=== PATIENT | female | born 1950 | race Caucasian/White ===

== ENCOUNTER 2019-11-14 15:13 | Emergency (ER) | payer BC, SELFPAY ==
[2019-11-14 15:28] VITALS: BP 132/80; PULSE 83; RESP 20; TEMP 36.9; O2SAT 98; BMI 33.2
--- NOTE | 2019-11-14 15:36 | HMH.EDUTC ---
[facility] [place] Impression: Cellulitis of left hand Insect bite Qualifiers: Encounter type: initial encounter Site of insect bite: hand Laterality: left Qualified Code(s): S60.562A - Insect bite (nonvenomous) of left hand, initial encounter Disposition: Home, Self-Care Condition on Discharge: Good Instructions: Cellulitis, Insect Bites and Stings, DI for Insect Bites and Stings Additional Instructions: Apply warm wet compresses to the affected sites three or four times per day for 15 minutes as tolerated. Take the antibiotics as directed and apply the topical medication as directed. Follow up with your regular doctor. GO TO THE ER FOR ANY WORSENING SYMPTOMS OR CONCERNS Prescriptions: Mupirocin [Bactroban 2% Ointment 22gm tube] 1 applicatio TP TID 7 Days #1 tube Transmission Status: Received by [id number] cephALEXin [Keflex 500mg Cap] 500 mg PO Q6H 10 Days #40 cap Transmission Status: Received by [id number] methylPREDNISolone [Medrol] 4 mg PO DIRECTED 6 Days #21 tab.ds.pk Transmission Status: Received by [facility] Referrals: Provider,Referral, [Primary Care Provider] - Time of Disposition: 15:49 Medical Decision Making - Medical Records Medical records reviewed: No: I reviewed the patient's medical records. - Hemal Inquiry Pt receiving controlled substance: No Vital Signs: 11/14/19 15:28 11/14/19 15:54 Temperature 98.5 F 98.5 F Temperature Source Oral Pulse Rate 83 Pulse Rate [Right Brachial] 83 Respiratory Rate 20 20 Blood Pressure 132/80 Blood Pressure [Right Arm] 132/80 Blood Pressure Mean [Right Arm] 97 Blood Pressure Source [Right Arm] Automatic Cuff Blood Pressure Position [Right Arm] Sitting 02 Sat by Pulse Oximetry 98 Oxygen Delivery Method Room Air [facility] [place] - General Stated complaint: Insect bite on L Hand Time Seen by Provider: 11/14/19 15:36 Mode of Arrival: Ambulatory Source of Information: Patient Limitations: No Limitations Description of Symptoms (Recalled from Triage Doc. by RN): PATIENT C/O UNKNOWN INSECT BITE TO LEFT HAND THAT IS SWELLING AND ITCHING HEENT Symptoms (Recalled from RN notes): No Resp Symptoms (Recalled from RN notes): No Skin Symptoms (Recalled from RN notes): Yes MS Symptoms (Recalled from RN notes): No Functional Status (Recalled from RN notes): WNL - History of Present Illness Provider Complaint: She states that she was working outside this morning in some weeds, when she felt the top of her left hand start to hurt and feel like something stung her or bit her. She states that since then she has had redness and swelling of the back of her hand. It is also painful to move her fingers or wrist. She denies any fever or chills or other complaints. - Related Data Home Medications Medication Instructions Recorded Confirmed anastrozole 1 mg tablet 1 mg PO DAILY 05/16/18 07/04/18 calcium carbonate 600 mg calcium 600 mg PO DAILY tab 05/16/18 07/04/18 (1,500 mg) tablet citalopram 10 mg tablet 20 mg PO DAILY tab 05/16/18 07/04/18 levothyroxine 25 mcg capsule 25 mcg PO DAILY 05/16/18 07/04/18 ranitidine HCl 150 mg capsule 150 mg PO DAILY 05/16/18 07/04/18 Previous Rx's Medication Instructions Recorded Mupirocin [Bactroban 2% Ointment 1 applicatio TP TID 7 Days #1 tube 11/14/19 22gm tube] cephALEXin [Keflex 500mg Cap] 500 mg PO Q6H 10 Days #40 cap 11/14/19 methylPREDNISolone [Medrol] 4 mg PO DIRECTED 6 Days #21 11/14/19 tab.ds.pk Allergies Allergy/AdvReac Type Severity Reaction Status Date / Time Sulfa (Sulfonamide Allergy Intermediate I-ITCHING Verified 07/04/18 13:58 Antibiotics) [SULFA (SULFONAMIDE ANTIBIOTICS)] - Worker's Comp Is this a Worker's Comp case?: No [facility] History - Hepatitis A Screen Drug use history?: No High risk sexual behaviors?: No History of sexually transmitted infection?: No Currently employed?: No [employer]
[2019-11-14 15:54] VITALS: BP 132/80; PULSE 83; RESP 20; TEMP 36.9; O2SAT 98
== END 2019-11-14 15:55 | disposition home or self-care (01) ==
PROVIDERS: Emergency Provider Nurse Practitioner Family
DX: L03.114 Cellulitis of left upper limb (principal); S60.562A Insect bite (nonvenomous) of left hand, initial encounter; W57.XXXA Bitten or stung by nonvenomous insect and other nonvenomous arthropods, initial encounter; K21.9 Gastro-esophageal reflux disease without esophagitis; E03.9 Hypothyroidism, unspecified; Z88.2 Allergy status to sulfonamides
CPT/HCPCS: 99201

== ENCOUNTER → 2020-01-19 10:13 | Outpatient (CLI) | payer BC, SELFPAY ==
[2020-01-19 10:34] LABS: Basophils # 0.1 K/mm3 (0-0.2); Eosinophils # 0.2 K/mm3 (0.0-0.4); Eosinophils % 3.7 % (0.1-12.0); Hematocrit 37.1 % (37.0-47.0); Lymphocytes % 35.3 % (10-50); Mean Corpuscular HGB Conc 32.2 g/dL (31.8-35.4); Mean Corpuscular Hemoglobin 31.3 pg (27.0-31.2); Mean Platelet Volume 8.5 fl (7.4-10.4); Monocytes # 0.3 K/mm3 (0.1-1.0); Monocytes % 5.4 % (1.7-9.3); Neutrophils # 3.1 K/mm3 (1.8-7.8); Neutrophils % 54.7 % (37.0-80.0); Platelet Count 234 K/mm3 (142-424); Red Blood Count 3.82 M/mm3 (4.20-5.40); Red Cell Distribution Width 14.2 % (11.5-17.5); White Blood Count 5.7 K/mm3 (4.8-10.8)
[2020-01-19 10:42] LABS: Occult Blood,Stool Negative (Negative)
[2020-01-19 11:27] LABS: Iron 78 ug/dL (37-170)
[2020-01-19 12:02] LABS: Ferritin 8.68 ng/ml (11.1-264)
[2020-01-20 10:17] LABS: Lithium (Eskalith(R)) <0.1 mmol/L (0.6-1.2)
[2020-01-21 15:10] LABS: Vitamin B12 522 pg/mL (232-1245)
== END ==
PROVIDERS: Visit Provider Surgery
DX: D64.9 Anemia, unspecified (principal)
CPT/HCPCS: 36415; 80178; 82272; 82607; 82728; 83540; 85025; G0328

== ENCOUNTER → 2020-02-12 15:58 | Outpatient (CLI) | payer BC, SELFPAY ==
[2020-02-12 18:39] LABS: Iron 46 ug/dL (37-170)
[2020-02-12 18:48] LABS: Total Iron Binding Capacity 407 ug/dL (265-497)
[2020-02-12 20:58] LABS: Coronavirus 19 IgG Antibody Negative (Negative); Coronavirus 19 IgM Antibody Negative (Negative)
== END ==
PROVIDERS: Visit Provider Surgery
DX: D64.9 Anemia, unspecified (principal); Z20.828 Contact with and (suspected) exposure to other viral communicable diseases
CPT/HCPCS: 36415; 83540; 83550; 86328

== ENCOUNTER 2020-02-13 09:53 | Day surgery (SDC) | payer BC, SELFPAY ==
[2020-02-08 14:56] VITALS: BMI 34.3
[2020-02-13 10:14] VITALS: BP 161/84; PULSE 72; RESP 18; TEMP 36.2; O2SAT 99
--- NOTE | 2020-02-13 11:01 | HMH.ANESCL ---
[facility] Anesthesia Checklist - Patient Identification Patient Identification: Arm Band, Verbal (Name & ) - Structural Data Admitted From: Home Planned Operative Procedure/s: egd Consent for Planned Operative Procedure(s) Verified: Yes Verified Documents: History and Physical - NPO Status Verified Time NPO: 00:00 - Additional verifications Patient : No Anesthesia Reactions: No Hx Blood Transfusions: No Blood Transfusion Reaction: No Cephalosporin Allergy: No Previous Colonoscopy: Yes - Cardiovascular Assessment Heart Sounds: S1 & S2 Pulse Strength: Baseline Pulse Rhythm: Regular Peripheral Edema: No - Airway Assessment C-Spine Mobility Assessed: Yes TMJ Mobility Assessed: Yes Dentition: Good Dentition - Neurological Assessment Level of Consciousness: Awake, Alert, Appropriate Hx Seizures: No Numbness or tingling in extremities: No - Anesthesia Plan Anesthesia Risk discussed: Yes ASA Class: II Anesthesia Type: MAC [facility] History I have reviewed the patient's past medical history: Yes Medical History: Reports:: Gastroesophageal Reflux Disease(GERD) Denies:: Cancer, Diabetes Mellitus Type 1, Diabetes Mellitus Type 2, Internal Pacemaker, Lung Disease, MRSA, Seizures *Have you ever received a pneumonia vaccine?: Yes *Have you received a flu vaccine this season?: Yes Other Medical History: Reports: Hypothyroidism, Other Anesthesia experience/problems:: none Other Surgeries: Yes: Colonoscopy, Other. No: Pacemaker Amputation: No Fractures: Yes (WRIST) - *Social History Last grade of school completed: Advanced degree Smoking Status: Never smoker Alcohol Intake: never Substance Use Type: denies use *Occupational Status:: employed *Travel in the last 8 weeks: None Family Hx:: Non-contributory
[2020-02-13 11:58] VITALS: O2SAT 99
--- NOTE | 2020-02-13 12:21 | P.PCN_ITS ---
- Procedure: Date: 02/13/20 Patient Date of :: 1950 Procedure Performed:: Esophagogastroduodenoscopy with biopsies Indications:: Patient presents for upper endoscopy. She is a 69-year-old female who is relatively well known to me. It was recommended she see me for evaluation for anemia. I had seen her in 2009 at which time she underwent upper endoscopy which revealed ulcer. This ultimately had healed. She also had colonoscopy in 2009. Repeat colonoscopy was done in 2019, 06/14/2018 which revealed diverticulosis, internal hemorrhoids, and a couple of tubular adenomas. It was recommended she undergo follow-up colonoscopy in 5 years. Recently patient was seen by a physician in [place] and routine blood work reportedly revealed anemia. Patient denies any symptomatology. She did bring in a stool sample for me to look at as she stated it may be dark. Denies any obvious symptoms consistent with melena or hematochezia. I had her undergo CBC which revealed a hemoglobin of 12. Iron level was unremarkable. Stool for Hemoccult was negativ e. Plan was made to proceed with upper endoscopy. Performing Provider:: Keven Marie MD Referring Provider:: Teja Sedation:: MAC sedation Procedure:: Patient was taken to endoscopy procedure room. She was positioned in a lateral cubitus position. Adequate intravenous sedation was achieved with anesthesia titration of propofol. Olympus endoscope was inserted via the oropharynx advanced to the esophagus which appeared relatively unremarkable. Gastroesophageal junction was encountered at approximately 40 cm from the incisors. Stomach was cannulated and insufflated. Retroflexion revealed a moderate sliding hiatal hernia. She also had a gastric diverticulum near the cardia. In the antrum there is evidence of some erosive gastritis. Gastric antral mucosal biopsies obtained for CLOtest for H. pylori. Biopsies were obtained of the gastric mucosa to assess the erosive gastritis. Pylorus was traversed. There was possibly some minor duodenitis, nonerosive. At this time the patient did have some diminishing saturations. Endoscope was withdrawn. She was given supplemental oxygen via bag valve mask which resulted in improvement of her oxygen saturations. Endoscope was then reinserted to inspect the biopsy sites. There appeared to be good hemostasis. Stomach was d esufflated and the endoscope was withdrawn. Findings:: Moderate sliding hiatal hernia Gastric diverticulum Erosive gastritis Recommendations:: I will follow-up on histopathology and H. pylori status. May require proton pump inhibitors and H. pylori therapy if necessary. Complications:: None immediately apparent Estimated blood obtained (mL): 3
[2020-02-13 12:24] VITALS: BP 141/81; PULSE 85; RESP 18; TEMP 36.4; O2SAT 93
[2020-02-13 12:34] VITALS: BP 129/85; PULSE 63; RESP 18; TEMP 36.4; O2SAT 92
[2020-02-13 12:44] VITALS: BP 131/88; PULSE 64; RESP 18; TEMP 36.4; O2SAT 93
[2020-02-13 12:55] VITALS: BP 131/88; PULSE 64; RESP 18; TEMP 36.4; O2SAT 93
== END 2020-02-13 12:55 | disposition home or self-care (01) ==
PROVIDERS: Visit Provider Surgery
PROC: 0DJ08ZZ Inspection of Upper Intestinal Tract, Via Natural or Artificial Opening Endoscopic (ICD-10-PCS; CPT 43235; principal; 2020-02-13 11:00)
DX: K31.4 Gastric diverticulum (principal); K29.60 Other gastritis without bleeding; K44.9 Diaphragmatic hernia without obstruction or gangrene; D64.9 Anemia, unspecified; Z87.19 Personal history of other diseases of the digestive system; Z86.010 Personal history of colon polyps; E03.9 Hypothyroidism, unspecified; Z88.2 Allergy status to sulfonamides; Z79.899 Other long term (current) drug therapy
CPT/HCPCS: 43239; 87339

== ENCOUNTER 2020-12-07 16:00 | Emergency (ER) | payer BC, SELFPAY ==
[2020-12-07 16:00] VITALS: BP 169/91; PULSE 78; RESP 18; TEMP 36.9; O2SAT 98; BMI 34.6
--- NOTE | 2020-12-07 16:16 | HMH.EDUTC ---
[facility] Disposition Clinical Impression: Cat bite of hand Qualifiers: Encounter type: initial encounter Laterality: left Qualified Code(s): S61.452A - Open bite of left hand, initial encounter; W55.01XA - Bitten by cat, initial encounter Disposition: Home, Self-Care Condition on Discharge: Good Instructions: DI for Cat Bite Additional Instructions: keep wound clean and dry watch for s/s of infection follow up with pcp this week return or be seen in ed if worsen or no improvement Prescriptions: Amoxicillin/Potassium Clav [Augmentin 875-125 Tablet] 1 tab PO Q12H 7 Days #14 tab Transmission Status: Pending to [id number] Referrals: Adrienne Medina MD [Primary Care Provider] - Time of Disposition: 16:27 Medical Decision Making - Hemal Inquiry Pt receiving controlled substance: No Vital Signs: 12/07/20 16:00 Temperature 98.5 F Temperature Source Oral Pulse Rate [Left Brachial] 78 Respiratory Rate 18 Blood Pressure [Left Arm] 169/91 H Blood Pressure Mean [Left Arm] 117 Blood Pressure Source [Left Arm] Automatic Cuff Blood Pressure Position [Left Arm] Sitting 02 Sat by Pulse Oximetry 98 Oxygen Delivery Method Room Air [facility] HPI - General Chief complaint: Urgent Treatment Center Stated complaint: Cat bite left thumb Time Seen by Provider: 12/07/20 16:17 Mode of Arrival: Ambulatory Source of Information: Patient Limitations: No Limitations Description of Symptoms (Recalled from Triage Doc. by RN): PATIENT C/O CAT BITE TO LEFT THUMB TODAY. PATIENT IS UP TO DATE ON TDAP, CAT IS UP TO DATE ON IMMUNIZATIONS HEENT Symptoms (Recalled from RN notes): No Resp Symptoms (Recalled from RN notes): No Skin Symptoms (Recalled from RN notes): Yes MS Symptoms (Recalled from RN notes): No Functional Status (Recalled from RN notes): WNL - History of Present Illness Provider Complaint: 70 yr old female present for cat bite to left thumb. cat vaccines utd and her tetnus up to date - Related Data Home Medications Medication Instructions Recorded Confirmed anastrozole 1 mg tablet 1 mg PO DAILY 05/16/18 03/01/20 calcium carbonate 600 mg calcium 600 mg PO DAILY tab 05/16/18 03/01/20 (1,500 mg) tablet citalopram 10 mg tablet 20 mg PO DAILY tab 05/16/18 03/01/20 levothyroxine 25 mcg capsule 25 mcg PO DAILY 05/16/18 03/01/20 calcium polycarbophil 625 mg tablet 1,250 mg PO DAILY 01/19/20 03/01/20 cholecalciferol (vitamin D3) 10 10 mcg PO DAILY 01/19/20 03/01/20 mcg (400 unit) capsule dicyclomine 10 mg capsule 10 mg PO BID 01/19/20 03/01/20 famotidine 20 mg tablet 20 mg PO DAILY 01/19/20 03/01/20 Ferrous Sulfate [Ferrous Sulfate 325 mg PO DAILY 02/08/20 03/01/20 325mg Tab] Potassium 99 mg PO DAILY 02/08/20 03/01/20 Diclofenac Potassium [Diclofenac 50 mg PO BID 02/13/20 03/01/20 50mg Tab] Diclofenac Sodium [Voltaren 100gm 100 gm TP DAILY 02/13/20 03/01/20 Topical Gel] hydroxyzine HCl 25 mg tablet 25 mg PO tab 03/01/20 03/01/20 pramipexole 0.25 mg tablet 0.5 mg PO DAILY tab 03/01/20 03/01/20 trazodone 50 mg tablet 50 mg PO tab 03/01/20 03/01/20 Previous Rx's Medication Instructions Recorded Amoxicillin/Potassium Clav 1 tab PO Q12H 7 Days #14 tab 12/07/20 [Augmentin 875-125 Tablet] Allergies Allergy/AdvReac Type Severity Reaction Status Date / Time Sulfa (Sulfonamide Allergy Intermediate I-ITCHING Verified 03/01/20 09:26 Antibiotics) [SULFA (SULFONAMIDE ANTIBIOTICS)] - Worker's Comp Is this a Worker's Comp case?: No [facility] History - Hepatitis A Screen Drug use history?: No High risk sexual behaviors?: No History of sexually transmitted infection?: No Currently employed?: No Childcare worker?: No Do you have indoor plumbing?: Yes Do you have electricity?: Yes Attestation statement:: This patient has been screened for Hepatitis A risk factors. I have reviewed the patient's past medical history: Yes Medical History: Reports:: Gastroesophageal Re
[2020-12-07 16:27] VITALS: BP 169/91; PULSE 78; RESP 18; TEMP 36.9; O2SAT 98
== END 2020-12-07 16:30 | disposition home or self-care (01) ==
PROVIDERS: Emergency Provider Nurse Practitioner Family; PCP Family Medicine
DX: S61.452A Open bite of left hand, initial encounter (principal); W55.01XA Bitten by cat, initial encounter; Z88.2 Allergy status to sulfonamides; K21.9 Gastro-esophageal reflux disease without esophagitis

== ENCOUNTER 2021-03-09 16:00 | Emergency (ER) | payer BC, SELFPAY ==
[2021-03-09 16:15] VITALS: BP 147/75; PULSE 88; RESP 19; TEMP 36.8; O2SAT 96; BMI 33.3
--- NOTE | 2021-03-09 16:52 | HMH.EDUTC ---
[facility] [place] Clinical Impression: Laceration of right index finger Qualifiers: Encounter type: initial encounter Damage to nail status: without damage Foreign body presence: without foreign body Qualified Code(s): S61.210A - Laceration without foreign body of right index finger without damage to nail, initial encounter Disposition: Home, Self-Care Condition on Discharge: Good Instructions: DI for Laceration Repair-Skin Glue Additional Instructions: Keep the wound clean and dry. Don't peel the dermabond glue off. Just let it peel off on its own. Watch the site for any signs of infection, such as redness, swelling, drainage, etc. Follow up with your primary care doctor. GO TO THE ER FOR ANY WORSENING SYMPTOMS OR CONCERNS Referrals: Adrienne Medina MD [Primary Care Provider] - Medical Decision Making - Medical Records Medical records reviewed: No: I reviewed the patient's medical records. - Hemal Inquiry Pt receiving controlled substance: No Vital Signs: 03/09/21 16:15 03/09/21 17:17 Temperature 98.3 F 98.3 F Temperature Source Oral Pulse Rate 88 Pulse Rate [Left] 88 Respiratory Rate 19 19 Blood Pressure 147/75 H Blood Pressure [Right Arm] 147/75 H Blood Pressure Mean [Right Arm] 99 02 Sat by Pulse Oximetry 96 Orders (Tests/Meds): ED MEDICATIONS Discontinued Medications Generic Name Dose Route Start Last Admin Trade Name Freq PRN Reason Stop Dose Admin Lidocaine HCl 5 ml 03/09/21 16:25 Lidocaine 1% 5ml Pf Vial IJ 03/09/21 16:26 ONCE ONE [facility] [place] HPI - General Stated complaint: AO cut finger on mandolin slicer Time Seen by Provider: 03/09/21 16:52 Mode of Arrival: Ambulatory Source of Information: Patient Limitations: No Limitations Description of Symptoms (Recalled from Triage Doc. by RN): pt has a lac to the pad of her R index finger from a mandolin slicer HEENT Symptoms (Recalled from RN notes): No Resp Symptoms (Recalled from RN notes): No Skin Symptoms (Recalled from RN notes): Yes (lac to R index finger) MS Symptoms (Recalled from RN notes): No Functional Status (Recalled from RN notes): na - History of Present Illness Provider Complaint: She was slicing potatoes on a mandolin slicer when she slipped and cut the tip of her right index finger. She has a flap type laceration on her finger. Her tetanus immunization is up to date. - Related Data Home Medications Medication Instructions Recorded Confirmed anastrozole 1 mg tablet 1 mg PO DAILY 05/16/18 03/01/20 calcium carbonate 600 mg calcium 600 mg PO DAILY tab 05/16/18 03/01/20 (1,500 mg) tablet citalopram 10 mg tablet 20 mg PO DAILY tab 05/16/18 03/01/20 levothyroxine 25 mcg capsule 25 mcg PO DAILY 05/16/18 03/01/20 calcium polycarbophil 625 mg tablet 1,250 mg PO DAILY 01/19/20 03/01/20 cholecalciferol (vitamin D3) 10 10 mcg PO DAILY 01/19/20 03/01/20 mcg (400 unit) capsule dicyclomine 10 mg capsule 10 mg PO BID 01/19/20 03/01/20 famotidine 20 mg tablet 20 mg PO DAILY 01/19/20 03/01/20 Ferrous Sulfate [Ferrous Sulfate 325 mg PO DAILY 02/08/20 03/01/20 325mg Tab] Potassium 99 mg PO DAILY 02/08/20 03/01/20 Diclofenac Potassium [Diclofenac 50 mg PO BID 02/13/20 03/01/20 50mg Tab] Diclofenac Sodium [Voltaren 100gm 100 gm TP DAILY 02/13/20 03/01/20 Topical Gel] hydroxyzine HCl 25 mg tablet 25 mg PO tab 03/01/20 03/01/20 pramipexole 0.25 mg tablet 0.5 mg PO DAILY tab 03/01/20 03/01/20 trazodone 50 mg tablet 50 mg PO tab 03/01/20 03/01/20 Previous Rx's Medication Instructions Recorded Amoxicillin/Potassium Clav 1 tab PO Q12H 7 Days #14 tab 12/07/20 [Augmentin 875-125 Tablet] Allergies Allergy/AdvReac Type Severity Reaction Status Date / Time Sulfa (Sulfonamide Allergy Intermediate I-ITCHING Verified 03/01/20 09:26 Antibiotics) [SULFA (SULFONAMIDE ANTIBIOTICS)] - Worker's Comp Is this a Worker's Comp case?: No H History -
[2021-03-09 17:17] VITALS: BP 147/75; PULSE 88; RESP 19; TEMP 36.8
== END 2021-03-09 17:18 | disposition home or self-care (01) ==
PROVIDERS: Emergency Provider Nurse Practitioner Family; PCP Family Medicine
DX: S61.210A Laceration without foreign body of right index finger without damage to nail, initial encounter (principal); Z79.899 Other long term (current) drug therapy
CPT/HCPCS: 12001; 99202; G0463

== ENCOUNTER 2021-03-15 10:20 | Emergency (ER) | payer BC, SELFPAY ==
[2021-03-15 10:20] VITALS: BP 183/85; PULSE 62; RESP 20; TEMP 36.4; O2SAT 95; BMI 32.3
--- NOTE | 2021-03-15 10:27 | XR_ITS ---
PROCEDURE INFORMATION: Exam: XR Left Knee Exam date and time: 03/15/2021 10:27 AM Age: 70 years old Clinical indication: Injury or trauma; Fall; Blunt trauma; Knee; Left; Injury date: 3 weeks ago; Additional info: Pain from a fall TECHNIQUE: Imaging protocol: XR Left knee. Views: 3 views. COMPARISON: No relevant prior studies available. FINDINGS: Bones/joints: No acute fracture or dislocation. No significant joint effusion. Soft tissues: Suprapatellar soft tissue swelling, hematoma suspected. IMPRESSION: 1. No acute fracture or dislocation. 2. Suprapatellar soft tissue swelling, hematoma suspected.
--- NOTE | 2021-03-15 10:52 | HMH.EDUTC ---
[facility] [place]: Knee effusion, left Disposition: Home, Self-Care Condition on Discharge: Good Instructions: DI for Knee Effusion Additional Instructions: Weight bearing as tolerated rest Ice with cold pack for 20 minutes remove may repeat for comfort every hour Adrian wrap for support and swelling no less in the shower. Be sure not too tight but not to lose either Elevate with ankle above your heart as much as possible to help reduce swelling and therefore pain Ibuprofen every 6 hours as needed for pain or inflammation. If needs something more you can take Tylenol every 4 hours as needed as long as her primary care has told he was okayed for you to take both. If improving any do not need to follow-up you can bring begin exercising 2-3 weeks after injury. Follow-up immediately if new or worsening symptoms or no noticeable improvement over the next 3-5 days. call ortho Referrals: Adrienne Medina MD [Primary Care Provider] - Yared Caruso MD [Staff Physician] - Time of Disposition: 11:12 Medical Decision Making - Hemal Inquiry Pt receiving controlled substance: No Vital Signs: 03/15/21 10:20 Temperature 97.6 F Temperature Source Oral Pulse Rate [Right Brachial] 62 Respiratory Rate 20 Blood Pressure [Right Arm] 183/85 H Blood Pressure Mean [Right Arm] 117 Blood Pressure Source [Right Arm] Automatic Cuff Blood Pressure Position [Right Arm] Sitting 02 Sat by Pulse Oximetry 95 Oxygen Delivery Method Room Air Orders (Tests/Meds): ORDERS Category Date Time Status XR knee LT 3V Stat Exams 03/15/21 10:27 Taken [facility] [place] - General Chief complaint: Urgent Treatment Center Stated complaint: AO 0925, left knee pain Time Seen by Provider: 03/15/21 10:52 Mode of Arrival: Ambulatory Source of Information: Patient Limitations: No Limitations Description of Symptoms (Recalled from Triage Doc. by RN): PATIENT C/O SWELLING TO LEFT KNEE. REPORTS FALLING AND LANDING ON THAT KNEE APPROX 3 WEEKS AGO HEENT Symptoms (Recalled from RN notes): No Resp Symptoms (Recalled from RN notes): No Skin Symptoms (Recalled from RN notes): No MS Symptoms (Recalled from RN notes): Yes Functional Status (Recalled from RN notes): WNL - Related Data Home Medications Medication Instructions Recorded Confirmed anastrozole 1 mg tablet 1 mg PO DAILY 05/16/18 03/01/20 calcium carbonate 600 mg calcium 600 mg PO DAILY tab 05/16/18 03/01/20 (1,500 mg) tablet citalopram 10 mg tablet 20 mg PO DAILY tab 05/16/18 03/01/20 levothyroxine 25 mcg capsule 25 mcg PO DAILY 05/16/18 03/01/20 calcium polycarbophil 625 mg tablet 1,250 mg PO DAILY 01/19/20 03/01/20 cholecalciferol (vitamin D3) 10 10 mcg PO DAILY 01/19/20 03/01/20 mcg (400 unit) capsule dicyclomine 10 mg capsule 10 mg PO BID 01/19/20 03/01/20 famotidine 20 mg tablet 20 mg PO DAILY 01/19/20 03/01/20 Ferrous Sulfate [Ferrous Sulfate 325 mg PO DAILY 02/08/20 03/01/20 325mg Tab] Potassium 99 mg PO DAILY 02/08/20 03/01/20 Diclofenac Potassium [Diclofenac 50 mg PO BID 02/13/20 03/01/20 50mg Tab] Diclofenac Sodium [Voltaren 100gm 100 gm TP DAILY 02/13/20 03/01/20 Topical Gel] hydroxyzine HCl 25 mg tablet 25 mg PO tab 03/01/20 03/01/20 pramipexole 0.25 mg tablet 0.5 mg PO DAILY tab 03/01/20 03/01/20 trazodone 50 mg tablet 50 mg PO tab 03/01/20 03/01/20 Previous Rx's Medication Instructions Recorded Amoxicillin/Potassium Clav 1 tab PO Q12H 7 Days #14 tab 12/07/20 [Augmentin 875-125 Tablet] Allergies Allergy/AdvReac Type Severity Reaction Status Date / Time Sulfa (Sulfonamide Allergy Intermediate I-ITCHING Verified 03/01/20 09:26 Antibiotics) [SULFA (SULFONAMIDE ANTIBIOTICS)] - Worker's Comp Is this a Worker's Comp case?: No H History - Hepatitis A Screen Drug use history?: No High risk sexual behaviors?: No History of sexually transmitted infection?: No Currently employed?: No Childcare 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
[2021-03-15 11:14] VITALS: BP 183/85; PULSE 62; RESP 20; TEMP 36.4; O2SAT 95
== END 2021-03-15 11:19 | disposition home or self-care (01) ==
PROVIDERS: Emergency Provider Nurse Practitioner Family; PCP Family Medicine
DX: M25.462 Effusion, left knee (principal); W01.0XXA Fall on same level from slipping, tripping and stumbling without subsequent striking against object, initial encounter; K21.9 Gastro-esophageal reflux disease without esophagitis; Z88.2 Allergy status to sulfonamides
CPT/HCPCS: 73562; 99202; G0463

== ENCOUNTER 2022-01-13 08:24 | Emergency (ER) | payer MEDICARE, SELFPAY ==
[2022-01-13 08:30] VITALS: BP 148/76; PULSE 77; RESP 18; TEMP 36.8; O2SAT 98; BMI 31.1
--- NOTE | 2022-01-13 08:45 | HMH.EDUTC ---
[facility] [place] Disposition Clinical Impression: Bee sting reaction Qualifiers: Encounter type: initial encounter Injury intent: undetermined intent Qualified Code(s): T63.444A - Toxic effect of venom of bees, undetermined, initial encounter Disposition: Home, Self-Care Condition on Discharge: Good Instructions: Insect Bites and Stings, DI for Insect Bites and Stings, DI for General Allergic Reactions Additional Instructions: Care for a bite or sting wound: Elevate (raise) the area above the level of your heart, if possible. Prop the area on pillows to keep it raised comfortably. Elevate the area for 10 to 20 minutes each hour or as directed by your healthcare provider. Use cool compresses. Soak a clean washcloth in cold water, wring it out, and put it on the bite or sting. Use the compress for 10 to 20 minutes each hour or as directed by your healthcare provider. After 24 to 48 hours, change to warm compresses Over the counter Benadryl and Claritian may help with itching and reactions Start oral steriods tomorrow Return if needed Straight to ER if you start having any shortness of breath or swelling in your throat. Prescriptions: methylPREDNISolone [Medrol 4mg tab] 4 mg PO DIRECTED #21 tab Transmission Status: Received by [id number] Referrals: Adrienne Medina MD [Primary Care Provider] - As needed Time of Disposition: 09:14 Medical Decision Making - Hemal Inquiry Pt receiving controlled substance: No Hemal was queried for this patient: No Vital Signs: 01/13/22 08:30 01/13/22 08:54 Temperature 98.3 F 98.3 F Temperature Source Oral Pulse Rate 77 Pulse Rate [Right Brachial] 77 Respiratory Rate 18 18 Blood Pressure 148/76 H Blood Pressure [Right Arm] 148/76 H Blood Pressure Mean [Right Arm] 100 Blood Pressure Source [Right Arm] Automatic Cuff Blood Pressure Position [Right Arm] Sitting 02 Sat by Pulse Oximetry 98 Oxygen Delivery Method Room Air Orders (Tests/Meds): ED MEDICATIONS Discontinued Medications Generic Name Dose Route Start Last Admin Trade Name Freq PRN Reason Stop Dose Admin Famotidine 20 mg 01/13/22 08:46 01/13/22 08:51 Famotidine 20mg Tablet PO 01/13/22 08:47 20 mg ONCE ONE Administration Loratadine 10 mg 01/13/22 08:47 01/13/22 08:50 Loratadine 10mg Tablet PO 01/13/22 08:48 10 mg ONCE ONE Administration Methylprednisolone Sodium Succinate 125 mg 01/13/22 08:46 01/13/22 08:51 Methylprednisolone Sod Succ 125mg Vial IM 01/13/22 08:47 125 mg ONCE ONE Administration [facility] [place] HPI - General Stated complaint: Reaction to bee sting Time Seen by Provider: 01/13/22 08:45 Mode of Arrival: Ambulatory Source of Information: Patient Limitations: No Limitations Description of Symptoms (Recalled from Triage Doc. by RN): PATIENT STATES SHE WAS MOVING A BOX ON THE PORCH AND DID NOT KNOW THERE WERE BEES IN IT, C/O SEVERAL BEE STINGS HEENT Symptoms (Recalled from RN notes): No Resp Symptoms (Recalled from RN notes): No Skin Symptoms (Recalled from RN notes): Yes MS Symptoms (Recalled from RN notes): No Functional Status (Recalled from RN notes): WNL - History of Present Illness Provider Complaint: Patient states that she was moving a box on her front porch and there was a hive of bees in there States that she was stung multiple times on her neck, right arm, side and back States that she immediately took some benadryl but she was turning red and starting to swell some so she came in to get checked - Related Data Home Medications Medication Instructions Recorded Confirmed anastrozole 1 mg tablet 1 mg PO DAILY 05/16/18 03/25/21 calcium carbonate 600 mg calcium 600 mg PO DAILY tab 05/16/18 03/25/21 (1,500 mg) tablet citalopram 10 mg tablet 20 mg PO DAILY tab 05/16/18 03/25/21 levothyroxine 25 mcg capsule 25 mcg PO DAILY 05/16/18 03/25/21 calcium polycarbophil 625 mg tablet 1,250 mg PO DAILY 01/19/20 03/25/21 cholecalciferol (vitamin D3) 10 10 m
[2022-01-13 08:54] VITALS: BP 148/76; PULSE 77; RESP 18; TEMP 36.8; O2SAT 98
== END 2022-01-13 09:20 | disposition home or self-care (01) ==
PROVIDERS: Emergency Provider Nurse Practitioner; PCP Family Medicine
DX: T63.444A Toxic effect of venom of bees, undetermined, initial encounter (principal); K21.9 Gastro-esophageal reflux disease without esophagitis; E03.9 Hypothyroidism, unspecified; Z79.52 Long term (current) use of systemic steroids; Z88.2 Allergy status to sulfonamides
CPT/HCPCS: 96372; 99213; G0463

== ENCOUNTER 2022-04-24 08:01 | Emergency (ER) | payer MEDICARE, SELFPAY ==
[2022-04-24 08:10] VITALS: BP 135/89; PULSE 96; RESP 20; TEMP 37.2; O2SAT 97; BMI 33.4
--- NOTE | 2022-04-24 08:35 | EXP.UTC ---
Discharge Plan Disposition Patient Disposition: Home, Self-Care Condition: Good Prescriptions Prescriptions: New benzonatate [benzonatate] 100 mg capsule 100 mg PO TIDP PRN (Reason: Cough) Qty: 30 0RF oseltamivir [Tamiflu] 75 mg capsule 75 mg PO BID Qty: 10 0RF No Action anastrozole 1 mg tablet 1 mg PO DAILY levothyroxine 25 mcg capsule 25 mcg PO DAILY citalopram 10 mg tablet 20 mg PO DAILY calcium carbonate 600 mg calcium (1,500 mg) tablet 600 mg PO DAILY cholecalciferol (vitamin D3) [Vitamin D3] 10 mcg (400 unit) capsule 10 mcg PO DAILY calcium polycarbophil [FiberCon] 625 mg tablet 1,250 mg PO DAILY famotidine 20 mg tablet 20 mg PO DAILY pramipexole 0.25 mg tablet 0.5 mg PO DAILY hydroxyzine HCl 25 mg tablet 25 mg PO Label Comments: TAKE 1 TABLET BY MOUTH AT BEDTIME NEEDED trazodone 50 mg tablet 50 mg PO potassium 99 MG tablet 99 mg PO DAILY ferrous sulfate 325 MG tablet 325 mg PO DAILY diclofenac potassium 50 MG tablet 50 mg PO BID diclofenac sodium 100 GM gel 100 gm TP DAILY methylprednisolone 4 MG tablet 4 mg PO DIRECTED Qty: 21 0RF Rx Instructions: Take as directed on package instructions Referrals Follow up/Referrals: Provider,Referral, MD [Primary Care Provider] - See instructions Activity Restrictions/Add. Instructions Additional Instructions/Restrictions: Drink plenty of fluids. Take tylenol or ibuprofen for pain or fever. Take the medications as directed. Follow up with your regular doctor. GO TO THE ER FOR ANY WORSENING SYMPTOMS Clinical Impressions Clinical Impression: Influenza A Instructions Patient Instructions: DI for Influenza -- Adult, Oseltamivir Discharge ED Provider: Osmar Lopez [facility] General Stated complaint: cough, weakness, runny nose Mode of Arrival: Ambulatory Source of Information: Patient Limitations: No Limitations Time Seen by Provider: 04/24/22 08:35 Description of Symptoms (Recalled from Triage Doc. by RN): PATIENT C/O DRY COUGH, SORE THROAT, AND HEADACHE THAT STARTED WEDNESDAY AFTERNOON HEENT Symptoms (Recalled from RN notes): Yes Resp Symptoms (Recalled from RN notes): Yes Skin Symptoms (Recalled from RN notes): No MS Symptoms (Recalled from RN notes): No Functional Status (Recalled from RN notes): WNL History of Present Illness Provider Complaint: She states that for the past 2 days she has had cough, chest congestion, sinus congestion, and body aches. Related Data Home Medications Medication Instructions Recorded Confirmed anastrozole 1 mg tablet 1 mg PO DAILY decrease estrogen 05/16/18 03/25/21 calcium carbonate 600 mg calcium 600 mg PO DAILY Supplement 05/16/18 03/25/21 (1,500 mg) tablet citalopram 10 mg tablet 20 mg PO DAILY Anxiety 05/16/18 03/25/21 levothyroxine 25 mcg capsule 25 mcg PO DAILY thyroid 05/16/18 03/25/21 calcium polycarbophil 625 mg 1,250 mg PO DAILY Supplement 01/19/20 03/25/21 tablet (FiberCon) cholecalciferol (vitamin D3) 10 10 mcg PO DAILY Supplement 01/19/20 03/25/21 mcg (400 unit) capsule (Vitamin D3) famotidine 20 mg tablet 20 mg PO DAILY Reflux/Acid reflux 01/19/20 03/25/21 ferrous sulfate 325 mg (65 mg 325 mg PO DAILY Supplement 02/08/20 03/25/21 iron) tablet potassium 99 mg tablet 99 mg PO DAILY Supplement 02/08/20 03/25/21 diclofenac potassium 50 mg tablet 50 mg PO BID Pain 02/13/20 03/25/21 diclofenac sodium 1 % topical gel 100 gm TP DAILY Pain 02/13/20 03/25/21 hydroxyzine HCl 25 mg tablet 25 mg PO 03/01/20 03/25/21 pramipexole 0.25 mg tablet 0.5 mg PO DAILY * 03/01/20 03/25/21 trazodone 50 mg tablet 50 mg PO 03/01/20 03/25/21 Previous Rx's Medication Instructions Recorded methylprednisolone 4 mg tablet 4 mg PO DIRECTED #21 tabs 01/13/22 benzonatate 100 mg capsule 100 mg PO TIDP PRN Cough #30 caps 04/24/22 oseltamivir 75 mg capsule (Tamiflu) 75 mg PO
[2022-04-24 08:39] LABS: UTC Influenza A Antigen Positive (Negative); UTC Influenza B Antigen Negative (Negative)
[2022-04-24 08:50] VITALS: BP 135/89; PULSE 96; RESP 20; TEMP 37.2; O2SAT 97
== END 2022-04-24 08:52 | disposition home or self-care (01) ==
PROVIDERS: Emergency Provider Nurse Practitioner Family
DX: J10.1 Influenza due to other identified influenza virus with other respiratory manifestations (principal)
CPT/HCPCS: 87804; 99212; G0463

== ENCOUNTER 2022-06-12 06:30 | Day surgery (SDC) | payer MEDICARE, SELFPAY ==
[2022-06-10 10:03] VITALS: BMI 32.5
[2022-06-12] VITALS (8 sets, daily range): BP systolic 90–166; BP diastolic 60–93; PULSE 64–80; RESP 15–19; TEMP 36.1–36.3; O2SAT 94–98
--- NOTE | 2022-06-12 07:08 | P.PN_ITS ---
[facility] Disclaimer: The information contained in this section may have been updated after the patient was seen, as this information can be updated by other users. Medical History Hyperthyroidism Surgical History History of carpal tunnel release History of surgery on right wrist History of tonsillectomy Family History Other No significant family history Social History Smoking Status: Never smoker alcohol intake: never substance use type: denies use current occupational status: other Travel in the last 8 weeks: None caffeine: Yes [facility] Anesthesia Checklist Patient Identification Patient Identification: Arm Band and Verbal (Name & ) Structural Data Admitted From: Home Planned Operative Procedure/s: Colonoscopy Consent for Planned Operative Procedure(s) Verified: Yes NPO Status Verified Time NPO: 00:00 Additional verifications Anesthesia Reactions: No Hx Blood Transfusions: No Blood Transfusion Reaction: No Airway Assessment C-Spine Mobility Assessed: Yes TMJ Mobility Assessed: Yes Dentition: Good Dentition Neurological Assessment Level of Consciousness: Awake Hx Seizures: No Numbness or tingling in extremities: No Anesthesia Plan Anesthesia Risk discussed: Yes Anesthesia Plan: Verified ASA Class: II Anesthesia Type: MAC
--- NOTE | 2022-06-12 08:08 | P.PCN_ITS ---
Procedure: Date: 06/12/22 Patient Date of :: 1950 Procedure Performed:: Colonoscopy with polypectomy Indications:: Patient is a 72-year-old female who I have seen in the past for ulcer and performed upper endoscopy. I had previously performed colonoscopy in 2009 and she had another colonoscopy performed May 2018 at which time she had some adenomatous polyps. Follow-up colonoscopy was recommended for 3 years. Performing Provider:: Keven Marie MD Referring Provider:: Adrienne Medina Sedation:: MAC sedation Procedure:: Patient history was obtained and appropriate physical examination was performed. Patient's medications and allergies were reviewed. Informed consent was obtained after explaining the benefits, alternatives, and risks of the procedure including, but not limited to, bleeding, perforation, missed lesions, and adverse reaction to anesthesia medications. Patient was transported to endoscopy procedure room. Patient was connected to monitoring devices. Throughout the procedure the patient's blood pressure, pulse, and oxygen saturations were monitored continuously. Patient identification and planned procedure were verified by the staff. Patient was positioned in lateral decubitus position. Digital anorectal exam was performed. Variable stiffness Olympus colonoscope was inserted and advanced under direct visualization to the cecum. Adequacy of the colonic prepa ration was noted. The colonoscope was advanced a short distance into the terminal ileum. The colonoscope was then slowly withdrawn while carefully examining the color, texture, anatomy, and integrity of the mucosoa circumferentially. Within the rectum retroflexion was performed. Colonoscope was then withdrawn. Findings:: Colonoscope was advanced. Patient had a rather fair to poor preparation with large amount of very dark black particulate liquid stool throughout the colon. Large-volume irrigation and suctioning was performed and there was fair preparation. Ileocecal valve and appendiceal orifice were identified. There was noted to be a small polyp in the descending colon at approximately 70 cm from the anus and this was removed with cold snare. There was a rectosigmoid polyp removed with biopsy forceps. She had some distal sigmoid diverticuli. Retroflexion revealed some minimal prolapsing nonbleeding internal hemorrhoids. Impression: Fair to poor preparation as noted above Small descending polyp removed with snare Rectosigmoid hyperplastic appearing polyp removed with biopsy forceps Distal sigmoid diverticuli Recommendations:: Given suboptimal preparation with limited visualization and prior history of adenomatous polyps recommend repeat colonoscopy in 1 to 2 years with multi day prep. Complications:: None immediately apparent Estimated blood obtained (mL): 1
--- NOTE | 2022-06-12 09:31 | SUR.PHASEII ---
Verbal order per MD Mannran to continue all current medications for pt's discharge today
== END 2022-06-12 09:45 | disposition home or self-care (01) ==
PROVIDERS: Visit Provider Surgery
PROC: 0DJD8ZZ Inspection of Lower Intestinal Tract, Via Natural or Artificial Opening Endoscopic (ICD-10-PCS; principal; 2022-06-12 07:30)
DX: Z12.11 Encounter for screening for malignant neoplasm of colon (principal); D12.4 Benign neoplasm of descending colon; Z86.010 Personal history of colon polyps; Z79.899 Other long term (current) drug therapy
CPT/HCPCS: 45380; 45385

== ENCOUNTER 2022-08-05 10:07 | Emergency (ER) | payer MEDICARE, SELFPAY ==
[2022-08-05 10:15] VITALS: BP 183/90; PULSE 68; RESP 20; TEMP 36.7; O2SAT 97; BMI 34.9
--- NOTE | 2022-08-05 10:21 | EXP.UTC ---
Discharge Plan Disposition Patient Disposition: Home, Self-Care Condition: Good Prescriptions Prescriptions: New azithromycin [Zithromax] 250 mg tablet 250 mg PO UD DOSE PK Qty: 6 0RF Rx Instructions: Take two (2) tablets today, then one (1) tablet days #2 thru #5 methylprednisolone 4 mg Tablets,Dose Pack 4 mg PO DIRECTED Qty: 21 0RF meclizine [Antivert] 25 mg tablet,chewable 25 mg PO Q6HP PRN (Reason: dizziness or vertigo) Qty: 30 1RF No Action levothyroxine 25 mcg capsule 25 mcg PO DAILY citalopram 10 mg tablet 20 mg PO DAILY calcium carbonate 600 mg calcium (1,500 mg) tablet 600 mg PO DAILY cholecalciferol (vitamin D3) [Vitamin D3] 10 mcg (400 unit) capsule 10 mcg PO DAILY calcium polycarbophil [FiberCon] 625 mg tablet 1,250 mg PO DAILY famotidine 20 mg tablet 20 mg PO DAILY pramipexole 0.25 mg tablet 0.5 mg PO DAILY ferrous sulfate 325 MG tablet 325 mg PO DAILY Referrals Follow up/Referrals: Adrienne Medina MD [Primary Care Provider] - See instructions Activity Restrictions/Add. Instructions Additional Instructions/Restrictions: Drink plenty of fluids. Take tylenol or ibuprofen for pain or fever. Take the medications as directed. Follow up with your regular doctor. GO TO THE ER FOR ANY WORSENING SYMPTOMS The Antivert (meclizine) medication will make you drowsy, so don't drive or operate heavy machinery after taking it. Clinical Impressions Clinical Impression: Benign paroxysmal positional vertigo, Serous otitis media Instructions Patient Instructions: Benign Paroxysmal Positional Vertigo, Meclizine Discharge ED Provider: Osmar Lopez [facility] General Stated complaint: Possible Vertigo Time Seen by Provider: 08/05/22 10:21 History of Present Illness Provider Complaint: She states that since yesterday she has had intermittent dizziness. It is triggered by turning her head certain ways. She has had BPPV in the past and she states that this feel exactly the same. She states that she has had sinus pressure and bilateral ear ear pressure and popping. Related Data Home Medications Medication Instructions Recorded Confirmed calcium carbonate 600 mg calcium 600 mg PO DAILY Supplement 05/16/18 06/10/22 (1,500 mg) tablet citalopram 10 mg tablet 20 mg PO DAILY Anxiety 05/16/18 06/10/22 levothyroxine 25 mcg capsule 25 mcg PO DAILY thyroid 05/16/18 06/10/22 calcium polycarbophil 625 mg 1,250 mg PO DAILY Supplement 01/19/20 06/10/22 tablet (FiberCon) cholecalciferol (vitamin D3) 10 10 mcg PO DAILY Supplement 01/19/20 06/10/22 mcg (400 unit) capsule (Vitamin D3) famotidine 20 mg tablet 20 mg PO DAILY Reflux/Acid reflux 01/19/20 06/10/22 ferrous sulfate 325 mg (65 mg 325 mg PO DAILY Supplement 02/08/20 06/10/22 iron) tablet pramipexole 0.25 mg tablet 0.5 mg PO DAILY * 03/01/20 06/10/22 Previous Rx's Medication Instructions Recorded azithromycin 250 mg tablet 250 mg PO UD DOSE PK #6 tabs 08/05/22 (Zithromax) meclizine 25 mg chewable tablet 25 mg PO Q6HP PRN dizziness or 08/05/22 (Antivert) vertigo #30 tabs methylprednisolone 4 mg tablets in 4 mg PO DIRECTED #21 tabs 08/05/22 a dose pack Allergies Allergy/AdvReac Type Severity Reaction Status Date / Time Sulfa (Sulfonamide Allergy Intermediate I-ITCHING Verified 06/10/22 10:02 Antibiotics) [SULFA (SULFONAMIDE ANTIBIOTICS)] [facility] Disclaimer: The information contained in this section may have been updated after the patient was seen, as this information can be updated by other users. Medical History Hyperthyroidism Surgical History History of carpal tunnel release History of surgery on right wrist History of tonsillectomy Family History Other No signif
[2022-08-05 10:33] VITALS: BP 183/90; PULSE 68; RESP 20; TEMP 36.7; O2SAT 97
== END 2022-08-05 11:19 | disposition home or self-care (01) ==
PROVIDERS: Emergency Provider Nurse Practitioner Family; PCP Family Medicine
DX: H81.13 Benign paroxysmal vertigo, bilateral (principal); H65.93 Unspecified nonsuppurative otitis media, bilateral
CPT/HCPCS: 99212; 99214; G0463

== ENCOUNTER 2022-08-11 09:58 | Emergency (ER) | payer MEDICARE, SELFPAY ==
[2022-08-11] VITALS (7 sets, daily range): BP systolic 141–177; BP diastolic 76–95; PULSE 63–74; RESP 15–21; TEMP 36.4–36.6; O2SAT 96–99; BMI 34.9
--- NOTE | 2022-08-11 10:11 | EXP.UTC ---
Discharge Plan Disposition Patient Disposition: Still a Patient Prescriptions Prescriptions: No Action levothyroxine 25 mcg capsule 25 mcg PO DAILY citalopram 10 mg tablet 20 mg PO DAILY calcium carbonate 600 mg calcium (1,500 mg) tablet 600 mg PO DAILY cholecalciferol (vitamin D3) [Vitamin D3] 10 mcg (400 unit) capsule 10 mcg PO DAILY calcium polycarbophil [FiberCon] 625 mg tablet 1,250 mg PO DAILY famotidine 20 mg tablet 20 mg PO DAILY pramipexole 0.25 mg tablet 0.5 mg PO DAILY ferrous sulfate 325 MG tablet 325 mg PO DAILY azithromycin [Zithromax] 250 mg tablet 250 mg PO UD DOSE PK Qty: 6 0RF Rx Instructions: Take two (2) tablets today, then one (1) tablet days #2 thru #5 methylprednisolone 4 mg Tablets,Dose Pack 4 mg PO DIRECTED Qty: 21 0RF meclizine [Antivert] 25 mg tablet,chewable 25 mg PO Q6HP PRN (Reason: dizziness or vertigo) Qty: 30 1RF Referrals Follow up/Referrals: Adrienne Medina MD [Primary Care Provider] - See instructions Discharge ED Provider[place] [facility] [place] General Stated complaint: Vertigo last week, no improvement Time Seen by Provider: 08/11/22 10:11 History of Present Illness Provider Complaint: Patient states that she was seen and treated on the for Vertigo States that she started with a nagging headache across her forehead and then the dizziness started States that she has had vertigo before but this one is a little different she never had a headache with it and Meclizine helped before States that the naggy headache has continued and she is still having some vertigo and feeling like she is staggering when she walks so today when she was still having sympotms she came back in to get rechecked Related Data Home Medications Medication Instructions Recorded Confirmed calcium carbonate 600 mg calcium 600 mg PO DAILY Supplement 05/16/18 06/10/22 (1,500 mg) tablet citalopram 10 mg tablet 20 mg PO DAILY Anxiety 05/16/18 06/10/22 levothyroxine 25 mcg capsule 25 mcg PO DAILY thyroid 05/16/18 06/10/22 calcium polycarbophil 625 mg 1,250 mg PO DAILY Supplement 01/19/20 06/10/22 tablet (FiberCon) cholecalciferol (vitamin D3) 10 10 mcg PO DAILY Supplement 01/19/20 06/10/22 mcg (400 unit) capsule (Vitamin D3) famotidine 20 mg tablet 20 mg PO DAILY Reflux/Acid reflux 01/19/20 06/10/22 ferrous sulfate 325 mg (65 mg 325 mg PO DAILY Supplement 02/08/20 06/10/22 iron) tablet pramipexole 0.25 mg tablet 0.5 mg PO DAILY * 03/01/20 06/10/22 Previous Rx's Medication Instructions Recorded azithromycin 250 mg tablet 250 mg PO UD DOSE PK #6 tabs 08/05/22 (Zithromax) meclizine 25 mg chewable tablet 25 mg PO Q6HP PRN dizziness or 08/05/22 (Antivert) vertigo #30 tabs methylprednisolone 4 mg tablets in 4 mg PO DIRECTED #21 tabs 08/05/22 a dose pack Allergies Allergy/AdvReac Type Severity Reaction Status Date / Time Sulfa (Sulfonamide Allergy Intermediate I-ITCHING Verified 06/10/22 10:02 Antibiotics) [SULFA (SULFONAMIDE ANTIBIOTICS)] [facility] Disclaimer: The information contained in this section may have been updated after the patient was seen, as this information can be updated by other users. Medical History Hyperthyroidism Surgical History History of carpal tunnel release History of surgery on right wrist History of tonsillectomy Family History Other No significant family history Social History Smoking Status: Never smoker alcohol intake: never substance use type: denies use current occupational status: other Travel in the last 8 weeks: None caffeine: Yes ROS Obtained: Yes All systems reviewed & no additional complaints except as documented and Ye
--- NOTE | 2022-08-11 10:27 | HMH.EDGENADL ---
Discharge Plan Disposition Patient Disposition: Home, Self-Care Condition: Good Prescriptions Prescriptions: No Action levothyroxine 25 mcg capsule 25 mcg PO DAILY citalopram 10 mg tablet 20 mg PO DAILY calcium carbonate 600 mg calcium (1,500 mg) tablet 600 mg PO DAILY cholecalciferol (vitamin D3) [Vitamin D3] 10 mcg (400 unit) capsule 10 mcg PO DAILY calcium polycarbophil [FiberCon] 625 mg tablet 1,250 mg PO DAILY famotidine 20 mg tablet 20 mg PO DAILY pramipexole 0.25 mg tablet 0.5 mg PO DAILY ferrous sulfate 325 MG tablet 325 mg PO DAILY azithromycin [Zithromax] 250 mg tablet 250 mg PO UD DOSE PK Qty: 6 0RF Rx Instructions: Take two (2) tablets today, then one (1) tablet days #2 thru #5 methylprednisolone 4 mg Tablets,Dose Pack 4 mg PO DIRECTED Qty: 21 0RF meclizine [Antivert] 25 mg tablet,chewable 25 mg PO Q6HP PRN (Reason: dizziness or vertigo) Qty: 30 1RF Referrals Follow up/Referrals: Adrienne Medina MD [Primary Care Provider] - See instructions Activity Restrictions/Add. Instructions Additional Instructions/Restrictions: Follow-up with your primary care provider as discussed for this visit to the emergency department and possibly scheduling MRI of your head if symptoms do not resolve. BPPV can be treated with maneuvers such as Lisa maneuver, you will be able to find symptomatic treatment online. If you have any other concerning signs or symptoms, return promptly to the ER for further evaluation. Clinical Impressions Clinical Impression: Episodic peripheral vertigo, Benign paroxysmal positional vertigo Discharge ED Provider: Jackie Rosas Adult HPI General Chief complaint: Dizziness Stated complaint: Vertigo last week, no improvement Time Seen by Provider: 08/11/22 10:11 Mode of Arrival: Ambulatory Source of Information: Patient Limitations: No Limitations Description of Symptoms (Recalled from ER Triage Doc. by RN): PATIENT C/O DIZZINESS. SHE WAS SEEN IN [facility] LAST WEEK AND GIVEN MECLIZINE FOR THE DIZZINESS. SHE RETURNED TODAY BECAUSE SHE STATES THE DIZZINESS IS NOT BETTER. SHE REPORTS EXPERIENCING A HEADACHE FOLLOWED BY THE DIZZINESS. SHE STATES THE HEADACHE IS DULL AND PRETTY CONSISTANT. THE DIZZINESS IS SOMETIMES ACCOMPANIED WITH NAUSEA AND HOT FLASHES History of Present Illness HPI narrative: This is a 72-year-old female with history of Graves' disease on medication controller, BPPV presenting with headache and dizziness. Headache and dizziness started on 08/05. She was evaluated at urgent care and diagnosed with probable vestibular neuritis, based on my interpretation, and was sent home with antibiotics and steroids. Since that time, symptoms have continued to persist, but not worsened or improved. She states that symptoms are worse when she turns her head left or right, changes position from lying to sitting, or sitting to standing. Difficult to tell if she feels off balance, or if the room is spinning, but when she remains still, symptoms subside. She states that she had a history of this in the past remotely, symptoms improved spontaneously at that time and she did not worry about them at all. She states that these current symptoms are similar to her previous episode of vertigo when she was younger, although the persistence of symptoms is what worries her the most. Associated frontal headache that is mild in intensity and does not radiate. Denies vision changes, unilateral deficits, neck pain, back pain, bowel or bladder dysfunction, confusion, vomiting, falls, head trauma, history of blood clots/stroke, tinnitus, hyperlipidemia, diabetes, any other systemic conditions. Has never been told she had a history of hypertension Related Data Home Medications Medication Instructions Recorded Confirmed calcium carbonate 600 mg calcium 600 mg PO DAILY Supplement 05/16/18 06/10/22 (1,500 mg) tablet citalopram 10 mg tablet
--- NOTE | 2022-08-11 10:28 | XR_ITS ---
FINAL REPORT CLINICAL HISTORY: near syncope FINDINGS: The heart size is normal. The mediastinum is within normal limits. There is no acute cardiopulmonary process. There is no pleural effusion. There is no pneumothorax. The bony thorax is intact. IMPRESSION: No acute cardiopulmonary process. Reviewed, Interpreted and Dictated by Keven Nava III, MD Transcribed by Peter Monroe Authenticated and [facility]
--- NOTE | 2022-08-11 10:28 | CT_ITS ---
FINAL REPORT TECHNIQUE: Thin section axial CT with IV contrast supplemented with multiplanar reconstruction under CT angiogram protocol. 3-D reconstructions were performed. This study was performed with techniques to keep radiation doses as low as reasonably achievable (ALARA). Individualized dose reduction techniques using automated exposure control or adjustment of mA and/or kV according to the patient''s size were employed. CLINICAL HISTORY: dizziness, new. GIL FINDINGS: The distal vertebral, basilar and distal internal carotid arteries have an unremarkable appearance. No aneurysm is seen. Major intracranial vessels are patent without significant stenosis. IMPRESSION: No significant stenosis or occlusion. Reviewed, Interpreted and Dictated by Keven Nava III, MD Transcribed by Peter Monroe Authenticated and [facility]
--- NOTE | 2022-08-11 10:28 | CT_ITS ---
FINAL REPORT TECHNIQUE: Thin section axial CT with IV contrast supplemented with multiplanar reconstruction under CT angiogram protocol. This study was performed with techniques to keep radiation doses as low as reasonably achievable (ALARA). Individualized dose reduction techniques using automated exposure control or adjustment of mA and/or kV according to the patient''s size were employed. NASCET criteria was utilized during interpretation. CLINICAL HISTORY: new dizziness, GIL FINDINGS: Aortic arch: Arch shows no significant narrowing. Great vessel origins are widely patent. Right carotid: No significant stenosis is seen of the cervical common or internal carotid artery. Left carotid: No significant stenosis is seen of the cervical common or internal carotid artery. Vertebral: Left vertebral artery is dominant. No significant stenosis is present. Mild scarring is noted in the upper lobes. IMPRESSION: No significant stenosis or occlusion. Reviewed, Interpreted and Dictated by Keven Nava III, MD Transcribed by Peter Monroe Authenticated and [facility]
--- NOTE | 2022-08-11 10:28 | CT_ITS ---
FINAL REPORT CLINICAL HISTORY: dizziness, new GIL FINDINGS: Axial images of the head were obtained without contrast. Coronal reformatted images were also obtained.This study was performed with techniques to keep radiation doses as low as reasonably achievable (ALARA). Individualized dose reduction techniques using automated exposure control or adjustment of mA and/or kV according to the patient''s size were employed. There is no evidence of intracranial hemorrhage or mass. The ventricular size is within normal limits. There is no evidence of shift of the midline structures. No abnormal extra axial fluid collection is identified. No skull abnormality is seen on the bone window images. IMPRESSION: No acute intracranial abnormality. Reviewed, Interpreted and Dictated by Keven Nava III, MD Transcribed by Peter Monroe Authenticated and [facility]
--- NOTE | 2022-08-11 10:40 | PC.NURSE ---
DAMARIS ARBOLEDA at
--- NOTE | 2022-08-11 10:58 | ECG_ITS ---
APPROVED REPORT Exam: Resting ECG HR:64 bpm ECG Measurements Heart Rate 64 AXES SC 161 P 31 QRSd 113 QRS -36 QT 414 T 41 QTc 424 Conclusion SINUS RHYTHM WITH OCCASIONAL SUPRAVENTRICULAR PREMATURE COMPLEXES LEFT AXIS DEVIATION [QRS AXIS < -30] INCOMPLETE RIGHT BUNDLE BRANCH BLOCK [90+ ms QRS DURATION, TERMINAL R IN V1/V2, 40+ ms S IN I/aVL/V4/V5/V6] VOLTAGE CRITERIA FOR LVH [MEETS CRITERIA IN ONE OF: R(aVL), S(V1), R(V5), R(V5/V6)+S(V1)] POSSIBLE ANTEROSEPTAL MYOCARDIAL INFARCTION , PROBABLY OLD [30 ms Q WAVE IN V1-V4] ABNORMAL ECG UNCONFIRMED REPORT Electronically signed by : José Mie MD 08/11/2022 20:28:56
[2022-08-11 10:59] LABS: Chloride 100 mmol/L (98-107); Potassium 3.9 mmoL/L (3.5-5.1); Sodium 136 mmol/L (136-145)
[2022-08-11 11:00] LABS: Basophils # 0.1 K/mm3 (0-0.2); Eosinophils # 0.2 K/mm3 (0.0-0.4); Eosinophils % 1.3 % (0.1-12.0); Hematocrit 47.9 % (37.0-47.0); Hemoglobin 15.2 g/dL (12.2-16.2); Lymphocytes % 35.4 % (10-50); Mean Corpuscular HGB Conc 31.6 g/dL (31.8-35.4); Mean Corpuscular Hemoglobin 31.9 pg (27.0-31.2); Mean Corpuscular Volume 100.9 fl (81-99); Mean Platelet Volume 8.5 fl (7.4-10.4); Monocytes # 0.8 K/mm3 (0.1-1.0); Monocytes % 7.1 % (1.7-9.3); Neutrophils # 6.2 K/mm3 (1.8-7.8); Neutrophils % 55.2 % (37.0-80.0); Platelet Count 321 K/mm3 (142-424); Red Blood Count 4.75 M/mm3 (4.20-5.40); Red Cell Distribution Width 12.5 % (11.5-17.5); White Blood Count 11.3 K/mm3 (4.8-10.8)
[2022-08-11 11:01] LABS: Blood Urea Nitrogen 20 mg/dl (7-17); Creatinine Clearance Estimated 70 mL/min (50-200); Estimated Glomerular Filt Rate 49 ml/min (>60); GFR (African American) 59 ML/MIN (>60)
[2022-08-11 11:02] LABS: Alanine Aminotransferase 27 U/L (12-78); Albumin Level 4.3 g/dl (3.5-5.0); Albumin/Globulin Ratio 1.3 (1.1-1.8); Alkaline Phosphatase 89 U/L (38-126); Anion Gap 8.9 mEq/L (5-15); Aspartate Amino Transferase 33 U/L (14-36); Bilirubin,Total 0.6 mg/dl (0.2-1.3); Calcium 9.2 mg/dl (8.4-10.2); Carbon Dioxide 31 mmol/L (22.0-30.0); Globulin 3.2 g/dL (1.3-3.2); Glucose 83 mg/dl (74-100); Total Protein,Serum 7.5 g/dl (6.3-8.2)
--- NOTE | 2022-08-11 11:06 | PC.NURSE ---
checked on pt at this time, pt states no needs, call light within reach
[2022-08-11 11:11] LABS: C-Reactive Protein 1.4 mg/L (0-4)
[2022-08-11 11:14] LABS: NT Pro Brain Natriuretic Pep. 148 pg/mL (0-125)
[2022-08-11 11:22] LABS: T4 (Thyroxine) 7.8 ug/dl (5.53-11.0)
[2022-08-11 11:23] LABS: Troponin I < 0.01 ng/ml (0.00-0.034)
--- NOTE | 2022-08-11 11:32 | INFXCTL.NOTE ---
patient back from radiology assisted to the bathroom. IV hooked back up
--- NOTE | 2022-08-11 11:36 | PC.NURSE ---
urine collected and sent to lab
[2022-08-11 12:09] LABS: Microscopic, Urine URINE MICROSCOPIC (MICROSCOPIC)
[2022-08-11 12:20] LABS: Coronavirus 19, PCR Not Detected (NotDetected); Influenza A, PCR Not Detected (NotDetected); Influenza B, PCR Not Detected (NotDetected)
[2022-08-11 12:24] LABS: Appearance,Urine CLEAR (Clear); Bilirubin,Urine Negative (Negative); Blood, Urine Negative (Negative); Color,Urine YELLOW (Yellow); Glucose,Urine (UA) Negative (Negative); Ketones,Urine Negative (Negative); Leukocyte Esterase,Urine Negative (Negative); Nitrate,Urine Negative (Negative); Protein,Urine Negative (Negative); Urobilinogen,Urine 0.2 EU/dl (0.2)
[2022-08-11 12:48] LABS: Bacteria,Urine Trace /lpf
[2022-08-11 13:01] LABS: Erythrocyte Sedimentation Rate 12 mm/hr (0-30)
[2022-08-11 13:45] LABS: Troponin I < 0.01 ng/ml (0.00-0.034)
== END 2022-08-11 13:41 | disposition home or self-care (01) ==
LOC: UTC 10:02 → ER 10:16
PROVIDERS: Emergency Provider Emergency Medicine; PCP Family Medicine
DX: H81.399 Other peripheral vertigo, unspecified ear (principal); H81.10 Benign paroxysmal vertigo, unspecified ear; E05.90 Thyrotoxicosis, unspecified without thyrotoxic crisis or storm; Z90.49 Acquired absence of other specified parts of digestive tract; Z20.822 Contact with and (suspected) exposure to COVID-19
CPT/HCPCS: 36415; 70450; 70496; 70498; 71045; 80053; 81001; 83880; 84436; 84443; 84484; 85025; 85651; 86140; 93005; 96360; 99284; 99285; C9803; Q9967; U0003; U0005

== ENCOUNTER 2022-09-11 09:53 | Emergency (ER) | payer MEDICARE, SELFPAY ==
[2022-09-11 10:05] VITALS: BP 141/88; PULSE 81; RESP 18; TEMP 37.1; O2SAT 98; BMI 36.1
--- NOTE | 2022-09-11 10:20 | EXP.UTC ---
Discharge Plan Disposition Patient Disposition: Home, Self-Care Condition: Good Prescriptions Prescriptions: New benzonatate 100 mg capsule 100 mg PO TID PRN (Reason: cough) Qty: 30 0RF amoxicillin-pot clavulanate 875-125 mg Tablet 1 tab PO Q12H 14 Days Qty: 20 0RF methylprednisolone [Medrol (Drew)] 4 mg tablets,dose pack See Rx Instructions .Route .COMPLEX 6 Days Qty: 21 0RF Rx Instructions: taper pack; No Action levothyroxine 25 mcg capsule 25 mcg PO DAILY citalopram 10 mg tablet 20 mg PO DAILY calcium carbonate 600 mg calcium (1,500 mg) tablet 600 mg PO DAILY cholecalciferol (vitamin D3) [Vitamin D3] 10 mcg (400 unit) capsule 10 mcg PO DAILY calcium polycarbophil [FiberCon] 625 mg tablet 1,250 mg PO DAILY famotidine 20 mg tablet 20 mg PO DAILY pramipexole 0.25 mg tablet 0.5 mg PO DAILY ferrous sulfate 325 MG tablet 325 mg PO DAILY azithromycin [Zithromax] 250 mg tablet 250 mg PO UD DOSE PK Qty: 6 0RF Rx Instructions: Take two (2) tablets today, then one (1) tablet days #2 thru #5 methylprednisolone 4 mg Tablets,Dose Pack 4 mg PO DIRECTED Qty: 21 0RF meclizine [Antivert] 25 mg tablet,chewable 25 mg PO Q6HP PRN (Reason: dizziness or vertigo) Qty: 30 1RF Referrals Follow up/Referrals: Adrienne Medina MD [Primary Care Provider] - See instructions Activity Restrictions/Add. Instructions Additional Instructions/Restrictions: *Monitor Temp, Over the counter Motrin or Tylenol as directed/as needed Tylenol every 4 hours and Motrin every 6 hours (as long as your family doctor has told you that you can take it) for fever or pain. and straight to ER if unable to lower temp less than 101.0 after medication given *Warm salt water gargles may help to soothe the throat *Throat Lozenges? *Warm fluids like tea with honey may help to soothe the throat? *Sleep elevated *Humidifier/Vaporizer Take medication as prescribed Follow up IMMEDIATELY for new or worsening symptoms or no Noticeable improvement over the next 48-72 hours. 911 for difficulty breathing or swallowing Clinical Impressions Clinical Impression: Sinusitis, Bronchitis Instructions Patient Instructions: DI for Sinusitis, Sinusitis, Acute Bronchitis Discharge ED Provider: Jackie Rosas [facility] [place] HPI General Stated complaint: Deep cough Mode of Arrival: Ambulatory Source of Information: Patient Limitations: No Limitations Time Seen by Provider: 09/11/22 10:20 Description of Symptoms (Recalled from Triage Doc. by RN): PATIENT C/O DEEP, DRY COUGH AND CONGESTION X 1 WEEK HEENT Symptoms (Recalled from RN notes): No Resp Symptoms (Recalled from RN notes): Yes Skin Symptoms (Recalled from RN notes): No MS Symptoms (Recalled from RN notes): No Functional Status (Recalled from RN notes): WNL History of Present Illness Provider Complaint: Patient states that she has been having sinus congestion and pressure deep dry cough and scratchy throat for about a week States that she isnt coughing anything up but the cough has not improved and still having sinus pressure so she came in Related Data Home Medications Medication Instructions Recorded Confirmed calcium carbonate 600 mg calcium 600 mg PO DAILY Supplement 05/16/18 06/10/22 (1,500 mg) tablet citalopram 10 mg tablet 20 mg PO DAILY Anxiety 05/16/18 06/10/22 levothyroxine 25 mcg capsule 25 mcg PO DAILY thyroid 05/16/18 06/10/22 calcium polycarbophil 625 mg 1,250 mg PO DAILY Supplement 01/19/20 06/10/22 tablet (FiberCon) cholecalciferol (vitamin D3) 10 10 mcg PO DAILY Supplement 01/19/20 06/10/22 mcg (400 unit) capsule (Vitamin D3) famotidine 20 mg tablet 20 mg PO DAILY Reflux/Acid reflux 01/19/20 06/10/22 ferrous sulfate 325 mg (65 mg 325 mg PO DAILY Supplement 02/08/20 06/10/22 iron) tablet pramipexole 0.25 mg tablet 0.5 mg PO DAILY * 03/01/20 06/10/22 Previous Rx's Medi
[2022-09-11 10:31] VITALS: BP 141/88; PULSE 81; RESP 18; TEMP 37.1; O2SAT 98
== END 2022-09-11 10:33 | disposition home or self-care (01) ==
PROVIDERS: Emergency Provider Nurse Practitioner; PCP Family Medicine
DX: J20.9 Acute bronchitis, unspecified (principal); J01.90 Acute sinusitis, unspecified
CPT/HCPCS: 99212; 99214; G0463

== ENCOUNTER → 2023-03-04 15:40 | Outpatient (CLI) | payer MEDICARE, SELFPAY ==
[2023-03-04 17:41] LABS: Iron 77 ug/dL (37-170)
[2023-03-04 17:51] LABS: Total Iron Binding Capacity 286 ug/dL (265-497)
[2023-03-04 18:19] LABS: Ferritin 67.3 ng/ml (11.1-264)
== END ==
PROVIDERS: Visit Provider Nurse Practitioner Family
DX: E83.10 Disorder of iron metabolism, unspecified (principal)
CPT/HCPCS: 36415; 82728; 83540; 83550

== ENCOUNTER 2023-08-06 11:15 | Outpatient (CLI) | payer MEDICARE, SELFPAY ==
--- NOTE | 2023-08-06 11:22 | XR_ITS ---
FINAL REPORT CLINICAL HISTORY: Left foot pain FINDINGS: LEFT FOOT 3 views of the left foot were obtained. There is no acute fracture or dislocation. Calcaneal spurs are noted. There are mild degenerative changes of the first metatarsophalangeal joint. Soft tissues are unremarkable. IMPRESSION: No acute bony abnormality. Reviewed, Interpreted and Dictated by Keven Nava III, MD Transcribed by Sariah Tang Authenticated and [facility]
--- NOTE | 2023-08-06 11:22 | XR_ITS ---
FINAL REPORT CLINICAL HISTORY: Right foot pain FINDINGS: RIGHT FOOT 3 views of the right foot were obtained. There is no acute fracture or dislocation. Calcaneal spurs are noted. There are mild degenerative changes of the first metatarsophalangeal joint. Soft tissues are unremarkable. IMPRESSION: No acute bony abnormality. Reviewed, Interpreted and Dictated by Keven Nava III, MD Transcribed by Sariah Tang Authenticated and [facility]
== END 2023-08-06 23:59 ==
LOC: RAD 11:16
PROVIDERS: PCP Family Medicine; Visit Provider Nurse Practitioner
DX: M79.671 Pain in right foot (principal); M79.672 Pain in left foot
CPT/HCPCS: 73630

== ENCOUNTER 2023-08-27 16:05 | Observation (INO) | payer MEDICARE, SELFPAY ==
[2023-08-24 15:38] VITALS: BMI 32.4
[2023-08-27] VITALS (14 sets, daily range): BP systolic 140–158; BP diastolic 72–85; PULSE 75–103; RESP 16–18; TEMP 36.1–36.9; O2SAT 92–100; BMI 32.0
[2023-08-27] MEDS: LACTATED RINGERS 1000ML 1,000 ML 25 ML IV (10:46)
--- NOTE | 2023-08-27 12:52 | EXP.ANES.CKL ---
[facility] Disclaimer: The information contained in this section may have been updated after the patient was seen, as this information can be updated by other users. Medical History Major depressive disorder Hyperthyroidism Surgical History History of surgery on right wrist History of carpal tunnel release History of tonsillectomy Family History Grandfather FHx: mental illness completed suicide -maternal grandfather -mom was about 10 years old -it was a Wednesday morning; and the kids were home public school teacher -shot himself in the head Mother Alcoholism -she was in [place] -in [place] -and got on beer -she had cirrhosis of the liver Other No significant family history Social History Smoking Status: Former smoker tobacco type: cigarettes smoking status stop date: 2012 second hand exposure: No alcohol intake: never counseling given: No substance use type: denies use counseling given: No current occupational status: retired and other Travel in the last 8 weeks: None adopted: No caregiver/support person: No foster care: No household members: none and other housing: house lives independently: Yes marital status: number of children: 1 number of grandchildren: 0 education level: high school 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; 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 pets and animals: Yes pets and animals: cat(s) and dog(s) caffeine: Yes physical activity: none anupam/methodist: Orthodox special anupam needs: No working smoke detector in home: Yes fire extinguisher in home: Yes carbon monox detector in home: No firearms in home: Yes firearms unloaded and locked: Yes do you feel safe at home: Yes [facility] Anesthesia Checklist Patient Identification Patient Identification: Arm Band Structural Data Admitted From: Home Planned Operative Procedure/s: Colonoscopy Consent for Planned Operative Procedure(s) Verified: Yes Verified Documents: Surgical Consent and History and Physical NPO Status Verified Time NPO: 00:00 Additional verifications Anesthesia Reactions: No Hx Blood Transfusions: No Blood Transfusion Reaction: No Airway Assessment Mallampati Score:: Class II C-Spine Mobility Assessed: Yes TMJ Mobility Assessed: Yes Dentition: Good Dentition Neurological Assessment Level of Consciousness: Awake and Alert Anesthesia Plan Anesthesia Risk discussed: Yes Anesthesia Plan: Verified ASA Class: II Anesthesia Type: MAC
--- NOTE | 2023-08-27 14:17 | HMH.SCOPE ---
Procedure: Date: 08/27/23 Patient Date of :: 1950 Procedure Performed:: Limited colonoscopy Indications:: Patient is a 73-year-old female. She previously has a history of ulcer disease and I had performed upper endoscopy on her. I have performed colonoscopy on her in 2009 and in 2018 at which time she had an adenomatous polyp. Follow-up colonoscopy was performed on 06/12/2022 and she was found to have a tubular adenoma but she had a very poor preparation. Plan was made for follow-up 1 year colonoscopy. She underwent MiraLAX and magnesium citrate prep which he seemed to tolerate well and it seemed to be better for her functionally as a bowel prep. Performing Provider:: Keven Marie MD Referring Provider:: . Sedation:: MAC sedation Procedure:: Patient history was obtained and appropriate physical examination was performed. Patient's medications and allergies were reviewed. Informed consent was obtained after explaining the benefits, alternatives, and risks of the procedure including, but not limited to, bleeding, perforation, missed lesions, and adverse reaction to anesthesia medications. Patient was transported to endoscopy procedure room. Patient was connected to monitoring devices. Throughout the procedure the patient's blood pressure, pulse, and oxygen saturations were monitored continuously. Patient identification and planned procedure were verified by the staff. Patient was positioned in lateral decubitus position. Digital anorectal exam was performed. Variable stiffness Olympus colonoscope was inserted and advanced under direct visualization to the cecum. Adequacy of the colonic preparation was noted. Upon reaching the right colon it was noted that the colonic preparation was poor. There was pasty stool coating the velasquez. This was unable to be completely cleared. At this time the patient began having some retching with possible associated laryngospasm. Additional surveillance and investigation with the colonoscope was ceased at this time as anesthesia attended to the patient's aerodigestive tract. Her saturations had improved however she had some tachycardia potentially consistent with atrial fibrillation and anesthesia personnel recommended discontinuation of procedure. Therefore the colonoscope was withdrawn. . Findings:: Poor colonic preparation with stool coating the velasquez of the right colon Rare pandiverticulosis Recommendations:: Patient may require repeat colonoscopy within a year with multi day bowel preparation and preceding bowel regimen. Complications:: None immediately apparent Estimated blood obtained (mL): 0 Colonoscopy Component Colonoscopy Component Was a colonoscopy performed during today's procedure?: Yes Recommended follow up colonoscopy of at least 10 years?: No If no, follow up colonoscopy recommended in ___ years?: See above Reason for not recommending >/= 10 yr follow-up interval?: See above
--- NOTE | 2023-08-27 14:19 | ECG_ITS ---
APPROVED REPORT Exam: Resting ECG HR:120 bpm ECG Measurements Heart Rate 120 AXES QRSd 116 QRS -58 QT 315 T 111 QTc 387 Conclusion ATRIAL FIBRILLATION WITH RAPID VENTRICULAR RESPONSE LEFT AXIS DEVIATION [QRS AXIS < -30] LOW QRS VOLTAGE IN PRECORDIAL LEADS [QRS DEFLECTION < 1.0 mV IN CHEST LEADS] MODERATE VOLTAGE CRITERIA FOR LVH, CONSIDER NORMAL VARIANT [MEETS CRITERIA IN ONE OF: R(aVL), S(V1), R(V5), R(V5/V6)+S(V1)] Old anterior changes ABNORMAL ECG UNCONFIRMED REPORT Electronically signed by : José Mei MD 08/28/2023 16:39:10
--- NOTE | 2023-08-27 14:38 | SUR.OPER ---
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 1429 HOUSE NOTIFIED OF POTENTIAL ADMIT. WAITING REAL ESTATE OPERATIONS MANAGER BACK FROM DR KOCH.
--- NOTE | 2023-08-27 15:03 | CA_ITS ---
APPROVED REPORT EXAM: Comprehensive 2D, Doppler, and color-flow Echocardiogram Durability Technician: eBth Torres CRT Ht: 5 ft 5 in Wt: 195lbs BSA: 1.96 BP: 142/84 mmHg Indications: New Afib during colonoscopy,HTN 2D Dimensions LA Volume 27.50 mL LA Volume Index 13.80 mL/m2 (M/F) 16-34 M-Mode Dimensions RVDd 2.66 cm (0.9-2.6) LA Diam 3.38 cm (1.9-4.0) LVDd 2.91 cm (3.5-5.7) LVDs 2.00 cm (3.5-5.7) IVSd 2.63 cm (0.6-1.1) PWd 0.66 cm (0.6-1.1) EF (Teich) 60.90% FS 31.30% EDV (Teich) 32.50 mL TAPSE 1.70 (<1.7) ESV (Teich) 12.70 mL LV Diastology E Decel Time 150 (160-240 msec) E/A Ratio 2.29 MED A' 4.10 cm/s LAT A' 7.80 cm/s Aortic Valve AO Peak GR. 8.20 mmHg Mitral Valve MV A Velocity 57.0 (40-130 cm/s) E/A Ratio 2.29 Pulmonary Valve PV Peak Velocity 190.0 (50-150 cm/s) Tricuspid Valve TR P. Velocity 224.00 cm/s RAP Estimate 10.00 mmHg RVSP 30.10 mmHg Left Ventricle The left ventricle is normal size. The left ventricular systolic function is normal. The left ventricular ejection fraction is within the normal range. Proximal septal thickening is noted. Diastolic function is indeterminate. There is normal LV segmental wall motion. LVEF is 60%. Right Ventricle The right ventricle is normal size. The right ventricular systolic function is normal. Atria The left atrium size is normal. The right atrium size is normal. There is no Doppler evidence of interatrial shunt. Aortic Valve The aortic valve is mildly thickened. There is no aortic valvular stenosis. Trace aortic regurgitation. Mitral Valve The mitral valve leaflets are mildly thickened. No evidence of mitral valve stenosis. Mild mitral regurgitation. Tricuspid Valve The tricuspid valve leaflets are thin and pliable. Moderate tricuspid regurgitation. RVSP is 20-25 mmHg. Pulmonic Valve The pulmonary valve is normal in structure. Mild pulmonic regurgitation. Great Vessels The aortic root is normal in size. The ascending aorta is normal in size. IVC is normal in size and collapses >50% with inspiration. Pericardium There is no pericardial effusion. An epicardial fat pad is noted. Other Information Study Quality: Fair Conclusion Normal biventricular systolic function. Mild MR, mild PI. Moderate TR. Electronically signed by : Renetta Bang MD 08/30/2023 01:00:33
--- NOTE | 2023-08-27 16:13 | HMH.PHAINT1 ---
Pharmacy Intervention Comments: MEDICATION RECONCILIATION COMPLETED ON PATIENT USING EXTERNAL FILL HISTORY FROM PHARMACY. -THUY BEAVERS, DOVD
--- NOTE | 2023-08-27 16:54 | P.HP_ITS ---
History of Present Illness *Admission Date: 08/27/23 *Reason for visit:: New onset A-fib *History of present illness: Ms. Hou is a 73-year-old female with history of depression, obesity, GERD, hypothyroid who presented for an elective outpatient colonoscopy today. Reports she had a colonoscopy performed a year ago but unfortunately had inadequate prep so she is back for repeat scope today. During her procedure she developed A-fib with RVR. Cardiology and medicine were contacted. Patient received single dose of 5 mg IV metoprolol. Was recommended she be observed overnight on telemetry for consideration of oral rate controlling meds and potential for anticoagulation. Patient tolerated the procedure well. Has a sore throat and is hungry/nauseous because she has not eaten. Otherwise has no complaints of shortness of breath, chest pain, confusion, focal weakness. Is compliant with her medications but missed them this morning due to her procedure. On evaluation, in no acute distress. Family at bedside. Alert and oriented x 4. [facility] Disclaimer: The information contained in this section may have been updated after the patient was seen, as this information can be updated by other users. Medical History Major depressive disorder Hyperthyroidism Surgical History History of surgery on right wrist History of carpal tunnel release History of tonsillectomy Family History No significant family history Alcoholism Mother FHx: mental illness Grandfather Social History Smoking Status: Former smoker tobacco type: cigarettes smoking status stop date: 2012 second hand exposure: No alcohol intake: never counseling given: No substance use type: denies use counseling given: No current occupational status: retired and other Travel in the last 8 weeks: None adopted: No caregiver/support person: No foster care: No household members: none and other housing: house lives independently: Yes marital status: number of children: 1 number of grandchildren: 0 education level: high school 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; 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 pets and animals: Yes pets and animals: cat(s) and dog(s) caffeine: Yes physical activity: none anupam/anabaptism: Sikhism special anupam needs: No working smoke detector in home: Yes fire extinguisher in home: Yes carbon monox detector in home: No firearms in home: Yes firearms unloaded and locked: Yes do you feel safe at home: Yes Review of Systems Review of Systems Review of systems (narrative): 14 point review of systems performed, pertinent positives and negatives as per HPI Meds Home Medications and Allergies Home Medications Medication Instructions Recorded Confirmed Type cholecalciferol (vitamin D3) 10 10 mcg PO DAILY Supplement 01/19/20 08/26/23 History mcg (400 unit) capsule (Vitamin D3) famotidine 20 mg tablet 20 mg PO DAILY Acid Reflux 01/19/20 08/26/23 History vitamin B complex 1 cap PO DAILY 03/03/23 08/26/23 History pramipexole 0.5 mg tablet 0.5 mg PO HS Restless Leg(S) 03/31/23 08/26/23 History ferrous sulfate 325 mg (65 mg 325 mg PO BID Supplement 06/30/23 08/26/23 History iron) tablet multivitamin 1 tab PO DAILY Supplement 06/30/23 08/26/23 History escitalopram oxalate 5 mg tablet 5 mg PO DAILY #90 tabs 08/12/23 08/24/23 Rx (Lexapro) aspirin 81 mg tablet,delayed 81 mg PO DAILY 30 days #30 tabs 08/27/23 Rx release levothyroxine 25 mcg tablet 25 mcg PO DAILY Thyroid 08/27/23 08/27/23 History meloxicam 7.5 mg tablet 7.5 mg PO DAILY Pain 08/27/23 08/27/23 History metoprolol succinate 25 mg 12.5 mg (1/2 x 25 mg) PO BID 30 08/27/23 Rx tablet,extended release 24 hr days #30 tabs New Prescriptions to Start Prescriptions: Osmar Giraldo metoprolol succinate Osmar Diaz Allergies Allergy/AdvReac Type Severity Reaction Status Date / Time Sulfa (Sulfonamide Allergy Intermediate I-ITCHING Verified 08/27/23 10:47 Antibiotics) [SULFA (SULFONAMIDE ANTIBIOTICS)] Exam Data for Last 24 hours Vital signs and Labs for Last 24 Hours: Temp Pulse Resp BP Pulse Ox O2 Del Method O2 Flow Rate 98.4 F 80 16 147/77 H 96 Room Air 5 08/27/23 16:12 08/27/23 16:19 08/27/23 16:12 08/27/23 16:12 08/27/23 16:12 08/27/23 16:12 08/27/23 13:47 I & O for Last 24 hours: Intake & Output 08/24/23 08/25/23 08/26/23 08/27/23 23:59 23:59 23:59 23:59 Weight 88.451 kg 87.231 kg Constitutional Constitutional: no acute distress, obese and cooperative *Routine HEENT Exam Head: Present normocephalic Eye: Present EOMI and PERRL ENT: Present mucous membranes moist *Routine Neck Exam Neck: Present supple; Absent lymphadenopathy *Routine Respiratory Exam Respiratory: Present CTA bilaterally; Absent rhonchi, wheezes or crackles *Routine Cardiovascular Exam Cardiovascular: Present RRR *Routine Abdominal Exam Abdominal: Present soft and normoactive bowel sounds; Absent tenderness *Routine Rectal Exam Rectal:: deferred *Routine Genitalia Exam Genitalia:: deferred *Routine Extremities Exam Extremities: Absent cyanosis, clubbing or edema *Routine Skin Exam Skin: Present intact and warm; Absent rash *Routine Neurological Exam Neurological: Present alert, oriented X3 and moving all extremities; Absent altered mental status Assessment and Plan *Assessment and plan (1) Paroxysmal A-fib: Status: Acute Category: Medical Code(s): I48.0 - Paroxysmal atrial fibrillation (2) Obesity: Status: Chronic Category: Medical Code(s): E66.9 - Obesity, unspecified (3) Restless leg syndrome: Problem Comment: Symptomatic improvement with oral appliance, 2 tablets ferrous sulfate daily Status: Chronic Category: Medical Code(s): G25.81 - Restless legs syndrome (4) Mood disorder: Problem Comment: Symptomatic improvement with Lexapro prescribed by [facility] health Xochilt GARZA Status: Chronic Category: Medical Code(s): F39 - Unspecified mood [affective] disorder Plan 73-year-old female who presented for elective outpatient colonoscopy. Developed A-fib with RVR. Discussed case with surgeon and manager golf. They request monitoring overnight and rate controlling medications. Medicine agreed to admit for further management. Patient initiated on metoprolol. Getting repeat EKG as heart rate appears to be controlled at this time. Will monitor on telemetry overnight and initiate therapy for anticipated discharge tomorrow. Problems addressed as follows: Paroxysmal A-fib -Initial EKG personally reviewed with concern for A-fib with RVR. Received 5 mg IV metoprolol tartrate in the PACU. -Heart rate has shown improvement. Appears to be in sinus rhythm on telemetry. Repeat EKG pending. -Will continue metoprolol 12.5 mg twice daily to maintain sinus rhythm/heart rate control below 90. - [id number] of 2 for age and female sex. After shared decision-making with patient, conversion to sinus rhythm, no history of heart failure, will proceed with daily aspirin and hold oral anticoagulation at this time. -Aspirin 81 mg daily -A1c and TSH pending Hypothyroid: Continue levothyroxine 25 mcg daily. Adjustments pending TSH Class I obesity complicates all aspects of her care. Mood disorder: Continue home escitalopram 5mg daily Continue home pramipexole 0.5 mg nightly for restless leg Chloraseptic spray for sore throat post procedure Full code Ambulatory, holding anticoagulation. Tish score of 2 Regular diet
[2023-08-27 17:11] LABS: Basophils # 0.1 K/mm3 (0-0.2); Basophils % 0.8 % (0.1-2.0); Eosinophils % 0.4 % (0.1-12.0); Hematocrit 46.9 % (37.0-47.0); Hemoglobin 14.9 g/dL (12.2-16.2); Lymphocytes # 1.3 K/mm3 (0.7-4.5); Lymphocytes % 13.7 % (10-50); Mean Corpuscular HGB Conc 31.8 g/dL (31.8-35.4); Mean Corpuscular Hemoglobin 32.7 pg (27.0-31.2); Mean Platelet Volume 8.6 fl (7.4-10.4); Monocytes # 0.4 K/mm3 (0.1-1.0); Monocytes % 3.7 % (1.7-9.3); Neutrophils # 7.6 K/mm3 (1.8-7.8); Neutrophils % 81.4 % (37.0-80.0); Platelet Count 223 K/mm3 (142-424); Red Blood Count 4.56 M/mm3 (4.20-5.40); Red Cell Distribution Width 12.8 % (11.5-17.5); White Blood Count 9.3 K/mm3 (4.8-10.8)
[2023-08-27] MEDS: PHENOL THROAT SPRAY 177 ML BOTTLE MM (17:26)
[2023-08-27 17:34] LABS: Hemoglobin A1C 5.7 % (4.0-6.0)
--- NOTE | 2023-08-27 17:36 | ECG_ITS ---
APPROVED REPORT Exam: Resting ECG HR:80 bpm ECG Measurements Heart Rate 80 AXES AZ 176 P 32 QRSd 115 QRS -56 QT 389 T 32 QTc 425 Conclusion SINUS RHYTHM LEFT ANTERIOR FASCICULAR BLOCK [QRS AXIS <= -45, QR IN I, RS IN II] VOLTAGE CRITERIA FOR LVH [MEETS CRITERIA IN ONE OF: R(aVL), S(V1), R(V5), R(V5/V6)+S(V1)] Late R wave progression ABNORMAL ECG UNCONFIRMED REPORT Electronically signed by : José Mei MD 08/28/2023 16:37:59
[2023-08-27 17:37] LABS: Chloride 106 mmol/L (98-107); Potassium 3.9 mmoL/L (3.5-5.1); Sodium 138 mmol/L (136-145)
[2023-08-27 17:39] LABS: Blood Urea Nitrogen 14 mg/dl (7-17); Creatinine Clearance Estimated 57 mL/min (50-200); Estimated Glomerular Filt Rate 44 ml/min (>60); GFR (African American) 53 ML/MIN (>60)
[2023-08-27 17:40] LABS: Alanine Aminotransferase 20 U/L (12-78); Albumin Level 3.8 g/dl (3.5-5.0); Albumin/Globulin Ratio 1.3 (1.1-1.8); Alkaline Phosphatase 96 U/L (38-126); Anion Gap 4.9 mEq/L (5-15); Aspartate Amino Transferase 39 U/L (14-36); Bilirubin,Total 0.4 mg/dl (0.2-1.3); Calcium 9.2 mg/dl (8.4-10.2); Carbon Dioxide 31 mmol/L (22.0-30.0); Chol/HDL Ratio 4.8 (1-3.5); Cholesterol 226 mg/dl (140-200); Globulin 2.9 g/dL (1.3-3.2); Glucose 134 mg/dl (74-100); HDL Cholesterol 47 mg/dl (40-60); Magnesium 2.2 mg/dl (1.6-2.3); Total Protein,Serum 6.7 g/dl (6.3-8.2); Triglycerides 125 mg/dl (30-150); VLDL Cholesterol 25 mg/dL (0-40)
[2023-08-27 17:51] LABS: Direct LDL Cholesterol 115.47 mg/dL (100-129)
[2023-08-27 18:12] LABS: Thyroid Stimulating Hormone 2.24 uIU/mL (0.465-4.68)
[2023-08-27] MEDS: ACETAMINOPHEN 325MG TAB 650 MG PO (18:17)
[2023-08-27] MEDS: METOPROLOL SUCCINATE XL 25MG TABLET 12.5 MG PO (20:27)
[2023-08-28] VITALS: BP 139/81; PULSE 63; PULSE 67; RESP 16; TEMP 36.8; O2SAT 94
[2023-08-28 04:00] VITALS: BP 136/77; PULSE 67; PULSE 68; RESP 16; TEMP 36.7; O2SAT 100; BMI 33.0
--- NOTE | 2023-08-28 06:56 | INFXCTL.NOTE ---
VITAL SIGNS STABLE. AFEBRILE. NO COMPLAINTS OF CHEST PAIN OR SOA. NSR ON TLEMETRY. HAS HAD AN UNEVENTFUL NIGHT.
[2023-08-28] MEDS: LEVOTHYROXINE 25MCG (0.025MG) TAB 25 MCG PO (07:35)
[2023-08-28 07:42] LABS: Alanine Aminotransferase 21 U/L (12-78); Albumin Level 4.1 g/dl (3.5-5.0); Albumin/Globulin Ratio 1.3 (1.1-1.8); Alkaline Phosphatase 97 U/L (38-126); Aspartate Amino Transferase 42 U/L (14-36); Bilirubin,Total 0.6 mg/dl (0.2-1.3); Blood Urea Nitrogen 16 mg/dl (7-17); Calcium 9.3 mg/dl (8.4-10.2); Carbon Dioxide 29 mmol/L (22.0-30.0); Chloride 105 mmol/L (98-107); Creatinine Clearance Estimated 59 mL/min (50-200); Estimated Glomerular Filt Rate 44 ml/min (>60); GFR (African American) 53 ML/MIN (>60); Globulin 3.1 g/dL (1.3-3.2); Glucose 111 mg/dl (74-100); Magnesium 2.2 mg/dl (1.6-2.3); Sodium 138 mmol/L (136-145); Total Protein,Serum 7.2 g/dl (6.3-8.2)
[2023-08-28 07:49] LABS: Basophils # 0.1 K/mm3 (0-0.2); Eosinophils # 0.1 K/mm3 (0.0-0.4); Eosinophils % 0.6 % (0.1-12.0); Hematocrit 45.7 % (37.0-47.0); Hemoglobin 14.7 g/dL (12.2-16.2); Lymphocytes # 2.2 K/mm3 (0.7-4.5); Lymphocytes % 21.2 % (10-50); Mean Corpuscular HGB Conc 32.1 g/dL (31.8-35.4); Mean Corpuscular Hemoglobin 32.5 pg (27.0-31.2); Mean Corpuscular Volume 101.1 fl (81-99); Mean Platelet Volume 8.8 fl (7.4-10.4); Monocytes # 0.6 K/mm3 (0.1-1.0); Monocytes % 6.1 % (1.7-9.3); Neutrophils # 7.3 K/mm3 (1.8-7.8); Neutrophils % 71.1 % (37.0-80.0); Platelet Count 246 K/mm3 (142-424); Red Blood Count 4.52 M/mm3 (4.20-5.40); Red Cell Distribution Width 12.9 % (11.5-17.5); White Blood Count 10.2 K/mm3 (4.8-10.8)
[2023-08-28 07:57] VITALS: BP 153/70; PULSE 74; RESP 16; TEMP 36.9; O2SAT 97
[2023-08-28 08:00] VITALS: PULSE 77
[2023-08-28] MEDS: ASPIRIN EC 81MG TABLET 81 MG PO (08:15)
[2023-08-28] MEDS: METOPROLOL SUCCINATE XL 25MG TABLET 12.5 MG PO (08:15)
--- NOTE | 2023-08-28 09:23 | EXP.DC.SUM ---
General Admission date:: 08/27/23 Discharge date: 08/28/23 HPI HPI HPI: Ms. Hou is a 73-year-old female with history of depression, obesity, GERD, hypothyroid who presented for an elective outpatient colonoscopy today. Reports she had a colonoscopy performed a year ago but unfortunately had inadequate prep so she is back for repeat scope today. During her procedure she developed A-fib with RVR. Cardiology and medicine were contacted. Patient received single dose of 5 mg IV metoprolol. Was recommended she be observed overnight on telemetry for consideration of oral rate controlling meds and potential for anticoagulation. Patient tolerated the procedure well. Has a sore throat and is hungry/nauseous because she has not eaten. Otherwise has no complaints of shortness of breath, chest pain, confusion, focal weakness. Is compliant with her medications but missed them this morning due to her procedure. On evaluation, in no acute distress. Family at bedside. Alert and oriented x 4. Hospital Course Hospital Course Hospital Course: Patient was seen and evaluated at the bedside on the day of discharge. Patient wishes to be discharged. All patient questions were answered and patient was given time to ask questions. Patient was discharged in stable condition. Patient understands that she can return to ER in case of any sudden changes in health. Total time spent on DC - 38 mins 73-year-old female who presented for elective outpatient colonoscopy. Developed A-fib with RVR. Discussed case with surgeon and secret service agent. They request monitoring overnight and rate controlling medications. Medicine agreed to admit for further management. Patient initiated on metoprolol. Getting repeat EKG as heart rate appears to be controlled at this time. Will monitor on telemetry overnight and initiate therapy for anticipated discharge tomorrow. Problems addressed as follows: Paroxysmal A-fib - stable -Initial EKG personally reviewed with concern for A-fib with RVR. Received 5 mg IV metoprolol tartrate in the PACU. -Heart rate has shown improvement. Appears to be in sinus rhythm on telemetry. Repeat EKG pending. -Will continue metoprolol 12.5 mg twice daily to maintain sinus rhythm/heart rate control below 90. - [id number] of 2 for age and female sex. After shared decision-making with patient, conversion to sinus rhythm, no history of heart failure, will proceed with daily aspirin and hold oral anticoagulation at this time. -Aspirin 81 mg daily Hypothyroid: Continue levothyroxine 25 mcg daily. Class I obesity complicates all aspects of her care. Mood disorder: Continue home escitalopram 5mg daily Continue home pramipexole 0.5 mg nightly for restless leg Chloraseptic spray for sore throat post procedure Full code Ambulatory, holding anticoagulation. Tish score of 2 Regular diet Exam Data for Last 24 hours Vital signs and Labs for Last 24 Hours: Temp Pulse Resp BP Pulse Ox O2 Del Method O2 Flow Rate 98.5 F 77 16 153/70 H 97 Room Air 3 08/28/23 07:57 08/28/23 08:00 08/28/23 07:57 08/28/23 07:57 08/28/23 07:57 08/28/23 08:17 08/28/23 00:00 Laboratory Results - last 24 hr 08/27/23 16:51: WBC 9.3, RBC 4.56, Hgb 14.9, Hct 46.9, MCV 103.0 H, MCH 32.7 H, MCHC 31.8, RDW 12.8, Plt Count 223, MPV 8.6, Neut % (Auto) 81.4 H, Lymph % (Auto) 13.7, Mcpherson % (Auto) 3.7, Eos % (Auto) 0.4, Baso % (Auto) 0.8, Neut # (Auto) 7.6, Lymph # (Auto) 1.3, Mcpherson # (Auto) 0.4, Eos # (Auto) 0.0, Baso # (Auto) 0.1, Sodium 138, Potassium 3.9, Chloride 106, Carbon Dioxide 31 H, Anion Gap 4.9 L, BUN 14, Creatinine 1.20 H, Estimated Creat Clear 57, Estimated GFR 44 L, Est GFR ( Amer) 53 L, Glucose 134 H, Hemoglobin A1c 5.7, Calcium 9.2, Magnesium 2.2, Total Bilirubin 0.4, AST 39 H, ALT 20, Alkaline Phosphatase 96, Total Protein 6.7, Albumin 3.8, Globulin 2.9, Albumin/Globulin Ratio 1.3, Triglycerides 125, Cholesterol 226 H, LDL Cholesterol Direct 115.47, VLDL Cholesterol 25, HDL Cholesterol 47, Cholesterol/HDL Ratio 4.8 H, TSH 2.24 08/28/23 06:52: WBC 10.2, RBC 4.52, Hgb 14.7, Hct 45.7, MCV 101.1 H, MCH 32.5 H, MCHC 32.1, RDW 12.9, Plt Count 246, MPV 8.8, Neut % (Auto) 71.1, Lymph % (Auto) 21.2, Mcpherson % (Auto) 6.1, Eos % (Auto) 0.6, Baso % (Auto) 1.0, Neut # (Auto) 7.3, Lymph # (Auto) 2.2, Mcpherson # (Auto) 0.6, Eos # (Auto) 0.1, Baso # (Auto) 0.1, Sodium 138, Potassium 4.0, Chloride 105, Carbon Dioxide 29, Anion Gap 8.0, BUN 16, Creatinine 1.20 H, Estimated Creat Clear 59, Estimated GFR 44 L, Est GFR ( Amer) 53 L, Glucose 111 H, Calcium 9.3, Magnesium 2.2, Total Bilirubin 0.6, AST 42 H, ALT 21, Alkaline Phosphatase 97, Total Protein 7.2, Albumin 4.1, Globulin 3.1, Albumin/Globulin Ratio 1.3 I & O for Last 24 hours: Intake & Output 08/25/23 08/26/23 08/27/23 08/28/23 23:59 23:59 23:59 23:59 Intake Total 240 / 240 540 / 540 Output Total 0 / 0 0 / 0 Balance 240 / 240 540 / 540 Weight 87.231 kg 90.129 kg Constitutional Constitutional: no acute distress *Routine HEENT Exam Head: Present normocephalic Eye: Present EOMI and PERRL ENT: Present mucous membranes moist *Routine Neck Exam Neck: Present supple; Absent lymphadenopathy *Routine Respiratory Exam Respiratory: Present CTA bilaterally *Routine Cardiovascular Exam Cardiovascular: Present RRR *Routine Abdominal Exam Abdominal: Present soft and normoactive bowel sounds; Absent tenderness *Routine Extremities Exam Extremities: Absent cyanosis, clubbing or edema *Routine Skin Exam Skin: Present warm; Absent rash *Routine Neurological Exam Neurological: Present alert and oriented X3 Results Data Completed and Pending Labs on day of discharge: Labs from last 24 hours 08/28/23 08/27/23 06:52 16:51 WBC 10.2 9.3 RBC 4.52 4.56 Hgb 14.7 14.9 Hct 45.7 46.9 MCV 101.1 H 103.0 H MCH 32.5 H 32.7 H MCHC 32.1 31.8 RDW 12.9 12.8 Plt Count 246 223 MPV 8.8 8.6 Neut % (Auto) 71.1 81.4 H Lymph % (Auto) 21.2 13.7 Mcpherson % (Auto) 6.1 3.7 Eos % (Auto) 0.6 0.4 Baso % (Auto) 1.0 0.8 Neut # (Auto) 7.3 7.6 Lymph # (Auto) 2.2 1.3 Mcpherson # (Auto) 0.6 0.4 Eos # (Auto) 0.1 0.0 Baso # (Auto) 0.1 0.1 Sodium 138 138 Potassium 4.0 3.9 Chloride 105 106 Carbon Dioxide 29 31 H Anion Gap 8.0 4.9 L BUN 16 14 Creatinine 1.20 H 1.20 H Estimated Creat Clear 59 57 Estimated GFR 44 L 44 L Est GFR ( Amer) 53 L 53 L Glucose 111 H 134 H Hemoglobin A1c 5.7 Calcium 9.3 9.2 Magnesium 2.2 2.2 Total Bilirubin 0.6 0.4 AST 42 H 39 H ALT 21 20 Alkaline Phosphatase 97 96 Total Protein 7.2 6.7 Albumin 4.1 3.8 Globulin 3.1 2.9 Albumin/Globulin Ratio 1.3 1.3 Triglycerides 125 Cholesterol 226 H LDL Cholesterol Direct 115.47 VLDL Cholesterol 25 HDL Cholesterol 47 Cholesterol/HDL Ratio 4.8 H TSH 2.24 DS: Diagnosis Discharge Diagnosis (1) Paroxysmal A-fib: Status: Acute Code(s): I48.0 - Paroxysmal atrial fibrillation (2) Obesity: Status: Chronic Code(s): E66.9 - Obesity, unspecified (3) Restless leg syndrome: Status: Chronic Code(s): G25.81 - Restless legs syndrome Problem details: Symptomatic improvement with oral appliance, 2 tablets ferrous sulfate daily (4) Mood disorder: Status: Chronic Code(s): F39 - Unspecified mood [affective] disorder Problem details: Symptomatic improvement with Lexapro prescribed by [facility] behavioral health Xochilt GARZA Home Medications and Allergies Home Medications Medication Instructions Recorded Confirmed Type cholecalciferol (vitamin D3) 10 10 mcg PO DAILY Supplement 01/19/20 08/26/23 History mcg (400 unit) capsule (Vitamin D3) famotidine 20 mg tablet 20 mg PO DAILY Acid Reflux 01/19/20 08/26/23 History vitamin B complex 1 cap PO DAILY 03/03/23 08/26/23 History pramipexole 0.5 mg tablet 0.5 mg PO HS Restless Leg(S) 03/31/23 08/26/23 History ferrous sulfate 325 mg (65 mg 325 mg PO BID Supplement 06/30/23 08/26/23 History iron) tablet multivitamin 1 tab PO DAILY Supplement 06/30/23 08/26/23 History escitalopram oxalate 5 mg tablet 5 mg PO DAILY #90 tabs 08/12/23 08/24/23 Rx (Lexapro) aspirin 81 mg tablet,delayed 81 mg PO DAILY 30 days #30 tabs 08/27/23 Rx release levothyroxine 25 mcg tablet 25 mcg PO DAILY Thyroid 08/27/23 08/27/23 History meloxicam 7.5 mg tablet 7.5 mg PO DAILY Pain 08/27/23 08/27/23 History metoprolol succinate 25 mg 12.5 mg (1/2 x 25 mg) PO BID 30 08/27/23 Rx tablet,extended release 24 hr days #30 tabs New Prescriptions to Start Prescriptions: Osmar Giraldo metoprolol succinate Osmar Diaz Allergies Allergy/AdvReac Type Severity Reaction Status Date / Time Sulfa (Sulfonamide Allergy Intermediate I-ITCHING Verified 08/27/23 10:47 Antibiotics) [SULFA (SULFONAMIDE ANTIBIOTICS)] Discharge Plan Disposition Patient Disposition: Home, Self-Care Condition: Good Follow up Plan Follow up with: Keven Marie MD [Staff Physician] - 09/16/23 9:45 am Marcin Bang MD [Staff Physician] - 2 weeks Prescriptions/Medication Reconciliation: New aspirin 81 mg Tablet,Delayed Release (Dr/Ec) 81 mg PO DAILY 30 Days Qty: 30 0RF metoprolol succinate 25 mg Tablet Extended Release 24 Hr 12.5 mg PO BID 30 Days Qty: 30 0RF Continued pramipexole 0.5 mg tablet 0.5 mg PO HS multivitamin Tablet 1 tab PO DAILY escitalopram oxalate [Lexapro] 5 mg tablet 5 mg PO DAILY Qty: 90 1RF cholecalciferol (vitamin D3) [Vitamin D3] 10 mcg (400 unit) capsule 10 mcg PO DAILY famotidine 20 mg tablet 20 mg PO DAILY vitamin B complex Capsule 1 cap PO DAILY ferrous sulfate 325 mg (65 mg iron) tablet 325 mg PO BID levothyroxine 25 mcg tablet 25 mcg PO DAILY meloxicam 7.5 mg tablet 7.5 mg PO DAILY Patient Comments: TAKE 1 TABLET BY MOUTH ONCE DAILY FOR PAIN Problem Reconciliation Problems Reviewed?: Yes Patient Discharge Instructions ACTIVITY: Continue current activity DIET: continue same diet Patient Instructions: Atrial Fibrillation, DI for Colonoscopy Providers Primary Care Provider: Provider,Referral Admit Provider: Osmar Diaz Attending Provider: Osmar Diaz
--- NOTE | 2023-08-30 14:57 | CARE MANAGER ---
Called and spoke with patient regarding recent discharge. She states she is doing ok, but was in ER this morning. She apparently fell and broke her wrist. She had no concerns r/t discharge.
== END 2023-08-28 10:08 | disposition home or self-care (01) ==
LOC: 2ND 16:07
PROVIDERS: Surgery; Admitting Provider Internal Medicine Adolescent Medicine; Visit Provider Internal Medicine Adolescent Medicine
PROC: 0DJD8ZZ Inspection of Lower Intestinal Tract, Via Natural or Artificial Opening Endoscopic (ICD-10-PCS; CPT 45378; principal; 2023-08-27 11:30)
DX: I48.0 Paroxysmal atrial fibrillation (principal); Z86.010 Personal history of colon polyps; E66.9 Obesity, unspecified; G25.81 Restless legs syndrome; F39 Unspecified mood [affective] disorder; E03.9 Hypothyroidism, unspecified; Z87.891 Personal history of nicotine dependence; Z79.899 Other long term (current) drug therapy; Z68.33 Body mass index [BMI] 33.0-33.9, adult
CPT/HCPCS: 45378; 36415; 80053; 80061; 83036; 83735; 84443; 85025; 93005; 93306; G0378

== ENCOUNTER 2023-08-30 07:48 | Emergency (ER) | payer MEDICARE, SELFPAY ==
[2023-08-30 07:50] VITALS: BP 120/77; PULSE 62; RESP 16; TEMP 36.7; O2SAT 98; BMI 32.4
--- NOTE | 2023-08-30 07:53 | PC.NURSE ---
Dr. Renee at [facility] for pt eval
--- NOTE | 2023-08-30 07:57 | XR_ITS ---
FINAL REPORT CLINICAL HISTORY: fall, sweling pain prox tib fib laterally COMPARISON: None FINDINGS: 3 views of the left tibia/fibula were obtained. There is no acute fracture or dislocation. There is mild degenerative change. There is no soft tissue abnormality. IMPRESSION: No acute bony abnormality. Reviewed, Interpreted and Dictated by Keven Nava III, MD Transcribed by Kirsten Talavera Authenticated and [facility]
--- NOTE | 2023-08-30 07:57 | XR_ITS ---
FINAL REPORT CLINICAL HISTORY: fall, L wrist deformity COMPARISON: None FINDINGS: LEFT WRIST Three views demonstrate a comminuted, impacted fracture of the distal radius with dorsal angulation of the distal fragments. There is a fracture of the base of the ulnar styloid process. There is moderate degenerative change. The soft tissues are unremarkable. IMPRESSION: Fractures of the distal radius and ulnar styloid process as above. Reviewed, Interpreted and Dictated by Keven Nava III, MD Transcribed by Kirsten Talavera Authenticated and [facility]
--- NOTE | 2023-08-30 07:57 | XR_ITS ---
FINAL REPORT CLINICAL HISTORY: fall, L wrist deformity COMPARISON: None FINDINGS: 2 views of the left forearm were obtained. There is a comminuted, impacted fracture of the distal radius with dorsal angulation of the distal fragments. The joints are intact. There are no soft tissue abnormalities. IMPRESSION: Comminuted impacted fracture distal radius. Reviewed, Interpreted and Dictated by Keven Nava III, MD Transcribed by Kirsten Talavera Authenticated and [facility]
--- NOTE | 2023-08-30 07:57 | XR_ITS ---
FINAL REPORT CLINICAL HISTORY: fall, atruck elbow. L wrist deformity COMPARISON: None FINDINGS: 3 views of the elbow were obtained. The lateral view is rotated. There is no acute fracture or dislocation. The joint spaces are intact. The soft tissues are unremarkable. IMPRESSION: No acute bony abnormality. Reviewed, Interpreted and Dictated by Keven Nava III, MD Transcribed by Kirsten Talavera Authenticated and [facility]
--- NOTE | 2023-08-30 07:57 | CT_ITS ---
FINAL REPORT CLINICAL HISTORY: fall, struck head COMPARISON: 08/11/2022 FINDINGS: Axial images of the head were obtained without contrast. Coronal and sagittal reformatted images were also obtained.This study was performed with techniques to keep radiation doses as low as reasonably achievable (ALARA). Individualized dose reduction techniques using automated exposure control or adjustment of mA and/or kV according to the patient's size were employed. There is no evidence of intracranial hemorrhage or mass. The ventricular size is within normal limits. There is no evidence of shift of the midline structures. No abnormal extra axial fluid collection is identified. No skull abnormality is seen on the bone window images. IMPRESSION: No acute intracranial abnormality. Reviewed, Interpreted and Dictated by Keven Nava III, MD Transcribed by Denisse Pacheco Authenticated and [facility]
--- NOTE | 2023-08-30 07:57 | XR_ITS ---
FINAL REPORT CLINICAL HISTORY: fall, L lateral knee and prox fib pain/swellin COMPARISON: None FINDINGS: Three views of the left knee reveal no evidence of fracture or dislocation. The bony alignment is normal. There is mild degenerative change. There is no evidence of joint effusion. No localized soft tissue abnormality is seen. IMPRESSION: No acute abnormality identified. Reviewed, Interpreted and Dictated by Keven Nava III, MD Transcribed by Kirsten Talavera Authenticated and [facility]
[2023-08-30] MEDS: ACETAMINOPHEN 1,000MG/100ML VIAL 1000 MG IV (08:10)
[2023-08-30] MEDS: KETOROLAC 30MG/ML VIAL 15 MG IV (08:10)
--- NOTE | 2023-08-30 08:12 | HMH.EDGENADL ---
Discharge Plan Disposition Patient Disposition: Home, Self-Care Chief Complaint: Fall Prescriptions Prescriptions: No Action pramipexole 0.5 mg tablet 0.5 mg PO HS multivitamin Tablet 1 tab PO DAILY escitalopram oxalate [Lexapro] 5 mg tablet 5 mg PO DAILY Qty: 90 1RF cholecalciferol (vitamin D3) [Vitamin D3] 10 mcg (400 unit) capsule 10 mcg PO DAILY famotidine 20 mg tablet 20 mg PO DAILY vitamin B complex Capsule 1 cap PO DAILY ferrous sulfate 325 mg (65 mg iron) tablet 325 mg PO BID levothyroxine 25 mcg tablet 25 mcg PO DAILY meloxicam 7.5 mg tablet 7.5 mg PO DAILY Patient Comments: TAKE 1 TABLET BY MOUTH ONCE DAILY FOR PAIN aspirin 81 mg Tablet,Delayed Release (Dr/Ec) 81 mg PO DAILY 30 Days Qty: 30 0RF metoprolol succinate 25 mg Tablet Extended Release 24 Hr 12.5 mg PO BID 30 Days Qty: 30 0RF Referrals Follow up/Referrals: Adrienne Medina MD [Primary Care Provider] - See instructions Activity Restrictions/Add. Instructions Additional Instructions/Restrictions: Call your family doctor to establish care for this visit to the emergency department and schedule follow-up within 48 hours to ensure improvement. If you have any worsening of your condition or any other concerning signs or symptoms, return to the emergency department or your primary care doctor for further evaluation. Dr. Stinson's information listed here, call the office to schedule an appointment sometime this week or next for follow-up. Clinical Impressions Clinical Impression: Distal radius fracture, left, Fracture, ulna Discharge ED Provider: Parth Renee General Adult HPI General Chief complaint: Fall Stated complaint: AO 08/30/23 @ 07:00, fell injured left wrist Time Seen by Provider: 08/30/23 07:51 Mode of Arrival: Ambulatory Source of Information: Patient Limitations: No Limitations Description of Symptoms (Recalled from ER Triage Doc. by RN): Patient reports tripping this morning and landing on her left wrist. Also complains of left knee and right elbow pain. Denies LOC. History of Present Illness HPI narrative: 73-year-old female history of hypertension, arrhythmia rule out, hypothyroidism presenting with fall. Patient states that she was walking down a ramp this morning when she tripped onto her left side. Fell onto her left knee, caught herself with her left outstretched hand, hit her head, but did not lose consciousness. She is complaining of left wrist pain is moderate in intensity does not radiate, left knee pain, and right elbow pain. Has not taken anything for the pain. Got dressed and came immediately to the emergency department. Please note that above description of symptoms, in this electronic medical record under categorization of recalled from ER triage doctor by RN are reflective of an initial nursing assessment, however, is not reflective of my full history and physical exam that was personally taken and clarified. Consequentially, this preceding description of symptoms, which may include the patient's categorized chief complaint in the EMR, do not reflect my personal clinical impression, and the ultimate description of history of present illness and patient stated complaints should be deferred to this section of the note. Unless stated otherwise or congruent with this section of the note, additional signs, symptoms, or incongruence should be interpreted as inaccurate with my clinical impression. Related Data Home Medications Medication Instructions Recorded Confirmed cholecalciferol (vitamin D3) 10 10 mcg PO DAILY Supplement 01/19/20 08/26/23 mcg (400 unit) capsule (Vitamin D3) famotidine 20 mg tablet 20 mg PO DAILY Acid Reflux 01/19/20 08/26/23 vitamin B complex 1 cap PO DAILY 03/03/23 08/26/23 pramipexole 0.5 mg tablet 0.5 mg PO HS Restless Leg(S) 03/31/23 08/26/23 ferrous sulfate 325 mg (65 mg 325 mg PO BID Supplement 06/30/23 08/26/23 iron) tablet multivitamin 1 tab PO DAILY Supplement 06/30/23 08/26/23 levothyroxine 25 mcg tablet 25 mcg PO DAILY Thyroid 08/27/23 08/27/23 meloxicam 7.5 mg tablet 7.5 mg PO DAILY Pain 08/27/23 08/27/23 Previous Rx's Medication Instructions Recorded escitalopram oxalate 5 mg tablet 5 mg PO DAILY #90 tabs 08/12/23 (Lexapro) aspirin 81 mg tablet,delayed 81 mg PO DAILY 30 days #30 tabs 08/27/23 release metoprolol succinate 25 mg 12.5 mg (1/2 x 25 mg) PO BID 30 08/27/23 tablet,extended release 24 hr days #30 tabs Allergies Allergy/AdvReac Type Severity Reaction Status Date / Time Sulfa (Sulfonamide Allergy Intermediate I-ITCHING Verified 08/27/23 10:47 Antibiotics) [SULFA (SULFONAMIDE ANTIBIOTICS)] [facility] Disclaimer: The information contained in this section may have been updated after the patient was seen, as this information can be updated by other users. Medical History Major depressive disorder Hyperthyroidism Surgical History History of surgery on right wrist History of carpal tunnel release History of tonsillectomy Family History No significant family history Alcoholism Mother FHx: mental illness Grandfather Social History Smoking Status: Never smoker smoking status stop date: 2012 second hand exposure: No alcohol intake: never counseling given: No substance use type: denies use counseling given: No current occupational status: retired and other Travel in the last 8 weeks: None adopted: No caregiver/support person: No foster care: No household members: none and other housing: house lives independently: Yes marital status: number of children: 1 number of grandchildren: 0 education level: high school 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; 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 pets and animals: Yes pets and animals: cat(s) and dog(s) caffeine: Yes physical activity: none anupam/sikh: Anabaptism special anupam needs: No working smoke detector in home: Yes fire extinguisher in home: Yes carbon monox detector in home: No firearms in home: Yes firearms unloaded and locked: Yes do you feel safe at home: Yes ROS Obtained: Yes All systems reviewed & no additional complaints except as documented Physical Exam General General appearance: alert and in no apparent distress Head Head exam: atraumatic and normocephalic Eye Eye exam: Present normal appearance, PERRL and EOMI ENT ENT exam: Present mucous membranes moist Neck Neck exam: Present normal inspection, full ROM and trachea midline; Absent tenderness Respiratory Respiratory exam: Absent respiratory distress, wheezes, stridor, accessory muscle use or prolonged expiratory phase Cardiovascular Cardiovascular exam: Present normal rhythm Abdominal Exam Abdominal exam: Present soft; Absent distention, tenderness, guarding, rebound or rigidity Extremities Exam Extremities exam: Present other (Tenderness and obvious deformity left wrist. Neurovascular intact and range of motion intact of digits distally. Limited range of motion of wrist secondary to deformity. tenderness and swelling proximal tibia left lower extremity, range of motion intact and tenderness without obvious injury) Neurological Exam Neurological exam: Present alert, oriented X3, CN II-XII intact and normal gait; Absent motor sensory deficit Skin Skin exam: Present warm and dry; Absent diaphoresis or erythema Medical Decision Making Medical Records Medical records reviewed: Yes I reviewed the patient's medical records. Hemal Inquiry Pt receiving controlled substance: No Hemal was queried for this patient: No Vital Signs: 08/30/23 07:50 08/30/23 08:31 Temperature 98.0 F Temperature Source Oral Pulse Rate 55 L Pulse Rate [Radial] 62 Respiratory Rate 16 Blood Pressure 136/83 Blood Pressure [Right Arm] 120/77 Blood Pressure Mean [Right Arm] 91 Blood Pressure Source [Right Arm] Automatic Cuff Blood Pressure Position [Right Arm] Sitting 02 Sat by Pulse Oximetry 98 96 Oxygen Delivery Method Room Air Room Air Orders (Tests/Meds): ED MEDICATIONS Discontinued Medications Generic Name Dose Route Start Last Admin Trade Name Freq PRN Reason Stop Dose Admin Acetaminophen 1,000 mg 08/30/23 08:00 08/30/23 08:10 Acetaminophen 1,000mg/100ml Vial IV 08/30/23 08:01 1,000 mg ONCE ONE Administration Ketorolac Tromethamine 15 mg 08/30/23 08:00 08/30/23 08:10 Ketorolac 30mg/Ml Vial IV 08/30/23 08:01 15 mg ONCE ONE Administration Lidocaine/Epinephrine 20 ml 08/30/23 08:00 08/30/23 09:01 Lidocaine 1% W/Epi 1:100,000 20ml Vial SQ 08/30/23 08:01 1 ml ONCE ONE Administration ORDERS Category Date Time Status CT head/brain wo con Stat Cat Scan 08/30/23 07:57 Completed Fibula/tibia XR left 2 views [XR tibia fibula LT 2V] Exams 08/30/23 07:57 Taken Stat Forearm XR left 2 views [XR forearm LT 2V] Stat Exams 08/30/23 07:57 Taken Knee XR left 3 views [XR knee LT 3V] Stat Exams 08/30/23 07:57 Taken Wrist XR left minimum 3 views [XR wrist LT min 3V] Stat Exams 08/30/23 07:57 Taken XR elbow RT min 3V Stat Exams 08/30/23 07:57 Taken Medical Decision Narrative: 73-year-old female history of hypertension, arrhythmia rule out, hypothyroidism presenting with fall. Patient states that she was walking down a ramp this morning when she tripped onto her left side. Fell onto her left knee, caught herself with her left outstretched hand, hit her head, but did not lose consciousness. She is complaining of left wrist pain is moderate in intensity does not radiate, left knee pain, and right elbow pain. Has not taken anything for the pain. Got dressed and came immediately to the emergency department. History was obtained via conversation with patient. On arrival, patient hemodynamically stable, alert, oriented x4, appropriate, GCS 15, moving all extremities spontaneously, pupils equal and reactive to light. Full physical exam performed and significant for obvious deformity left wrist with no open injury. Neurovascularly intact, but range of motion at wrist limited secondary to swelling and pain. Tenderness and swelling lateral aspect of left lower extremity at/around fibular head. Range of motion intact, knee is structurally intact and neurovascular intact distally. Tenderness about right elbow without outward signs of injury. Head and neck are atraumatic, grossly neurologically intact. Differential includes fracture, dislocation, sprain, strain, neurovascular injury, intracranial bleed, among others. Patient was given Toradol, acetaminophen, lidocaine block with epinephrine for symptomatic management and correction of underlying abnormalities. Workup independently interpreted and significant for angulated, mildly displaced both bone fracture left upper extremity. No evidence of fracture or bony abnormality of the elbow or knee. CT head without acute intracranial hemorrhage. See radiology read for full review of final results. Patient Nexus C-spine negative. On reevaluation, patient splinted, feeling much better. Orthopedics was consulted and case was discussed at length, patient to follow-up, referral was placed. Given patient presentation, workup, history, this most likely represents both bone left forearm fracture after fall from standing. Because patient at baseline without signs or symptoms of clinical decompensation, deemed appropriate for discharge. Results were relayed to patient who voiced understanding and were agreeable to outpatient management and follow up. I discussed my clinical impression with patient and answered all questions. At this time, the evidence for any other entities in the differential is insufficient to warrant any further testing or ED observation. This was explained as well. Advisory was given that persistent or worsening symptoms require further evaluation. I confirmed the understanding of this discussion. Procedures Orthopedic Fracture Reduction Fracture #1: Time Out Performed: No Side: left Fracture Reduction Location: radius and ulna Analgesia: hematoma block Technique: direct manipulation Post-reduction neuro exam: intact and no change Post-reduction vascular exam: intact and no change Splint Applied: Yes Patient Tolerated Procedure: well Critical Care Critical Care Time Critical Care Time: No
--- NOTE | 2023-08-30 08:12 | PC.NURSE ---
pt to rad at this time via wheelchair
--- NOTE | 2023-08-30 08:30 | PC.NURSE ---
pt returned from rad
[2023-08-30 08:31] VITALS: BP 136/83; PULSE 55; O2SAT 96
[2023-08-30] MEDS: LIDOCAINE 1% W/EPI 1:100,000 20ML VIAL 20 ML SQ (09:01)
[2023-08-30 10:00] VITALS: BP 129/87; PULSE 61; RESP 20; TEMP 36.7; O2SAT 97
== END 2023-08-30 10:02 | disposition home or self-care (01) ==
PROVIDERS: Emergency Provider Emergency Medicine; PCP Family Medicine
DX: S52.352A Displaced comminuted fracture of shaft of radius, left arm, initial encounter for closed fracture (principal); S52.612A Displaced fracture of left ulna styloid process, initial encounter for closed fracture; I10 Essential (primary) hypertension; E03.9 Hypothyroidism, unspecified; W10.2XXA Fall (on)(from) incline, initial encounter
CPT/HCPCS: 70450; 73080; 73090; 73110; 73562; 73590; 96374; 96375; 99284; J0131

== ENCOUNTER 2023-08-31 13:29 | Outpatient (CLI) | payer MEDICARE, SELFPAY | END 2023-08-31 23:59 | LOC: RT 13:30 | PROVIDERS: PCP Family Medicine; Visit Provider Internal Medicine | DX: I48.0 Paroxysmal atrial fibrillation (principal); R94.31 Abnormal electrocardiogram [ECG] [EKG]; G47.33 Obstructive sleep apnea (adult) (pediatric) | CPT/HCPCS: 93270 ==

== ENCOUNTER 2023-09-03 17:23 | Emergency (ER) | payer MEDICARE, SELFPAY ==
[2023-09-03 17:24] VITALS: BP 156/91; PULSE 69; RESP 15; TEMP 36.8; O2SAT 96; BMI 33.3
[2023-09-03 18:00] VITALS: BP 124/84; PULSE 73; O2SAT 95
--- NOTE | 2023-09-03 18:25 | ED_ITS ---
Discharge Plan Disposition Patient Disposition: Home, Self-Care Chief Complaint: PAIN Prescriptions Prescriptions: No Action pramipexole 0.5 mg tablet 0.5 mg PO HS multivitamin Tablet 1 tab PO DAILY escitalopram oxalate [Lexapro] 5 mg tablet 5 mg PO DAILY Qty: 90 1RF cholecalciferol (vitamin D3) [Vitamin D3] 10 mcg (400 unit) capsule 10 mcg PO DAILY famotidine 20 mg tablet 20 mg PO DAILY vitamin B complex Capsule 1 cap PO DAILY ferrous sulfate 325 mg (65 mg iron) tablet 325 mg PO BID levothyroxine 25 mcg tablet 25 mcg PO DAILY meloxicam 7.5 mg tablet 7.5 mg PO DAILY Patient Comments: TAKE 1 TABLET BY MOUTH ONCE DAILY FOR PAIN aspirin 81 mg Tablet,Delayed Release (Dr/Ec) 81 mg PO DAILY 30 Days Qty: 30 0RF metoprolol succinate 25 mg Tablet Extended Release 24 Hr 12.5 mg PO BID 30 Days Qty: 30 0RF Referrals Follow up/Referrals: Adrienne Medina MD [Primary Care Provider] - See instructions Clinical Impressions Clinical Impression: Elbow pain Qualifiers: Laterality: left Qualified Code(s): M25.522 - Pain in left elbow Discharge ED Provider: Parth Renee General Adult HPI General Chief complaint: PAIN Stated complaint: Lefts elbow sore and fingers swelling Time Seen by Provider: 09/03/23 17:28 Mode of Arrival: Ambulatory Source of Information: Patient Limitations: No Limitations Description of Symptoms (Recalled from ER Triage Doc. by RN): pt presents to ED with c/o left elbow irritation. pt does have a plaster cast due to a broken left wrist. pt does have a follow up on wednesday with the orthopedist, but pt reports irritation has become worse over the past couple of days History of Present Illness HPI narrative: 73-year-old female presenting with elbow pain. I saw patient a few days prior to this visit for distal radius fracture after fall. Splinted her left upper extremity. Patient states after splinting, started having pain on the lateral aspect of the elbow. Has not noticed anything that makes it better. Feels it is a pressure point. Please note that above description of symptoms, in this electronic medical record under categorization of recalled from ER triage doctor by RN are reflective of an initial nursing assessment, however, is not reflective of my full history and physical exam that was personally taken and clarified. Consequentially, this preceding description of symptoms, which may include the patient's categorized chief complaint in the EMR, do not reflect my personal clinical impression, and the ultimate description of history of present illness and patient stated complaints should be deferred to this section of the note. Unless stated otherwise or congruent with this section of the note, additional signs, symptoms, or incongruence should be interpreted as inaccurate with my clinical impression. Related Data Home Medications Medication Instructions Recorded Confirmed cholecalciferol (vitamin D3) 10 10 mcg PO DAILY Supplement 01/19/20 08/31/23 mcg (400 unit) capsule (Vitamin D3) famotidine 20 mg tablet 20 mg PO DAILY Acid Reflux 01/19/20 08/31/23 vitamin B complex 1 cap PO DAILY 03/03/23 08/31/23 pramipexole 0.5 mg tablet 0.5 mg PO HS Restless Leg(S) 03/31/23 08/31/23 ferrous sulfate 325 mg (65 mg 325 mg PO BID Supplement 06/30/23 08/31/23 iron) tablet multivitamin 1 tab PO DAILY Supplement 06/30/23 08/31/23 levothyroxine 25 mcg tablet 25 mcg PO DAILY Thyroid 08/27/23 08/31/23 meloxicam 7.5 mg tablet 7.5 mg PO DAILY Pain 08/27/23 08/31/23 Previous Rx's Medication Instructions Recorded escitalopram oxalate 5 mg tablet 5 mg PO DAILY #90 tabs 08/12/23 (Lexapro) aspirin 81 mg tablet,delayed 81 mg PO DAILY 30 days #30 tabs 08/27/23 release metoprolol succinate 25 mg 12.5 mg (1/2 x 25 mg) PO BID 30 08/27/23 tablet,extended release 24 hr days #30 tabs Allergies Allergy/AdvReac Type Severity Reaction Status Date / Time Sulfa (Sulfonamide Allergy Intermediate I-ITCHING Verified 08/31/23 12:54 Antibiotics) [SULFA (SULFONAMIDE ANTIBIOTICS)] [facility] Disclaimer: The information contained in this section may have been updated after the patient was seen, as this information can be updated by other users. Medical History (Updated 09/03/23 @ 18:28 by Parth Renee MD) Benign paroxysmal positional vertigo Episodic peripheral vertigo Encounter for pre-operative cardiovascular clearance Abnormal electrocardiogram [ECG] [EKG] Major depressive disorder Hyperthyroidism Surgical History History of surgery on right wrist History of carpal tunnel release History of tonsillectomy Family History Grandfather FHx: mental illness completed suicide -maternal grandfather -mom was about 10 years old -it was a Wednesday morning; and the kids were home school bus operator -shot himself in the head Mother Alcoholism -she was in [employer] -in [place] -and got on beer -she had cirrhosis of the liver Other No significant family history Social History Smoking Status: Former smoker tobacco type: cigarettes smoking status stop date: 2012 second hand exposure: No alcohol intake: never counseling given: No substance use type: denies use counseling given: No current occupational status: retired and other Travel in the last 8 weeks: None adopted: No caregiver/support person: No foster care: No household members: none and other housing: house lives independently: Yes marital status: number of children: 1 number of grandchildren: 0 education level: high school 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; 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 pets and animals: Yes pets and animals: cat(s) and dog(s) caffeine: Yes physical activity: none anupam/nondenominational: Mandaen special anupam needs: No working smoke detector in home: Yes fire extinguisher in home: Yes carbon monox detector in home: No firearms in home: Yes firearms unloaded and locked: Yes do you feel safe at home: Yes ROS Obtained: Yes All systems reviewed & no additional complaints except as documented Physical Exam General General appearance: alert and in no apparent distress Head Head exam: atraumatic and normocephalic Eye Eye exam: Present normal appearance, PERRL and EOMI ENT ENT exam: Present mucous membranes moist Neck Neck exam: Present normal inspection, full ROM and trachea midline Respiratory Respiratory exam: Absent respiratory distress, wheezes, stridor, accessory muscle use or prolonged expiratory phase Cardiovascular Cardiovascular exam: Present normal rhythm Abdominal Exam Abdominal exam: Present soft; Absent distention, tenderness, guarding, rebound or rigidity Extremities Exam Extremities exam: Present other (Left upper extremity splinted. Tenderness over the lateral epicondyle.); Absent edema Neurological Exam Neurological exam: Present alert, oriented X3, CN II-XII intact and normal gait; Absent motor sensory deficit Skin Skin exam: Present warm and dry; Absent diaphoresis or erythema Medical Decision Making Medical Records Medical records reviewed: Yes I reviewed the patient's medical records. Hemal Inquiry Pt receiving controlled substance: No Hemal was queried for this patient: No Vital Signs: 09/03/23 17:24 09/03/23 18:00 Temperature 98.2 F Temperature Source Oral Pulse Rate 73 Pulse Rate [Left Radial] 69 Respiratory Rate 15 Blood Pressure 124/84 Blood Pressure [Right Arm] 156/91 H Blood Pressure Mean [Right Arm] 112 02 Sat by Pulse Oximetry 96 95 Oxygen Delivery Method Room Air Medical Decision Narrative: 73-year-old female presenting with elbow pain. I saw patient a few days prior to this visit for distal radius fracture after fall. Splinted her left upper extremity. Patient states after splinting, started having pain on the lateral aspect of the elbow. Has not noticed anything that makes it better. Feels it is a pressure point. History obtained with patient. On physical exam, tenderness over lateral epicondyle after splint was undressed. Cotton was remov ed. Cast saw was used to remove portion of splint overlying lateral epicondyle and patient had immediate and significant relief. Because patient at baseline without signs or symptoms of clinical decompensation, deemed appropriate for discharge. Results were relayed to patient who voiced understanding and were agreeable to outpatient management and follow up. I discussed my clinical impression with patient and answered all questions. At this time, the evidence for any other entities in the differential is insufficient to warrant any further testing or ED observation. This was explained as well. Advisory was given that persistent or worsening symptoms require further evaluation. I confirmed the understanding of this discussion. Critical Care Critical Care Time Critical Care Time: No
[2023-09-03 18:30] VITALS: BP 132/86; PULSE 72; RESP 20; O2SAT 95
[2023-09-03 18:48] VITALS: BP 132/86; PULSE 71; RESP 16; TEMP 36.7
== END 2023-09-03 18:50 | disposition home or self-care (01) ==
PROVIDERS: Emergency Provider Emergency Medicine; PCP Family Medicine
DX: M25.522 Pain in left elbow (principal)
CPT/HCPCS: 99283

== ENCOUNTER 2023-09-06 07:26 | Outpatient (CLI) | payer MEDICARE, SELFPAY ==
--- NOTE | 2023-09-06 07:27 | NM_ITS ---
APPROVED REPORT Exam: Nuclear Stress Test Indication: Abnormal EKG Patient Location: Outpatient Stress Tech: Moriah Feng [place] Tech:Ada Reyes, DARRYLT, RT (R)(N) Ht: 5 ft 5 in Wt: 200 lbs Bra Size: C HR: 58 bpm BP: 120/82 mmHg BSA: 1.98 m2 TID: 1.31 BMI: 33.2 History: Abnormal EKG Procedure: Patient received 0.4 mg of intravenous Lexiscan, resting heart rate 58 bpm, resting blood pressure 120/82 mmHg, with Lexiscan maximum heart rate achieved was 87 bpm which is % of the maximum predicted heart rate and blood pressure was 139/70 mmHg. With Lexiscan, patient denied any complaint of chest pain. Cardiac Stress and Resting SPECT Images: Cardiac Stress and Resting SPECT images were obtained using technetium 99m Myoview 31.3 mCi stress and 10.63 mCi at rest. Technically difficult study in the setting of significant soft tissue overlap with the cardiac borders. This may affect the diagnostic interpretation of the study findings. Resting and stress imaging in supine positions demonstrate a large sized, mild, fixed perfusion defect in the anterior and inferior LV velasquez. This is no longer visualized with prone stress imaging. Findings may be suggestive of soft tissue and diaphragmatic attenuation. There is also increased transient ischemic dilatation ratio (TID 1.31), suggestive of possible multivessel disease or balanced ischemia. Gated imaging demonstrates normal global and regional LV systolic function. LVEF is calculated at 60%. Conclusion: Large sized, mild, fixed perfusion defect in the anterior and inferior LV velasquez. This is no longer visualized with prone stress imaging. Findings may be suggestive of soft tissue and diaphragmatic attenuation. There is also increased transient ischemic dilatation ratio (TID 1.31), suggestive of possible multivessel disease or balanced ischemia. Gated imaging demonstrates normal global and regional LV systolic function. LVEF is calculated at 60%. Electronically signed by : Renetta Bang MD 09/08/2023 23:15:03
[2023-09-06] MEDS: REGADENOSON 0.4MG/5ML SYRINGE 0.400000000000000022 MG IV (09:05)
[2023-09-06] MEDS: SODIUM CHLORIDE 0.9% 10ML SYR (RAD ONLY) 10 ML IV ×2 (09:05)
[2023-09-06] MEDS: ISOTOPE MYOVIEW (PER STUDY) 1 DOSE IV (09:05)
--- NOTE | 2023-09-06 09:13 | CA_ITS ---
APPROVED REPORT Exam: Pharmacologic Technologist: Moriah Casper, Ht: 5 ft 5 in Wt: 199 lbs BSA: 1.97 m2 HR: 63 bpm BP: 120/82 mmHg Rhythm: NSR Medical History Medications: Levothyroxine,,,,, Aspirin,,,,, Ferrous sulfate,,,,, Lexapro,,,,, Vitamin D3,,,,, Pramipexole,,,,, MeLOXICAM,,,,, Famotidine,,,,, Vitamin B Complex,,,,, Multivitamin,,,,, Metoprolol Succinate ER,,,,, Stress Test Details Test: LEXISCAN Reason for pharmacologic stress test: physical limitation. HR Resting HR: 58 bpm Max Heart Rate (APMHR): 147 bpm Max HR Achieved: 87 bpm Target HR (85% APMHR): 125 bpm % of APMHR: 59 Recovery HR: 72 bpm BP Resting BP: 120.0/82.0 mmHg Max BP: 139.0/70.0 mmHg Recovery BP: 123.0/65.0 mmHg ECG Resting ECG: Normal sinus rhythm, T wave changes in inferior and lateral leads Stress ECG: No ST changes Arrhythmia: None Clinical Exercise duration: 04:00 min Highest Stage Achieved: Stress ECG Conclusion Symptoms: Pt felt numbness with Lexiscan. ST changes: None Arrhythmias/Ectopy: none Conclusion: Unremarkable Lexiscan stress test. Myoview images are reported separately. Test Summary REST . . . . . . . Resting REST 07:56 . . 58 . 120/ 82 . . Stage 1 01:00 . . 87 . . . . Stage 2 01:00 . . 80 . . . . Stage 3 01:00 . . 74 . 127/ 68 . . Stage 4 01:00 . . 73 . 139/ 70 . Stop exercise at 04:00 RECOVERY 01:00 . . 80 . . . . RECOVERY 02:00 . . 72 . 131/ 70 . . RECOVERY 02:40 . . 73 . 123/ 65 . . Electronically signed by : Renetta Bang MD 09/08/2023 23:12:25
== END 2023-09-06 23:59 ==
LOC: RAD 07:27
PROVIDERS: PCP Family Medicine; Visit Provider Internal Medicine
DX: R94.31 Abnormal electrocardiogram [ECG] [EKG] (principal); I48.0 Paroxysmal atrial fibrillation; G47.33 Obstructive sleep apnea (adult) (pediatric)
CPT/HCPCS: 78452; 93017; 93018; A9502; J2785

== ENCOUNTER 2023-09-19 15:37 | Emergency (ER) | payer MEDICARE, SELFPAY ==
[2023-09-19] VITALS (7 sets, daily range): BP systolic 156–179; BP diastolic 74–101; PULSE 67–79; RESP 16–18; TEMP 36.7; O2SAT 96–100; BMI 31.9
--- NOTE | 2023-09-19 15:50 | ED_ITS ---
<Statement entered by Nj Estevez MD - 09/19/23 18:52> At this time it was felt you are safe to be discharged home. If new or worsening symptoms please do not hesitate to return the emergency department. If symptoms persist please follow-up with your family doctor as you are able. Discharge Plan Disposition Patient Disposition: Home, Self-Care Condition: Good Prescriptions Prescriptions: New methocarbamol 750 mg tablet 750 mg PO QID PRN (Reason: muscle spasm) Qty: 10 0RF No Action pramipexole 0.5 mg tablet 0.5 mg PO HS multivitamin Tablet 1 tab PO DAILY escitalopram oxalate [Lexapro] 5 mg tablet 5 mg PO DAILY Qty: 90 1RF cholecalciferol (vitamin D3) [Vitamin D3] 10 mcg (400 unit) capsule 10 mcg PO DAILY famotidine 20 mg tablet 20 mg PO DAILY vitamin B complex Capsule 1 cap PO DAILY ferrous sulfate 325 mg (65 mg iron) tablet 325 mg PO BID levothyroxine 25 mcg tablet 25 mcg PO DAILY aspirin 81 mg Tablet,Delayed Release (Dr/Ec) 81 mg PO DAILY 30 Days Qty: 30 0RF metoprolol succinate 25 mg Tablet Extended Release 24 Hr 12.5 mg PO BID 30 Days Qty: 30 0RF Referrals Follow up/Referrals: Adrienne Medina MD [Primary Care Provider] - See instructions Activity Restrictions/Add. Instructions Additional Instructions/Restrictions: Alternate Tylenol with Motrin every 4 hours as needed for muscle spasm symptoms. I called in a prescription for Robaxin to your pharmacy. Return to ER for any worsening signs and symptoms as needed. Clinical Impressions Clinical Impression: Cervicalgia Instructions Patient Instructions: DI for Neck Pain Discharge ED Provider: Nj Estevez General Adult HPI <CLAYTON Garibay - Last Filed: 09/19/23 18:47> General Chief complaint: Neck Pain/Injury Stated complaint: stiff neck, painful to swallow Time Seen by Provider: 09/19/23 16:15 History of Present Illness HPI narrative: Patient presents for acute onset of right-sided posterior neck pain. Patient reports that she woke up with the pain this morning and has progressively gotten to the point where she has pain with any slight movement of her neck. Patient states it hurts so bad that it is painful to open her mouth and to swallow. She denies chest pain fever chills hemoptysis hematochezia melena nausea vomiting diarrhea. Related Data Home Medications Medication Instructions Recorded Confirmed cholecalciferol (vitamin D3) 10 10 mcg PO DAILY Supplement 01/19/20 09/16/23 mcg (400 unit) capsule (Vitamin D3) famotidine 20 mg tablet 20 mg PO DAILY Acid Reflux 01/19/20 09/16/23 vitamin B complex 1 cap PO DAILY 03/03/23 09/16/23 pramipexole 0.5 mg tablet 0.5 mg PO HS Restless Leg(S) 03/31/23 09/16/23 ferrous sulfate 325 mg (65 mg 325 mg PO BID Supplement 06/30/23 09/16/23 iron) tablet multivitamin 1 tab PO DAILY Supplement 06/30/23 09/16/23 levothyroxine 25 mcg tablet 25 mcg PO DAILY Thyroid 08/27/23 09/16/23 Previous Rx's Medication Instructions Recorded escitalopram oxalate 5 mg tablet 5 mg PO DAILY #90 tabs 08/12/23 (Lexapro) aspirin 81 mg tablet,delayed 81 mg PO DAILY 30 days #30 tabs 08/27/23 release metoprolol succinate 25 mg 12.5 mg (1/2 x 25 mg) PO BID 30 08/27/23 tablet,extended release 24 hr days #30 tabs methocarbamol 750 mg tablet 750 mg PO QID PRN muscle spasm #10 09/19/23 tabs Allergies Allergy/AdvReac Type Severity Reaction Status Date / Time Sulfa (Sulfonamide Allergy Intermediate I-ITCHING Verified 09/16/23 09:54 Antibiotics) [SULFA (SULFONAMIDE ANTIBIOTICS)] [facility] <CLAYTON Garibay - Last Filed: 09/19/23 18:47> [facility] Disclaimer: The information contained in this section may have been updated after the patient was seen, as this information can be updated by other users. Medical History (Updated 09/19/23 @ 18:47 by CLAYTON Garibay) Benign paroxysmal positional vertigo Episodic peripheral vertigo Encounter for pre-operative cardiovascular clearance Abnormal electrocardiogram [ECG] [EKG] Major depressive disorder Hyperthyroidism Surgical History (Updated 09/16/23 @ 09:54 by FERNY Kenny) History of colonoscopy History of surgery on right wrist History of carpal tunnel release History of tonsillectomy Family History Grandfather FHx: mental illness completed suicide -maternal grandfather -mom was about 10 years old -it was a Wednesday morning; and the kids were home business school dean -shot himself in the head Mother Alcoholism -she was in 2 -in [place] -and got on beer -she had cirrhosis of the liver Other No significant family history Social History Smoking Status: Never smoker smoking status stop date: 2012 second hand exposure: No alcohol intake: never counseling given: No substance use type: denies use counseling given: No current occupational status: retired and other Travel in the last 8 weeks: None adopted: No caregiver/support person: No foster care: No household members: none and other housing: house lives independently: Yes marital status: number of children: 1 number of grandchildren: 0 education level: high school 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; 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 pets and animals: Yes pets and animals: cat(s) and dog(s) caffeine: Yes physical activity: none anupam/worship: Islam special anupam needs: No working smoke detector in home: Yes fire extinguisher in home: Yes carbon monox detector in home: No firearms in home: Yes firearms unloaded and locked: Yes do you feel safe at home: Yes <CLAYTON Garibay - Last Filed: 09/19/23 18:47> ROS Obtained: Yes Systems reviewed as appropriate & no additional complaints except as documented Physical Exam <CLAYTON Garibay - Last Filed: 09/19/23 18:47> General General appearance: alert and in no apparent distress Head Head exam: atraumatic and normal inspection Eye Eye exam: Present normal appearance, PERRL and EOMI ENT ENT exam: Present normal exam, normal oropharynx, mucous membranes moist and other (Patient reports pain in the right sided posterior cervical musculature and attempting to open her mouth. Voice is normal) Neck Neck exam: Present normal inspection, trachea midline and tenderness (Tender to palpation primarily in the right-sided musculature of the cervical spine. No deformities noted no bony fractures noted. No nuchal rigidity no meningeal signs); Absent full ROM (Exquisitely painful range of motion but has full range of motion is not able to be tested) or lymphadenopathy Chest Chest inspection: Present normal inspection and symmetric chest wall rise Respiratory Respiratory exam: Present normal lung sounds bilaterally; Absent accessory muscle use Cardiovascular Cardiovascular exam: Present regular rate, normal rhythm, normal heart sounds, +S1 and +S2 Abdominal Exam Abdominal exam: Present soft and normal bowel sounds; Absent tenderness, guarding or rebound Extremities Exam Extremities exam: Present normal inspection and full ROM Back Exam Back exam: Present normal inspection and full ROM; Absent tenderness Neurological Exam Neurological exam: Present alert, oriented X3 and CN II-XII intact Psychiatric Psychiatric exam: Present normal affect and normal mood Skin Skin exam: Present warm, dry and normal color Lymphatic Lymphatic Findings: no adenopathy Medical Decision Making <CLAYTON Garibay - Last Filed: 09/19/23 18:47> Medical Records Medical records reviewed: Yes I reviewed the patient's medical records. Hemal Inquiry Pt receiving controlled substance: No Vital Signs: 09/19/23 15:39 09/19/23 16:30 09/19/23 17:00 Temperature 98.0 F Temperature Source Oral Pulse Rate 71 67 Pulse Rate [Radial] 79 Respiratory Rate 18 16 Blood Pressure 159/96 H 164/94 H Blood Pressure [Right Arm] 168/101 H Blood Pressure Mean 117 Blood Pressure Mean [Right Arm] 123 Blood Pressure Source [Right Arm] Automatic Cuff Blood Pressure Position [Right Arm] Sitting 02 Sat by Pulse Oximetry 96 100 100 Oxygen Delivery Method Room Air Room Air 09/19/23 17:30 09/19/23 17:38 09/19/23 18:00 Temperature Temperature Source Pulse Rate 76 75 74 Pulse Rate [Radial] Respiratory Rate 16 16 16 Blood Pressure 166/91 H 179/88 H 156/74 H Blood Pressure [Right Arm] Blood Pressure Mean 116 118 130 Blood Pressure Mean [Right Arm] Blood Pressure Source [Right Arm] Blood Pressure Position [Right Arm] 02 Sat by Pulse Oximetry 96 96 98 Oxygen Delivery Method Lab Data Lab results reviewed: Yes I reviewed the patient's lab results. Lab Results 09/19/23 16:20: WBC 13.1 H, RBC 4.30, Hgb 14.4, Hct 43.9, MCV 102.0 H, MCH 33.5 H, MCHC 32.8, RDW 12.8, Plt Count 305, MPV 8.6, Neut % (Auto) 80.0, Lymph % (Auto) 14.5, Dixon % (Auto) 4.4, Eos % (Auto) 0.7, Baso % (Auto) 0.4, Neut # (Auto) 10.5 H, Lymph # (Auto) 1.9, Dixon # (Auto) 0.6, Eos # (Auto) 0.1, Baso # (Auto) 0.1, Sodium 138, Potassium 3.8, Chloride 105, Carbon Dioxide 25, Anion Gap 11.8, BUN 20 H, Creatinine 1.20 H, Estimated Creat Clear 57, Estimated GFR 44 L, Est GFR ( Amer) 53 L, Glucose 133 H, Calcium 9.9, Total Bilirubin 0.5, AST 31, ALT 20, Alkaline Phosphatase 108, Troponin I < 0.01, Total Protein 7.3, Albumin 4.1, Globulin 3.2, Albumin/Globulin Ratio 1.3 09/19/23 16:20 09/19/23 16:20 Orders (Tests/Meds): ED MEDICATIONS Generic Name Dose Route Start Last Admin Trade Name Freq PRN Reason Stop Dose Admin Methocarbamol 500 mg 09/19/23 21:00 Methocarbamol 500mg Tablet PO 10/19/23 20:59 BID GUI Discontinued Medications Generic Name Dose Route Start Last Admin Trade Name Freq PRN Reason Stop Dose Admin Acetaminophen 1,000 mg 09/19/23 16:09 09/19/23 16:19 Acetaminophen 500mg Tab PO 09/19/23 16:10 Not Given ONCE ONE Acetaminophen 1,000 mg 09/19/23 16:19 09/19/23 16:24 Acetaminophen 1,000mg/100ml Vial IV 09/19/23 16:20 1,000 mg ONCE ONE Administration Diphenhydramine HCl 50 mg 09/19/23 16:30 09/19/23 16:40 Diphenhydramine 50mg/Ml Vial IV 09/19/23 16:31 50 mg ONCE ONE Administration Lactated Ringer's 500 mls @ 999 mls/hr 09/19/23 16:48 09/19/23 16:54 Lactated Ringer's 500ml IV 09/19/23 17:18 999 mls/hr .Q31M ONE Administration Iopamidol 100 ml 09/19/23 17:16 09/19/23 17:19 Iopamidol-370 (76%);100ml Bottle IV 09/19/23 17:17 100 ml ONCE ONE Administration Iopamidol 75 ml 09/19/23 17:17 09/19/23 17:19 Iopamidol-370 (76%);100ml Bottle IV 09/19/23 17:18 75 ml ONCE ONE Administration Ketorolac Tromethamine 30 mg 09/19/23 16:09 09/19/23 16:20 Ketorolac 30mg/Ml Vial IM 09/19/23 16:10 Not Given ONCE ONE Ketorolac Tromethamine 15 mg 09/19/23 16:18 09/19/23 16:24 Ketorolac 30mg/Ml Vial IV 09/19/23 16:19 15 mg ONCE ONE Administration Sodium Chloride 40 ml 09/19/23 17:16 09/19/23 17:18 0.9 % Sodium Chloride 50 Ml Vial IV 09/19/23 17:17 40 ml ONCE ONE Administration Sodium Chloride 10 ml 09/19/23 17:16 09/19/23 17:19 Sodium Chloride 0.9% 10ml Syr (Rad Only) IV 09/19/23 17:17 10 ml ONCE ONE Administration ORDERS Category Date Time Status CT angio head Stat Cat Scan 09/19/23 16:[address] angio neck Stat Cat Scan 09/19/23 16:[address] chest w con Stat Cat Scan 09/19/23 16:[address] head/brain wo con Stat Cat Scan 09/19/23 16:22 Completed CBC w/Auto Diff [Complete Blood Count Auto Diff] Stat Lab 09/19/23 16:20 Completed CMP [Comprehensive Metabolic Panel] Stat Lab 09/19/23 16:20 Completed Trop I [Troponin I] Stat Lab 09/19/23 16:20 Completed Troponin I Q3H Lab 09/19/23 19:30 Ordered Troponin I Q3H Lab 09/19/23 22:30 Ordered Medical Decision Narrative: In summary patient is a 73-year-old female who presents to the emergency department for evaluation of neck pain. Patient is hemodynamically stable upon arrival, afebrile. Physical exam is remarkable for tenderness to palpation of the right posterior cervical musculature without any evidence of infection erythema edema deformity fluctuance. Coma score is 15 and she is neurovascularly intact with no focal neurologic findings elsewhere. Differential diagnosis includes muscle spasm versus degenerative disc versus vascular dissection etc. Initial workup will be conducted with CTA of the head and neck, CT of the head without, EKG, hematologic labs. Initial interventions include Toradol Tylenol and muscle relaxer. Initial workup reviewed by me shows that her hematologic labs are nonactionable and my informal interpretation of her imaging shows no acute processes that could explain her symptoms. Upon repeat evaluation patient has had acceptable resolution of her pain and for her to tolerate oral intake.. Given this appropriate for discharge with prescription for lidocaine patches and Robaxin. <Nj Estevez MD - Last Filed: 09/19/23 16:27> Vital Signs: 09/19/23 15:39 09/19/23 16:30 09/19/23 17:00 Temperature 98.0 F Temperature Source Oral Pulse Rate 71 67 Pulse Rate [Radial] 79 Respiratory Rate 18 16 Blood Pressure 159/96 H 164/94 H Blood Pressure [Right Arm] 168/101 H Blood Pressure Mean 117 Blood Pressure Mean [Right Arm] 123 Blood Pressure Source [Right Arm] Automatic Cuff Blood Pressure Position [Right Arm] Sitting 02 Sat by Pulse Oximetry 96 100 100 Oxygen Delivery Method Room Air Room Air 09/19/23 17:30 09/19/23 17:38 09/19/23 18:00 Temperature Temperature Source Pulse Rate 76 75 74 Pulse Rate [Radial] Respiratory Rate 16 16 16 Blood Pressure 166/91 H 179/88 H 156/74 H Blood Pressure [Right Arm] Blood Pressure Mean 116 118 130 Blood Pressure Mean [Right Arm] Blood Pressure Source [Right Arm] Blood Pressure Position [Right Arm] 02 Sat by Pulse Oximetry 96 96 98 Oxygen Delivery Method Lab Data Lab Results 09/19/23 16:20: WBC 13.1 H, RBC 4.30, Hgb 14.4, Hct 43.9, MCV 102.0 H, MCH 33.5 H, MCHC 32.8, RDW 12.8, Plt Count 305, MPV 8.6, Neut % (Auto) 80.0, Lymph % (Auto) 14.5, Dixon % (Auto) 4.4, Eos % (Auto) 0.7, Baso % (Auto) 0.4, Neut # (Auto) 10.5 H, Lymph # (Auto) 1.9, Dixon # (Auto) 0.6, Eos # (Auto) 0.1, Baso # (Auto) 0.1, Sodium 138, Potassium 3.8, Chloride 105, Carbon Dioxide 25, Anion Gap 11.8, BUN 20 H, Creatinine 1.20 H, Estimated Creat Clear 57, Estimated GFR 44 L, Est GFR ( Amer) 53 L, Glucose 133 H, Calcium 9.9, Total Bilirubin 0.5, AST 31, ALT 20, Alkaline Phosphatase 108, Troponin I < 0.01, Total Protein 7.3, Albumin 4.1, Globulin 3.2, Albumin/Globulin Ratio 1.3 Orders (Tests/Meds): ED MEDICATIONS Generic Name Dose Route Start Last Admin Trade Name Freq PRN Reason Stop Dose Admin Methocarbamol 500 mg 09/19/23 21:00 Methocarbamol 500mg Tablet PO 10/19/23 20:59 BID GUI Discontinued Medications Generic Name Dose Route Start Last Admin Trade Name Freq PRN Reason Stop Dose Admin Acetaminophen 1,000 mg 09/19/23 16:09 09/19/23 16:19 Acetaminophen 500mg Tab PO 09/19/23 16:10 Not Given ONCE ONE Acetaminophen 1,000 mg 09/19/23 16:19 09/19/23 16:24 Acetaminophen 1,000mg/100ml Vial IV 09/19/23 16:20 1,000 mg ONCE ONE Administration Diphenhydramine HCl 50 mg 09/19/23 16:30 09/19/23 16:40 Diphenhydramine 50mg/Ml Vial IV 09/19/23 16:31 50 mg ONCE ONE Administration Lactated Ringer's 500 mls @ 999 mls/hr 09/19/23 16:48 09/19/23 16:54 Lactated Ringer's 500ml IV 09/19/23 17:18 999 mls/hr .Q31M ONE Administration Iopamidol 100 ml 09/19/23 17:16 09/19/23 17:19 Iopamidol-370 (76%);100ml Bottle IV 09/19/23 17:17 100 ml ONCE ONE Administration Iopamidol 75 ml 09/19/23 17:17 09/19/23 17:19 Iopamidol-370 (76%);100ml Bottle IV 09/19/23 17:18 75 ml ONCE ONE Administration Ketorolac Tromethamine 30 mg 09/19/23 16:09 09/19/23 16:20 Ketorolac 30mg/Ml Vial IM 09/19/23 16:10 Not Given ONCE ONE Ketorolac Tromethamine 15 mg 09/19/23 16:18 09/19/23 16:24 Ketorolac 30mg/Ml Vial IV 09/19/23 16:19 15 mg ONCE ONE Administration Sodium Chloride 40 ml 09/19/23 17:16 09/19/23 17:18 0.9 % Sodium Chloride 50 Ml Vial IV 09/19/23 17:17 40 ml ONCE ONE Administration Sodium Chloride 10 ml 09/19/23 17:16 09/19/23 17:19 Sodium Chloride 0.9% 10ml Syr (Rad Only) IV 09/19/23 17:17 10 ml ONCE ONE Administration ORDERS Category Date Time Status CT angio head Stat Cat Scan 09/19/23 16:[address] angio neck Stat Cat Scan 09/19/23 16:[address] chest w con Stat Cat Scan 09/19/23 16:[address] head/brain wo con Stat Cat Scan 09/19/23 16:22 Completed CBC w/Auto Diff [Complete Blood Count Auto Diff] Stat Lab 09/19/23 16:20 Completed CMP [Comprehensive Metabolic Panel] Stat Lab 09/19/23 16:20 Completed Trop I [Troponin I] Stat Lab 09/19/23 16:20 Completed Troponin I Q3H Lab 09/19/23 19:30 Ordered Troponin I Q3H Lab 09/19/23 22:30 Ordered ECG Data Tracing #1: Independently interpreted by me, rate is 75, rhythm is regular, axis is normal, no ST elevation in anatomical contiguous leads, nonspecific changes in the anterior leads, QTc 414 Critical Care <CLAYTON Garibay - Last Filed: 09/19/23 18:47> Critical Care Time Critical Care Time: No
--- NOTE | 2023-09-19 16:02 | PC.NURSE ---
[facility] BLANK AT BEDSIDE
--- NOTE | 2023-09-19 16:12 | PC.NURSE ---
DR HERNANDEZ AT BEDSIDE
--- NOTE | 2023-09-19 16:13 | ECG_ITS ---
APPROVED REPORT Exam: Resting ECG HR:75 bpm ECG Measurements Heart Rate 75 AXES OR 162 P 48 QRSd 114 QRS -57 QT 385 T 58 QTc 414 Conclusion SINUS RHYTHM LEFT ANTERIOR FASCICULAR BLOCK [QRS AXIS <= -45, QR IN I, RS IN II] VOLTAGE CRITERIA FOR LVH [MEETS CRITERIA IN ONE OF: R(aVL), S(V1), R(V5), R(V5/V6)+S(V1)] POSSIBLE ANTERIOR MYOCARDIAL INFARCTION , OF INDETERMINATE AGE [30 ms Q WAVE IN V3/V4, OR R < 0.2 mV IN V4] ABNORMAL ECG UNCONFIRMED REPORT Electronically signed by : CASSANDRA DUBON, 09/26/2023 01:14:01
--- NOTE | 2023-09-19 16:15 | CT_ITS ---
PROCEDURE INFORMATION: Exam: CTA Head With Contrast, Arteriography Exam date and time: 09/19/2023 5:16 PM Age: 73 years old Clinical indication: Other: Neck pain; Additional info: Neck pain dysphagia TECHNIQUE: Imaging protocol: Computed tomographic angiography of the head with contrast. Exam focused on the arteries. 3D rendering (Not supervised by radiologist): MIP and/or 3D reconstructed images were created by the technologist. Radiation optimization: All CT scans at this facility use at least one of these dose optimization techniques: automated exposure control; mA and/or kV adjustment per patient size (includes targeted exams where dose is matched to clinical indication); or iterative reconstruction. Contrast material: ISOVUE 370; Contrast volume: 100 ml; Contrast route: INTRAVENOUS (IV); COMPARISON: CT ANGIO HEAD 08/11/2022 10:22 AM FINDINGS: ANTERIOR CIRCULATION: Right internal carotid artery: Intracranial segment is patent with no significant stenosis. No aneurysm. Right middle cerebral artery: No occlusion or significant stenosis. No aneurysm. Right anterior cerebral artery: No occlusion or significant stenosis. No aneurysm. Left internal carotid artery: Mixed atherosclerotic plaque within the proximal left ICA, causing approximately 20% luminal narrowing. Left middle cerebral artery: No occlusion or significant stenosis. No aneurysm. Left anterior cerebral artery: No occlusion or significant stenosis. No aneurysm. POSTERIOR CIRCULATION: Right vertebral artery: No occlusion or significant stenosis. No aneurysm. Left vertebral artery: No occlusion or significant stenosis. No aneurysm. Basilar artery: No occlusion or significant stenosis. No aneurysm. Right posterior cerebral artery: No occlusion or significant stenosis. No aneurysm. Left posterior cerebral artery: No occlusion or significant stenosis. No aneurysm. Aorta: Minimal atherosclerotic disease of the visualized thoracic aortic arch, without aneurysm or dissection. Conventional thoracic aortic arch branch anatomy. Brain: No definite mass, mass effect, or midline shift. Cerebral ventricles: No ventriculomegaly. Bones/joints: Multilevel cervical spine degenerative disc disease, worst at the C5-C6 and C6-C7 levels, where there is moderate disc space narrowing, endplate sclerosis, and osteophyte formation. Grade 1 degenerative anterolisthesis of C4 on C5. Mild multilevel bilateral facet and uncovertebral arthropathy. Soft tissues: Unremarkable. IMPRESSION: No extracranial arterial significant stenosis or occlusion.
--- NOTE | 2023-09-19 16:22 | CT_ITS ---
PROCEDURE INFORMATION: Exam: CT Chest With Contrast; Diagnostic Exam date and time: 09/19/2023 5:20 PM Age: 73 years old Clinical indication: Other: Odynophagia TECHNIQUE: Imaging protocol: Diagnostic computed tomography of the chest with contrast. Radiation optimization: All CT scans at this facility use at least one of these dose optimization techniques: automated exposure control; mA and/or kV adjustment per patient size (includes targeted exams where dose is matched to clinical indication); or iterative reconstruction. Contrast material: ISOVUE; Contrast volume: 75 ml; Contrast route: IV; COMPARISON: CR XR CHEST PORTABLE 08/11/2022 11:39 AM FINDINGS: Thyroid: The visualized thyroid gland is unremarkable. Lungs: No acute tracheobronchial abnormalities. No gross pulmonary infiltrates or edema pattern. Mild bilateral peripheral juxtapleural reticular fibrosis with upper and lower lung field involvement. No pulmonary mass lesions are identified. Pleural spaces: No pleural effusions. No pneumothorax. Heart: Heart size normal. No coronary artery calcification. Esophagus: The esophagus is largely contracted without gross abnormality. Lymph nodes: No supraclavicular or axillary adenopathy. Enlarged pretracheal retrocaval node. Mildly enlarged right hilar node. These are nonspecific. Vasculature: Mild aortic ectasia/tortuosity. No dissection. No mediastinal hematoma. Question mild dilatation of the central pulmonary arteries suspicious for pulmonary arterial hypertension. Pancreas: Mild pancreatic atrophy without acute abnormality. No pancreatic ductal dilatation. Kidneys and ureters: Partially visualized hyperdensity in the upper pole left renal collecting system probably relate to mixed phase contrast excretion. No hydronephrosis. Stomach and bowel: 17 mm gastric diverticulum arising from the posterior fundus incidentally noted. Bones/joints: No acute osseous abnormalities are identified. Chronic appearing sternal fracture. Mild thoracic spondylosis. Soft tissues: Soft tissues of the thoracic wall demonstrate no acute abnormality. IMPRESSION: 1. No acute process is evident. 2. Mild peripheral interstitial fibrosis. 3. Question mild changes of pulmonary arterial hypertension. 4. Mildly enlarged mediastinal and right hilar nodes, nonspecific. 5. Additional nonemergent findings detailed above. COMMENTS: Consistent with the [employer]'s Incidental Findings Committee white paper (J Am Radha Radiol 2018): Any incidental renal lesion less than 1 cm or classified as too small to characterize, or any incidental cystic renal lesion characterized as simple-appearing, is likely benign. No follow-up imaging is recommended for these lesions per consensus recommendations based on imaging criteria.
--- NOTE | 2023-09-19 16:22 | CT_ITS ---
PROCEDURE INFORMATION: Exam: CT Head Without Contrast Exam date and time: 09/19/2023 5:14 PM Age: 73 years old Clinical indication: Other: Neck pain TECHNIQUE: Imaging protocol: Computed tomography of the head without contrast. Radiation optimization: All CT scans at this facility use at least one of these dose optimization techniques: automated exposure control; mA and/or kV adjustment per patient size (includes targeted exams where dose is matched to clinical indication); or iterative reconstruction. COMPARISON: CT HEAD/BRAIN WO CON 08/30/2023 8:15 AM FINDINGS: Brain: Periventricular and subcortical white matter areas of hypoattenuation, likely chronic small vessel ischemic change, demyelination, or gliosis. No intracranial mass, acute hemorrhage, or acute infarction. Cerebral ventricles: No ventriculomegaly. Paranasal sinuses: Visualized sinuses are unremarkable. No fluid levels. Mastoid air cells: Normal as visualized. Nasal cavity: Leftward deviation of the bony nasal septum. Bones/joints: Congenital incomplete fusion of the posterior arch of C1. Soft tissues: Unremarkable. Vasculature: Atherosclerotic vascular disease. IMPRESSION: No acute intracranial abnormality.
[2023-09-19] MEDS: ACETAMINOPHEN 1,000MG/100ML VIAL 1000 MG IV (16:24)
[2023-09-19] MEDS: KETOROLAC 30MG/ML VIAL 15 MG IV (16:24)
[2023-09-19 16:40] LABS: Basophils # 0.1 K/mm3 (0-0.2); Basophils % 0.4 % (0.1-2.0); Eosinophils # 0.1 K/mm3 (0.0-0.4); Eosinophils % 0.7 % (0.1-12.0); Hematocrit 43.9 % (37.0-47.0); Hemoglobin 14.4 g/dL (12.2-16.2); Lymphocytes # 1.9 K/mm3 (0.7-4.5); Lymphocytes % 14.5 % (10-50); Mean Corpuscular HGB Conc 32.8 g/dL (31.8-35.4); Mean Corpuscular Hemoglobin 33.5 pg (27.0-31.2); Mean Platelet Volume 8.6 fl (7.4-10.4); Monocytes # 0.6 K/mm3 (0.1-1.0); Monocytes % 4.4 % (1.7-9.3); Neutrophils # 10.5 K/mm3 (1.8-7.8); Platelet Count 305 K/mm3 (142-424); Red Cell Distribution Width 12.8 % (11.5-17.5); White Blood Count 13.1 K/mm3 (4.8-10.8)
[2023-09-19] MEDS: diphenhydrAMINE 50MG/ML VIAL 50 MG IV (16:40)
[2023-09-19 16:41] LABS: Chloride 105 mmol/L (98-107); Potassium 3.8 mmoL/L (3.5-5.1); Sodium 138 mmol/L (136-145)
[2023-09-19 16:44] LABS: Alanine Aminotransferase 20 U/L (12-78); Albumin Level 4.1 g/dl (3.5-5.0); Albumin/Globulin Ratio 1.3 (1.1-1.8); Alkaline Phosphatase 108 U/L (38-126); Anion Gap 11.8 mEq/L (5-15); Aspartate Amino Transferase 31 U/L (14-36); Bilirubin,Total 0.5 mg/dl (0.2-1.3); Blood Urea Nitrogen 20 mg/dl (7-17); Carbon Dioxide 25 mmol/L (22.0-30.0); Creatinine Clearance Estimated 57 mL/min (50-200); Estimated Glomerular Filt Rate 44 ml/min (>60); GFR (African American) 53 ML/MIN (>60); Globulin 3.2 g/dL (1.3-3.2); Total Protein,Serum 7.3 g/dl (6.3-8.2)
[2023-09-19 16:45] LABS: Calcium 9.9 mg/dl (8.4-10.2); Glucose 133 mg/dl (74-100)
[2023-09-19] MEDS: RINGERS SOLUTION,LACTATED 500 ML 999 ML IV (16:54)
[2023-09-19 16:59] LABS: Troponin I < 0.01 ng/ml (0.00-0.034)
--- NOTE | 2023-09-19 17:08 | PC.NURSE ---
PT GOING TO RADIOLOGY
[2023-09-19] MEDS: 0.9 % SODIUM CHLORIDE 50 ML VIAL 40 ML IV (17:18)
[2023-09-19] MEDS: IOPAMIDOL-370 (76%);100ML BOTTLE 75 ML IV (17:19)
[2023-09-19] MEDS: SODIUM CHLORIDE 0.9% 10ML SYR (RAD ONLY) 10 ML IV (17:19)
[2023-09-19] MEDS: IOPAMIDOL-370 (76%);100ML BOTTLE 100 ML IV (17:19)
--- NOTE | 2023-09-19 17:25 | PC.NURSE ---
PT RETURNED FROM CT
== END 2023-09-19 18:55 | disposition home or self-care (01) ==
PROVIDERS: Physician Assistant; Emergency Provider Emergency Medicine; PCP Family Medicine
DX: M54.2 Cervicalgia (principal); I44.4 Left anterior fascicular block
CPT/HCPCS: 70450; 70496; 70498; 71260; 80053; 84484; 85025; 93005; 96372; 96374; 96375; 99285; J0131; Q9967

== ENCOUNTER 2023-09-20 10:11 | Day surgery (SDC) | payer MEDICARE, SELFPAY ==
[2023-09-20] VITALS (12 sets, daily range): BP systolic 126–154; BP diastolic 50–112; PULSE 56–71; RESP 16–18; TEMP 36.6; O2SAT 94–100; BMI 32.3
--- NOTE | 2023-09-20 07:07 | IR_ITS ---
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 COMPLICATIONS NONE Estimated Blood Loss: LESS THAN 10 ML TECHNIQUE One percent lidocaine used to anesthetize the right anterior aspect of the wrist. The right radial artery was accessed via the Seldinger technique. A 6 B[place]an sheath was placed in the right radial artery. 2.5 mg of Verapamil, 800 mcg of nitroglycerin, 1mg Lidocaine and 5000 U Heparin were given through the arterial sheath. The papa catheter was also used to perform left heart catheterization, left ventriculogram and selective coronary angiogram. At the end of the procedure the sheath was removed good hemostasis was achieved using Traclet band, patient was transferred to the postop holding area in stable condition. ANGIOGRAPHIC RESULTS The left main artery Normal The left anterior descending artery Normal The circumflex artery Normal The right coronary artery Dominant normal The JAMESON ventriculogram reveals Normal 65% The left ventricular end-diastolic pressure 10 mmHg IMPRESSION Normal coronary arteries Normal ejection fraction Normal left ventricular end-diastolic pressure PLAN 1. Evaluation of noncardiac symptoms Electronically signed by : Kali Torres MD 09/20/2023 11:08:17
[2023-09-20] MEDS: diphenhydrAMINE 50MG/ML VIAL 50 MG IV (10:50)
[2023-09-20] MEDS: VERAPAMIL 2.5MG/ML 2ML VIAL 2.5 MG IV (10:50)
[2023-09-20] MEDS: HEPARIN 1,000 UNITS/500ML NS (CATH LAB) 3000 UNIT IV (10:50)
[2023-09-20] MEDS: 0.9 % SODIUM CHLORIDE 500 ML 25 ML IV (10:50)
[2023-09-20] MEDS: MIDAZOLAM HCL 1MG/1ML 5ML VIAL 1 MG IV (10:50)
[2023-09-20] MEDS: HEPARIN 1,000 UNITS/ML 10ML VIAL (CATH LAB) 10000 UNIT IV (10:50)
[2023-09-20] MEDS: LIDOCAINE 1% 10ML MDV 20 ML IJ (10:50)
[2023-09-20] MEDS: NITROGLYCERIN 800MCG/8ML SYR (CATH LAB) 800 MCG IA (10:50)
[2023-09-20] MEDS: FENTANYL 100MCG/2ML VIAL 50 MCG IV (10:51)
[2023-09-20 10:59] LABS: Basophils # 0.1 K/mm3 (0-0.2); Basophils % 0.6 % (0.1-2.0); Eosinophils # 0.1 K/mm3 (0.0-0.4); Eosinophils % 1.3 % (0.1-12.0); Hematocrit 42.1 % (37.0-47.0); Hemoglobin 13.7 g/dL (12.2-16.2); Lymphocytes # 1.5 K/mm3 (0.7-4.5); Lymphocytes % 16.7 % (10-50); Mean Corpuscular HGB Conc 32.5 g/dL (31.8-35.4); Mean Corpuscular Volume 101.8 fl (81-99); Mean Platelet Volume 8.9 fl (7.4-10.4); Monocytes # 0.5 K/mm3 (0.1-1.0); Monocytes % 5.7 % (1.7-9.3); Neutrophils # 6.7 K/mm3 (1.8-7.8); Neutrophils % 75.8 % (37.0-80.0); Platelet Count 271 K/mm3 (142-424); Red Blood Count 4.13 M/mm3 (4.20-5.40); Red Cell Distribution Width 13.3 % (11.5-17.5); White Blood Count 8.8 K/mm3 (4.8-10.8)
[2023-09-20 11:02] LABS: Chloride 108 mmol/L (98-107); Potassium 4.1 mmoL/L (3.5-5.1); Sodium 138 mmol/L (136-145)
[2023-09-20 11:05] LABS: Anion Gap 9.1 mEq/L (5-15); Blood Urea Nitrogen 20 mg/dl (7-17); Carbon Dioxide 25 mmol/L (22.0-30.0); Creatinine Clearance Estimated 50 mL/min (50-200); Estimated Glomerular Filt Rate 37 ml/min (>60); GFR (African American) 45 ML/MIN (>60)
[2023-09-20 11:06] LABS: Calcium 9.3 mg/dl (8.4-10.2); Glucose 105 mg/dl (74-100)
[2023-09-20] MEDS: IOPAMIDOL-370 (76%);100ML BOTTLE 50 ML IV (11:53)
== END 2023-09-20 15:09 | disposition home or self-care (01) ==
PROVIDERS: PCP Family Medicine; Visit Provider Internal Medicine
DX: R93.1 Abnormal findings on diagnostic imaging of heart and coronary circulation (principal); R94.31 Abnormal electrocardiogram [ECG] [EKG]; I48.0 Paroxysmal atrial fibrillation; G47.33 Obstructive sleep apnea (adult) (pediatric); I20.89 Other forms of angina pectoris; Z79.899 Other long term (current) drug therapy; Z87.891 Personal history of nicotine dependence; R03.0 Elevated blood-pressure reading, without diagnosis of hypertension
CPT/HCPCS: 80048; 85025; 93458; 99152; C1725; C1769; J1644; Q9967

== ENCOUNTER 2023-09-23 08:07 | Outpatient (CLI) | payer MEDICARE, SELFPAY ==
--- NOTE | 2023-09-23 08:10 | XR_ITS ---
FINAL REPORT CLINICAL HISTORY: f/u left wrist fx 05/31/23 COMPARISON: 08/30/2023 FINDINGS: LEFT WRIST Three views were obtained. Overlying cast is present. There is a mildly impacted transverse fracture of the distal radial metaphysis. There is no intra-articular extension. There is a probable tiny fracture of the ulnar styloid process which is obscured by overlying cast. The visualized joint spaces are normally aligned. The soft tissues are unremarkable. IMPRESSION: Healing mildly impacted fracture of the distal radial metaphysis. Reviewed, Interpreted and Dictated by Alex Mckeon MD Transcribed by Kirsten Talavera Authenticated and [facility]
== END 2023-09-23 23:59 | disposition home or self-care (01) ==
LOC: RAD 08:08
PROVIDERS: PCP Family Medicine; Visit Provider Orthopaedic Surgery
DX: M25.532 Pain in left wrist; S52.502A Unspecified fracture of the lower end of left radius, initial encounter for closed fracture
CPT/HCPCS: 73110

== ENCOUNTER 2023-09-28 06:01 | Day surgery (SDC) | payer MEDICARE, SELFPAY ==
[2023-09-13 14:13] VITALS: BMI 32.4
[2023-09-28] VITALS (11 sets, daily range): BP systolic 133–175; BP diastolic 69–99; PULSE 63–93; RESP 14–19; TEMP 35.7–36.5; O2SAT 93–99; BMI 33.3
[2023-09-28] MEDS: LACTATED RINGERS 1000ML 1,000 ML 25 ML IV (06:43)
--- NOTE | 2023-09-28 07:28 | EXP.ANES.CKL ---
[facility] Disclaimer: The information contained in this section may have been updated after the patient was seen, as this information can be updated by other users. Medical History Benign paroxysmal positional vertigo Episodic peripheral vertigo Encounter for pre-operative cardiovascular clearance Abnormal electrocardiogram [ECG] [EKG] Major depressive disorder Hyperthyroidism Surgical History History of colonoscopy History of surgery on right wrist History of carpal tunnel release History of tonsillectomy Family History Grandfather FHx: mental illness completed suicide -maternal grandfather -mom was about 10 years old -it was a Wednesday morning; and the kids were home chief school finance officer -shot himself in the head Mother Alcoholism -she was in 2 -in [place] -and got on beer -she had cirrhosis of the liver Other No significant family history Social History Smoking Status: Never smoker smoking status stop date: 2012 second hand exposure: No alcohol intake: never counseling given: No substance use type: denies use counseling given: No current occupational status: retired and other Travel in the last 8 weeks: None adopted: No caregiver/support person: No foster care: No household members: none and other housing: house lives independently: Yes marital status: number of children: 1 number of grandchildren: 0 education level: high school 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; 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 pets and animals: Yes pets and animals: cat(s) and dog(s) caffeine: Yes physical activity: none anupam/amish: Restorationist special anupam needs: No working smoke detector in home: Yes fire extinguisher in home: Yes carbon monox detector in home: No firearms in home: Yes firearms unloaded and locked: Yes do you feel safe at home: Yes [facility] Anesthesia Checklist Patient Identification Patient Identification: Arm Band, Family and Verbal (Name & ) Structural Data Admitted From: Home Planned Operative Procedure/s: ORIF Left Wrist Consent for Planned Operative Procedure(s) Verified: Yes Verified Documents: Surgical Consent and History and Physical NPO Status Verified Time NPO: 22:00 Chart Verification Results Verified: CBC, BMP, ECG and Chest Xray Additional verifications Patient : No Anesthesia Reactions: No Hx Blood Transfusions: No Blood Transfusion Reaction: No Cardiovascular Assessment Heart Sounds: S1 & S2 Pulse Rhythm: Irregular Airway Assessment Mallampati Score:: Class II C-Spine Mobility Assessed: Yes (FROM) TMJ Mobility Assessed: Yes Dentition: Poor Dentition (Nothing loose per pt.) Neurological Assessment Level of Consciousness: Awake, Alert, Appropriate and Follows Commands Hx Seizures: No Numbness or tingling in extremities: No Anesthesia Plan Anesthesia Risk discussed: Yes Anesthesia Plan: Verified ASA Class: III Anesthesia Type: General w/block
[2023-09-28] MEDS: CEFAZOLIN SODIUM 1 GM in 0.9 % SODIUM CHLORIDE 50 ML IV (08:00)
--- NOTE | 2023-09-28 09:16 | XR_ITS ---
FINAL REPORT CLINICAL HISTORY: ORIF FINDINGS: FLUOROSCOPY LESS THAN 1 HOUR HISTORY: Fluoroscopy guidance. Fluoroscopic guidance was provided for ORIF left wrist. 3 spot films were obtained. A total of 0:42 minutes of fluoroscopy time were used. Total DAP: 1.07 mGy IMPRESSION: As above. Reviewed, Interpreted and Dictated by Kathia Rodriguez MD Transcribed by Kirsten Talavera Authenticated and [facility][1]
--- NOTE | 2023-09-28 09:25 | EXP.OP.NOTE ---
Date of procedure: 09/28/23 Pre-op Diagnosis:: Left distal radius fracture with malunion Post-op Diagnosis:: Same Procedure performed:: Open reduction internal fixation left distal radius fracture intra-articular 3 part with repair of malunion Surgeon:: Terrence Stinson DO [employer] HR DEVELOPER:: Yamini Nugent Anesthesia: GETA and regional Estimated blood loss (mL): 0 Clinical Note:: Is a 73-year-old female who suffered a distal radius fracture. During previous procedure she had abnormal EKG she required cardiac workup this cardiac workup plan was for heart catheterization. Unfortunately there were some delays with the insurance company for authorization which delayed the cath and subsequently the cardiac cardiac clearance was delayed. This delayed situation created a malunion situation on the distal radius as the bone and been partially healing secondary to the fracture which occurred early in the month. Patient presented today for repair of malunion and distal radius plating Operative findings:: Partially healed fracture distal radius with shortening and apex volar dorsal angulation Operative note:: Patient was identified preoperatively. Left wrist marked with yes my initials. Underwent a regional block with anesthesia. Taken to the operating room. Placed upon operating bed. General anesthesia administered airway secured. Marking pen was used to salina plan incision over the volar aspect of the wrist and the FCR tendon. Esmarch was used to exsanguinate the extremity and pneumatic tourniquet was inflated to 250 mmHg. Skin knife was used to incise through skin careful dissection was taken down to open the FCR tendon sheath this was retracted radially throughout the procedure to protect the radial artery. The floor of the FCR was then opened. Self-retaining retractor was placed. Dissection was taken down the pronator quadratus was split in L-type fashion off the distal radius. There was not a large fracture hematoma given the amount of time from since fracture. The fracture line was evident and was partially united in a malunion position with the distal radius shortened and apex volar dorsal angulation. The fracture line however was evident and the osteotome was placed in the fracture line to rebreak the volar cortex x-ray was brought in to carefully show complete release of the distal fragment. Once the distal fragment was released I was able to mobilize it and get length on the radius as well as neutral tilt of the distal radius. This malunion was corrected with the osteotomes. At that time the standard left-sided distal radius plate from the [employer] volar plate set was selected. It was placed initially on the shaft and also held with a K wire reduction of the distal radius was performed under direct visualization. The distal screws were then placed in the plate using the x-ray to show proper reduction and alignment with restoring the radial height and neutral angulation. Appropriate length screws were then placed in the distal radius and 2 additional locking screws were placed in the shaft x-rays were taken the AP and lateral views that show sikhism of the radial height and neutral angulation the wrist was then taken through range of motion I was able to gain full range of motion with flexion and extension without any movement of the fracture fragments. Irrigation of wound performed deep layers closed with Vicryl stitch subcutaneous Vicryl and then 3-0 nylon stitch in the skin sterile dressing placed with a well-padded volar splint patient waken anesthesia taken recovery stable condition. Condition: stable Disposition: PACU Complications:: None apparent
--- NOTE | 2023-09-28 09:44 | EXP.ANES.I ---
[facility] Anesthesia Record Part I Anesthesia Record I Intake, IV Amount: 600 Hydration: Adequate Estimated blood loss (mL): 5 Urine output (mL): 0 Blood Products used (#): none Blood Pressure: 152/73 SaO2: 94 Pulse Rate: 92 Airway Patency: Patent Respiratory Rate: 16 Temperature: 96.3 F Patient is:: Awake (Talking) and Stable Stable to PACU at:: 09:35
--- NOTE | 2023-09-28 10:20 | EXP.ANES.II ---
[facility] Anesthesia Record Part II Anesthesia Record Part II Discharge Time: 10:00 Destination: Surgical Day Care (OP Surgery) PACU nurse assessment reviewed?: Yes Patient Condition:: Good Anesthesia Complications:: None Swallowing reflex intact?: Yes Airway Patency: Patent Cyanosis?: No Blood Pressure: 170/74 SaO2: 96 Respiratory Rate: 19 Pulse Rate: 84 Temperature: 97.7 F Mental Status: Alert & Oriented Pain level:: 2 Nausea and/or vomitting:: None Intake, IV Amount: 600 Hydration: Adequate
[2023-09-28] MEDS: ONDANSETRON 4MG/2ML VIAL 4 MG IV (10:30)
== END 2023-09-28 11:10 | disposition home or self-care (01) ==
PROVIDERS: PCP Family Medicine; Visit Provider Orthopaedic Surgery
PROC: (CPT 25609; principal; 2023-09-28 07:30)
DX: S52.572A Other intraarticular fracture of lower end of left radius, initial encounter for closed fracture (principal); W01.0XXA Fall on same level from slipping, tripping and stumbling without subsequent striking against object, initial encounter; R94.31 Abnormal electrocardiogram [ECG] [EKG]; I48.0 Paroxysmal atrial fibrillation; G47.33 Obstructive sleep apnea (adult) (pediatric); E03.9 Hypothyroidism, unspecified; I10 Essential (primary) hypertension; Z79.899 Other long term (current) drug therapy
CPT/HCPCS: 25609; 73100; 76000; 96374; C1713; C1776; J2405

== ENCOUNTER → 2023-09-29 09:09 | Outpatient (CLI) | payer MEDICARE, SELFPAY | LOC: SL 09-30 09:10 | PROVIDERS: PCP Family Medicine | DX: G47.33 Obstructive sleep apnea (adult) (pediatric) (principal); G47.37 Central sleep apnea in conditions classified elsewhere | CPT/HCPCS: G0399 ==

== ENCOUNTER → 2023-09-30 09:05 | Outpatient (CLI) | payer MEDICARE, SELFPAY | LOC: SL 09:09 | PROVIDERS: PCP Family Medicine | DX: G47.33 Obstructive sleep apnea (adult) (pediatric) (principal); G47.36 Sleep related hypoventilation in conditions classified elsewhere ==

== ENCOUNTER 2023-10-14 08:16 | Outpatient (CLI) | payer MEDICARE, SELFPAY ==
--- NOTE | 2023-10-14 08:21 | XR_ITS ---
FINAL REPORT CLINICAL HISTORY: Left wrist ORIF f/u COMPARISON: 09/23/2023 FINDINGS: LEFT WRIST Three views demonstrate interval postoperative changes from ORIF of the distal radius with screw plate and multiple screws. There is also a fracture of the ulnar styloid process. Degenerative changes are present. There has been presumed resection of the trapezium. IMPRESSION: Interval postoperative changes. Reviewed, Interpreted and Dictated by Keven Nava III, MD Transcribed by Sariah Tang Authenticated and [facility]
== END 2023-10-14 23:59 | disposition home or self-care (01) ==
PROVIDERS: PCP Family Medicine; Visit Provider Orthopaedic Surgery
DX: M25.532 Pain in left wrist (principal); S52.502A Unspecified fracture of the lower end of left radius, initial encounter for closed fracture
CPT/HCPCS: 73110

== ENCOUNTER 2023-11-04 09:37 | Outpatient (CLI) | payer MEDICARE, SELFPAY ==
--- NOTE | 2023-11-04 09:42 | XR_ITS ---
FINAL REPORT CLINICAL HISTORY: Left Wrist ORIF COMPARISON: 10/14/2023 FINDINGS: LEFT WRIST Three views demonstrate no acute fracture or dislocation. There are postoperative changes of ORIF with screw plate and screws in place. There is a chronic fracture of the ulnar styloid process. Mild and moderate degenerative changes are seen. The visualized joint spaces are normally aligned. The soft tissues are unremarkable. IMPRESSION: Postoperative changes without acute bony abnormality. Reviewed, Interpreted and Dictated by Keven Nava III, MD Transcribed by Shanae Goodson Authenticated and . [facility]
== END 2023-11-04 23:59 | disposition home or self-care (01) ==
LOC: RAD 09:38
PROVIDERS: PCP Family Medicine; Visit Provider Orthopaedic Surgery
DX: M25.532 Pain in left wrist; S52.502A Unspecified fracture of the lower end of left radius, initial encounter for closed fracture
CPT/HCPCS: 73110

== ENCOUNTER 2023-11-30 09:06 | Outpatient (CLI) | payer MEDICARE, SELFPAY ==
--- NOTE | 2023-11-30 09:11 | XR_ITS ---
FINAL REPORT CLINICAL HISTORY: Lt Wrist Pain f/u surgery COMPARISON: 11/04/2023 FINDINGS: Left wrist Three views were obtained. There are chronic fractures of the distal radius and ulnar styloid process. Postoperative changes are seen in the distal radius with screw plate and multiple screws. There are moderate degenerative changes at the radial aspect of the wrist. IMPRESSION: Stable wrist. Reviewed, Interpreted and Dictated by Keven Nava III, MD Transcribed by Radha Lawrence Authenticated and [facility]
== END 2023-11-30 23:59 | disposition home or self-care (01) ==
LOC: RAD 09:07
PROVIDERS: PCP Family Medicine; Visit Provider Orthopaedic Surgery
DX: S52.502A Unspecified fracture of the lower end of left radius, initial encounter for closed fracture (principal)
CPT/HCPCS: 73110

== ENCOUNTER 2023-11-30 10:03 | Emergency (ER) | payer MEDICARE, SELFPAY ==
[2023-11-30 10:10] VITALS: BP 209/97; PULSE 80; RESP 20; TEMP 37.1; O2SAT 98; BMI 33.7
[2023-11-30 10:23] LABS: UTC Strep Screen (Rapid) Negative (Negative)
--- NOTE | 2023-11-30 10:25 | ED_ITS ---
Discharge Plan Disposition Patient Disposition: Home, Self-Care Condition: Good Prescriptions Prescriptions: New losartan 25 mg tablet 25 mg PO DAILY Qty: 30 0RF levocetirizine 5 mg tablet 5 mg PO DAILY Qty: 30 1RF benzonatate 100 mg capsule 100 mg PO TID PRN (Reason: cough) Qty: 30 0RF No Action pramipexole 0.5 mg tablet 0.5 mg PO HS multivitamin Tablet 1 tab PO DAILY escitalopram oxalate [Lexapro] 5 mg tablet 5 mg PO DAILY Qty: 90 1RF ferrous sulfate 324 mg (65 mg iron) tablet,delayed release (DR/EC) 324 mg PO DAILY Patient Comments: TAKE 1 TABLET BY MOUTH TWICE DAILY cholecalciferol (vitamin D3) [Vitamin D3] 10 mcg (400 unit) capsule 10 mcg PO DAILY famotidine 20 mg tablet 20 mg PO DAILY vitamin B complex Capsule 1 cap PO DAILY ferrous sulfate 325 mg (65 mg iron) tablet 325 mg PO BID levothyroxine 25 mcg tablet 25 mcg PO DAILY aspirin 81 mg Tablet,Delayed Release (Dr/Ec) 81 mg PO DAILY 30 Days Qty: 30 0RF metoprolol succinate 25 mg Tablet Extended Release 24 Hr 12.5 mg PO BID 30 Days Qty: 30 0RF hydrocodone-acetaminophen 5-325 mg tablet 1 tab PO Q4H PRN (Reason: post op pain) Qty: 42 0RF methocarbamol 750 mg tablet 750 mg PO QID PRN (Reason: muscle spasm) Qty: 10 0RF Referrals Follow up/Referrals: Adrienne Medina MD [Primary Care Provider] - See instructions Activity Restrictions/Add. Instructions Additional Instructions/Restrictions: Take medication as prescribed. Increase fluids and rest. Keep appointment with PCP and bring BP readings from home with you. Check BP at least 3 times a week. Write down the time taken and the pulse rate at that time as well. IF symptoms persist or worsen, return to clinic or go to PCP. Call for results of testing in a couple of hours. Clinical Impressions Clinical Impression: Elevated blood pressure reading Upper respiratory tract infection Qualifiers: URI type: unspecified viral URI Qualified Code(s): J06.9 - Acute upper respiratory infection, unspecified Instructions Patient Instructions: DI for High Blood Pressure, DI for Viral Upper Respiratory Infection -- Adult Discharge ED Provider: Deepali Batista [facility] HPI General Stated complaint: sore throat, headache, fatigue, cough Mode of Arrival: Ambulatory Source of Information: Patient Limitations: No Limitations Time Seen by Provider: 11/30/23 10:25 Description of Symptoms (Recalled from Triage Doc. by RN): PATIENT C/O RUNNY NOSE, COUGH AND SORE THROAT SINCE YESTERDAY HEENT Symptoms (Recalled from RN notes): Yes Resp Symptoms (Recalled from RN notes): Yes Skin Symptoms (Recalled from RN notes): No MS Symptoms (Recalled from RN notes): No Functional Status (Recalled from RN notes): WNL History of Present Illness Provider Complaint: Pt reports that she was in [place] over the weekend and came home and started feeling poorly with a clear runny nose, cough, and sore throat. She states that she has taken Benadryl for her symptoms and this did help some. Of note her BP was elevated on arrival. Pt states that she checks at home and it will 140/90 at the highest. She states that she will have an elevated BP with illness. She reports having a recent EKG and cardiac cath after breaking wrist. Cardiac cath was clear clear. She states that she has an appointment scheduled with PCP at the end of the month. Related Data Home Medications Medication Instructions Recorded Confirmed cholecalciferol (vitamin D3) 10 10 mcg PO DAILY Supplement 01/19/20 11/30/23 mcg (400 unit) capsule (Vitamin D3) famotidine 20 mg tablet 20 mg PO DAILY Acid Reflux 01/19/20 11/30/23 vitamin B complex 1 cap PO DAILY 03/03/23 11/30/23 pramipexole 0.5 mg tablet 0.5 mg PO HS Restless Leg(S) 03/31/23 11/30/23 ferrous sulfate 325 mg (65 mg 325 mg PO BID Supplement 06/30/23 11/30/23 iron) tablet multivitamin 1 tab PO DAILY Supplement 06/30/23 11/30/23 levothyroxine 25 mcg tablet 25 mcg PO DAILY Thyroid 08/27/23 11/30/23 ferrous sulfate 324 mg (65 mg 324 mg PO DAILY 09/23/23 11/30/23 iron) tablet,delayed release Previous Rx's Medication Instructions Recorded escitalopram oxalate 5 mg tablet 5 mg PO DAILY #90 tabs 08/12/23 (Lexapro) aspirin 81 mg tablet,delayed 81 mg PO DAILY 30 days #30 tabs 08/27/23 release metoprolol succinate 25 mg 12.5 mg (1/2 x 25 mg) PO BID 30 08/27/23 tablet,extended release 24 hr days #30 tabs methocarbamol 750 mg tablet 750 mg PO QID PRN muscle spasm #10 09/19/23 tabs hydrocodone 5 mg-acetaminophen 325 1 tab PO Q4H PRN post op pain #42 09/28/23 mg tablet tabs benzonatate 100 mg capsule 100 mg PO TID PRN cough #30 caps 11/30/23 levocetirizine 5 mg tablet 5 mg PO DAILY #30 tabs 11/30/23 losartan 25 mg tablet 25 mg PO DAILY #30 tabs 11/30/23 Allergies Allergy/AdvReac Type Severity Reaction Status Date / Time Sulfa (Sulfonamide Allergy Intermediate I-ITCHING Verified 11/30/23 09:51 Antibiotics) [SULFA (SULFONAMIDE ANTIBIOTICS)] Worker's Comp Is this a Worker's Comp case?: No [facility] Disclaimer: The information contained in this section may have been updated after the patient was seen, as this information can be updated by other users. Medical History (Updated 11/30/23 @ 10:56 by Deepali Batista APRN) Depression Encounter for pre-operative cardiovascular clearance Abnormal electrocardiogram [ECG] [EKG] Major depressive disorder Benign paroxysmal positional vertigo Episodic peripheral vertigo Hyperthyroidism Surgical History History of colonoscopy History of surgery on right wrist History of carpal tunnel release History of tonsillectomy Family History Grandfather FHx: mental illness completed suicide -maternal grandfather -mom was about 10 years old -it was a Wednesday morning; and the kids were home middle school pe teacher -shot himself in the head Mother Alcoholism -she was in [place] -in [place] -and got on beer -she had cirrhosis of the liver Other No significant family history Social History Smoking Status: Never smoker smoking status stop date: 2012 second hand exposure: No alcohol intake: never counseling given: No substance use type: denies use counseling given: No current occupational status: retired and other Travel in the last 8 weeks: None adopted: No caregiver/support person: No foster care: No household members: none and other housing: house lives independently: Yes marital status: number of children: 1 number of grandchildren: 0 education level: high school 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; 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 pets and animals: Yes pets and animals: cat(s) and dog(s) caffeine: Yes physical activity: none anupam/spiritism: Religious special anupam needs: No working smoke detector in home: Yes fire extinguisher in home: Yes carbon monox detector in home: No firearms in home: Yes firearms unloaded and locked: Yes do you feel safe at home: Yes ROS Obtained: Yes All systems reviewed & no additional complaints except as documented Constitutional Constitutional: Reports system reviewed and no additional complaints, except as documented and Reports malaise Eyes Eyes: Reports system reviewed and no additional complaints, except as documented ENT Ears, Nose, Mouth, and Throat: Reports system reviewed and no additional complaints, except as documented, Reports nasal congestion, Reports nasal discharge, Reports odynophagia, Reports post nasal drip and Reports sore throat Cardiovascular Cardiovascular: Reports system reviewed and no additional complaints, except as documented Respiratory Respiratory: Reports system reviewed and no additional complaints, except as documented and Reports cough Gastrointestinal Gastrointestingal: Reports system reviewed and no additional complaints, except as documented and odynophagia Genitourinary Female Genitourinary: Reports system reviewed and no additional complaints, except as documented Musculoskeletal Musculoskeletal: Reports system reviewed and no additional complaints, except as documented Integumentary/Breasts Skin/Breast: Reports system reviewed and no additional complaints, except as documented Neurologic Neurologic: Reports system reviewed and no additional complaints, except as documented Endocrine Endocrine: Reports system reviewed and no additional complaints, except as documented Hematologic/Lymphatic Henatologic/Lymphatic: Reports system reviewed and no additional complaints, except as documented Allergic/Immunologic Allergic/Immunologic: Reports system reviewed and no additional complaints, except as documented Physical Exam General General appearance: alert Comment: ill appearing Head Head exam: atraumatic and normocephalic Eye Eye exam: Present normal appearance ENT ENT exam: Present mucous membranes moist Expanded ENT Exam External ear exam: Present normal external inspection Nasal speculum exam: Bilateral: other (clear drainage; edematous mucosa) Mouth exam: Present normal external inspection Teeth exam: Present normal inspection Throat exam: Present tonsillar erythema Comment: post nasal drainage noted Neck Neck exam: Present normal inspection; Absent lymphadenopathy Chest Chest inspection: Present normal inspection and symmetric chest wall rise Respiratory Respiratory exam: Present normal lung sounds bilaterally Cardiovascular Cardiovascular exam: Present regular rate, normal rhythm and normal heart sounds Abdominal Exam Abdominal exam: Present soft and normal bowel sounds Extremities Exam Extremities exam: Present normal inspection Back Exam Back exam: Present normal inspection Neurological Exam Neurological exam: Present alert and oriented X3 Psychiatric Psychiatric exam: Present normal affect and normal mood Skin Skin exam: Present warm, dry and intact Lymphatic Lymphatic Findings: no adenopathy Medical Decision Making Hemal Inquiry Pt receiving controlled substance: No Hemal was queried for this patient: No Vital Signs: 11/30/23 10:10 Temperature 98.8 F Temperature Source Oral Pulse Rate [Left Brachial] 80 Respiratory Rate 20 Blood Pressure [Left Arm] 209/97 H Blood Pressure Mean [Left Arm] 134 Blood Pressure Source [Left Arm] Automatic Cuff Blood Pressure Position [Left Arm] Sitting 02 Sat by Pulse Oximetry 98 Oxygen Delivery Method Room Air Lab Data Lab results reviewed: Yes I reviewed the patient's lab results. Lab Results 11/30/23 10:14: Strep Scn Rapid Clinic Negative Orders (Tests/Meds): ORDERS Category Date Time Status Strep Screen Confirmation Stat Micro 11/30/23 10:14 Received
[2023-11-30 10:39] VITALS: BP 196/98
[2023-11-30 10:56] VITALS: BP 196/98; PULSE 80; RESP 20; TEMP 37.1; O2SAT 98
[2023-11-30 11:07] LABS: Influenza A, PCR Not Detected (NotDetected); Influenza B, PCR Not Detected (NotDetected)
[2023-11-30 11:54] LABS: Coronavirus 19, PCR Detected (NotDetected)
--- NOTE | 2023-11-30 13:45 | PC.NURSE ---
PATIENT NOTIFIED OF POSITIVE COVID TEST AT THIS TIME
--- NOTE | 2023-12-02 12:40 | PC.NURSE ---
Reviewed strep confirmation results which are negative. No further action is required.
== END 2023-11-30 10:59 | disposition home or self-care (01) ==
PROVIDERS: Emergency Provider Nurse Practitioner Family; PCP Family Medicine
DX: U07.1 COVID-19 (principal); I10 Essential (primary) hypertension; R07.0 Pain in throat; R05.9 Cough, unspecified
CPT/HCPCS: 73110; 87636; 87880; 99212; 99214; G0463

== ENCOUNTER 2023-12-17 12:02 | Emergency (ER) | payer MEDICARE, SELFPAY ==
[2023-12-17 12:15] VITALS: BP 163/92; PULSE 62; RESP 16; TEMP 36.7; O2SAT 100; BMI 31.9
--- NOTE | 2023-12-17 12:24 | ED_ITS ---
Discharge Plan Disposition Patient Disposition: Home, Self-Care Condition: Good Prescriptions Prescriptions: No Action pramipexole 0.5 mg tablet 0.5 mg PO HS multivitamin Tablet 1 tab PO DAILY escitalopram oxalate [Lexapro] 5 mg tablet 5 mg PO DAILY Qty: 90 1RF ferrous sulfate 324 mg (65 mg iron) tablet,delayed release (DR/EC) 324 mg PO DAILY Patient Comments: TAKE 1 TABLET BY MOUTH TWICE DAILY cholecalciferol (vitamin D3) [Vitamin D3] 10 mcg (400 unit) capsule 10 mcg PO DAILY famotidine 20 mg tablet 20 mg PO DAILY vitamin B complex Capsule 1 cap PO DAILY ferrous sulfate 325 mg (65 mg iron) tablet 325 mg PO BID levothyroxine 25 mcg tablet 25 mcg PO DAILY aspirin 81 mg Tablet,Delayed Release (Dr/Ec) 81 mg PO DAILY 30 Days Qty: 30 0RF metoprolol succinate 25 mg Tablet Extended Release 24 Hr 12.5 mg PO BID 30 Days Qty: 30 0RF hydrocodone-acetaminophen 5-325 mg tablet 1 tab PO Q4H PRN (Reason: post op pain) Qty: 42 0RF methocarbamol 750 mg tablet 750 mg PO QID PRN (Reason: muscle spasm) Qty: 10 0RF losartan 25 mg tablet 25 mg PO DAILY Qty: 30 0RF levocetirizine 5 mg tablet 5 mg PO DAILY Qty: 30 1RF benzonatate 100 mg capsule 100 mg PO TID PRN (Reason: cough) Qty: 30 0RF Referrals Follow up/Referrals: Adrienne Medina MD [Primary Care Provider] - See instructions Activity Restrictions/Add. Instructions Additional Instructions/Restrictions: Suture instructions: ?You have required stitches today. Please read the following instructions so you know how to care for them: ?1. Keep wound area dry for the first 24 hours. 2?? May clean gently with mild soap and water, after 48 hours to prevent crusting over suture knots. 3. You may shower if your provider gives permission but do not take a bath until the skin is healed.. 4. Never leave a wet dressing or Band-Aid on your stitches as this allows bacteria to reach the area and may cause infection. Band-aids can cause the wound to sweat and not recommended to wear for long periods of time Watch for signs of infection: ? Increasing redness, tenderness or warmth around the suture site ? Unusual swelling around the site ? Appearance of pus around each suture or any red streaks ? Fever If you develop any of the above signs or symptoms of infection, Follow up with Family Physician immediately 5. Suture removal in _7-10___days 6. Return to [facility] or follow up with family doctor for removal. This can be done by any medical provider dur?ing regular hours on Wednesday through Wednesday, by appointment. Clinical Impressions Clinical Impression: Laceration Instructions Patient Instructions: DI for Laceration Repair, DI for Laceration Repair -- Simple Discharge ED Provider: Jackie Rosas [facility] HPI General Stated complaint: lac 12/16 right hand Mode of Arrival: Ambulatory Source of Information: Patient Limitations: No Limitations Time Seen by Provider: 12/17/23 12:24 Description of Symptoms (Recalled from Triage Doc. by RN): Reports cutting the top of her right hand. HEENT Symptoms (Recalled from RN notes): No Resp Symptoms (Recalled from RN notes): No Skin Symptoms (Recalled from RN notes): Yes MS Symptoms (Recalled from RN notes): No Functional Status (Recalled from RN notes): wnl History of Present Illness Provider Complaint: Patient states that she was pulling tabs out of picture frames when he hand slipped and caused laceration to top of her right hand States that she knew it probably needed stitches so she came in to get it checked Related Data Home Medications Medication Instructions Recorded Confirmed cholecalciferol (vitamin D3) 10 10 mcg PO DAILY Supplement 01/19/20 11/30/23 mcg (400 unit) capsule (Vitamin D3) famotidine 20 mg tablet 20 mg PO DAILY Acid Reflux 01/19/20 11/30/23 vitamin B complex 1 cap PO DAILY 03/03/23 11/30/23 pramipexole 0.5 mg tablet 0.5 mg PO HS Restless Leg(S) 03/31/23 11/30/23 ferrous sulfate 325 mg (65 mg 325 mg PO BID Supplement 06/30/23 11/30/23 iron) tablet multivitamin 1 tab PO DAILY Supplement 06/30/23 11/30/23 levothyroxine 25 mcg tablet 25 mcg PO DAILY Thyroid 08/27/23 11/30/23 ferrous sulfate 324 mg (65 mg 324 mg PO DAILY 09/23/23 11/30/23 iron) tablet,delayed release Previous Rx's Medication Instructions Recorded escitalopram oxalate 5 mg tablet 5 mg PO DAILY #90 tabs 08/12/23 (Lexapro) aspirin 81 mg tablet,delayed 81 mg PO DAILY 30 days #30 tabs 08/27/23 release metoprolol succinate 25 mg 12.5 mg (1/2 x 25 mg) PO BID 30 08/27/23 tablet,extended release 24 hr days #30 tabs methocarbamol 750 mg tablet 750 mg PO QID PRN muscle spasm #10 09/19/23 tabs hydrocodone 5 mg-acetaminophen 325 1 tab PO Q4H PRN post op pain #42 09/28/23 mg tablet tabs benzonatate 100 mg capsule 100 mg PO TID PRN cough #30 caps 11/30/23 levocetirizine 5 mg tablet 5 mg PO DAILY #30 tabs 11/30/23 losartan 25 mg tablet 25 mg PO DAILY #30 tabs 11/30/23 Allergies Allergy/AdvReac Type Severity Reaction Status Date / Time Sulfa (Sulfonamide Allergy Intermediate I-ITCHING Verified 11/30/23 09:51 Antibiotics) [SULFA (SULFONAMIDE ANTIBIOTICS)] Worker's Comp Is this a Worker's Comp case?: No [facility] Disclaimer: The information contained in this section may have been updated after the patient was seen, as this information can be updated by other users. Medical History (Updated 12/17/23 @ 12:56 by Jackie Rosas APRN) Depression Encounter for pre-operative cardiovascular clearance Abnormal electrocardiogram [ECG] [EKG] Major depressive disorder Benign paroxysmal positional vertigo Episodic peripheral vertigo Hyperthyroidism Surgical History History of colonoscopy History of surgery on right wrist History of carpal tunnel release History of tonsillectomy Family History Grandfather FHx: mental illness completed suicide -maternal grandfather -mom was about 10 years old -it was a Wednesday morning; and the kids were home school psychologist assistant -shot himself in the head Mother Alcoholism -she was in [employer] -in [place] -and got on beer -she had cirrhosis of the liver Other No significant family history Social History (Reviewed 11/04/23 @ 10:00 by FIDELIA Cao Smoking Status: Never smoker smoking status stop date: 2012 second hand exposure: No alcohol intake: never counseling given: No substance use type: denies use counseling given: No current occupational status: retired and other Travel in the last 8 weeks: None adopted: No caregiver/support person: No foster care: No household members: none and other housing: house lives independently: Yes marital status: number of children: 1 number of grandchildren: 0 education level: high school 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; 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 pets and animals: Yes pets and animals: cat(s) and dog(s) caffeine: Yes physical activity: none anupam/islam: Pentecostal special anupam needs: No working smoke detector in home: Yes fire extinguisher in home: Yes carbon monox detector in home: No firearms in home: Yes firearms unloaded and locked: Yes do you feel safe at home: Yes ROS Obtained: Yes All systems reviewed & no additional complaints except as documented and Yes Systems reviewed as appropriate & no additional complaints except as documented Constitutional Constitutional: Reports system reviewed and no additional complaints, except as documented and Reports as per HPI Cardiovascular Cardiovascular: Reports system reviewed and no additional complaints, except as documented and Reports as per HPI Respiratory Respiratory: Reports system reviewed and no additional complaints, except as documented and Reports as per HPI Gastrointestinal Gastrointestingal: Reports system reviewed and no additional complaints, except as documented and as per HPI Integumentary/Breasts Skin/Breast: Reports system reviewed and no additional complaints, except as documented, Reports as per HPI and Reports other (lac to top of right hand) Physical Exam General General appearance: alert and in no apparent distress Chest Chest inspection: Present normal inspection and symmetric chest wall rise Respiratory Respiratory exam: Present normal lung sounds bilaterally; Absent respiratory distress or wheezes Cardiovascular Cardiovascular exam: Present regular rate, normal rhythm and normal heart sounds Expanded Upper Extremity Exam Right: Hand L/R back image: 2 1. laceration noted no active bleeding Neurological Exam Neurological exam: Present alert, oriented X3 and normal gait Medical Decision Making Hemal Inquiry Pt receiving controlled substance: No Hemal was queried for this patient: No Vital Signs: 12/17/23 12:15 Temperature 98.0 F Temperature Source Oral Pulse Rate [Radial] 62 Respiratory Rate 16 Blood Pressure [Left Arm] 163/92 H Blood Pressure Mean [Left Arm] 115 Blood Pressure Source [Left Arm] Automatic Cuff Blood Pressure Position [Left Arm] Sitting 02 Sat by Pulse Oximetry 100 Oxygen Delivery Method Room Air Procedures Laceration Laceration 1: Site: hand Side (If applicable): right Size (cm): 2 Description: flap Depth: simple, single layer Local Anesthetic: lidocaine 1% Amount of anesthesia used (mL): 1 Pre-repair: wound explored and irrigated extensively Skin layer closed with: nylon Size (cm): 5-0 Number of sutures: 8 Technique: simple, interrupted (wound edges approximated well)
[2023-12-17] MEDS: TET/DIPHTH/PERT-ADULT 0.5ML SYRINGE 0.5 ML IM (12:35)
[2023-12-17 13:03] VITALS: BP 163/92; PULSE 62; RESP 16; TEMP 36.7; O2SAT 100
== END 2023-12-17 13:04 | disposition home or self-care (01) ==
PROVIDERS: Emergency Provider Nurse Practitioner; PCP Family Medicine
DX: S61.411A Laceration without foreign body of right hand, initial encounter (principal); Z23 Encounter for immunization; W26.8XXA Contact with other sharp object(s), not elsewhere classified, initial encounter
CPT/HCPCS: 12002; 90471; 90715; 99213; 99214; G0463

== ENCOUNTER 2024-01-27 10:14 | Outpatient (CLI) | payer MEDICARE, SELFPAY ==
[2024-01-27 10:51] LABS: Basophils % 0.9 % (0.1-2.0); Eosinophils # 0.1 K/mm3 (0.0-0.4); Eosinophils % 1.9 % (0.1-12.0); Hematocrit 42.7 % (37.0-47.0); Hemoglobin 13.3 g/dL (12.2-16.2); Lymphocytes # 1.6 K/mm3 (0.7-4.5); Mean Corpuscular HGB Conc 31.2 g/dL (31.8-35.4); Mean Corpuscular Hemoglobin 32.6 pg (27.0-31.2); Mean Corpuscular Volume 104.4 fl (81-99); Mean Platelet Volume 8.8 fl (7.4-10.4); Monocytes # 0.4 K/mm3 (0.1-1.0); Monocytes % 6.8 % (1.7-9.3); Neutrophils # 3.1 K/mm3 (1.8-7.8); Neutrophils % 59.4 % (37.0-80.0); Platelet Count 216 K/mm3 (142-424); Red Blood Count 4.09 M/mm3 (4.20-5.40); White Blood Count 5.2 K/mm3 (4.8-10.8)
[2024-01-27 11:09] LABS: Chloride 108 mmol/L (98-107)
[2024-01-27 11:10] LABS: Albumin Level 3.9 g/dl (3.5-5.0); Potassium 4.4 mmoL/L (3.5-5.1); Sodium 138 mmol/L (136-145)
[2024-01-27 11:13] LABS: Alanine Aminotransferase 13 U/L (12-78); Alkaline Phosphatase 85 U/L (38-126); Anion Gap 5.4 mEq/L (5-15); Aspartate Amino Transferase 30 U/L (14-36); Bilirubin,Direct 0.3 mg/dl (0.0-0.4); Bilirubin,Indirect 0.3 mg/dL (0.0-0.9); Bilirubin,Total 0.6 mg/dl (0.2-1.3); Bilirubin,Unconjugated 0.3 mg/dL (0.0-1.1); Blood Urea Nitrogen 22 mg/dl (7-17); Calcium 9.2 mg/dl (8.4-10.2); Carbon Dioxide 29 mmol/L (22.0-30.0); Cholesterol 224 mg/dl (140-200); Estimated Glomerular Filt Rate 49 ml/min (>60); GFR (African American) 59 ML/MIN (>60); Glucose 87 mg/dl (74-100); Total Protein,Serum 6.7 g/dl (6.3-8.2); Triglycerides 128 mg/dl (30-150); VLDL Cholesterol 26 mg/dL (0-40)
[2024-01-27 11:14] LABS: HDL Cholesterol 56 mg/dl (40-60); Magnesium 2.1 mg/dl (1.6-2.3)
[2024-01-27 11:25] LABS: Direct LDL Cholesterol 121.69 mg/dL (100-129)
[2024-01-27 11:44] LABS: Thyroid Stimulating Hormone 2.92 uIU/mL (0.465-4.68)
== END 2024-01-27 23:59 | disposition home or self-care (01) ==
LOC: LAB 10:15
PROVIDERS: PCP Family Medicine; Visit Provider Nurse Practitioner Family
DX: Z79.01 Long term (current) use of anticoagulants (principal); I10 Essential (primary) hypertension; R42 Dizziness and giddiness; I47.10 Supraventricular tachycardia, unspecified; I48.0 Paroxysmal atrial fibrillation; R94.31 Abnormal electrocardiogram [ECG] [EKG]
CPT/HCPCS: 36415; 80048; 80061; 80076; 83735; 84439; 84443; 85025

== ENCOUNTER 2024-04-07 06:27 | Day surgery (SDC) | payer MEDICARE, SELFPAY ==
[2024-04-04 13:31] VITALS: BMI 31.9
[2024-04-07] MEDS: 0.9 % SODIUM CHLORIDE 1000ML 1,000 ML 100 ML IV (06:45)
[2024-04-07 06:54] VITALS: BP 132/79; PULSE 73; RESP 18; TEMP 36.5; O2SAT 96
--- NOTE | 2024-04-07 06:57 | P.PCN_ITS ---
Procedure: Date: 04/07/24 Patient Date of :: 1950 Procedure Performed:: Total colonoscopy to terminal ileum with polypectomy using biopsy forceps Indications:: Patient is a 73-year-old female who presents for follow-up colonoscopy. I had previously seen her and performed EGD in the past for ulcer disease. He had colonoscopy in 2009 and in 2018 at which time she had a polyp removed. Follow- up colonoscopy on 06/12/2022 revealed tubular adenoma and she had a poor prep. Due to the suboptimal preparation follow-up colonoscopy was recommended for 1 year and she underwent attempted colonoscopy on 08/27/2023. Once again she had a poor prep. There was stool coating the velasquez and this could not be cleared. Patient did develop tachycardia consistent with atrial fibrillation during the procedure and her procedure was discontinued. It was recommended she undergo follow-up colonoscopy with multi day bowel preparation and bowel regimen. Prior to this procedure she did MiraLAX and magnesium citrate. . Performing Provider:: Keven Marie MD Referring Provider:: Adrienne Medina Sedation:: MAC sedation Procedure:: Patient history was obtained and appropriate physical examination was performed. Patient's medications and allergies were reviewed. Informed consent was obtained after explaining the benefits, alternatives, and risks of the procedure including, but not limited to, bleeding, perforation, missed lesions, and adverse reaction to anesthesia medications. Patient was transported to endoscopy procedure room. Patient was connected to monitoring devices. Throughout the procedure the patient's blood pressure, pulse, and oxygen saturations were monitored continuously. Patient identification and planned procedure were verified by the staff. Patient was positioned in lateral decubitus position. Digital anorectal exam was performed. Variable stiffness Olympus colonoscope was inserted and advanced under direct visualization to the cecum. Adequacy of the colonic preparation was noted. The colonoscope was advanced a short distance into the terminal ileum. The colonoscope was then slowly withdrawn while carefully examining the color, texture, anatomy, and integrity of the mucosoa circumferentially. Within the rectum retroflexion was performed. Colonoscope was then withdrawn. Impression: Colonoscope was advanced to the cecum. However there was a relatively large leigh unt of particulate opaque thick stool mostly in the right colon but scattered regionally throughout. Very high volume trans colonoscopic irrigation and suctioning allowed for decent visualization. In the transverse colon there was a diminutive polyp removed with cold biopsy forceps. She had sigmoid diverticulosis. . Findings:: Fair preparation Diminutive transverse colon polyp Sigmoid diverticulosis Recommendations:: Repeat colonoscopy likely within 2 years with actual alternate prep Complications:: None immediately apparent Estimated blood obtained (mL): 1 Colonoscopy Component Colonoscopy Component Was a colonoscopy performed during today's procedure?: Yes Recommended follow up colonoscopy of at least 10 years?: Yes If no, follow up colonoscopy recommended in ___ years?: 2 Reason for not recommending >/= 10 yr follow-up interval?: See above
--- NOTE | 2024-04-07 07:08 | EXP.ANES.CKL ---
[facility] Disclaimer: The information contained in this section may have been updated after the patient was seen, as this information can be updated by other users. 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 Paroxysmal A-fib SVT (supraventricular tachycardia) Depression Encounter for pre-operative cardiovascular clearance Abnormal electrocardiogram [ECG] [EKG] Major depressive disorder Benign paroxysmal positional vertigo Episodic peripheral vertigo Hyperthyroidism Surgical History History of colonoscopy History of surgery on right wrist History of carpal tunnel release History of tonsillectomy Family History Grandfather FHx: mental illness completed suicide -maternal grandfather -mom was about 10 years old -it was a Wednesday morning; and the kids were home school speech therapist -shot himself in the head Mother Alcoholism -she was in [facility] -in [place] -and got on beer -she had cirrhosis of the liver Other No significant family history Social History (Updated 04/04/24 @ 13:30 by Seema Resendiz RN) Smoking Status: Never smoker smoking status stop date: 2012 second hand exposure: No alcohol intake: never counseling given: No substance use type: denies use counseling given: No current occupational status: retired and other Travel in the last 8 weeks: None adopted: No caregiver/support person: No foster care: No household members: none and other housing: house lives independently: Yes marital status: number of children: 1 number of grandchildren: 0 education level: high school 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; 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 pets and animals: Yes pets and animals: cat(s) and dog(s) caffeine: Yes physical activity: none anupam/moravian: Oriental orthodox special anupam needs: No working smoke detector in home: Yes fire extinguisher in home: Yes carbon monox detector in home: No firearms in home: Yes firearms unloaded and locked: Yes do you feel safe at home: Yes [facility] Anesthesia Checklist Patient Identification Patient Identification: Arm Band and Verbal (Name & ) Structural Data Admitted From: Home Planned Operative Procedure/s: Colonoscopy Consent for Planned Operative Procedure(s) Verified: Yes Verified Documents: Surgical Consent and History and Physical NPO Status Verified Time NPO: 00:00 Chart Verification Results Verified: CBC, BMP, ECG and Chest Xray Additional verifications Patient : No Anesthesia Reactions: No Hx Blood Transfusions: No Blood Transfusion Reaction: No Cardiovascular Assessment Heart Sounds: S1 & S2 Pulse Rhythm: Irregular Peripheral Edema: No Airway Assessment Mallampati Score:: Class II C-Spine Mobility Assessed: Yes (FROM) TMJ Mobility Assessed: Yes Dentition: Good Dentition Neurological Assessment Level of Consciousness: Awake, Alert, Appropriate and Follows Commands Hx Seizures: No Numbness or tingling in extremities: No Anesthesia Plan Anesthesia Risk discussed: Yes Anesthesia Plan: Verified ASA Class: III Anesthesia Type: MAC
[2024-04-07 07:13] VITALS: O2SAT 99
[2024-04-07 07:46] VITALS: BP 100/57; PULSE 82; RESP 16; TEMP 36.4; O2SAT 94
[2024-04-07 07:56] VITALS: BP 97/66; PULSE 73; RESP 16; O2SAT 95
[2024-04-07 08:06] VITALS: BP 109/67; PULSE 66; RESP 16; O2SAT 97
--- NOTE | 2024-04-07 10:06 | SUR.PHASEII ---
Called office to make f/u appointment 04/20/24 at 9:45am. Spoke with patient and verbalized understanding.
== END 2024-04-07 08:20 | disposition home or self-care (01) ==
PROVIDERS: PCP Family Medicine; Visit Provider Surgery
PROC: 0DJD8ZZ Inspection of Lower Intestinal Tract, Via Natural or Artificial Opening Endoscopic (ICD-10-PCS; CPT 45380; principal; 2024-04-07 07:30)
DX: K63.5 Polyp of colon (principal); K57.30 Diverticulosis of large intestine without perforation or abscess without bleeding; Z09 Encounter for follow-up examination after completed treatment for conditions other than malignant neoplasm; Z86.0100 Personal history of colon polyps, unspecified
CPT/HCPCS: 45380; J2704; J7030

== ENCOUNTER 2024-11-02 10:39 | Outpatient (CLI) | payer MEDICARE, SELFPAY ==
[2024-11-02 10:57] LABS: Basophils # 0.1 K/mm3 (0-0.2); Basophils % 0.6 % (0.1-2.0); Eosinophils # 0.1 Kmm3 (0.0-0.4); Eosinophils % 0.8 % (0.1-12.0); Hematocrit 39.4 % (37.0-47.0); Hemoglobin 13.1 g/dL (12.2-16.2); Immature Granulocytes # 0.02 10^3uL; Immature Granulocytes % 0.2 %; Lymphocytes # 1.7 K/mm3 (0.7-4.5); Lymphocytes % 19.3 % (10-50); Mean Corpuscular HGB Conc 33.2 g/dL (31.8-35.4); Mean Corpuscular Hemoglobin 33.5 pg (27.0-31.2); Mean Corpuscular Volume 100.8 fl (81-99); Mean Platelet Volume 10.9 fl (7.4-10.4); Monocytes # 0.8 K/mm3 (0.1-1.0); Monocytes % 9.4 % (1.7-9.3); Neutrophils # 6.1 K/mm3 (1.8-7.8); Neutrophils % 69.7 % (37.0-80.0); Nucleated Red Blood Cells # 0 10^3/uL; Nucleated Red Blood Cells % 0 %; Platelet Count 215 K/mm3 (142-424); Red Blood Count 3.91 M/mm3 (4.20-5.40); Red Cell Distribution Width 12.1 % (11.5-17.5); Red Cell Distribution Width-SD 45.1 fL; White Blood Count 8.7 K/mm3 (4.8-10.8)
[2024-11-02 11:19] LABS: Albumin Level 3.8 g/dl (3.5-5.0); Chloride 107 mmol/L (98-107); Sodium 138 mmol/L (136-145)
[2024-11-02 11:20] LABS: Potassium 4.1 mmoL/L (3.5-5.1)
[2024-11-02 11:22] LABS: Alanine Aminotransferase 24 U/L (12-78); Alkaline Phosphatase 88 U/L (38-126); Anion Gap 7.1 mEq/L (5-15); Aspartate Amino Transferase 30 U/L (14-36); Bilirubin,Direct 0.2 mg/dl (0.0-0.4); Bilirubin,Indirect 0.6 mg/dL (0.0-0.9); Bilirubin,Total 0.8 mg/dl (0.2-1.3); Bilirubin,Unconjugated 0.6 mg/dL (0.0-1.1); Blood Urea Nitrogen 21 mg/dl (7-17); Calcium 9.1 mg/dl (8.4-10.2); Carbon Dioxide 28 mmol/L (22.0-30.0); Cholesterol 120 mg/dl (140-200); Estimated Glomerular Filt Rate 37 ml/min (>60); GFR (African American) 44 ML/MIN (>60); Glucose 98 mg/dl (74-100); Total Protein,Serum 6.4 g/dl (6.3-8.2); Triglycerides 61 mg/dl (30-150); VLDL Cholesterol 12 mg/dL (0-40)
[2024-11-02 11:23] LABS: Chol/HDL Ratio 2.2 (1-3.5); HDL Cholesterol 54 mg/dl (40-60); Magnesium 2.1 mg/dl (1.6-2.3)
[2024-11-02 11:34] LABS: Direct LDL Cholesterol 41.25 mg/dL (100-129)
[2024-11-02 11:39] LABS: Free T4 (Free Thyroxine) 0.91 ng/dl (0.78-2.19)
[2024-11-02 11:53] LABS: Thyroid Stimulating Hormone 2.41 uIU/mL (0.465-4.68)
== END 2024-11-02 23:59 | disposition home or self-care (01) ==
LOC: LAB 10:40 → RT 13:04
PROVIDERS: Nurse Practitioner Family; PCP Family Medicine; Visit Provider Specialist
DX: I48.0 Paroxysmal atrial fibrillation (principal); G47.33 Obstructive sleep apnea (adult) (pediatric); I10 Essential (primary) hypertension; E78.2 Mixed hyperlipidemia; R94.2 Abnormal results of pulmonary function studies; Z79.01 Long term (current) use of anticoagulants
CPT/HCPCS: 36415; 80048; 80061; 80076; 83735; 84439; 84443; 85025; 94762

== ENCOUNTER 2025-01-08 14:40 | Outpatient (CLI) | payer MEDICARE, SELFPAY ==
--- OUTSIDE RECORDS SUMMARY | 2025-01-08 14:43 | XMS_ITS | Encounter Summary ---
Author Organization [facility] Address [address] [place] [address] Care Team Providers Care Railroad Car Loader Name Role Phone Adrienne Medina MD Primary Care Provider + [phone] Stanley Mullins MD Unavailable [phone] Encounter Details Date Type Department Care Team (Latest Contact Info) Description 01/05/2025 Travel Social History Tobacco Use Types Packs/Day Years Used Date Smoking Tobacco: Former Cigarettes 1 8 0 05/31/1971 - 05/31/1979 Smokeless Tobacco: Never Alcohol Use Standard Drinks/Week Comments Never 0 (1 standard drink = 0.6 oz pur e alcohol) Humiliation, Afraid, Rape, and Kick questionnair e Answer Date Recorded Within the last year, have y ou been afraid of your partner or ex-partner? No 10/03/2024 Within the last year, have y ou been humiliated or emotionally abused in other ways by your partner or ex-partner? No Within the last year, have y ou been kicked, hit, slapped, or otherwise physically hurt by your partner or ex-partner? No 10/03/2024 Within the last year, have y ou been raped or forced to have any kind of sexual activity by your partner or ex-partner? No 10/03/2024 AUDIT-C Answer Date Recorded Q1: How often do you have a drink containing alc ohol? Never 12/24/2020 Average Number of Drinks Not on file 021 Q3: How often do you have si x or more drinks on one occasion? Never 12/24/2020 PHQ-2 Answer Date Recorded Patient Health Questionnaire-2 Score 0 10/10/2024 Hunger Vital Sign Answer Date Recorded Within the past 12 months, y ou worried that your food would run out before you got the money to buy more. Never true 10/04/19 25 Within the past 12 months, t he food you bought just didn't last and you didn't have money to get more. Never true 10/03/2024 PRAPARE - Transportation Answer Date Re corded In the past 12 months, has l ack of transportation kept you from medical appointments or from getting medications? No 10/2024 In the past 12 months, has l ack of transportation kept you from meetings, work, or from getting things needed for daily living? No 10/03/2024 Housing Stability Vital Sign Answer Tarun e Recorded In the last 12 months, was t here a time when you were not able to pay the mortgage or rent on time? No 03/29/2024 In the last 12 months, how many places have you lived? 1 03/29/2024 In the last 12 months, was t here a time when you did not have a steady place to sleep or slept in a penitentiary (including now)? No 03/29/2024 PHQ-9 Answer Date Recorded Patient Health Questionnaire-9 Score 3 10/10/2024 Housing Stability Vital Sign Answer Tarun e Recorded In the last 12 months, was t here a time when you were not able to pay the mortgage or rent on time? No 10/03/2024 In the past 12 months, how m any times have you moved where you were living? 0 10/03/2024 At any time in the past 12 m [facility], were you homeless or living in a penitentiary (including now)? No 10/03/2024 Utilities Answer Date Recorded In the past 12 months has th e electric, gas, oil, or water company threatened to shut off services in your home? No 10/03/2024 PHQ-2A Answer Date Recorded Patient Health Questionnaire-2 Score 6 12/29/2022 Comments No Sex and Gender Information Value Date Recorded Sex Assigned at Not on file Legal Sex Female 8:49 PM EDT Gender Identity Not on file Sexual Orientation Not on file documented as of this encounter Plan of Treatment Upcoming Encounters Date Type Department Care Team (Late st Contact Info) Description 01/11/2025 2:30 PM EDT Office Visit [facility] [address] [place] [address] Brady Zepeda, [address] [place], [place] [id number] 01/12/2025 11:00 AM EDT Appointment [facility] [address] [place] [address] 03/07/2025 3:00 PM EDT Appointment [facility] Breast Care [facility] Breast [facility] [place] [address] [address] [facility] [address] [place] [address] 04/17/2025 8:40 AM EST Office Visit [facility] [address] [place] [address] Adrienne Medina MD [address] [facility] [address] [place] [id number] documented as of this encounter Visit Diagnoses Not on filedocumented in this encounter Additional Health Concerns Assessment Noted Time PHQ-9 Depression Total Score: 3 10/11/19 25 2:32 PM EDT A fall risk assessment has been complete d for the patient 10/10/2024 2:32 PM EDT A Body Mass Index follow-up plan has been documented for the patient 10/10/2024 9:18 PM EDT documented as of this encounter Care Teams Railroad Car Loader Relationship Specialty Start Date End Date Adrienne Medina MD [address] [place] [address] PCP - General Family Medicine 11/14/20 Stanley Mullins MD [address] [facility] [address] [place] [address] Surgeon Surgical Oncology 04/17/21 documented as of this encounter
--- OUTSIDE RECORDS SUMMARY | 2025-01-08 14:43 | XMS_ITS | Encounter Summary ---
Author Organization [facility] Address [address] [place] [address] Care Team Providers Care Tool Supervisor Name Role Phone Adrienne Medina MD Primary Care Provider [phone] Stanley Mullins MD Unavailable [phone] Encounter Details Date Type Department Care Team (Late st Contact Info) Description 01/08/2025 Telephone [facility] Medicine [address] [facility], [address] [place] [address] Adrienne Medina MD [address] [place] [address] Social History Tobacco Use Types Packs/Day Years [...] place to sleep or slept in a long term (including now)? No 03/29/2024 PHQ-9 Answer Date [...] any time in the past 12 m [facility], were you homeless or living in a long term (including now)? No 10/03/2024 Utilities Answer Date [...] on file documented as of this encounter Miscellaneous Notes * Telephone Encounter - Deepali Nicolas - 01/08/2025 9:51 AM EDT I called and spoke with the patient. She stated she was placed on oxygen by her neurologist in [place]. I advised her to contact the HH and let them know who ordered since our note does not discussthe need for oxygen. She agreed and will reach back out if anything is needed from our clinic. * Telephone Encounter - Lacie Hugo - 01/08/2025 9:19 AM EDT Clinical Concern/Question Reason for Call: Alycia Magallon [facility] last office note faxed to them at [phone]. They are the patient's oxygen provider. Best contact number: Other: Alycia Magallon - [phone] Optimal time of day to reach caller: ANYTIME Additional comments/information from caller: None Note: Please do not reply to this message. Follow-up communication and further actions as a result of this message need to be communicated with the patient directly, if the patient is not active onMyChart. If the patient is active on MyChart, they will receive notification of the communication/outcome via [employer]. documented in this encounter Plan of Treatment Upcoming Encounters Date Type Department Care Team (Late st Contact Info) Description 01/11/2025 2:30 PM EDT Office Visit [facility] [address] [facility], [address] [place] [id number] Brady Zepeda, DO [address] [place] [address] 01/12/2025 11:00 AM EDT Appointment [facility] [address] [place] [address] 03/07/2025 3:00 PM EDT Appointment [facility] Breast Care Center [facility] Sukhi Torres [facility] [address] [place] [address] 04/17/2025 8:40 AM EST Office Visit [facility] [address] [place] [address] Adrienne Medina MD [address] [facility] [address] [place] [address] documented as of this encounter Visit Diagnoses [...] documented as of this encounter Care Teams Tool Supervisor Relationship Specialty Start Date End Date Adrienne Medina MD [address] [facility] [address] [place] [address] PCP - General Family Medicine 11/14/20 Stanley Mullins MD [address] [facility] Karina Torres [facility] [address] [place] [address] Surgeon Surgical Oncology 04/17/21 documented as of this encounter
--- OUTSIDE RECORDS SUMMARY | 2025-01-08 14:43 | XMS_ITS | Encounter Summary ---
Author Organization [facility] Address [address] [place] [address] Care Team Providers Care School Bus Driver/Mechanic Name Role Phone Adrienne Medina MD Primary Care Provider [phone] Stanley Mullins MD Unavailable [phone] Reason for Visit * Reason Comments Med Refill Encounter Details Date Type Department Care Team (Late Contact Info) Description 11/19/2024 Refill [facility] Medicine [address] [facility], [address] [place] [address] Adrienne Medina MD [address] [facility] [address] [place] [address] Social History Tobacco Use Types [...] place to sleep or slept in a correction (including now)? No 03/29/2024 PHQ-9 Answer Date [...] time in the past 12 m [facility], were you homeless or living in a correction (including now)? No 10/03/2024 Utilities Answer Date [...] encounter Miscellaneous Notes * Telephone Encounter - Kale Chan, PharmD - 11/22/2024 12:08 PM EDT 1 medication(s) has been approved per protocol. Please keep upcoming appointment for additional refills. Medications have been pended for refill atupcoming appointment. documented in this encounter Plan of Treatment Upcoming Encounters Date Type Department Care Team (Late st Contact Info) Description 01/11/2025 2:30 PM EDT Office Visit [facility] [address], [address] [place] [address] Brady Zepeda DO [address] [place], [place] [id number] 01/12/2025 11:00 AM EDT Appointment [place] [facility] [address] [place] [address] 03/07/2025 3:00 PM EDT Appointment [facility] Breast Care Center [facility] [address] [place] [address] 04/17/2025 8:40 AM EST Office Visit [facility] [address], [address] [place] [address] Adrienne Medina MD [address] [place] [address] documented as of this encounter Visit Diagnoses [...] documented as of this encounter Care Teams School Bus Driver/Mechanic Relationship Specialty Start Date End Date Adrienne Medina MD [address] [place] [address] PCP - General Family Medicine 11/14/20 Stanley Mullins MD 800 [facility] Karina Torres [facility] [address] [place] [address] Surgeon Surgical Oncology 04/17/21 documented as of this encounter
--- OUTSIDE RECORDS SUMMARY | 2025-01-08 14:43 | XMS_ITS ---
Author Organization [facility] Address [address] [place] [address] Care Team Providers Care Deputy Director Name Role Phone Adrienne Medina MD Primary Care Provider [phone] Stanley Mullins MD Unavailable [phone] Active Problems Problem Noted Date Diagnosed Date Adverse reaction to lisinopril 10/30/2022 Assessment & Plan (10/30/2022 4:19 PM EDT): -as pt just stopped lisinopril within the week and she has no other upper respiratory symptoms, cough is most likely secondary to the medication -advised that this cough could persist for quite some time -will reevaluate at next follow up HTN (hypertension) 10/30/2022 Assessment & Plan (10/30/2022 4:21 PM EDT): -well controlled on losartan 25mg daily -continue this dose for now and continue logs. Malignant neoplasm of left b reast in female, estrogen receptor positive 10/21/2020 Cancer Staging:Clinical stage from 03/29/2017:Stage 0(Tis (DCIS), N0, M0) - Unsigned Prediabetes 06/18/2020 Restless leg 06/18/2020 Anemia 12/25/2019 Osteopenia 12/19/2019 Insufficiency of tear film of both eyes 12/13/19 20 Meibomian gland dysfunction (MGD) of upper and lower lids of both eyes 12/13/2019 Obesity (BMI 30-39.9) 11/13/2019 Astigmatism of both eyes 06/09/2019 Bilateral myopia 06/09/2019 Bilateral presbyopia 06/09/2019 Cataract, nuclear sclerotic senile 06/09/2019 Pulmonary nodule 05/10/2019 GERD (gastroesophageal reflux disease) 9 Trigger finger 07/15/2018 Plantar fasciitis 09/23/2017 Abnormal fasting glucose 03/12/2017 Allergic rhinitis 09/11/2016 Benign colon polyp 11/26/2014 Depression 01/11/2013 Assessment & Plan (10/30/2022 4:18 PM EDT): -will discontinue citalopram now and initiate fluoxetine 20mg daily -follow up in 3 month for reevaluation Hypothyroidism 01/11/2013 Obstructive sleep apnea 01/11/2013 Overweight 01/11/2013 Current Treatment and Therapy Plans No current plan information found. Past Treatment and Therapy Plans Infusion Treatment 1 Plan Name Start Date Discontinue Date Treatment Medications Discontinue Reason Plan Provider (HEM/ONC) DENOSUMAB (PROLIA) 10/23/2021 01/07/2023 No medications scheduled. Therapy Complete Michelle Davis MD (HEM/ONC) DENOSUMAB (PROLIA) 04/17/2021 10/22/2021 No medications scheduled. Patient Preference Michelle Davis MD Resolved Problems Problem Noted Date Diagnosed Date Resolved Date Hand pain 03/08/2019 10/27/2022 Elbow pain 03/11/2017 10/27/2022 Otitis externa of right ear 04/15/2016 10/27/2022
--- OUTSIDE RECORDS SUMMARY | 2025-01-08 14:43 | XMS_ITS | Clinical Summary ---
Author Organization [facility] Address [address] [place] [address] Care Team Providers Care Transportation Operations Manager Name Role Phone Adrienne Medina MD Primary Care Provider [phone] Stanley Mullins MD Unavailable [phone] Allergies Active Allergy Reactions Criticality Noted Date Comments Sulfa Drugs Rash Medium 02/15/2018 Sulfa (Sulfonamide Antibiotics) - unspecified Medications acetaminophen (Tylenol) 500 MG tablet TAKE 1 TABLET EVERY 4 TO 6 HOURS NEEDED. 9 Active Calcium Carb-Cholecalcif mahsa (Calcium 600+D3) 600-800 MG-UNIT tablet 0 Active famotidine (Pepcid) 20 MG tablet Take 1 tablet (20 mg) by mouth 1 (one) time each day. as directed 0 Active polycarbophil (Fibercon) 625 MG tablet Take 2 tablets (1,250 mg) by mouth 2 (two) times a day. Active B Complex-C (b complex-vitamin c) tablet Take 1 tablet by mouth 1 (one) time each day. Active ibuprofen 600 MG tablet Take 1 tablet (600 mg) by mouth every 8 (eight) hours. 2 Active escitalopram (Lexapro) 5 MG tablet Take 1 tablet (5 mg) by mouth 1 (one) time each day. 3 Active Multiple Vitamin (MULTIVITAMIN ADULT PO) Take 1 tablet by mouth 1 (one) time each day. Active Thiamine HCl (VITAMIN B1 PO) Take 1 tablet by mouth 1 (one) time each day. Active metoprolol succinate XL (Toprol-XL) 25 MG 24 hr tablet Take 0.5 tablets (12.5 mg) by mouth. Active apixaban (Eliquis) 5 MG tablet Take 1 tablet (5 mg) by mouth 2 (two) times a day. 60 tablet 3 4 Active atorvastatin (Lipitor) 40 MG tablet Take 1 tablet (40 mg) by mouth 1 (one) time each day. 30 tablet 11 4 04/10/20 25 Active pramipexole (Mirapex) 0.5 MG tabletIndication s:Restless leg syndrome Take 1 tablet by mouth every evening. 90 tablet 3 5 Active ferrous sulfate 324 (65 Fe) MG EC tablet Take 1 tablet by mouth 2 times a day. 180 tablet 3 5 Active levothyroxine (Synthroid, Levoxyl) 25 MCG tabletIndication s:Hypothyroidism , unspecified type Take 1 tablet by mouth daily. 90 tablet 3 5 Active losartan (Cozaar) 25 MG tablet Take 1 tablet by mouth once daily 90 tablet 1 5 Active Active Problems Problem Noted Date Diagnosed Date [...] 01/11/2013 Obstructive sleep apnea 01/11/2013 Overweight 01/11/2013 Resolved Problems Problem Noted Date Diagnosed Date Resolved Date Hand pain 03/08/2019 10/27/2022 Elbow pain 03/11/2017 10/27/2022 Otitis externa of right ear 04/15/2016 10/27/2022 Encounters Date Type Department Care Team Description 01/08/2025 Telephone Pending sale to [facility] [address], [address] [place] [address] Adrienne Medina MD 01/05/2025 Travel 11/19/2024 Refill Pending sale to [facility] [address], [address] [place] [address] Adrienne Medina MD 10/10/2024 3:10 PM EDT Office Visit Pending sale to [facility] [address], [address] [place] [address] Adrienne Medina MD Post-menopausal (Primary Dx); Restless leg syndrome; Hypothyroidism, unspecified type; Encounter for subsequent annual wellness visit (AWV) in Medicare patient 10/10/2024 Travel 10/08/2024 Refill Pending sale to [facility] [address], [address] [place] [address] Adrienne Medina MD Hypothyroidism, unspecified type from Last 3 Months Immunizations Immunization Administration Dates Next Due Hep A, Adult 09/29/2018,03/31/2018 Influenza, High-dose, Split Virus, Trivalent, Injectable, preservative free 04/05/2024 Influenza, Unspecified 03/22/2008,03/16/2007 Influenza, high-dose, quadrivalent 04/09,02/07/2022,03/19/2021,02/19 Influenza, injectable, quadr ivalent, preservative free 03/18/2020,03/11/2017,03/19/2015 Influenza, seasonal, injectable 02/24/2020,03/14,04/06/2011 Influenza, seasonal, injecta ble, preservative free 03/05/2016 Influenza, seasonal, intrade rmal, preservative free 04/11/2013 Influenza, trivalent, adjuvanted 04/04/2019 [employer] [place] COVID-19 Vac cine (Purple Cap) 12+ 07/03/2020,06/12/2020 Pneumococcal 20-akhil Conj Vaccine 07/01/2023 Pneumococcal Conjugate PCV 13 03/05/2016 Pneumococcal Polysaccharide PPV23 03/11/2017 Rsvpref, Recombinant, Protei n Subunit, Adjuvent 07/01/2023 Tdap 12/25/2018 Zoster, Recombinant 09/08/2021,07/10/2021 Zoster, live 04/11/2013 Family History Medical History Relation Name Comments Conversions - Other Brother Sinus Br adycardia Conversions - Other Father Coronary Artery Embolism Cirrhosis Mother Conversions - Other Other 1 No famil y history of cancer Stroke Other 2 Relation Name Status Comments Brother Father Mother Other 1 Other 2 Social History Tobacco Use Types Packs/Day Years Used Date Smoking Tobacco: Former Cigarettes 1 8 0 05/31/1971 - 05/31/1979 Smokeless Tobacco: Never Tobacco Cessation:Counseling Given: Not Answered Alcohol Use Standard Drinks/Week Comments Never 0 [...] place to sleep or slept in a custodial (including now)? No 03/29/2024 PHQ-9 Answer Date [...] any time in the past 12 m [facility], were you homeless or living in a custodial (including now)? No 10/03/2024 Utilities Answer Date [...] on file Sexual Orientation Not on file Last Filed Vital Signs Vital Sign Reading Time Taken Comments Blood Pressure 106/71 10/10/2024 2:29 PM EDT Pulse 66 10/10/2024 2:29 PM EDT Temperature 36.8 C (98.2 F) 10/10/2024 2:29 PM EDT Respiratory Rate 16 10/22/2021 12:5 4 PM EDT Oxygen Saturation 97% 10/10/2024 2:29 PM EDT Inhaled Oxygen Concentration - - Weight 91.1 kg (200 lb 13.4 oz) 10/10/2024 2:29 PM EDT Height 165.1 cm (5' 5 ) 10/10/2024 2:29 PM EDT Body Mass Index 33.42 10/10/2024 2:29 PM EDT Plan of Treatment Upcoming Encounters Date Type Department Care Team (Late st Contact Info) Description 01/11/2025 2:30 PM EDT Office Visit Pending sale to [facility] [address] [facility], [address] [place] [address] Brady Zepeda, DO [address] [place], [place] [id number] 01/12/2025 11:[address] [facility] Radiology [address] [place] [address] 03/07/2025 3:00 PM EDT Appointment [facility] [address] [place] [address] 04/17/2025 8:40 AM EST Office Visit Pending sale to [facility] [address], [address] [place] [address] Adrienne Medina MD [address] [place] [address] Health Maintenance Due Date Last Done Comments Dental Oral Exam 1950 Dental X-Ray: Full Mouth 1950 [facility]-Hepatitis C Screening 1950 [facility]-Infant/Child/Adol SDOH Screenings 1950 CT Colonography 1995 Colonoscopy 1995 FIT-DNA 1995 FIT 1995 FOBT 1995 Sigmoidoscopy 1995 [facility]-Colorectal Cancer Screening 1995 Dental Prophylaxis 06/24/1995 12/21/1994, 0 08/04/1993, 09/19/1992 Dental X-Ray: Bitewings 12/23/1995 12/21/1994, 09/19 [facility]-Bone Density Scan 06/09/2024 06/09/2022 , 01/03/2020, 10/20/2016 [id number] Vaccine (7 - Pfizer risk 2023- season) 2024 04/11/2024, 03/01/2022, 09/20/2021, Additional history exists [facility]-Influenza Vaccine (#1) 01/29/202504/05, 04/09/2023, 02/07/2022, Additional history exists [facility]- SDOH Screenings 04/05/2025 [facility]-Adult SDOH Screenings 04/05/2025 10/03/2024 [facility]-Diabetes: Hemoglobin A1C 04/05/202510/2023, 12/29/2022, 07/28/2022, Additional history exists [facility]-Depression Screening 10/10/2025 10/10/2024, 09/28 [facility]-Medicare Annual Wellness (AWV) 10/10/2025 10/10/2024 [facility]-DTaP,Tdap,and Td Vaccines (3 - Td or Tdap) 12/16/2033 12/17/2023, 12/25/2018 [facility]-Hepatitis A Vaccines Aged Out 09/29/2018, 05/2017 No longer eligible based on patient's age to complete this topic [facility]-Zoster Vaccines Completed 09/08/2021, 07/10/2021, 04/11/2013 [facility]-Pneumococcal Vaccine: 50+ Years Completed 07/01/2023, 03/11/2017, 03/05/2016 [facility]-RSV Vaccine: 60+ Years or Completed 07/01/2023 [facility]-Obesity Intervention Completed 025, 10/10/2024, 04/05/2024, Additional history exists HPV Vaccines Aged Out No longer eligi ble based on patient's age to complete this topic [facility]-HIB Vaccines Aged Out No longer e ligible based on patient's age to complete this topic [facility]-IPV Vaccines Aged Out No longer e ligible based on patient's age to complete this topic [facility]-Rotavirus Vaccines Aged Out No lo nger eligible based on patient's age to complete this topic Procedures Procedure Name Priority Date/Time Associated Diagnosis Comments HEMOGLOBIN A1C Routine 04/05/2024 9:33 AM EST Prediabetes DEXA BONE DENSITY STAT 06/09/2022 10: 20 AM EST Malignant neoplasm of left breast in female, estrogen receptor positive, unspecified site of breast (CMS/HCC) ferry terminal agent (current) use of aromatase inhibitors PROPHYLAXIS - ADULT Routine 12/21/1994 1 2:00 AM EDT BITEWINGS - 4 RADIOGRAPHIC IMAGES Routine 12/21/1994 12:00 AM EDT from Last 3 Months or Most Recently Relevant to Health Maintenance Results * Hemoglobin A1c (04/05/2024 9:33 AM EST) Hemoglobin A1c 5.3 <5.7 % 04/05/2024 2:38 PM EST [facility] Blood Venous blood specimen / Unknown Venipuncture / Unknown 04/05/2024 9:33 AM EST 04/05/2024 11:28 AM EST Narrative [facility] - 04/05/2024 2:38 PM EST HA1C Interpretive Data: Diagnosis of Diabetes: Diabetic > or = 6.5% Pre-diabetic 5.7 to 6.4% Non-diabetic < or = 5.6% Glycemic Targets for Type I and Type II Diabetics: Non- Adults <7.0% Adults <6.0% Children and Adolescents <7.5% Source: [place] [employer]. Standards of medical care in diabetes,2017. Diabetes Care.2017:40 (suppl 1):S1-S135. HbA1c assay performed by an ion-exchange chromatography method that is certified traceable to the DCCT. us Adrienne Medina MD LAB BLOOD ORDERABLES Final R esult [facility] [address] [place] [address] * Dexa Bone Density (06/09/2022 10:20 AM EST) Anatomical Region Laterality Modality L-spine Radiographic [place] ging Narrative 06/09/2022 10:56 AM EST [facility] - Nephrology, Bone & Mineral Metabolism [address] [facility] [address], [place] [address] Patient Name: Kendy Hou Patient Age: 72 y.o. Procedure Information: BMD measurement was performed using Golden ReviewsXA DXA System manufactured by [employer] Technique: BMD of the axial skeleton was assessed. Ordering Provider: Jessica Fajardo Date of exam: 06/09/22 Reason for Exam: Breast cancer Comparison Study: 10/12/18 Findings/Impression: Patient has osteopenia by WHO criteria. FRAX risk assessment was not calculated due to recent treatment. BMD has increased overall compared to 10/12/18. Recommend follow-up DXA in 2 years. us Jessica Fajardo HYDROBLASTER IMG DXA PROCEDURES Final Result from Last 3 Months or Most Recently Relevant to Health Maintenance Insurance HARR[employer] MAD[employer]X [id number] [place] [address] Care Teams Transportation Operations Manager Relationship Specialty Start Date End Date Adrienne Medina MD [address] [facility] [address] [place] [address] PCP - General Family Medicine 11/14/20 Stanley Mullins MD [address] Karina Torres [facility] [address] [place] [address] Surgeon Surgical Oncology 04/17/21
--- OUTSIDE RECORDS SUMMARY | 2025-01-08 14:43 | XMS_ITS | Encounter Summary ---
Author Organization [facility] Address [address] [place] [address] Care Team Providers Care Electronic Equipment Maint Tech Name Role Phone Adrienne Medina MD Primary Care Provider [phone] Stanley Mullins MD Unavailable [phone] Ruby Miller LPN Unavailable Unavailabl e Reason for Visit * Reason Comments Med Refill Encounter Details Date Type Department Care Team (Late st Contact Info) Description 12/28/2020 Refill [facility] Medicine [address] [place] [address], [address] [place] [address] Vivian Moran MD [address] [place] [address] Social History Tobacco Use Types Packs/Day Years Used Date Smoking Tobacco: Never Smokeless Tobacco: Never Alcohol Use Standard Drinks/Week Comments No 0 (1 standard drink = 0.6 oz pur e alcohol) AUDIT-C Answer Date Recorded Q1: How often do you have a drink containing alc ohol? Never 12/24/2020 Average Number of Drinks Not on file 021 Q3: How often do you have si x or more drinks on one occasion? Never 12/24/2020 PHQ-2 Answer Date Recorded Patient Health Questionnaire-2 Score 0 12/24/2020 Hunger Vital Sign Answer Date Recorded Within the past 12 months, y ou worried that your food would run out before you got the money to buy more. Never true 12/25/19 21 Within the past 12 months, t he food you bought just didn't last and you didn't have money to get more. Never true 12/24/2020 Housing Stability Vital Sign Answer Tarun e Recorded In the last 12 months, was t here a time when you were not able to pay the mortgage or rent on time? No 12/24/2020 Number of [address] Lived in the Last Year Not on f ile 12/24/2020 In the last 12 months, was t here a time when you did not have a steady place to sleep or slept in a fdc (including now)? No 12/24/2020 Comments Unknown Sex and Gender Information Value Date Recorded Sex Assigned at Not on file Legal Sex Female 8:49 PM EDT Gender Identity Not on file Sexual Orientation Not on file COVID-19 Exposure Response Date Recorded In the last month, have you been in contact with someone who was confirmed or suspected to have Coronavirus / COVID-19? No / Unsure 12/30/2020 8:25 AM EDT documented as of this encounter Plan of Treatment Upcoming Encounters Date Type Department Care Team (Late st Contact Info) Description 01/11/2025 2:30 PM EDT Office Visit [facility] [address], [address] [place] [address] Brady Zepeda DO [address] [place] [address] 01/12/2025 11:[address] Clinic Radiology [address] [place] [address] 03/07/2025 3:00 PM EDT Appointment [facility] Breast Care Center Comprehensive [facility] [address] [facility] [address] [place] [address] 04/17/2025 8:40 AM EST Office Visit [facility] [address], [address] [place] [address] Adrienne Medina MD [address] [place] [address] documented as of this encounter Visit Diagnoses Not on filedocumented in this encounter Additional Health Concerns Assessment Noted Time A fall risk assessment has been complete d for the patient 12/24/2020 7:46 AM EDT documented as of this encounter Care Teams Electronic Equipment Maint Tech Relationship Specialty Start Date End Date Adrienne Medina MD [address] [place] [address] PCP - General Family Medicine 11/14/20 Stanley Mullins MD [address] [facility] [address] [place] [address] Surgeon Surgical Oncology 04/17/21 Ruby Miller LPN VALUE-BASED TRANSFORMATION PROGRAM Licensed Practical Nurse 10/03/24 10/05/24 documented as of this encounter
--- OUTSIDE RECORDS SUMMARY | 2025-01-08 14:43 | XMS_ITS | Encounter Summary ---
Author Organization [facility] Address [address] [place] [address] Care Team Providers Care Putty Worker Name Role Phone Adrienne Medina MD Primary Care Provider + [phone] Stanley Mullins MD Unavailable [phone] Ruby Miller CLINICAL INFORMATICIST Unavailable Unavailabl e Encounter Details Date Type Department Care Team (Late st Contact Info) Description 03/05/2023 [facility] [address] [place] [address] Magali Webber, VIRTUAL RECRUITER [address] [place] [address] Obstructive sleep apnea (Primary Dx) Social History Tobacco Use Types Packs/Day Years [...] Recorded Patient Health Questionnaire-2 Score 6 12/29/2022 Hunger Vital Sign Answer Date Recorded Within [...] place to sleep or slept in a senior living (including now)? No 12/24/2020 PHQ-9 Answer Date Recorded Patient Health Questionnaire-9 Score 12 12/29/2022 PHQ-2A Answer Date Recorded Patient Health Questionnaire-2 [...] 2:30 PM EDT Office Visit [facility] [address], [address] [place] [address] Brady Zepeda DO [address] [place] [address] 01/12/2025 11:00 AM EDT Appointment [facility] Radiology [address] [place] [address] 03/07/2025 3:00 PM EDT Appointment [facility] [address] [place] [address] 04/17/2025 8:40 AM EST Office Visit [facility] [address], [address] [place] [address] Adrienne Medina MD [address] [place] [phone] documented as of this encounter Visit Diagnoses Diagnosis Obstructive sleep apnea- Primary Obstructive sleep apnea (adult) (pediatric) documented in this encounter Additional Health Concerns Assessment Noted Time PHQ-9 Depression Total Score: 12 023 9:10 AM EDT A fall risk assessment has been complete d for the patient 01/07/2023 9:26 AM EDT A Body Mass Index follow-up plan has been documented for the patient 12/29/2022 10:13 AM EDT documented as of this encounter Care Teams Putty Worker Relationship Specialty Start Date End Date Adrienne Medina MD [address] [place] [address] PCP - General Family Medicine 11/14/20 Stanley Mullins MD 800 [facility] [address] [place] [address] Surgeon Surgical Oncology 04/17/21 Ruby Miller LPN VALUE-BASED TRANSFORMATION PROGRAM Licensed Practical Nurse 10/03/24 10/05/24 documented as of this encounter
== END 2025-01-08 23:59 | disposition home or self-care (01) ==
LOC: RT 14:41
PROVIDERS: PCP Family Medicine; Visit Provider Nurse Practitioner Family
DX: I49.1 Atrial premature depolarization (principal); I47.19 Other supraventricular tachycardia; I49.3 Ventricular premature depolarization; I47.20 Ventricular tachycardia, unspecified; I45.89 Other specified conduction disorders; I48.92 Unspecified atrial flutter; I48.0 Paroxysmal atrial fibrillation; I10 Essential (primary) hypertension
CPT/HCPCS: 93270; 93272

== ENCOUNTER 2025-01-15 14:32 | Outpatient (CLI) | payer MEDICARE, SELFPAY ==
--- OUTSIDE RECORDS SUMMARY | 2025-01-11 14:30 | XMS_ITS | Encounter Summary ---
Author Organization [facility] [place] Address [address] [place] [address] Care Team Providers Care Combination Technician Name Role Phone Adrienne Medina MD Primary Care Provider [phone] Stanley Mullins MD Unavailable [phone] Reason for Referral * Consultation (Routine) - Authorized Specialty Diagnoses / Procedures Referred By Aura t Referred To Contact Physical Therapy Diagnoses Arthritis of left sacroiliac joint (CMS/HCC) Eduardo Benito MD [address] [address] Phone: tel: fax: Referral ID Status Reason Start Date Expiration Date Visits Requested Visits Authorized [id number] Authorized Consult and Treat 01/11/2025 07/13/2026 1 1 * Consultation (Routine) - Authorized Specialty Diagnoses / Procedures Referred By Aura levine Referred To Contact Orthopaedic Surgery Diagnoses Arthritis of left sacroiliac joint ([facility]/HCC) Eduardo Benito MD [address] [address] Phone: tel: fax: Referral ID Status Reason Start Date Expiration Date Visits Requested Visits Authorized [id number] Authorized Specialty Services Required 01/11/2025 07/13/2026 1 1 Scheduling Instructions Please fax to [facility] attn. Ed Stinson DO Reason for Visit * Reason Comments Hip Pain Encounter Details Date Type Department Care Team (Late st Contact Info) Description 01/11/2025 2:30 PM EDT Office Visit [address], [address] [place] [address] Brady Zepeda, DO [address] [place] [address] Arthritis of left sacroiliac joint [...] any time in the past 12 m [facility], were you homeless or living in a [...] Dorado LPN documented as of this encounter Plan of Treatment Upcoming Encounters Date Type Department Care Team (Late st Contact Info) Description 03/07/2025 3:00 PM EDT Appointment [facility] [address] [phone] 04/17/2025 8:40 AM EST Office Visit [facility] [address] , [address] [place] [address] Adrienne Medina MD [address] [place] [address] Scheduled Referrals Name Type Priority Associated Diagnoses [...] Bayron Kathleen MD on 01/11/2025 4:16 PM us Eduardo Benito MD IMG XR PROCEDURES Final [...] documented as of this encounter Care Teams Combination Technician Relationship Specialty Start Date End Date Adrienne Medina MD [address] [place] [phone] PCP - General Family Medicine 11/14/20 Stanley Mullins MD 800 [facility] [address] [place] [address] Surgeon Surgical Oncology 04/17/21 documented as of this encounter
--- OUTSIDE RECORDS SUMMARY | 2025-01-11 15:58 | XMS_ITS | Encounter Summary ---
Author Organization [facility] Address [address] [place] [address] Care Team Providers Care Animal Nutrition Teacher Name Role Phone Adrienne Medina MD Primary Care Provider [phone] Stanley Mullins MD Unavailable [phone] Encounter Details Date Type Department Care Team (Latest Contact Info) Description 01/11/2025 3:58 PM EDT - 01/11/2025 11:59 PM EDT Hospital Encounter [facility] X-Ray [address] [facility], [address] [place] [address] Arthritis of left sacroiliac joint [...] any time in the past 12 m [facility], were you homeless or living in [...] PM EDT Appointment [facility] [address] [phone] 04/17/2025 8:40 AM EST Office Visit [facility] [address] [place] [address] Adrienne Medina MD [address] [place] [address] documented as of this encounter Procedures Procedure [...] documented as of this encounter Care Teams Animal Nutrition Teacher Relationship Specialty Start Date End Date Adrienne Medina MD [address] [place] [address] PCP - General Family Medicine 11/14/20 Stanley Mullins MD 800 [facility] Karina Torres [facility] [address] [place] [address] Surgeon Surgical Oncology 04/17/21 documented as of this encounter
--- OUTSIDE RECORDS SUMMARY | 2025-01-12 11:00 | XMS_ITS | Encounter Summary ---
Author Organization [facility] Address [address] [place] [address] Care Team Providers Care Stacker Attendant Name Role Phone Adrienne Medina MD Primary Care Provider [phone] Stanley Mullins MD Unavailable [phone] Encounter Details Date Type Department Care Team (Latest Contact Info) Description 01/12/2025 11:00 AM EDT - 01/12/2025 11:59 PM EDT Hospital Encounter [facility] [address] [place] [address] Post-menopausal Discharge Disposition: Home or Self Care [...] any time in the past 12 m [facility], were you homeless or living in [...] Breast Care Center [facility] [place] [address] [facility] [address] [place] [address] 04/17/2025 8:40 AM EST Office Visit [facility] [address], [address] [place] [address] Adrienne Medina MD [address] [facility] [address] [place] [address] documented as of this encounter [...] forearm, right forearm was performed using a [employer] Horizon A Dual-energy X-ray Absorptiometry (DXA) scanner [...] left forearm, right forearm wasperformed using a [employer] Horizon A Dual-energy X-ray Absorptiometry (DXA)scanner (software [...] documented as of this encounter Care Teams Stacker Attendant Relationship Specialty Start Date End Date Adreinne Medina MD [address] [facility] [address] [place] [address] PCP - General Family Medicine 11/14/20 Stanley Mullins MD 800 [facility] [address] [place] [address] Surgeon Surgical Oncology 04/17/21 documented as of this encounter
--- OUTSIDE RECORDS SUMMARY | 2025-01-15 14:35 | XMS_ITS | Encounter Summary ---
Author Organization [facility] Address [address] [place] [address] Care Team Providers Care Oxidation Engineer Name Role Phone Adrienne Medina MD Primary Care Provider [phone] Stanley Mullins MD Unavailable [phone] Encounter Details Date Type Department Care Team (Latest Contact Info) Description 01/11/2025 Travel Social History Tobacco Use Types Packs/Day [...] place to sleep or slept in a longterm (including now)? No 03/29/2024 PHQ-9 Answer Date [...] in the past 12 m [facility], were you homeless or living in a longterm (including now)? No 10/03/2024 Utilities Answer Date [...] PM EDT Appointment [facility] Breast [facility] Breast Care Center [place] [address] Karina Torres [facility] [address] [place] [address] 04/17/2025 8:40 AM EST Office Visit [facility] [address] [place] [address] Adrienne Medina MD [address] [facility] [address] [place] [address] documented as of this encounter [...] documented as of this encounter Care Teams Oxidation Engineer Relationship Specialty Start Date End Date Adrienne Medina MD [address] [facility] [address] [place] [address] PCP - General Family Medicine 11/14/20 Stanley Mullins MD 800 [facility] [address] [address] Surgeon Surgical Oncology 04/17/21 documented as of this encounter
--- OUTSIDE RECORDS SUMMARY | 2025-01-15 14:35 | XMS_ITS | Encounter Summary ---
Author Organization [facility] Address [address] [place] [address] Care Team Providers Care Speech Pathology Teacher Name Role Phone Adrienne Medina MD Primary Care Provider [phone] Stanley Mullins MD Unavailable [phone] Ruby Miller TRAFFIC CONTROL SIGNALER Unavailable Unavailabl e Encounter Details Date Type Department Care Team (Late st Contact Info) Description 03/05/2023 Community [facility] [address] [place] [address] Magali Webber, MACHINE CLOTH MEASURER [address] [place] [address] Obstructive sleep apnea (Primary Dx) [...] place to sleep or slept in a retirement (including now)? No 12/24/2020 PHQ-9 Answer Date [...] Info) Description 03/07/2025 3:00 PM EDT Appointment [facility] Breast Care Center [facility] Breast Care Center [address] [address] 04/17/2025 8:40 AM EST Office Visit [facility] Medicine [address], [address] [place] [address] Adrienne Medina MD [address] [address] documented as of this encounter Visit [...] documented as of this encounter Care Teams Speech Pathology Teacher Relationship Specialty Start Date End Date Adrienne Medina MD [address] [place] [address] PCP - General Family Medicine 11/14/20 Stanley Mullins MD [address] Kar[address] Villarreal[address] [place] [address] Surgeon Surgical Oncology 04/17/21 Ruby Miller LPN VALUE-BASED TRANSFORMATION PROGRAM Licensed Practical Nurse 10/03/24 10/05/24 documented as of this encounter
--- OUTSIDE RECORDS SUMMARY | 2025-01-15 14:35 | XMS_ITS | Encounter Summary ---
Author Organization [facility] Address [address] [place] [address] Care Team Providers Care Cut Off Machine Unloader Name Role Phone Adrienne Medina MD Primary Care Provider [phone] Stanley Mullins MD Unavailable [phone] Encounter Details Date Type Department Care Team (Late st Contact Info) Description 01/08/2025 Telephone [facility] Medicine [address] [facility], [address] [place] [address] Adrienne Medina MD [address] [place] [address] Social History Tobacco Use Types [...] place to sleep or slept in a nursing home (including now)? No 03/29/2024 PHQ-9 Answer [...] time in the past 12 m [facility], were you homeless or living in a nursing home (including now)? No 10/03/2024 Utilities Answer [...] placed on oxygen by her neurologist in [place]. I advised her to contact the HH and let them know who ordered since our note does not discussthe need for oxygen. She agreed and will reach back out if anything is needed from our clinic. * Telephone Encounter - Lacie Hugo - 01/08/2025 9:19 AM EDT Clinical Concern/Question Reason for Call: Alycia Magallon [facility] last office note faxed to them at [phone]. They are the patient's oxygen provider. Best contact number: Other: Alycia Magallon - [phone] Optimal time of day to reach caller: ANYTIME Additional comments/information from caller: None Note: Please do not reply to this message. Follow-up communication and further actions as a result of this message need to be communicated with the patient directly, if the patient is not active onMyChart. If the patient is active on MyChart, they will receive notification of the communication/outcome via [employer]. documented in this encounter Plan of Treatment Upcoming Encounters Date Type Department Care Team (Late st Contact Info) Description 03/07/2025 3:00 PM EDT Appointment [facility] [address] [address] 04/17/2025 8:40 AM EST Office Visit [facility] [address], [address] [place] [address] Adrienne Medina MD [address] [facility] [address] [place] [address] documented as of this encounter [...] documented as of this encounter Care Teams Cut Off Machine Unloader Relationship Specialty Start Date End Date Adrienne Medina MD [address] [facility] [address] [place] [address] PCP - General Family Medicine 11/14/20 Stanley Mullins MD [address] [place] [address] Surgeon Surgical Oncology 04/17/21 documented as of this encounter
--- OUTSIDE RECORDS SUMMARY | 2025-01-15 14:35 | XMS_ITS | Encounter Summary ---
Author Organization [facility] Address [address] [place] [address] Care Team Providers Care Pool Installer Name Role Phone Adrienne Medina MD Primary Care Provider [phone] Stanley Mullins MD Unavailable [phone] Ruby Miller LPN Unavailable Unavailabl e Reason for Visit * Reason Comments Med Refill Encounter Details Date Type Department Care Team (Late st Contact Info) Description 12/28/2020 Refill [facility] Medicine [address] [place] [address], [address] [place] [address] Vivian Moran MD [address] [place] [address] Social History Tobacco Use Types Packs/Day [...] to sleep or slept in a senior care (including now)? No 12/24/2020 Comments Unknown Sex [...] Breast Care Center [facility] [address] [address] 04/17/2025 8:40 AM EST Office [facility] [address] [place] [address] Adrienne Medina MD [address] [facility] [address] [place] [address] documented as of this encounter Visit Diagnoses Not on filedocumented in this encounter Additional Health Concerns Assessment Noted Time A fall risk assessment has been complete d for the patient 12/24/2020 7:46 AM EDT documented as of this encounter Care Teams Pool Installer Relationship Specialty Start Date End Date Adrienne Medina MD [address] [facility] [address] [place] [address] PCP - General Family Medicine 11/14/20 Stanley Mullins MD 800 [facility] [address] [address] Surgeon Surgical Oncology 04/17/21 Ruby Miller LPN VALUE-BASED TRANSFORMATION PROGRAM Licensed Practical Nurse 10/03/24 10/05/24 documented as of this encounter
--- OUTSIDE RECORDS SUMMARY | 2025-01-15 14:35 | XMS_ITS | Encounter Summary ---
Author Organization [facility] Address [address] [place] [address] Care Team Providers Care Locksmith Helper Name Role Phone Adrienne Medina MD Primary Care Provider [phone] Stanley Mullins MD Unavailable [phone] Encounter Details Date Type Department Care Team (Latest Contact Info) Description 01/12/2025 Travel Social History Tobacco Use Types Packs/Day [...] in a senior care (including now)? No 03/29/2024 PHQ-9 Answer Date [...] any time in the past 12 m [facility], were you homeless or living in a senior care (including now)? No 10/03/2024 Utilities Answer Date [...] [facility] Sukhi Torers [facility] [address] [place] [address] 04/17/2025 8:40 AM EST Office Visit [facility] [address] [place] [address] Adrienne Medina MD [address] [facility] [address] [place] [address] documented as of this encounter [...] documented as of this encounter Care Teams Locksmith Helper Relationship Specialty Start Date End Date Adrienne Medina MD [address] [place] [address] PCP - General Family Medicine 11/14/20 Stanley Mullins MD [address] [facility] [address] [place] [address] Surgeon Surgical Oncology 04/17/21 documented as of this encounter
--- OUTSIDE RECORDS SUMMARY | 2025-01-15 14:35 | XMS_ITS | Encounter Summary ---
Author Organization [facility] Address [address] [place] [address] Care Team Providers Care End User Consultant Name Role Phone Adrienne Medina MD Primary Care Provider + [phone] Stanley Mullins MD Unavailable [phone] Encounter Details Date Type Department Care Team [...] any time in the past 12 m [facility], were you homeless or living in [...] Breast Care Center Comprehensive [facility] Sukhi Torres [facility] [address] [place] [address] 04/17/2025 8:40 AM EST Office Visit [facility] [address] , [address] [place] [address] Adrienne Medina MD [address] [facility] [address] [place] [address] documented as of this encounter [...] documented as of this encounter Care Teams End User Consultant Relationship Specialty Start Date End Date Adrienne Medina MD [address] [place] [address] PCP - General Family Medicine 11/14/20 Stanley Mullins MD 800 [facility] [address] [place] [address] Surgeon Surgical Oncology 04/17/21 documented as of this encounter
--- OUTSIDE RECORDS SUMMARY | 2025-01-15 14:35 | XMS_ITS ---
Author Organization [facility] Address [address] [place] [address] Care Team Providers Care [place] Name Role Phone Adrienne Medina MD Primary Care Provider [phone] Stanley Mullins MD Unavailable [phone] Active Problems Problem Noted Date Diagnosed Date [...]
--- OUTSIDE RECORDS SUMMARY | 2025-01-15 14:35 | XMS_ITS | Clinical Summary ---
Author Organization [facility] Address [address] [place] [address] Care Team Providers Care Skidway Man Name Role Phone Adrienne Medina MD Primary Care Provider [phone] Stanley Mullins MD Unavailable [phone] Allergies Active Allergy Reactions Criticality Noted Date [...] Encounters Date Type Department Care Team Description 01/15/2025 Refill [facility] Medicine [address], [address] [place] [address] Adrienne Medina MD 01/14/2025 Results Follow-Up [facility] Medicine [address], [address] [place] [address] Adrienne Medina MD 01/12/2025 11:00 AM EDT - 01/12/2025 11:59 PM EDT Hospital Encounter [facility] [address] [place] [address] Post-menopausal Discharge Disposition: Home or Self Care 01/12/2025 Travel 01/11/2025 3:58 PM EDT - 01/11/2025 11:59 PM EDT Hospital Encounter [facility] X-Ray [address], [address] [place] [address] Arthritis of left sacroiliac joint (CMS/HCC) Discharge Disposition: Home or Self Care 01/11/2025 2:30 PM EDT Office Visit [facility] [address], [address] [place] [address] Brady Zepeda DO Arthritis of left sacroiliac joint [place] (Primary Dx) 01/11/2025 Travel 01/08/2025 Telephone [facility] [address], [address] [place] [address] Adrienne Medina MD 01/05/2025 Travel 11/19/2024 Refill [facility] [address], [address] [place] [address] Adrienne Medina MD from Last 3 Months Immunizations Immunization Administration Dates Next Due Hep A, Adult 09/29/2018,03/31/2018 Influenza, High-dose, Split Virus, Trivalent, Injectable, preservative free 04/05/2024,02/19/2018 Influenza, Unspecified 03/22/2008,03/16/2007 Influenza, high-dose, quadrivalent 04/09,02/07/2022,03/19/2021,02/23,02/19/2018 Influenza, injectable, quadrivalent 02/19/2018 Influenza, injectable, quadr ivalent, preservative free 03/18/2020,03/11/2017,03/19/2015 Influenza, seasonal, injectable 02/24/2020,03/14,04/06/2011 Influenza, seasonal, injecta ble, preservative free 03/05/2016 Influenza, seasonal, intrade rmal, preservative free 04/11/2013 Influenza, trivalent, adjuvanted 04/04/2019 Pfizer-[id number] COVID-19 Vac cine (Purple Cap) 12+ 07/03/2020,06/12/2020 Pneumococcal 20-akhil Conj Vaccine 07/01/2023 Pneumococcal Conjugate PCV 13 03/05/2016 Pneumococcal Polysaccharide PPV23 03/11/2017 Rsvpref, Recombinant, Protei n Subunit, Adjuvent 07/01/2023 Tdap 12/17/2023,12/25/2018 Zoster, Recombinant 09/08/2021,07/10/2021 Zoster, live 04/11/2013 Family [...] place to sleep or slept in a detention (including now)? No 03/29/2024 PHQ-9 Answer Date [...] any time in the past 12 m [facility], were you homeless or living in a detention (including now)? No 10/03/2024 Utilities Answer Date [...] F) 01/11/2025 2:16 PM EDT Respiratory Rate 16 10/22/2021 12:5 4 PM EDT Oxygen Saturation 97% 01/11/2025 2:16 PM EDT Inhaled Oxygen Concentration - - Weight 90.2 kg (198 lb 13.7 oz) 01/11/2025 2:16 PM EDT Height 165.1 cm (5' 5 ) 01/11/2025 2:16 PM EDT Body Mass Index 33.09 01/11/2025 2:16 PM EDT Plan of Treatment Upcoming Encounters Date Type Department Care Team (Late st Contact Info) Description 03/07/2025 3:00 PM EDT Appointment [facility] [place] [address] [address] [address] 04/17/2025 8:40 AM EST Office Visit [facility] [address], [address] [place] [address] Adrienne Medina MD [address] [place] [address] Health Maintenance Due Date Last Done Comments Dental Oral Exam 1950 Dental X-Ray: Full Mouth 1950 [facility]-Hepatitis C Screening 1950 [facility]-/Child/Adol SDOH Screenings 1950 CT Colonography 1995 Colonoscopy 1995 FIT-DNA 1995 FIT 1995 FOBT 1995 Sigmoidoscopy 1995 [facility]-Colorectal Cancer Screening 1995 Dental Prophylaxis 06/24/1995 12/21/1994, 0 08/04/1993, 09/19/1992 Dental X-Ray: Bitewings 12/23/1995 12/21/1994, 09/19 [id number] Vaccine (7 - Pfizer risk season) 2024 04/11/2024, 03/01/2022, 09/20/2021, Additional history exists [facility]-Influenza Vaccine (#1) 01/29/202504/05, 04/09/2023, 02/07/2022, Additional history exists [facility]- SDOH Screenings 04/05/2025 [facility]-Adult SDOH Screenings 04/05/2025 10/03/2024 [facility]-Diabetes: Hemoglobin A1C 04/05/202510/2023, 12/29/2022, 07/28/2022, Additional history exists [facility]-Depression Screening 10/10/2025 10/10/2024, 09/28 [facility]-Medicare Annual Wellness (AWV) 10/10/2025 10/10/2024 [facility]-Bone Density Scan 01/12/2027 01/12/2025 , 06/09/2022, 01/03/2020, Additional history exists [facility]-DTaP,Tdap,and Td Vaccines (3 - Td or [...] Routine 01/12/2025 11: 52 AM EDT Post-menopausal XR LUMBAR SPINE 2 OR 3 VIEWS Routine 01/11/2025 4:03 PM EDT Arthritis of left sacroiliac joint (CMS/HCC) HEMOGLOBIN A1C Routine 04/05/2024 9:33 AM EST Prediabetes PROPHYLAXIS - ADULT Routine 12/21/1994 1 2:00 AM EDT BITEWINGS - 4 RADIOGRAPHIC IMAGES Routine 12/21/1994 12:00 AM EDT from Last 3 Months or Most Recently Relevant to Health Maintenance Results * Dexa Bone Density (01/12/2025 11:52 [...] forearm, right forearm was performed using a [employer] Horizon A Dual-energy X-ray Absorptiometry (DXA) scanner [...] left forearm, right forearm wasperformed using a [employer] Horizon A Dual-energy X-ray Absorptiometry (DXA)scanner (software [...] MD IMG DXA PROCEDURES Final Res ult * XR Lumbar Spine 2 or 3 [...] MD IMG XR PROCEDURES Final Res ult * Hemoglobin A1c (04/05/2024 9:33 AM EST) Hemoglobin A1c 5.3 <5.7 % 04/05/2024 2:38 PM EST [facility] Blood Venous blood specimen / Unknown Venipuncture / Unknown 04/05/2024 9:33 AM EST 04/05/2024 11:28 AM EST Narrative [facility] - 04/05/2024 2:38 PM EST HA1C Interpretive Data: Diagnosis of Diabetes: Diabetic > or = 6.5% Pre-diabetic 5.7 to 6.4% Non-diabetic < or = 5.6% Glycemic Targets for Type I and Type II Diabetics: Non- Adults <7.0% Adults <6.0% Children and Adolescents <7.5% Source: [place] [employer]. Standards of medical care in diabetes,2017. Diabetes Care.2017:40 (suppl 1):S1-S135. HbA1c assay performed by an ion-exchange chromatography method that is certified traceable to the DCCT. us Adirenne Medina MD LAB BLOOD ORDERABLES Final R esult [facility] [address] [place] [address] from Last 3 Months or Most Recently Relevant to Health Maintenance Insurance [employer] Care Teams Skidway Man Relationship Specialty Start Date End Date Adrienne Medina MD [address] [facility] [address] [place] [address] PCP - General Family Medicine 11/14/20 Stanley Mullins MD [address] Kar[address] Torres [facility] [address] [place] [address] Surgeon Surgical Oncology 04/17/21
--- OUTSIDE RECORDS SUMMARY | 2025-01-15 14:35 | XMS_ITS | Encounter Summary ---
Author Organization [facility] Address [address] [place] [address] Care Team Providers Care Whip Operator Name Role Phone Adrienne Medina MD Primary Care Provider [phone] Stanley Mullins MD Unavailable [phone] Reason for Visit * Reason Onset Date Comments Med Refill 01/15/2025 Encounter Details Date Type Department Care Team (Late st Contact Info) Description 01/15/2025 Refill [facility] Medicine [address] [facility], [address] [place] [address] Adrienne Medina MD [address] [facility] [address] [place] [address] Social History Tobacco Use Types [...] place to sleep or slept in a fci (including now)? No 03/29/2024 PHQ-9 Answer Date [...] any time in the past 12 m [facility], were you homeless or living in a fci (including now)? No 10/03/2024 Utilities Answer Date Recorded In the past 12 months has th e [employer], gas, oil, or water company threatened to [...] PM EDT Appointment [facility] Center [place] [address] [address] [facility] [address] [place] [address] 04/17/2025 8:40 AM EST Office Visit [facility] [address] [place] [address] Adrienne Medina MD [address] [facility] [address] [place] [address] documented as of this encounter [...] documented as of this encounter Care Teams Whip Operator Relationship Specialty Start Date End Date Adrienne Medina MD [address] [facility] [address] [place] [address] PCP - General Family Medicine 11/14/20 Stanley Mullins MD [facility] [address] Torres [facility] [address] [place] [address] Surgeon Surgical Oncology 04/17/21 documented as of this encounter
--- OUTSIDE RECORDS SUMMARY | 2025-01-15 14:35 | XMS_ITS | Encounter Summary ---
Author Organization [facility] Address [address] [place] [address] Care Team Providers Care Jet Man Name Role Phone Adrienne Medina MD Primary Care Provider [phone] Stanley Mullins MD Unavailable [phone] Reason for Visit * Reason Comments Med Refill Encounter Details Date Type Department Care Team (Late Contact Info) Description 11/19/2024 Refill [facility] Medicine [address] [facility], [address] [place] [address] Adrienne Medina MD [address] [facility] [address] [place] [address] Social History Tobacco Use Types [...] any time in the past 12 m [facility], were you homeless or living [...] Info) Description 03/07/2025 3:00 PM EDT Appointment [facility] Breast Care [facility] [address] [address] 04/17/2025 8:40 AM EST Office Visit [facility] [address] [place] [address] Adrienne Medina MD [address] [facility] [address] [place] [address] documented as of this encounter [...] documented as of this encounter Care Teams Jet Man Relationship Specialty Start Date End Date Adrienne Medina MD [address] [facility] [address] [place] [address] PCP - General Family Medicine 11/14/20 Stanley Mullins MD 800 [facility] [address] Torres [address] [address] Surgeon Surgical Oncology 04/17/21 documented as of this encounter
--- OUTSIDE RECORDS SUMMARY | 2025-01-15 14:35 | XMS_ITS | Encounter Summary ---
Author Organization [facility] Address [address] [place] [address] Care Team Providers Care Traveling Buyer Name Role Phone Adrienne Medina MD Primary Care Provider [phone] Stanley Mullins MD Unavailable [phone] Encounter Details Date Type Department Care Team (Late st Contact Info) Description 01/14/2025 Results Follow-Up [facility] [address] [place] [address] Adrienne Medina MD [address] [facility] [address] [place] [address] Social History Tobacco Use Types [...] place to sleep or slept in a long-term (including now)? No 03/29/2024 PHQ-9 Answer Date [...] were you homeless or living in a long-term (including now)? No 10/03/2024 Utilities Answer Date [...] Breast Care Center Comprehensive [facility] Sukhi Torres [facility] [address] [place] [address] 04/17/2025 8:40 AM EST Office Visit [facility] [address] [facility] [address] [place] [address] Adrienne Medina MD [address] [facility] [address] [place] [address] documented as of this encounter [...] documented as of this encounter Care Teams Traveling Buyer Relationship Specialty Start Date End Date Adrienne Medina MD [address] [facility] [address] [place] [address] PCP - General Family Medicine 11/14/20 Stanley Mullins MD [address] [facility] Kar[address] Torres [facility] [address] [place] [address] Surgeon Surgical Oncology 04/17/21 documented as of this encounter
--- NOTE | 2025-01-15 15:15 | CA_ITS ---
APPROVED REPORT EXAM: Comprehensive 2D, Doppler, and color-flow Echocardiogram Flute Polisher: Yoon Jiang RVT Ht: 5 ft 5 in Wt: 198lbs BSA: 1.97 BP: 142/69 mmHg Indications: DYSPENA,DIZZINESS,A-FIB 2D Dimensions Left Atrium 2.82 cm F: 2.7 - 3.8 LA Volume 31.00 mL RVID Base (AP4) 2.58 cm (M/F) 2.5-4.1 LA Volume Index 15.74 mL/m2 (M/F) 16-34 LVOT 1.90 cm (M/F) 1.5-2.5 EF AP4 53.40 % GL Strain -19.9 % M-Mode Dimensions RVDd 2.96 cm (0.9-2.6) LVDd 4.50 cm (3.5-5.7) Ao Diam 3.10 cm (2.0-3.7) LVDs 3.28 cm (3.5-5.7) IVSd 0.93 cm (0.6-1.1) PWd 0.64 cm (0.6-1.1) EF (Teich) 52.90% FS 27.10% EDV (Teich) 92.40 mL TAPSE 2.09 (<1.7) ESV (Teich) 43.50 mL LV Diastology E Decel Time 258 (160-240 msec) E/A Ratio 0.6 MED E' 7.2 (>= 7 cm/sec) E'/MED E' Ratio 8.51 (<= 14) LAT E' 7.8 (>= 10 cm/sec) E/LAT E' Ratio 7.86 (<= 14) Aortic Valve LVOT Max 94.0 (70-110 cm/s) NESHA Index 1.05 cm2/m2 LVOT VTI 21.53 cm AoV Peak Car. 126.0 (50-130 cm/s) AO Peak GR. 7.60 mmHg AO Mean GR. 3.80 (<5 mmHg) AO VTI 29.6 (18-25 cm) NESHA (VTI) 2.06 (2.5-4.5 cm2) Mitral Valve MV E Max Car. 61.0 (40-130 cm/s) MV A Velocity 95.0 (40-130 cm/s) E/A Ratio 0.64 MV Decel. Time 258 (160-240 ms) Tricuspid Valve TR P. Velocity 239.00 cm/s RAP Estimate 8.00 mmHg RVSP 30.80 mmHg Left Ventricle The left ventricle is normal size. Left ventricular systolic function is normal. The left ventricular ejection fraction is within the normal range. There is increased left ventricular wall thickness. There is normal LV segmental wall motion. Transmitral Doppler flow pattern suggests impaired LV relaxation. LVEF is 55% Right Ventricle The right ventricle is mildly dilated. The right ventricular systolic function is mildly reduced. Atria The left atrium size is normal. The right atrium size is normal. There is no color Doppler evidence of interatrial shunt. Aortic Valve The aortic valve is mildly thickened. There is no hemodynamically significant aortic valvular stenosis. Trace aortic regurgitation is present. Mitral Valve The mitral valve is normal in structure. No evidence of mitral valve stenosis. Mild mitral regurgitation is present. Tricuspid Valve The tricuspid valve leaflets are thin and pliable. Mild tricuspid regurgitation. RVSP is 30-35 mmHg. Pulmonic Valve The pulmonary valve is grossly normal in structure. Mild pulmonic valve regurgitation is present. Great Vessels The aortic root is normal in size. IVC is normal in size and collapses >50% with inspiration. Pericardium There is no pericardial effusion. Other Information Study Quality: Technically Difficult Conclusion Technically difficult study. Normal LV systolic function. Mild RV dilation with mild reduction in RV function. Mild MR, mild TR, mild PI. Electronically signed by : Reentta Bang MD 01/17/2025 01:24:39
== END 2025-01-15 23:59 | disposition home or self-care (01) ==
LOC: RT 14:32
PROVIDERS: PCP Family Medicine; Visit Provider Nurse Practitioner Family
DX: I08.8 Other rheumatic multiple valve diseases (principal); I11.9 Hypertensive heart disease without heart failure; I48.0 Paroxysmal atrial fibrillation
CPT/HCPCS: 93306

== ENCOUNTER 2025-01-17 11:57 | Outpatient (CLI) | payer MEDICARE, SELFPAY ==
--- OUTSIDE RECORDS SUMMARY | 2025-01-11 14:30 | XMS_ITS | Encounter Summary ---
Author Organization [facility] Address [address] [place] [address] Care Team Providers Care Cementer Machine Applicator Name Role Phone Adrienne Medina MD Primary Care Provider [phone] Stanley Mullins MD Unavailable [phone] Reason for Referral * Consultation (Routine) - Authorized Specialty Diagnoses / Procedures Referred By Aura t Referred To Contact Physical Therapy Diagnoses Arthritis of left sacroiliac joint (CMS/HCC) Eduardo Benito MD [address] [address] Phone: tel: fax: Referral ID Status Reason Start Date Expiration Date Visits Requested Visits Authorized [id number] Authorized Consult and Treat 01/11/2025 07/13/2026 1 1 * Consultation (Routine) - Authorized Specialty Diagnoses / Procedures Referred By Aura levine Referred To Contact Orthopaedic Surgery Diagnoses Arthritis of left sacroiliac joint ([facility]/HCC) Eduardo Benito MD [address] [address] Phone: tel: fax: Referral ID Status Reason Start Date Expiration Date Visits Requested Visits Authorized [id number] Authorized Specialty Services Required 01/11/2025 07/13/2026 1 1 Scheduling Instructions Please fax to [facility] attn. Ed Stinson DO Reason for Visit * Reason Comments Hip Pain Encounter Details Date Type Department Care Team (Late st Contact Info) Description 01/11/2025 2:30 PM EDT Office Visit [address], [address] [place] [address] Brady Zepeda, DO [address] [place] [address] Arthritis of left sacroiliac joint [...] place to sleep or slept in a [facility] (including now)? No 03/29/2024 PHQ-9 Answer Date [...] time in the past 12 m [facility], were you homeless or living in a [facility] (including now)? No 10/03/2024 Utilities Answer Date [...] PM EDT Appointment [facility] [address] [phone] 04/17/2025 8:40 AM EST Office Visit [facility] [address] [place] [address] Adrienne Medina MD [address] [place] [address] Scheduled Referrals Name Type Priority [...] documented as of this encounter Care Teams Cementer Machine Applicator Relationship Specialty Start Date End Date Adrienne Medina MD [address] [place] [phone] PCP - General Family Medicine 11/14/20 Stanley Mullins MD 800 [facility] [address] [place] [address] Surgeon Surgical Oncology 04/17/21 documented as of this encounter
--- OUTSIDE RECORDS SUMMARY | 2025-01-11 15:58 | XMS_ITS | Encounter Summary ---
Author Organization [facility] Address [address] [place] [address] Care Team Providers Care Lead Teacher Name Role Phone Adrienne Medina MD Primary Care Provider [phone] Stanley Mullins MD Unavailable [phone] Encounter Details Date Type Department Care Team (Latest Contact Info) Description 01/11/2025 3:58 PM EDT - 01/11/2025 11:59 PM EDT Hospital Encounter [facility] X-Ray [address] [facility], [address] [place] [address] Arthritis of left sacroiliac joint [...] any time in the past 12 m [facility], were you homeless or living in a [...] Breast Care Center [facility] [address] [phone] 04/17/2025 8:40 AM EST Office Visit [facility] [address], [address] [place] [address] Adrienne Medina MD [address] [place] [address] documented as of this encounter [...] documented as of this encounter Care Teams Lead Teacher Relationship Specialty Start Date End Date Adrienne Medina MD [address] [place] [address] PCP - General Family Medicine 11/14/20 Stanley Mullins MD 800 [facility] Karina Torres [facility] [address] [place] [address] Surgeon Surgical Oncology 04/17/21 documented as of this encounter
--- OUTSIDE RECORDS SUMMARY | 2025-01-12 11:00 | XMS_ITS | Encounter Summary ---
Author Organization [facility] Address [address] [place] [address] Care Team Providers Care Document Control Clerk Name Role Phone Adrienne Medina MD Primary Care Provider [phone] Stanley Mullins MD Unavailable [phone] Encounter Details Date Type Department Care Team (Latest Contact Info) Description 01/12/2025 11:00 AM EDT - 01/12/2025 11:59 PM EDT Hospital Encounter [place] [facility] [address] [place] [address] Post-menopausal Discharge Disposition: Home or Self Care [...] in a senior living (including now)? No 03/29/2024 PHQ-9 Answer Date [...] in the past [address] [facility], were you homeless or living in a senior living (including now)? No 10/03/2024 Utilities Answer Date [...] [facility] [place] [address] [facility] [address] [place] [address] 04/17/2025 8:40 AM EST Office Visit [facility] [address], [address] [place] [address] Adrienne Medina MD [address] [facility] [address] [place] [address] documented as of this encounter [...] forearm, right forearm was performed using a [employer] Horizon A Dual-energy X-ray Absorptiometry (DXA) scanner [...] left forearm, right forearm wasperformed using a [employer] Horizon A Dual-energy X-ray Absorptiometry (DXA)scanner (software [...] documented as of this encounter Care Teams Document Control Clerk Relationship Specialty Start Date End Date Adrienne Medina MD [address] [facility] [address] [place] [address] PCP - General Family Medicine 11/14/20 Stanley Mullins MD 800 [facility] [address] [place] [address] Surgeon Surgical Oncology 04/17/21 documented as of this encounter
--- OUTSIDE RECORDS SUMMARY | 2025-01-17 12:02 | XMS_ITS | Encounter Summary ---
Author Organization [facility] Address [address] [place] [address] Care Team Providers Care Senior Clinical Project Manager Name Role Phone Adrienne Medina MD Primary Care Provider [phone] Stanley Mullins MD Unavailable [phone] Ruby Miller LPN Unavailable Unavailabl e Reason for Visit * Reason Comments Med Refill Encounter Details Date Type Department Care Team (Late st Contact Info) Description 12/28/2020 Refill [facility] Medicine [address] [place] [address], [address] [place] [address] Vivian Moran MD [address] [place] [address] Social History Tobacco Use Types Packs/Day [...] place to sleep or slept in a assisted (including now)? No 12/24/2020 Comments Unknown Sex [...] [facility] [address] [address] 04/17/2025 8:40 AM EST Office Visit [facility] [address] [place] [address] Adrienne Medina MD [address] [facility] [address] [place] [address] documented as of this encounter Visit Diagnoses Not on filedocumented in this encounter Additional Health Concerns Assessment Noted Time A fall risk assessment has been complete d for the patient 12/24/2020 7:46 AM EDT documented as of this encounter Care Teams Senior Clinical Project Manager Relationship Specialty Start Date End Date Adrienne Medina MD [address] [facility] [address] [place] [address] PCP - General Family Medicine 11/14/20 Stanley Mullins MD 800 [facility] [address] [address] Surgeon Surgical Oncology 04/17/21 Ruby Miller LPN VALUE-BASED TRANSFORMATION PROGRAM Licensed Practical Nurse 10/03/24 10/05/24 documented as of this encounter
--- OUTSIDE RECORDS SUMMARY | 2025-01-17 12:02 | XMS_ITS | Clinical Summary ---
Author Organization [facility] Address [address] [place] [address] Care Team Providers Care Weapons Mechanic Name Role Phone dArienne Medina MD Primary Care Provider [phone] Stanley Mullins MD Unavailable [phone] Allergies Active Allergy Reactions Criticality Noted Date [...] Type Department Care Team Description 01/15/2025 Refill [facility] Medicine [address], [address] [place] [address] Adrienne Medina MD 01/14/2025 Results Follow-Up [facility] Medicine [address], [address] [place] [address] Adrienne Medina MD 01/12/2025 11:00 AM EDT - 01/12/2025 11:59 PM EDT Hospital Encounter [facility] Radiology [address] [place] [address] Post-menopausal Discharge Disposition: Home or Self Care 01/12/2025 Travel 01/11/2025 3:58 PM EDT - 01/11/2025 11:59 PM EDT Hospital Encounter [facility] [address], [address] [place] [address] Arthritis of left sacroiliac joint (CMS/HCC) Discharge Disposition: Home or Self Care 01/11/2025 2:30 PM EDT Office Visit [facility] [address], [address] [place] [address] Brady Zepeda DO Arthritis of left sacroiliac joint ([facility]) (Primary Dx) 01/11/2025 Travel 01/08/2025 Telephone [facility] [address], [address] [place] [address] Adrienne Medina MD 01/05/2025 Travel 11/19/2024 Refill [facility] [address], [address] [place] [address] Adrienne Medina MD from Last [...] preservative free 04/11/2013 Influenza, trivalent, adjuvanted 04/04/2019 Pfizer-BioNTMarkaVIP COVID-19 Vac cine (Purple Cap) 12+ 07/03/2020,06/12/2020 [...] place to sleep or slept in a skilled nursing (including now)? No 03/29/2024 PHQ-9 Answer Date [...] any time in the past 12 m [facility], were you homeless or living in a skilled nursing (including now)? No 10/03/2024 Utilities Answer Date [...] [facility] [place] [address] [address] [address] 04/17/2025 8:40 AM EST Office Visit [facility] [address], [address] [place] [address] Adrienne Medina MD [address] [place] [address] Health Maintenance Due Date Last Done Comments Dental Oral Exam 1950 Dental X-Ray: Full Mouth 1950 [facility]-Hepatitis C Screening 1950 [facility]-/Child/Adol SDOH Screenings 1950 CT Colonography 1995 Colonoscopy 1995 FIT-DNA 1995 FIT 1995 FOBT 1995 Sigmoidoscopy 1995 [facility]-Colorectal Cancer Screening 1995 Dental Prophylaxis 06/24/1995 12/21/1994, 0 08/04/1993, 09/19/1992 Dental X-Ray: Bitewings 12/23/1995 12/21/1994, 09/19 [id number] Vaccine (7 - Pfizer risk season) 2024 [...] forearm, right forearm was performed using a [employer] Horizon A Dual-energy X-ray Absorptiometry (DXA) scanner [...] left forearm, right forearm wasperformed using a [employer] Horizon A Dual-energy X-ray Absorptiometry (DXA)scanner (software [...] 5.3 <5.7 % 04/05/2024 2:38 PM EST [facility] Blood Venous blood specimen / Unknown Venipuncture / Unknown 04/05/2024 9:33 AM EST 04/05/2024 11:28 AM EST Narrative [facility] - 04/05/2024 2:38 PM EST HA1C Interpretive Data: Diagnosis of Diabetes: Diabetic > or = 6.5% Pre-diabetic 5.7 to 6.4% Non-diabetic < or = 5.6% Glycemic Targets for Type I and Type II Diabetics: Non- Adults <7.0% Adults <6.0% Children and Adolescents <7.5% Source: [place] [employer]. Standards of medical care in diabetes,2017. Diabetes Care.2017:40 (suppl 1):S1-S135. HbA1c assay performed by an ion-exchange chromatography method that is certified traceable to the DCCT. us Adrienne Medina MD LAB BLOOD ORDERABLES Final R esult [facility] [address] [place] [address] from Last 3 Months or Most Recently Relevant to Health Maintenance Insurance [facility] Care Teams Weapons Mechanic Relationship Specialty Start Date End Date Adrienne Medina MD [address] [facility] [address] [place] [address] PCP - General Family Medicine 11/14/20 Stanley Mullins MD [address] Karina Torres [facility] [address] [place] [address] Surgeon Surgical Oncology 04/17/21
--- OUTSIDE RECORDS SUMMARY | 2025-01-17 12:02 | XMS_ITS | Encounter Summary ---
Author Organization [facility] Address [address] [place] [address] Care Team Providers Care Cisco Network Architect Name Role Phone Adrienne Medina MD Primary Care Provider [phone] Stanley Mullins MD Unavailable [phone] Encounter Details Date Type Department Care Team (Late st Contact Info) Description 01/08/2025 Telephone [facility] Medicine [address] [facility], [address] [place] [address] Adrienne Medina MD [address] [place] [address] Social History Tobacco Use Types [...] place to sleep or slept in a usp (including now)? No 03/29/2024 PHQ-9 Answer Date [...] the past 12 m [facility], were you homeless or living in a usp (including now)? No 10/03/2024 Utilities Answer Date [...] placed on oxygen by her neurologist in [place]. I advised her to contact the HH and let them know who ordered since our note does not discussthe need for oxygen. She agreed and will reach back out if anything is needed from our clinic. * Telephone Encounter - Lacie Hugo - 01/08/2025 9:19 AM EDT Clinical Concern/Question Reason for Call: Alycia Maagllon [facility] last office note faxed to them at [phone]. They are the patient's oxygen provider. Best contact number: Other: Alycia Magallon - [phone] Optimal time of day to reach caller: ANYTIME Additional comments/information from caller: None Note: Please do not reply to this message. Follow-up communication and further actions as a result of this message need to be communicated with the patient directly, if the patient is not active onMyChart. If the patient is active on MyChart, they will receive notification of the communication/outcome via [employer]. documented in this encounter Plan of Treatment Upcoming Encounters Date Type Department Care Team (Late st Contact Info) Description 03/07/2025 3:00 PM EDT Appointment [facility] [address] [address] 04/17/2025 8:40 AM EST Office Visit [facility] [address], [address] [place] [address] Adrienne Medina MD [address] [facility] [address] [place] [address] documented as of this encounter [...] documented as of this encounter Care Teams Cisco Network Architect Relationship Specialty Start Date End Date Adrienne Medina MD [address] [facility] [address] [place] [address] PCP - General Family Medicine 11/14/20 Stanley Mullins MD [address] [place] [address] Surgeon Surgical Oncology 04/17/21 documented as of this encounter
--- OUTSIDE RECORDS SUMMARY | 2025-01-17 12:02 | XMS_ITS ---
Author Organization [facility] Address [address] [place] [address] Care Team Providers Care Campaign Marketing Manager Name Role Phone Adrienne Medina MD Primary Care Provider [phone] Stanley Mullins MD Unavailable [phone] Active Problems Problem Noted Date Diagnosed Date [...]
--- OUTSIDE RECORDS SUMMARY | 2025-01-17 12:02 | XMS_ITS | Encounter Summary ---
Author Organization [facility] Address [address] [place] [address] Care Team Providers Care Pulper Operator Name Role Phone Adrienne Medina MD Primary Care Provider [phone] Stanley Mullins MD Unavailable [phone] Reason for Visit * Reason Comments Med Refill Encounter Details Date Type Department Care Team (Late Contact Info) Description 11/19/2024 Refill [facility] Medicine [address] [facility] [place] [address] Adrienne Medina MD [address] [facility] [address] [place] [address] Social History Tobacco Use Types [...] any time in the past 12 m [facility], were you homeless or living [...] Info) Description 03/07/2025 3:00 PM EDT Appointment [facility] Breast Care Center [facility] [address] [address] 04/17/2025 8:40 AM EST Office Visit [facility] [address], [address] [place] [address] Adrienne Medina MD [address] [facility] [address] [place] [address] documented as of this encounter [...] documented as of this encounter Care Teams Pulper Operator Relationship Specialty Start Date End Date Adrienne Medina MD [address] [facility] [address] [place] [address] PCP - General Family Medicine 11/14/20 Stanley Mullins MD 800 [facility] Karina Torres [address] [address] Surgeon Surgical Oncology 04/17/21 documented as of this encounter
--- OUTSIDE RECORDS SUMMARY | 2025-01-17 12:02 | XMS_ITS | Encounter Summary ---
Author Organization [facility] Address [address] [place] [address] Care Team Providers Care Network Systems Administrator Name Role Phone Adrienne Medina MD Primary Care Provider + [phone] Stanley Mullins MD Unavailable Encounter Details Date Type Department Care Team [...] any time in the past 12 m [facility], were you homeless or living in [...] Breast Care Center [facility] Sukhi Torres [facility] [address] [place] [address] 04/17/2025 8:40 AM EST Office Visit [facility] [address] [place] [address] Adrienne Medina MD [address] [facility] [address] [place] [address] documented as of this encounter [...] documented as of this encounter Care Teams Network Systems Administrator Relationship Specialty Start Date End Date Adrienne Medina MD [address] [place] [address] PCP - General Family Medicine 11/14/20 Stanley Mullins MD [address] [facility] [address] [place] [address] Surgeon Surgical Oncology 04/17/21 documented as of this encounter
--- OUTSIDE RECORDS SUMMARY | 2025-01-17 12:02 | XMS_ITS | Encounter Summary ---
Author Organization [facility] Address [address] [place] [address] Care Team Providers Care Marine Equipment Sales Engineer Name Role Phone Adrienne Medina MD Primary Care Provider [phone] Stanley Mullisn MD Unavailable [phone] Encounter Details Date Type Department Care Team (Late st Contact Info) Description 01/14/2025 Results Follow-Up [facility] [address] [place] [address] Adrienne Medina MD [address] [facility] [address] [place] [address] Social History Tobacco Use Types [...] any time in the past 12 m [facility], were you homeless or living [...] Breast Care Center [facility] Sukhi Torres [facility] [address] [place] [address] 04/17/2025 8:40 AM EST Office Visit [facility] [address] [facility] [address] [place] [address] Adrienne Medina MD [address] [facility] [address] [place] [address] documented as of this encounter [...] documented as of this encounter Care Teams Marine Equipment Sales Engineer Relationship Specialty Start Date End Date Adrienne Medina MD [address] [facility] [address] [place] [address] PCP - General Family Medicine 11/14/20 Stanley Mullins MD 800 [facility] Karina Torres [facility] [address] [place] [address] Surgeon Surgical Oncology 04/17/21 documented as of this encounter
--- OUTSIDE RECORDS SUMMARY | 2025-01-17 12:02 | XMS_ITS | Encounter Summary ---
Author Organization [facility] Address [address] [place] [address] Care Team Providers Care Electronic Development Technician Name Role Phone Adrienne Medina MD Primary Care Provider [phone] Stanley Mullins MD Unavailable [phone] Encounter Details Date Type Department Care Team [...] place to sleep or slept in a jail (including now)? No 03/29/2024 PHQ-9 Answer Date [...] were you homeless or living in a jail (including now)? No 10/03/2024 Utilities Answer Date [...] Breast Care Center [facility] Sukhi Torres [facility] [address] [place] [address] 04/17/2025 8:40 AM EST Office Visit [facility] [address] [place] [address] Adrienne Medina MD [address] [facility] [address] [place] [address] documented as of this encounter [...] as of this encounter Care Teams Electronic Development Technician Relationship Specialty Start Date End Date Adrienne Medina MD [address] [place] [address] PCP - General Family Medicine 11/14/20 Stanley Mullins MD 800 [facility] [address] [place] [address] Surgeon Surgical Oncology 04/17/21 documented as of this encounter
--- OUTSIDE RECORDS SUMMARY | 2025-01-17 12:02 | XMS_ITS | Encounter Summary ---
Author Organization [facility] Address [address] [place] [address] Care Team Providers Care Science And Operations Officer Name Role Phone Adrienne Medina MD Primary Care Provider + [phone] Stanley Mullins MD Unavailable [phone] Ruby Miller MEDICAL WRITER Unavailable Unavailabl e Encounter Details Date Type Department Care Team (Late st Contact Info) Description 03/05/2023 [facility] [address] [place] [address] Magali Webber, VISCOSITY WORKER [address] [place] [address] Obstructive sleep apnea (Primary Dx) [...] in a fdc (including now)? No 12/24/2020 PHQ-9 Answer Date [...] Info) Description 03/07/2025 3:00 PM EDT Appointment [facility] Breast Care Center [facility] Breast Care Center [address] [address] 04/17/2025 8:40 AM EST Office Visit [facility] Medicine [address], [address] [place] [address] Adrienne Medina MD [address] [address] documented as of this encounter [...] documented as of this encounter Care Teams Science And Operations Officer Relationship Specialty Start Date End Date Adrienne Medina MD [address] [place] [address] PCP - General Family Medicine 11/14/20 Stanley Mullins MD [address] Karina [address] [place] [address] Surgeon Surgical Oncology 04/17/21 Ruyb Miller LPN VALUE-BASED TRANSFORMATION PROGRAM Licensed Practical Nurse 10/03/24 10/05/24 documented as of this encounter
--- OUTSIDE RECORDS SUMMARY | 2025-01-17 12:03 | XMS_ITS | Encounter Summary ---
Author Organization [facility] Address [address] [place] [address] Care Team Providers Care Jail Keeper Name Role Phone Adrienne Medina MD Primary Care Provider + [phone] Stanley Mullins MD Unavailable [phone] Encounter Details Date Type Department Care Team [...] place to sleep or slept in a snf (including now)? No 03/29/2024 PHQ-9 Answer Date [...] any time in the past 12 m [facility], were you homeless or living in a snf (including now)? No 10/03/2024 Utilities Answer Date [...] Suicidal Behavior (Lifetime) No 2:19 PM EDT Fied Dorado LPN documented as of this encounter Plan of Treatment Upcoming Encounters Date Type Department Care Team (Late st Contact Info) Description 03/07/2025 3:00 PM EDT Appointment [facility] Breast Care Center [place] [address] Karina Torres [facility] [address] [place] [address] 04/17/2025 8:40 AM EST Office Visit [facility] [address] [place] [address] Adrienne eMdina MD [address] [facility] [address] [place] [address] documented as of this encounter [...] documented as of this encounter Care Teams Jail Keeper Relationship Specialty Start Date End Date Adrienne Medina MD [address] [facility] [address] [place] [address] PCP - General Family Medicine 11/14/20 Stanley Mullins MD 800 [facility] [address] [address] Surgeon Surgical Oncology 04/17/21 documented as of this encounter
--- OUTSIDE RECORDS SUMMARY | 2025-01-17 12:03 | XMS_ITS | Encounter Summary ---
Author Organization [facility] Address [address] [place] [address] Care Team Providers Care Hot Sealing Machine Operator Name Role Phone Adrienne Medina MD Primary Care Provider [phone] Stanley Mullins MD Unavailable [phone] Reason for Visit * Reason Onset Date Comments Med Refill 01/15/2025 Encounter Details Date Type Department Care Team (Late st Contact Info) Description 01/15/2025 Refill [facility] Medicine [address] [facility] [place] [address] Adrienne Medina MD [address] [facility] [address] [place] [address] Social History Tobacco Use Types [...] the past 12 months has th e [employer], gas, oil, or water company threatened to [...] PM EDT Appointment [facility] Breast Care Center [place] [address] Karina Torres [facility] [address] [place] [address] 04/17/2025 8:40 AM EST Office Visit [facility] [address] [place] [address] Adrienne Medina MD [address] [facility] [address] [place] [address] documented as of this encounter [...] documented as of this encounter Care Teams Hot Sealing Machine Operator Relationship Specialty Start Date End Date Adrienne Medina MD [address] [facility] [address] [place] [address] PCP - General Family Medicine 11/14/20 Stanley Mullins MD 800 [facility] Karina Torres [facility] [address] [place] [address] Surgeon Surgical Oncology 04/17/21 documented as of this encounter
[2025-01-17 13:15] VITALS: PULSE 70; PULSE 71
[2025-01-17] MEDS: ALBUTEROL 0.083% 2.5 MG/3 ML NEB IH (13:15)
== END 2025-01-17 23:59 | disposition home or self-care (01) ==
LOC: RT 11:58
PROVIDERS: PCP Family Medicine; Visit Provider Specialist
DX: R94.2 Abnormal results of pulmonary function studies (principal); R09.02 Hypoxemia
CPT/HCPCS: 94060; 94618; 94640; 94726; 94729

== ENCOUNTER 2025-02-22 10:40 | Outpatient (RCR) | payer MEDICARE, SELFPAY | END 2025-02-22 23:59 | disposition home or self-care (01) | LOC: PT 10:40 | PROVIDERS: Visit Provider Student in an Organized Health Care Education/Training Program | DX: M46.1 Sacroiliitis, not elsewhere classified (principal) | CPT/HCPCS: 97162 ==

== ENCOUNTER 2025-02-26 12:16 | Outpatient (CLI) | payer MEDICARE, SELFPAY ==
--- OUTSIDE RECORDS SUMMARY | 2025-01-11 14:30 | XMS_ITS | Encounter Summary ---
Author Organization [facility] Address [address] [place] [address] Care Team Providers Care Emt B Name Role Phone Adrienne Medina MD Primary Care Provider [phone] Stanley Mullins MD Unavailable [phone] Reason for Referral * Consultation (Routine) - Authorized Specialty Diagnoses / Procedures Referred By Aura t Referred To Contact Physical Therapy Diagnoses Arthritis of left sacroiliac joint (CMS/HCC) Eduardo Benito MD [address] [address] Phone: tel: fax: Referral ID Status Reason Start Date Expiration Date Visits Requested Visits Authorized [id number] Authorized Consult and Treat 01/11/2025 07/13/2026 1 1 * Consultation (Routine) - Authorized Specialty Diagnoses / Procedures Referred By Aura levine Referred To Contact Orthopaedic Surgery Diagnoses Arthritis of left sacroiliac joint ([facility]/HCC) Eduardo Benito MD [address] [address] Phone: tel: fax: Referral ID Status Reason Start Date Expiration Date Visits Requested Visits Authorized [id number] Authorized Specialty Services Required 01/11/2025 07/13/2026 1 1 Scheduling Instructions Please fax to [facility] attn. Ed Stinson DO Reason for Visit * Reason Comments Hip Pain Encounter Details Date Type Department Care Team (Late st Contact Info) Description 01/11/2025 2:30 PM EDT Office Visit [address], [address] [place] [address] Brady Zepeda, DO [address] [place] [address] Arthritis of left sacroiliac joint (CMS/HCC) (Primary Dx) Social History Tobacco Use Types [...] place to sleep or slept in a care home (including now)? No 03/29/2024 PHQ-9 Answer Date [...] any time in the past 12 m [facility], were you homeless or living in a care home (including now)? No 10/03/2024 Utilities Answer Date [...] on file documented as of this encounter Last Filed Vital Signs Vital Sign Reading Time Taken Comments Blood Pressure 106/68 01/11/2025 2:16 PM EDT Pulse 73 01/11/2025 2:16 PM EDT Temperature 37.2 C (99 F) 01/11/2025 2:16 PM EDT Respiratory Rate - - Oxygen Saturation 97% 01/11/2025 2:16 PM EDT Inhaled Oxygen Concentration - - Weight 90.2 kg (198 lb 13.7 oz) 01/11/2025 2:16 PM EDT Height 165.1 cm (5' 5 ) 01/11/2025 2:16 PM EDT Body Mass Index 33.09 01/11/2025 2:16 PM EDT documented in this encounter Functional Status * Calculated C-SSRS Risk Score (Lifetime/Recent) Answer Date of Assessment Author No Risk Indicated 01/11/2025 2:19 PM EDT Fide Dorado LPN * Question Answer Date of Assessment Author 1. Wish to be (Past 1 Month) No 025 2:19 PM EDT Fide Dorado LPN 2. Non-Specific Active Suici yesy Thoughts (Past 1 Month) No 01/11/2025 2:19 PM EDT Fide Dorado LPN 6. Suicidal Behavior (Lifetime) No 2:19 PM EDT Fide Dorado LPN documented as of this encounter Miscellaneous Notes * Progress Notes - Brady Zepeda DO - 01/11/2025 2:30 PM EDT Subjective Kendy Blanka Hou is presenting today with the chief complaint of left hip pain. States that she has been walking a lot and noticed that this has been bothering her mostly on her left side for the last coupleof months. It was a sudden onset and patient localizes her pain to the left buttock with no radiation of pain. Denies injury or previous injury to the area. States that she did have a recent fall while working outside, but that she was already having pain prior to this. Has not tried heat or ice onpainful area. States that tylenol has helped. Walking makes the pain worse and it hurts worse when she is in bed and laying on it. Rates pain as a 5/10. Patient is interested in referral to ortho, Ed Stinson, in [place] as he performed the surgery on her hand in the past. Past Medical History[1] Family History[2] Surgical History[3] Social History Socioeconomic History Marital status: Spouse name: Not on file Number of children: Not on file Years of education: Not on file Highest education level: Not on file Occupational History Not on file Tobacco Use Smoking status: Former Current packs/day: 0.00 Average packs/day: 1 pack/day for 8.0 years (8.0 ttl pk-yrs) Types: Cigarettes Start date: 05/31/1971 Quit date: 05/31/1979 Years since quittin.6 Smokeless tobacco: Never Vaping Use Vaping status: Never Used Substance and Sexual Activity Alcohol use: Never Drug use: Never Comment: Drug use: No drug use Sexual activity: Not Currently Partners: Male control/protection: Abstinence, None Other Topics Concern Not on file Social History Narrative Not on file Social Drivers of Health Financial Resource Strain: Not on file Food Insecurity: No Food Insecurity (10/03/2024) Hunger Vital Sign Worried About Running Out of Food in the Last Year: Never true Ran Out of Food in the Last Year: Never true Transportation Needs: No Transportation Needs (10/03/2024) PRAPARE - Transportation Lack of Transportation (Medical): No Lack of Transportation (Non-Medical): No Physical Activity: Not on file Stress: Not on file Social Connections: Not on file Intimate Partner Violence: Not At Risk (10/03/2024) Humiliation, Afraid, Rape, and Kick questionnaire Fear of Current or Ex-Partner: No Emotionally Abused: No Physically Abused: No Sexually Abused: No Housing Stability: Low Risk (10/03/2024) Housing Stability Vital Sign Unable to Pay for Housing in the Last Year: No Number of Times Moved in the Last Year: 0 Homeless in the Last Year: No Medications Ordered Prior to Encounter[4] Allergies[5] Health Maintenance Due Topic Date Due Dental Oral Exam Never done Dental X-Ray: Full Mouth Never done [facility]-Hepatitis C Screening Never done [facility]-Colorectal Cancer Screening Never done Dental Prophylaxis 06/24/1995 Dental X-Ray: Bitewings 12/23/1995 [id number] Vaccine (7 - Pfizer risk season) 2024 [facility]-Influenza Vaccine (1) 01/29/2025 All medications have been reviewed today. The following portions of the patient's chart were reviewed in this encounter and updated as appropriate: past medical history, surgical history, family history, tobacco history, allergies, and medications Review of Systems Constitutional: Negative for chills and fever. Cardiovascular: Negative for chest pain, palpitations and leg swelling. Gastrointestinal: Negative for abdominal pain, blood in stool, diarrhea, nausea and vomiting. Endocrine: Positive for polyuria (at night). Negative for polydipsia. Neurological: Positive for dizziness (sees cardiology) and light-headedness (sees cardiology). Hematological: Bruises/bleeds easily (on blood thinners). Objective Vitals: 01/11/25 1416 BP: 106/68 Pulse: 73 Temp: 37.2 ??C (99 ??F) SpO2: 97% Physical Exam Constitutional: General: She is not in acute distress. Appearance: She is not toxic-appearing. HENT: Head: Normocephalic and atraumatic. Mouth/Throat: Mouth: Mucous membranes are moist. Eyes: Conjunctiva/sclera: Conjunctivae normal. Cardiovascular: Rate and Rhythm: Normal rate and regular rhythm. Pulses: Normal pulses. Heart sounds: Normal heart sounds. No murmur heard. Pulmonary: Effort: Pulmonary effort is normal. Abdominal: General: Abdomen is flat. There is no distension. Palpations: Abdomen is soft. Musculoskeletal: General: Tenderness (present during palpation over left SI joint without radiation) present. Cervical back: Neck supple. Left lower leg: No edema. Comments: Pain with DEWEY and FADIR maneuvers, more with FADIR Negative straight leg and well leg raise Skin: General: Skin is warm and dry. Capillary Refill: Capillary refill takes less than 2 seconds. Findings: No bruising or erythema. Neurological: Mental Status: She is alert and oriented to person, place, and time. Psychiatric: Mood and Affect: Mood normal. Behavior: Behavior normal. Assessment/Plan Problem List Items Addressed This Visit None Visit Diagnoses Arthritis of left sacroiliac joint (CMS/HCC) - Primary Relevant Orders Ambulatory referral to Orthopaedic Surgery Ambulatory referral to Physical Therapy XR Lumbar Spine 2 or 3 Views (Completed) #Probable left SI joint arthritis - Exam findings consistent with SI joint arthritis. Patient also has a history of lumbar spine arthritis. We will plan to order 2 view lumbar spine xrays to assess cause of symptoms. - We will refer patient to Dr. Stinson in [place] for further evaluation and management of pain. - Advised patient that PT could help and she was interested in a trial of PT. Ambulatory referral for patient to find PT location closer to her home. - Recommended topical diclofenac due to her taking blood thinners. Can continue with tylenol and try alternating ice and heat. - Follow up as needed or if symptoms worsen or fail to improve. Venkat Zepeda DO Family Medicine, PGY-1 [facility] [1] Past Medical History: Diagnosis Date Anemia Anxiety Atrial fibrillation (CMS/HCC) Atypical ductal hyperplasia of breast Cataract Gastro-esophageal reflux disease without esophagitis Headache History of Helicobacter pylori infection Hypertension Hypothyroidism, unspecified Irritable bowel syndrome without diarrhea Major depressive disorder, single episode, unspecified Malignant neoplasm of unspecified site of left female breast 2016 left breast Obesity Obstructive sleep apnea (adult) (pediatric) Panic attack Personal history of nicotine dependence Restless leg syndrome [2] Family History Problem Relation Name Age of Onset Conversions - Other Other No family history of cancer Cirrhosis Mother Conversions - Other Father Coronary Artery Embolism Conversions - Other Brother Sinus Bradycardia Stroke Other [3] Past Surgical History: Procedure Laterality Date ADENOIDECTOMY BREAST LUMPECTOMY Left 02/2017 CARPAL TUNNEL RELEASE CATARACT EXTRACTION Left 08/18/2021 CNA0T0, 21.5D, Dr. Fuentes CATARACT EXTRACTION Right 09/01/2021 CNA0T0, 21.5D, Dr. Fuentes FRACTURE SURGERY HEMORRHOID SURGERY ROOT CANAL TONSILLECTOMY WISDOM TOOTH EXTRACTION WRIST ARTHROPLASTY Right WRIST ARTHROSCOPY Left WRIST ARTHROSCOPY Right [4] Current Outpatient Medications on File Prior to Visit Medication Sig Dispense Refill acetaminophen (Tylenol) 500 MG tablet TAKE 1 TABLET EVERY 4 TO 6 HOURS NEEDED. apixaban (Eliquis) 5 MG tablet Take 1 tablet (5 mg) by mouth 2 (two) times a day. 60 tablet 3 atorvastatin (Lipitor) 40 MG tablet Take 1 tablet (40 mg) by mouth 1 (one) time each day. 30 [id number] B Complex-C (b complex-vitamin c) tablet Take 1 tablet by mouth 1 (one) time each day. Calcium Carb-Cholecalciferol (Calcium 600+D3) 600-800 MG-UNIT tablet escitalopram (Lexapro) 5 MG tablet Take 1 tablet (5 mg) by mouth 1 (one) time each day. famotidine (Pepcid) 20 MG tablet Take 1 tablet (20 mg) by mouth 1 (one) time each day. as directed ferrous sulfate 324 (65 Fe) MG EC tablet Take 1 tablet by mouth 2 times a day. 180 tablet 3 ibuprofen 600 MG tablet Take 1 tablet (600 mg) by mouth every 8 (eight) hours. levothyroxine (Synthroid, Levoxyl) 25 MCG tablet Take 1 tablet by mouth daily. 90 tablet 3 losartan (Cozaar) 25 MG tablet Take 1 tablet by mouth once daily 90 tablet 1 metoprolol succinate XL (Toprol-XL) 25 MG 24 hr tablet Take 0.5 tablets (12.5 mg) by mouth. Multiple Vitamin (MULTIVITAMIN ADULT PO) Take 1 tablet by mouth 1 (one) time each day. polycarbophil (Fibercon) 625 MG tablet Take 2 tablets (1,250 mg) by mouth 2 (two) times a day. pramipexole (Mirapex) 0.5 MG tablet Take 1 tablet by mouth every evening. 90 tablet 3 Thiamine HCl (VITAMIN B1 PO) Take 1 tablet by mouth 1 (one) time each day. No current facility-administered medications on file prior to visit. [5] Allergies Allergen Reactions Sulfa Drugs Rash Sulfa (Sulfonamide Antibiotics) - unspecified Cosigned by Eduardo Benito MD at 01/22/2025 10:35 AM EDT Associated attestation - Eduardo Benito MD - 01/22/2025 10:35 AM EDT I saw and evaluated the patient with the resident/fellow. I discussed the case with the resident/fellow and agree with the findings and plan as documented. documented in this encounter Plan of Treatment Upcoming Encounters Date Type Department Care Team (Late st Contact Info) Description 04/09/2025 3:15 PM EST Appointment [facility] [address] [address] 04/17/2025 8:40 AM EST Office Visit [facility] [address] [place] [address] Adrienne Medina MD [address] [place] [address] 03/15/2026 9:45 AM EDT Office Visit [facility] [address] [place] [address] Monty Fuentes MD [address] [place] [address] Scheduled Referrals Name Type Priority Associated Diagnoses Order Schedule Ambulatory referral to Orthopaedic Surgery Outpatient Referral Routine Arthritis of left sacroiliac joint (CMS/HCC) 1 Occurrences starting 01/11/2025 until 07/15/2026 Ambulatory referral to Physical Therapy Outpatient Referral Routine Arthritis of left sacroiliac joint (CMS/HCC) 1 Occurrences starting 01/11/2025 until 07/15/2026 documented as of this encounter Results * XR Lumbar Spine 2 or 3 Views (01/11/2025 4:03 PM EDT) Anatomical Region Laterality Modality Spine, L-spine Digital Radiogra phy Impressions 01/11/2025 4:16 PM EDT 1. Severe degenerative disc changes at L2-L3, L4-L5 and L5-S1 and moderate at L3-L4. 2. Minimal degenerative changes of the sacroiliac joints. CRITICAL RESULT: No. COMMUNICATION: Per this written report. Drafted by Bayron Kathleen MD on 01/11/2025 4:12 PM Final report signed by Bayron Kathleen MD on 01/11/2025 4:16 PM Narrative 01/11/2025 4:16 PM EDT CLINICAL INDICATION: Low back pain; suspect SI joint arthritis TECHNIQUE: XR LUMBAR SPINE 2 OR 3 VIEWS COMPARISON: None. FINDINGS: 2 views of the lumbar spine show disc space narrowing at L2-L3 through L5-S1 that is severe at L2-L3, L4-L5 and L5-S1. Vertebral alignment is normal. No fracture or bone destruction. Minimal degenerative changes of the sacroiliac joints. Procedure Note Bayron Kathleen MD - 01/11/2025 CLINICAL INDICATION: Low back pain; suspect SI joint arthritis TECHNIQUE: XR LUMBAR SPINE 2 OR 3 VIEWS COMPARISON: None. FINDINGS: 2 views of the lumbar spine show disc space narrowing at L2-L3 throughL5-S1 that is severe at L2-L3, L4-L5 and L5-S1. Vertebral alignment isnormal. No fracture or bone destruction. Minimal degenerative changes ofthe sacroiliac joints. IMPRESSION: 1.Severe degenerative disc changes at L2-L3, L4-L5 and L5-S1 and moderateat L3- L4. 2.Minimal degenerative changes of the sacroiliac joints. CRITICAL RESULT: No. COMMUNICATION: Per this written report. Drafted by Bayron Kathleen MD on 01/11/2025 4:12 PM Final report signed by Bayron Kathleen MD on 01/11/2025 4:16 PM Eduardo Benito MD IMG XR PROCEDURES Final Res ult documented in this encounter Visit Diagnoses Diagnosis Arthritis of left sacroiliac joint (CMS/HCC)- Primary Arthritis of left sacroiliac joint (CMS/HCC) documented in this encounter Additional Health Concerns Assessment Noted Time PHQ-9 Depression Total Score: 3 10/11/19 25 2:32 PM EDT A fall risk assessment has been complete d for the patient 01/11/2025 2:18 PM EDT A Body Mass Index follow-up plan has been documented for the patient 01/18/2025 2:26 PM EDT documented as of this encounter Care Teams Emt B Relationship Specialty Start Date End Date Adrienne Medina MD [address] [facility] [address] [place] [address] PCP - General Family Medicine 11/14/20 Stanley Mullins MD [address] [facility] [address] [place] [address] Surgeon Surgical Oncology 04/17/21 documented as of this encounter
--- OUTSIDE RECORDS SUMMARY | 2025-01-11 15:58 | XMS_ITS | Encounter Summary ---
Author Organization [facility] Address [address] [place] [address] Care Team Providers Care Bag Filler Machine Operator Name Role Phone Adrienne Medina MD Primary Care Provider [phone] Stanley Mullins MD Unavailable [phone] Encounter Details Date Type Department Care Team (Latest Contact Info) Description 01/11/2025 3:58 PM EDT - 01/11/2025 11:59 PM EDT Hospital Encounter [facility] [address] [facility], [address] [place] [address] Arthritis of left sacroiliac joint (CMS/HCC) Discharge Disposition: Home or Self Care Social History Tobacco Use Types Packs/Day Years [...] place to sleep or slept in a prison (including now)? No 03/29/2024 PHQ-9 Answer Date [...] any time in the past 12 m [facility], were you homeless or living in a prison (including now)? No 10/03/2024 Utilities Answer Date [...] on file documented as of this encounter Functional Status * Calculated C-SSRS [...] Dorado LPN 6. Suicidal Behavior (Lifetime) No 5 2:19 PM EDT Fide Dorado LPN documented as of this encounter Medications at Time of Discharge acetaminophen (Tylenol) 500 MG tablet TAKE 1 TABLET EVERY 4 TO 6 HOURS NEEDED. 05/05/2019 apixaban (Eliquis) 5 MG tablet Take 1 tablet (5 mg) by mouth 2 (two) times a day. 60 tablet 3 04/05/2024 atorvastatin (Lipitor) 40 MG tablet Take 1 tablet (40 mg) by mouth 1 (one) time each day. 30 tablet 11 04/10/2024 5 B Complex-C (b complex-vitamin c) tablet Take 1 tablet by mouth 1 (one) time each day. Calcium Carb-Cholecalcife rol (Calcium 600+D3) 600-800 MG-UNIT tablet 11/23/2019 escitalopram (Lexapro) 5 MG tablet Take 1 tablet (5 mg) by mouth 1 (one) time each day. 04/26/2023 famotidine (Pepcid) 20 MG tablet Take 1 tablet (20 mg) by mouth 1 (one) time each day. as directed 04/22/2020 ferrous sulfate 324 (65 Fe) MG EC tablet Take 1 tablet by mouth 2 times a day. 180 tablet 3 10/10/2024 ibuprofen 600 MG tablet Take 1 tablet (600 mg) by mouth every 8 (eight) hours. 03/05/2022 levothyroxine (Synthroid, Levoxyl) 25 MCG tabletIndications :Hypothyroidism, unspecified type Take 1 tablet by mouth daily. 90 tablet 3 10/10/2024 losartan (Cozaar) 25 MG tablet Take 1 tablet by mouth once daily 90 tablet 1 11/22/2024 metoprolol succinate XL (Toprol-XL) 25 MG 24 hr tablet Take 0.5 tablets (12.5 mg) by mouth. Multiple Vitamin (MULTIVITAMIN ADULT PO) Take 1 tablet by mouth 1 (one) time each day. polycarbophil (Fibercon) 625 MG tablet Take 2 tablets (1,250 mg) by mouth 2 (two) times a day. pramipexole (Mirapex) 0.5 MG tabletIndications :Restless leg syndrome Take 1 tablet by mouth every evening. 90 tablet 3 10/10/2024 Thiamine HCl (VITAMIN B1 PO) Take 1 tablet by mouth 1 (one) time each day. documented as of this encounter Plan of Treatment Upcoming Encounters Date Type Department Care Team (Late st Contact Info) Description 04/09/2025 3:15 PM EST Appointment [facility] [address] [phone] 04/17/2025 8:40 AM EST Office Visit [facility] [address], [address] [place] [address] Adrienne Medina MD [address] [facility] [address] [place] [address] 03/15/2026 9:45 AM EDT Office Visit [facility] [address] [place] [address] Monty Fuentes MD 110 [facility] [address] [place] [address] documented as of this encounter Procedures Procedure Name Priority Date/Time Associated Diagnosis Comments XR LUMBAR SPINE 2 OR 3 VIEWS Routine 01/11/2025 4:03 PM EDT Arthritis of left sacroiliac joint (CMS/HCC) documented in this encounter Results * XR Lumbar Spine [...] Diagnoses Diagnosis Arthritis of left sacroiliac joint (CMS/HCC) documented [...] documented as of this encounter Care Teams Bag Filler Machine Operator Relationship Specialty Start Date End Date Adrienne Medina MD [address] [place] [address] PCP - General Family Medicine 11/14/20 Stanley Mullins MD 800 [facility] [address] [place] [address] Surgeon Surgical Oncology 04/17/21 documented as of this encounter
--- OUTSIDE RECORDS SUMMARY | 2025-01-12 11:00 | XMS_ITS | Encounter Summary ---
Author Organization [facility] Address [address] [place] [address] Care Team Providers Care Supervisor Properties Name Role Phone Adrienne Medina MD Primary Care Provider [phone] Stanley Mullins MD Unavailable [phone] Encounter Details Date Type Department Care Team (Latest Contact Info) Description 01/12/2025 11:00 AM EDT - 01/12/2025 11:59 PM EDT Hospital Encounter [facility] [address] [place] [address] Post-menopausal Discharge Disposition: Home or Self Care Social [...] place to sleep or slept in a mcc (including now)? No 03/29/2024 PHQ-9 Answer Date [...] in the past 12 m [facility], were you homeless or living in a mcc (including now)? No 10/03/2024 Utilities Answer Date [...] on file documented as of this encounter Medications at [...] time each day. 30 tablet 11 04/10/2024 B Complex-C (b complex-vitamin c) tablet Take [...] PM EST Appointment [facility] [place] [address] Karina Torres [facility] [address] [place] [address] 04/17/2025 8:40 AM EST Office Visit [facility] [address], [address] [place] [address] Adrienne Medina MD [address] [facility] [address] [place] [address] 03/15/2026 9:45 AM EDT Office Visit [facility] [address] [place] [address] Monty Fuentes MD [address] [facility] [address] [place] [address] documented as of this encounter Procedures Procedure Name Priority Date/Time Associated Diagnosis Comments DEXA BONE DENSITY Routine 01/12/2025 11: 52 AM EDT Post-menopausal documented in this encounter Results * Dexa Bone Density (01/12/2025 11:52 AM EDT) Anatomical Region Laterality Modality L-spine Nuclear Medicine Impressions 01/12/2025 12:08 PM EDT Low bone mass/osteopenia. Using the WHO fracture risk assessment model (FRAX), the highest calculated 10- year probabilities for major osteoporosis-related fracture and hip fracture are 9.2% and 1.4%, respectively. According to National Osteoporosis Foundation and WHO guidelines, treatment for osteoporosis is recommended for those with 20% or higher risk of major fracture or a 3% or higher risk of hip fracture. In comparison to the previous DXA, there has been a significant gain in BMD in the lumbar spine. There has been a significant gain in BMD in the left hip. There has been a significant gain in BMD in the right hip. RECOMMENDATIONS: Based on low bone mass and increased risk of fracture, FDA-approved medical therapy beyond supplemental calcium and vitamin D could be considered. Risk factor modification, as appropriate, is recommended. Timing of follow-up DXA should be determined based on clinical assessment, and may be appropriate in two years to evaluate change in BMD. A follow-up DXA should be performed on the same DXA scanner to allow for direct comparison and calculation of change in BMD. CRITICAL RESULT: No. COMMUNICATION: Per this written report. Drafted by Cynthia Flores MD on 01/12/2025 12:06 PM Final report signed by Cynthia Flores MD on 01/12/2025 12:08 PM Narrative 01/12/2025 12:08 PM EDT CLINICAL INDICATION: Female who is 74 years of age. Osteoporosis screening, follow-up. TECHNIQUE: Bone mineral density (BMD) testing of two or more of the following sites: lumbar spine, left hip, right hip, left forearm, right forearm was performed using a [employer] Horizon A Dual-energy X-ray Absorptiometry (DXA) scanner (software version 13.6.1.2). Sites may be excluded because of surgical hardware, prosthesis, or other source of artifact. COMPARISON/CORRELATION: Compared to 01/03/2020 with calculated changes in BMD. No relevant correlative imaging. FINDINGS: The technical quality is acceptable. For post-menopausal females, the T-scores are used in the assessment. Based on The World Health Organization classification system: Normal bone mass is defined as BMD above normal or equal to/less than one standard deviation below normal; Low bone mass/osteopenia is defined as BMD more than one standard deviation below normal, but less than 2.5 standard deviations below normal; Osteoporosis is defined as BMD equal to/more than 2.5 standard deviations below normal. Lumbar Spine: The BMD of L1-L4 is 1.158 g/cm2, corresponding to a T-score of 1.0. There are sclerotic changes related to osteoarthritis and/or scoliosis that could falsely elevate the measured BMD. In comparison to the previous DXA and based on the local precision error (Least Significant Change) for the L1-L4 lumbar spine, the BMD of the lumbar spine has increased by 11.4%, representing a significant change. Left Hip: The BMD of the femoral neck is 0.720 g/cm2, corresponding to a T-score of -1.2 and the BMD of the total hip is 0.879 g/cm2, corresponding to a T-score of -0.5. In comparison to the previous DXA and based on the local precision error (Least Significant Change) for the total hip, the BMD of the hip has increased by 13.0%, representing a significant change. Right Hip: The BMD of the femoral neck is 0.726 g/cm2, corresponding to a T- score of -1.1 and the BMD of the total hip is 0.847 g/cm2, corresponding to a T-score of -0.8. In comparison to the previous DXA and based on the local precision error (Least Significant Change) for the total hip, the BMD of the hip has increased by 6.2%, representing a significant change. Procedure Note Jackie Flores MD - 01/12/2025 CLINICAL INDICATION: Female who is 74 years of age. Osteoporosis screening, follow-up. TECHNIQUE: Bone mineral density (BMD) testing of two or more of the following sites:lumbar spine, left hip, right hip, left forearm, right forearm wasperformed using a [employer] Horizon A Dual-energy X-ray Absorptiometry (DXA)scanner (software version 13.6.1.2). Sites may be excluded because ofsurgical hardware, prosthesis, or other source of artifact. COMPARISON/CORRELATION: Compared to 01/03/2020 with calculated changes in BMD. No relevantcorrelative imaging. FINDINGS: The technical quality is acceptable. For post-menopausal females, the T-scores are used in the assessment.Based on The World Health Organization classification system: Normal bone mass is defined as BMD above normal or equal to/less than onestandard deviation below normal; Low bone mass/osteopenia is defined as BMD more than one standarddeviation below normal, but less than 2.5 standard deviations belownormal; Osteoporosis is defined as BMD equal to/more than 2.5 standard deviationsbelow normal. Lumbar Spine: The BMD of L1-L4 is 1.158 g/cm2, corresponding to a T-scoreof 1.0. There are sclerotic changes related to osteoarthritis and/orscoliosis that could falsely elevate the measured BMD. In comparison tothe previous DXA and based on the local precision error (Least SignificantChange) for the L1-L4 lumbar spine, the BMD of the lumbar spine hasincreased by 11.4%, representing a significant change. Left Hip: The BMD of the femoral neck is 0.720 g/cm2, corresponding to aT-score of -1.2 and the BMD of the total hip is 0.879 g/cm2, correspondingto a T-score of - 0.5. In comparison to the previous DXA and based on thelocal precision error (Least Significant Change) for the total hip, theBMD of the hip has increased by 13.0%, representing a significant change. Right Hip: The BMD of the femoral neck is 0.726 g/cm2, corresponding to aT-score of -1.1 and the BMD of the total hip is 0.847 g/cm2, correspondingto a T-score of - 0.8. In comparison to the previous DXA and based on thelocal precision error (Least Significant Change) for the total hip, theBMD of the hip has increased by 6.2%, representing a significant change. IMPRESSION: Low bone mass/osteopenia. Using the WHO fracture risk assessment model (FRAX), the highestcalculated 10- year probabilities for major osteoporosis-related fractureand hip fracture are 9.2% and 1.4%, respectively. According to NationalOsteoporosis Foundation and WHO guidelines, treatment for osteoporosis isrecommended for those with 20% or higher risk of major fracture or a 3% orhigher risk of hip fracture. In comparison to the previous DXA, there has been a significant gain inBMD in the lumbar spine. There has been a significant gain in BMD in theleft hip. There has been a significant gain in BMD in the right hip. RECOMMENDATIONS: Based on low bone mass and increased risk of fracture, FDA-approvedmedical therapy beyond supplemental calcium and vitamin D could beconsidered. Risk factor modification, as appropriate, is recommended. Timing of follow-up DXA should be determined based on clinical assessment,and may be appropriate in two years to evaluate change in BMD. A follow-upDXA should be performed on the same DXA scanner to allow for directcomparison and calculation of change in BMD. CRITICAL RESULT: No. COMMUNICATION: Per this written report. Drafted by Cynthia Flores MD on 01/12/2025 12:06 PM Final report signed by Cynthia Flores MD on 01/12/2025 12:08 PM Adrienne Medina MD IMG DXA PROCEDURES Final Res ult documented in this encounter Visit Diagnoses Diagnosis Post-menopausal Asymptomatic postmenopausal status (age-related) (natural) documented in this encounter Additional Health Concerns Assessment Noted Time PHQ-9 Depression Total Score: 3 10/11/19 25 2:32 PM EDT A fall risk assessment has been complete d for the patient 01/11/2025 2:18 PM EDT A Body Mass Index follow-up plan has been documented for the patient 01/18/2025 2:26 PM EDT documented as of this encounter Care Teams Supervisor Properties Relationship Specialty Start Date End Date Adrienne Medina MD [address] [place] [phone] PCP - General Family Medicine 11/14/20 Stanley Mullins MD [address] [facility] [address] [place] [address] Surgeon Surgical Oncology 04/17/21 documented as of this encounter
--- NOTE | 2025-02-26 12:20 | XR_ITS ---
FINAL REPORT CLINICAL HISTORY: bilateral hip pain..NO TRAUMA COMPARISON: None FINDINGS: LEFT HIP Two views of the left hip and an AP pelvis view were obtained. There is no acute fracture or dislocation. The joint spaces are well-preserved. The visualized bony structures are well aligned. There is no acute soft tissue abnormality. IMPRESSION: No acute abnormality identified. Reviewed, Interpreted and Dictated by Alex Mckeon MD Transcribed by Daphnie Schultz Authenticated and [facility]
--- OUTSIDE RECORDS SUMMARY | 2025-02-26 12:20 | XMS_ITS | Clinical Summary ---
Author Organization [facility] Address [address] [place] [address] Care Team Providers Care Assistant Field Hockey Coach Name Role Phone Adrienne Medina MD Primary Care Provider [phone] Stanley Mullins MD Unavailable [phone] Allergies Active Allergy Reactions Criticality Noted Date [...] once daily 90 tablet 1 5 Active citalopram (CeleXA) 20 MG tablet Take 1 tablet by mouth daily. 90 tablet 3 5 Active Active Problems Problem Noted Date [...] 30-39.9) 11/13/2019 Astigmatism of both eyes 06/09/2019 Cataract, nuclear sclerotic senile 06/09/2019 Pulmonary nodule 05/10/2019 GERD (gastroesophageal reflux disease) 9 Trigger finger 07/15/2018 Plantar fasciitis 09/23/2017 Abnormal fasting glucose 03/12/2017 Allergic rhinitis 09/11/2016 Benign colon polyp 11/26/2014 Depression 01/11/2013 Assessment & Plan (10/30/2022 4:18 PM EDT): -will discontinue citalopram now and initiate fluoxetine 20mg daily -follow up in 3 month for reevaluation Hypothyroidism 01/11/2013 Obstructive sleep apnea 01/11/2013 Resolved Problems Problem Noted Date Diagnosed Date Resolved Date Bilateral myopia 06/09/2019 02/18/2025 Bilateral presbyopia 06/09/2019 025 Hand pain 03/08/2019 10/27/2022 Elbow pain 03/11/2017 10/27/2022 Otitis externa of right ear 04/15/2016 10/27/2022 Overweight 01/11/2013 02/18/2025 Encounters Date Type Department Care Team Description 02/23/2025 Refill [facility] [address], [address] [place] [phone] Adrienne Medina MD 01/19/2025 Refill [facility] [address], [address] [place] [address] Adrienne Medina MD 01/19/2025 Results Follow-Up [facility] [address], [address] [place] [address] Armen Romero DO 01/15/2025 Refill [facility] [address], [address] [place] [address] Adrienne Medina MD 01/14/2025 Results Follow-Up [facility] [address], [address] [place] [address] Adrienne Medina MD 01/12/2025 11:00 AM EDT - 01/12/2025 11:59 PM EDT Hospital Encounter [facility] [address] [place] [address] Post-menopausal Discharge Disposition: Home or Self Care 01/12/2025 Travel 01/11/2025 3:58 PM EDT - 01/11/2025 11:59 PM EDT Hospital Encounter [facility] [address], [address] [place] [address] Arthritis of left sacroiliac joint (CMS/HCC) Discharge Disposition: Home or Self Care 01/11/2025 2:30 PM EDT Office Visit [facility] [address], [address] [place] [address] Brady Zepeda DO Arthritis of left sacroiliac joint (CMS/HCC) (Primary Dx) 01/11/2025 Travel 01/08/2025 Telephone [facility] [address], [address] [place] [address] Adrienne Medina MD 01/05/2025 Travel from Last 3 Months Immunizations Immunization Administration Dates Next Due Hep A, Adult 09/29/2018,03/31/2018 Influenza, High-dose, Split Virus, Trivalent, Injectable, preservative free 04/05/2024,02/19/2018 Influenza, Unspecified 03/22/2008,03/16/2007 Influenza, high-dose, quadrivalent 04/09,02/07/2022,03/19/2021,02/23,02/19/2018 Influenza, injectable, quadrivalent 02/19/2018 Influenza, injectable, quadr ivalent, preservative free 03/18/2020,03/11/2017,03/19/2015 Influenza, seasonal, injectable 02/24/2020,03/14,04/06/2011 Influenza, seasonal, injecta ble, preservative free 03/05/2016 Influenza, seasonal, intrade rmal, preservative free 04/11/2013 Influenza, trivalent, adjuvanted 04/04/2019 Givit COVID-19 Vac cine (Purple Cap) 12+ 07/03/2020,06/12/2020 [...] slept in a assisted (including now)? No 03/29/2024 PHQ-9 Answer Date [...] any time in the past 12 m [facility], were you homeless or living in a assisted (including now)? No 10/03/2024 Utilities Answer Date [...] Description 04/09/2025 3:15 PM EST Appointment [facility] Breast Care [facility] Breast Care [address] [address] 04/17/2025 8:40 AM EST Office Visit [facility] [address], [address] [place] [address] Adrienne Medina MD [address] [place] [address] 03/15/2026 9:45 AM EDT Office Visit [facility] [address] [facility] [place] [address] Monty Fuentes MD [address] [place] [address] Health Maintenance Due Date Last Done Comments Dental Oral Exam 1950 Dental X-Ray: Full Mouth 1950 [facility]-Hepatitis C Screening 1950 [facility]-Infant/Child/Adol SDOH Screenings 1950 CT Colonography 1995 Colonoscopy 1995 FIT-DNA 1995 FIT 1995 FOBT 1995 Sigmoidoscopy 1995 [facility]-Colorectal Cancer Screening 1995 Dental Prophylaxis 06/24/1995 12/21/1994, 0 08/04/1993, 09/19/1992 Dental X-Ray: Bitewings 12/23/1995 12/21/1994, 09/19 [id number] Vaccine (7 - Pfizer risk season) 2025 04/11/2024, 03/01/2022, 09/20/2021, Additional history exists [facility]-Influenza [...] Completed 07/01/2023 [facility]-Obesity Intervention Completed 025, 10/10/2024, 10/10/2024, Additional history exists HPV Vaccines Aged Out [...] forearm, right forearm was performed using a [employer] Horizon A Dual-energy X-ray Absorptiometry (DXA) scanner [...] left forearm, right forearm wasperformed using a [employer] Horizon A Dual-energy X-ray Absorptiometry (DXA)scanner (software [...] Cynthia Flores MD on 01/12/2025 12:08 PM us Adrienne Medina MD IMG DXA PROCEDURES Final [...] Bayron Kathleen MD on 01/11/2025 4:16 PM Orlin Benito MD IMG XR PROCEDURES Final Res ult * Hemoglobin A1c (04/05/2024 9:33 AM EST) Hemoglobin A1c 5.3 <5.7 % 04/05/2024 2:[address] [facility] Blood Venous blood specimen / Unknown Venipuncture / Unknown 04/05/2024 9:33 AM EST 04/05/2024 11:28 AM EST Narrative [facility] - 04/05/2024 2:38 PM EST HA1C [...] MD LAB BLOOD ORDERABLES Final R esult Performing Organization Address City/State/[facility] Co de Phone Number [facility] [address] [place] [address] from Last 3 Months or Most Recently Relevant to Health Maintenance Insurance [id number] [facility] MEDICARE Care Teams Assistant Field Hockey Coach Relationship Specialty Start Date End Date Adrienne Medina MD [address] [place] [address] PCP - General Family Medicine 11/14/20 Stanley Mullins MD 800 [facility] [address] [place] [address] Surgeon Surgical Oncology 04/17/21
--- OUTSIDE RECORDS SUMMARY | 2025-02-26 12:20 | XMS_ITS | Encounter Summary ---
Author Organization [facility] Address [address] [place] [address] Care Team Providers Care Certified Breastfeeding Educator Name Role Phone Adrienne Medina MD Primary Care Provider + [phone] Stanley Mullins MD Unavailable [phone] Encounter Details Date Type Department Care Team [...] any time in the past 12 m [facility], were you homeless or living [...] Breast Care Center [facility] Sukhi Torres [facility] [address] [place] [address] 04/17/2025 8:40 AM EST Office Visit [facility] [address] [place] [address] Adrienne Medina MD [address] [place] [address] 03/15/2026 9:45 AM EDT Office Visit [facility] Care [address] [facility] [place] [address] Monty Fuentes MD [address] [facility] [address] [place] [address] documented as of this encounter Visit Diagnoses [...] documented as of this encounter Care Teams Certified Breastfeeding Educator Relationship Specialty Start Date End Date Adrienne Medina MD [address] [place] [address] PCP - General Family Medicine 11/14/20 Stanley Mullins MD [address] Karina Torres [facility] [address] [place] [address] Surgeon Surgical Oncology 04/17/21 documented as of this encounter
--- OUTSIDE RECORDS SUMMARY | 2025-02-26 12:20 | XMS_ITS | Encounter Summary ---
Author Organization [facility] Address [address] [place] [address] Care Team Providers Care Lace Machine Operator Name Role Phone Adrienne Medina MD Primary Care Provider [phone] Stanley Mullins MD Unavailable [phone] Encounter Details Date Type Department Care Team (Late st Contact Info) Description 01/08/2025 Telephone [facility] [address] [facility] [facility], [address] [place] [address] Adrienne Medina MD [address] [place] [address] Social History Tobacco Use Types [...] placed on oxygen by her neurologist in [place]. I advised her to contact the HH and let them know who ordered since our note does not discussthe need for oxygen. She agreed and will reach back out if anything is needed from our clinic. * Telephone Encounter - Lacie Hugo - 01/08/2025 9:19 AM EDT Clinical Concern/Question Reason for Call: Alycia Magallon [facility] last office note faxed to them at [phone]. They are the patient's oxygen provider. Best contact number: Other: Alycia Magallon - [phone] Optimal time of day to reach caller: ANYTIME Additional comments/information from caller: None Note: Please do not reply to this message. Follow-up communication and further actions as a result of this message need to be communicated with the patient directly, if the patient is not active onMyChart. If the patient is active on MyChart, they will receive notification of the communication/outcome via [employer] documented in this encounter Plan of Treatment Upcoming Encounters Date Type Department Care Team (Late st Contact Info) Description 04/09/2025 3:15 PM EST Appointment [facility] Breast Care Center [facility] [address] [address] 04/17/2025 8:40 AM EST Office Visit [facility] [address] [place] [address] Adrienne Medina MD [address] [place] [address] 03/15/2026 9:45 AM EDT Office Visit [facility] [address] [place] [address] Monty Fuentes MD [address] [place] [address] documented as of this encounter [...] documented as of this encounter Care Teams Lace Machine Operator Relationship Specialty Start Date End Date Adrienne Medina MD [address] [place] [address] PCP - General Family Medicine 11/14/20 Stanley Mullins MD [address] Karina Torres [facility] [address] [place] [address] Surgeon Surgical Oncology 04/17/21 documented as of this encounter
--- OUTSIDE RECORDS SUMMARY | 2025-02-26 12:20 | XMS_ITS | Encounter Summary ---
Author Organization [facility] Address [address] [place] [address] Care Team Providers Care Right Of Way Man Name Role Phone Adrienne Medina MD Primary Care Provider + [phone] Stanley Mullins MD Unavailable [phone] Encounter Details Date Type Department Care Team [...] place to sleep or slept in a halfway (including now)? No 03/29/2024 PHQ-9 Answer Date [...] the past 12 m [facility], were you homeless or living in a halfway (including now)? No 10/03/2024 Utilities Answer Date [...] Info) Description 04/09/2025 3:[address] [facility] Breast Care Center [facility] Breast Care Center [address] [address] 04/17/2025 8:40 AM EST Office Visit [facility] [address] [place] [address] Adrienne Medina MD [address] [facility] [address] [place] [address] 03/15/2026 9:45 AM EDT Office Visit [facility] Eye Care [address] [place] [address] Monty Fuentes MD 110 [facility] [address] [place] [address] documented as of this encounter [...] documented as of this encounter Care Teams Right Of Way Man Relationship Specialty Start Date End Date Adrienne Medina MD [address] [place] [address] PCP - General Family Medicine 11/14/20 Stanley Mullins MD 800 [facility] Karina Villarrealrickson [facility] [address] [place] [address] Surgeon Surgical Oncology 04/17/21 documented as of this encounter
--- OUTSIDE RECORDS SUMMARY | 2025-02-26 12:20 | XMS_ITS | Encounter Summary ---
Author Organization [facility] Address [address] [place] [address] Care Team Providers Care Equity Research Associate Name Role Phone Adrienne Medina MD Primary Care Provider [phone] Stanley Mullins MD Unavailable [phone] Encounter Details Date Type Department Care Team (Late st Contact Info) Description 01/19/2025 Results Follow-Up [facility] [address], [address] [place] [address] Armen Romero, DO [address] [place] [id number] Social History Tobacco Use Types Packs/Day Years [...] in the past 12 m [facility], were you homeless or living in [...] Upcoming Encounters Date Type Department Care Team ([facility] st Contact Info) Description 04/09/2025 3:15 PM EST Appointment [facility] Breast Care Center [facility] Breast Care Center [place] [address] Karina Torres [facility] [address] [place] [address] 04/17/2025 8:40 AM EST Office Visit [facility] [address] [place] [address] Adrienne Medina MD [address] [facility] [address] [place] [address] 03/15/2026 9:45 AM EDT Office Visit [facility] Eye Care [address] [place] [address] Monty Fuentes MD [address] [facility] [address] [place] [address] documented as of this encounter [...] documented as of this encounter Care Teams Equity Research Associate Relationship Specialty Start Date End Date Adrienne Medina MD [address] [place] [address] PCP - General Family Medicine 11/14/20 Stanley Mullins MD 800 [facility] Karina [address] [address] Surgeon Surgical Oncology 04/17/21 documented as of this encounter
--- OUTSIDE RECORDS SUMMARY | 2025-02-26 12:20 | XMS_ITS | Encounter Summary ---
Author Organization [facility] Address [address] [place] [address] Care Team Providers Care Private Equity Analyst Name Role Phone Adrienne Medina MD Primary Care Provider [phone] Stanley Mullins MD Unavailable [phone] Reason for Visit * Reason Onset Date Comments Med Refill 01/15/2025 Encounter Details Date Type Department Care Team (Late st Contact Info) Description 01/15/2025 [facility]ill [facility] [address] [facility] [place] [address] Adrienne Medina MD [address] [facility] [address] [place] [address] Social History Tobacco Use Types [...] any time in the past 12 m [facility], were you homeless or living in a senior care (including now)? No 10/03/2024 Utilities Answer Date Recorded In the past 12 months has th e [employer], gas, oil, or water company threatened to [...] encounter Miscellaneous Notes * Telephone Encounter - Adrienne Medina MD - 01/19/2025 12:47 PM EDT Refilled Citalopram documented in this encounter Plan of Treatment Upcoming Encounters Date Type Department Care Team (Late st Contact Info) Description 04/09/2025 3:15 PM EST Appointment [facility] Breast Care Center [facility] Breast Care Center [address] [address] 04/17/2025 8:40 AM EST Office Visit [facility] [address], [address] [place] [address] Adrienne Medina MD [address] [facility] [address] [place] [address] 03/15/2026 9:45 AM EDT Office Visit [facility] [address] [place] [address] Monty Fuentes MD [address] [facility] [address] [place] [address] documented as of this encounter [...] documented as of this encounter Care Teams Private Equity Analyst Relationship Specialty Start Date End Date Adrienne Medina MD [address] [place] [address] PCP - General Family Medicine 11/14/20 Stanley Mullins MD 800 [facility] Karina Torres [facility] [address] [place] [address] Surgeon Surgical Oncology 04/17/21 documented as of this encounter
--- OUTSIDE RECORDS SUMMARY | 2025-02-26 12:20 | XMS_ITS | Encounter Summary ---
Author Organization [facility] Address [address] [place] [address] Care Team Providers Care Spring Repairer Helper Hand Name Role Phone Adrienne Medina MD Primary Care Provider + [phone] Stanley Mullins MD Unavailable [phone] Encounter Details Date Type Department Care Team [...] place to sleep or slept in a half-way (including now)? No 03/29/2024 PHQ-9 Answer Date [...] any time in the past 12 m [facility], were you homeless or living in a half-way (including now)? No 10/03/2024 Utilities Answer Date [...] Breast Care Center Comprehensive Breast Care Center [facility] Sukhi Torres [facility] [address] [place] [address] 04/17/2025 8:40 AM EST Office Visit [facility] [address] [place] [address] Adrienne Medina MD [address] [facility] [address] [place] [address] 03/15/2026 9:45 AM EDT Office Visit [facility] Eye Care [address] [facility] [place] [address] Monty Fuentes MD [address] [facility] [address] [place] [address] documented as of this encounter [...] documented as of this encounter Care Teams Spring Repairer Helper Hand Relationship Specialty Start Date End Date Adrienne Medina MD [address] [place] [address] PCP - General Family Medicine 11/14/20 Stanley Mullins MD [address] Karina Torres [facility] [address] [place] [address] Surgeon Surgical Oncology 04/17/21 documented as of this encounter
--- OUTSIDE RECORDS SUMMARY | 2025-02-26 12:20 | XMS_ITS | Encounter Summary ---
Author Organization [facility] Address [address] [place] [address] Care Team Providers Care Teletype Operator Name Role Phone Adrienne Medina MD Primary Care Provider [phone] Stanley Mullins MD Unavailable [phone] Ruby Miller LPN Unavailable Unavailabl e Reason for Visit * Reason Comments Med Refill Encounter Details Date Type Department Care Team (Late st Contact Info) Description 12/28/2020 Refill [facility] Medicine [address] [place] [address], [address] [place] [address] Vivian Moran MD [address] [place] [address] Social History Tobacco Use Types Packs/Day [...] slept in a snf (including now)? No 12/24/2020 Comments Unknown Sex [...] Info) Description 04/09/2025 3:15 PM EST Appointment [facility] Breast Care Center Comprehensive [facility] Center [address] [place] [address] 04/17/2025 8:40 AM EST Office Visit On [facility] of [facility] [address] [place] [address] Adrienne Medina MD [address] [facility] [address] [place] [address] 03/15/2026 9:45 AM EDT Office Visit [facility] Eye Care [address] [facility] [place] [address] Monty Fuentes MD [address] [facility] [address] [place] [address] documented as of this encounter Visit Diagnoses Not on filedocumented in this encounter Additional Health Concerns Assessment Noted Time A fall risk assessment has been complete d for the patient 12/24/2020 7:46 AM EDT documented as of this encounter Care Teams Teletype Operator Relationship Specialty Start Date End Date Adrienne Medina MD [address] [place] [address] PCP - General Family Medicine 11/14/20 Stanley Mullins MD 800 [facility] [address] [place] [address] Surgeon Surgical Oncology 04/17/21 Ruby Miller LPN VALUE-BASED TRANSFORMATION PROGRAM Licensed Practical Nurse 10/03/24 10/05/24 documented as of this encounter
--- OUTSIDE RECORDS SUMMARY | 2025-02-26 12:20 | XMS_ITS | Encounter Summary ---
Author Organization [facility] Address [address] [place] [address] Care Team Providers Care Structural Steel Trades Worker Name Role Phone Adrienne Medina MD Primary Care Provider [phone] Stanley Mullins MD Unavailable [phone] Encounter Details Date Type Department Care Team (Late st Contact Info) Description 01/14/2025 Results Follow-Up [facility] [address], [address] [place] [address] Adrienne Medina MD [address] [facility] [address] [place] [address] Social History Tobacco Use Types [...] place to sleep or slept in a [place] health [place] facility (including now)? No 03/29/2024 PHQ-9 Answer Date [...] any time in the past 12 m [facility], were you homeless or living in a [place] health care facility (including now)? No 10/03/2024 Utilities Answer Date [...] Info) Description 04/09/2025 3:15 PM EST Appointment [facility] Breast Care Center [facility] Breast Care Center [place] [address] Karina Torres [facility] [address] [place] [address] 04/17/2025 8:40 AM EST Office Visit [facility] [address] [facility] [address] [place] [address] Adrienne Medina MD [address] [facility] [address] [place] [address] 03/15/2026 9:45 AM EDT Office Visit [facility] [address] [place] [address] Monty Fuentes MD [address] [address] documented as of this encounter Visit [...] documented as of this encounter Care Teams Structural Steel Trades Worker Relationship Specialty Start Date End Date Adrienne Medina MD [address] [facility] [address] [place] [address] PCP - General Family Medicine 11/14/20 Stanley Mullins MD [address] [facility] [address] [place] [address] Surgeon Surgical Oncology 04/17/21 documented as of this encounter
--- OUTSIDE RECORDS SUMMARY | 2025-02-26 12:20 | XMS_ITS | Encounter Summary ---
Author Organization [facility] Address [address] [place] [address] Care Team Providers Care Manager Internet Name Role Phone Adrienne Medina MD Primary Care Provider [phone] Stanley Mullins MD Unavailable [phone] Encounter Details Date Type Department Care Team (Late st Contact Info) Description 01/19/2025 [facility] [address] [facility], [address] [place] [address] Adrienne Medina MD [address] [facility] [address] [place] [address] Social History Tobacco Use Types [...] time in the past 12 m [facility], were you homeless or living in a [...] Info) Description 04/09/2025 3:15 PM EST Appointment [facility] Breast Care Center [facility] Breast Care Center [place] [address] [address]ina Torres [facility] [address] [place] [address] 04/17/2025 8:40 AM EST Office Visit [facility] [address] , [facility] [address] [place] [address] Adrienne Medina MD 2195 [facility] 125 [place] [address] 03/15/2026 9:45 AM EDT Office Visit [facility] [address] [place] [address] Monty Fuentes MD [address] [address] documented as of this encounter [...] documented as of this encounter Care Teams Manager Internet Relationship Specialty Start Date End Date Adrienne Medina MD 2[address] [facility] 125 [place] [address] PCP - General Family Medicine 11/14/20 Stanley Mullins MD [address] Karina Torres [facility] [address] [place] [address] Surgeon Surgical Oncology 04/17/21 documented as of this encounter
--- OUTSIDE RECORDS SUMMARY | 2025-02-26 12:20 | XMS_ITS ---
Author Organization [facility] Address [address] [place] [address] Care Team Providers Care Manager Medicare Name Role Phone Adrienne Medina MD Primary Care Provider [phone] Stanley Mullins MD Unavailable [phone] Active Problems Problem Noted Date Diagnosed Date [...] reevaluation Hypothyroidism 01/11/2013 Obstructive sleep apnea 01/11/2013 Current Treatment and Therapy Plans No [...]
--- OUTSIDE RECORDS SUMMARY | 2025-02-26 12:20 | XMS_ITS | Encounter Summary ---
Author Organization [facility] Address [address] [place] [address] Care Team Providers Care Clothing Cutter Name Role Phone Adrienne Medina MD Primary Care Provider + [phone] Stanley Mullins MD Unavailable [phone] Ruby Miller MOTION PICTURE NARRATOR Unavailable Unavailabl e Encounter Details Date Type Department Care Team (Late st Contact Info) Description 03/05/2023 [facility] [address] [place] [address] Magali Webber, MATTE CUTTER [address] [place] [address] Obstructive sleep apnea (Primary Dx) [...] in a nursing home (including now)? No 12/24/2020 PHQ-9 Answer Date [...] Description 04/09/2025 3:[address] [facility] Breast Care Center [facility] Breast Care Center [address] [address] 04/17/2025 8:40 AM EST Office Visit [facility] [address] [place] [address] Adrienne Medina MD 2[address] [facility] [address] [place] [address] 03/15/2026 9:45 AM EDT Office Visit [facility] [address] [place] [address] Monty Fuentes MD 110 [facility] [address] [place] [address] documented as of this encounter [...] documented as of this encounter Care Teams Clothing Cutter Relationship Specialty Start Date End Date Adrienne Medina MD 2[address] [facility] [address] [place] [address] PCP - General Family Medicine 11/14/20 Stanley Mullins MD 800 [facility] [address] [place] [address] Surgeon Surgical Oncology 04/17/21 Ruby Miller LPN VALUE-BASED TRANSFORMATION PROGRAM Licensed Practical Nurse 10/03/24 10/05/24 documented as of this encounter
--- OUTSIDE RECORDS SUMMARY | 2025-02-26 12:20 | XMS_ITS | Encounter Summary ---
Author Organization [facility] Address [address] [place] [address] Care Team Providers Care Data Center Solutions Architect Name Role Phone Adrienne Medina MD Primary Care Provider [phone] Stanley Mullins MD Unavailable [phone] Reason for Visit * Reason Comments Med Refill Encounter Details Date Type Department Care Team (Late st Contact Info) Description 02/23/2025 Refill [facility] Medicine [address] [facility], [address] [place] [address] Adrienne Medina MD [address] [facility] [address] [place] [address] Social History Tobacco Use Types [...] 04/09/2025 3:15 PM EST Appointment [facility] Breast Care Center [facility] Breast Care Center [address] [address] 04/17/2025 8:40 AM EST Office Visit [facility] [address], [address] [place] [address] Adrienne Medina MD [address] [facility] [address] [place] [address] 03/15/2026 9:45 AM EDT Office Visit [facility] [address] [place] [address] Monty Fuentes MD 110 [facility] [address] [place] [address] documented as of this encounter [...] documented as of this encounter Care Teams Data Center Solutions Architect Relationship Specialty Start Date End Date Adrienne Medina MD [address] [facility] [address] [place] [address] PCP - General Family Medicine 11/14/20 Stanley Mullins MD 800 [facility] [address] [address] Surgeon Surgical Oncology 04/17/21 documented as of this encounter
== END 2025-02-26 23:59 | disposition home or self-care (01) ==
LOC: RAD 12:18
PROVIDERS: PCP Family Medicine; Visit Provider Physician Assistant Surgical
DX: M25.552 Pain in left hip (principal); M25.551 Pain in right hip
CPT/HCPCS: 73502

== ENCOUNTER 2025-03-05 11:11 | Outpatient (CLI) | payer MEDICARE, SELFPAY ==
--- OUTSIDE RECORDS SUMMARY | 2025-01-11 14:30 | XMS_ITS | Encounter Summary ---
Author Organization [facility] Address [address] [place] [address] Care Team Providers Care Entry Rep Name Role Phone Adrienne Medina MD Primary Care Provider [phone] Stanley Mullins MD Unavailable [phone] Reason for Referral * Consultation (Routine) - Authorized Specialty Diagnoses / Procedures Referred By Aura t Referred To Contact Physical Therapy Diagnoses Arthritis of left sacroiliac joint (CMS/HCC) Eduardo Benito MD [address] [address] Phone: tel: fax: Referral ID Status Reason Start Date Expiration Date Visits Requested Visits Authorized [id number] Authorized Consult and Treat 01/11/2025 07/13/2026 1 1 * Consultation (Routine) - Authorized Specialty Diagnoses / Procedures Referred By Aura levine Referred To Contact Orthopaedic Surgery Diagnoses Arthritis of left sacroiliac joint ([facility]/HCC) Eduardo Benito MD [address] [address] Phone: tel: fax: Referral ID Status Reason Start Date Expiration Date Visits Requested Visits Authorized [id number] Authorized Specialty Services Required 01/11/2025 07/13/2026 1 1 Scheduling Instructions Please fax to [facility] attn. Ed Stinson DO Reason for Visit * Reason Comments Hip Pain Encounter Details Date Type Department Care Team (Late st Contact Info) Description 01/11/2025 2:30 PM EDT Office Visit [address], [address] [place] [address] Brady Zepeda, DO [address] [place] [address] Arthritis of left sacroiliac joint [...] slept in a fdc (including now)? No 03/29/2024 PHQ-9 Answer Date [...] any time in the past 12 m [facility], were you homeless or living in a fdc (including now)? No 10/03/2024 Utilities Answer Date [...] in referral to ortho, Ed Stinson, in [place] as he performed the surgery on her [...] Dental Prophylaxis 06/24/1995 Dental X-Ray: Bitewings 12/23/1995 [id number] Vaccine (7 - Pfizer risk season) 2024 [...] will refer patient to Dr. Stinson in [place] for further evaluation and management of pain. [...] improve. Venkat Zepeda DO Family Medicine, PGY-1 [facility] [1] Past Medical History: Diagnosis Date Anemia [...] mouth 1 (one) time each day. 30 [id number] B Complex-C (b complex-vitamin c) tablet Take [...] Breast Care [facility] [address] [address] 04/17/2025 8:40 AM EST Office Visit [facility] [address] [place] [address] Adrienne Medina MD [address] [place] [address] 03/15/2026 9:45 AM EDT Office Visit [facility] [address] [place] [address] Monty Fuentes MD [address] [place] [address] Scheduled Referrals Name Type Priority [...] documented as of this encounter Care Teams Entry Rep Relationship Specialty Start Date End Date Adrienne Medina MD [address] [facility] [address] [place] [phone] PCP - General Family Medicine 11/14/20 Stanley Mullins MD [address] [facility] [address] [place] [address] Surgeon Surgical Oncology 04/17/21 documented as of this encounter
--- OUTSIDE RECORDS SUMMARY | 2025-01-11 15:58 | XMS_ITS | Encounter Summary ---
Author Organization [facility] Address [address] [place] [address] Care Team Providers Care Class C Driver Name Role Phone Adrienne Medina MD Primary Care Provider [phone] Stanley Mullins MD Unavailable [phone] Encounter Details Date Type Department Care Team (Latest Contact Info) Description 01/11/2025 3:58 PM EDT - 01/11/2025 11:59 PM EDT Hospital Encounter [facility] [address] [facility], [address] [place] [address] Arthritis of left sacroiliac joint [...] any time in the past 12 m [facility], were you homeless or living in [...] times a day. 60 tablet 3 04/05/2024 B Complex-C (b complex-vitamin c) tablet Take [...] by mouth 1 (one) time each day. atorvastatin (Lipitor) 40 MG tablet Take 1 tablet (40 mg) by mouth 1 (one) time each day. 30 tablet 11 04/10/2024 documented as of this encounter Plan of Treatment Upcoming Encounters Date Type Department Care Team (Late st Contact Info) Description 04/09/2025 3:15 PM EST Appointment [facility] [address] [phone] 04/17/2025 8:40 AM EST Office Visit [facility] [address] [place] [address] Adrienne Medina MD [address] [facility] [address] [place] [address] 03/15/2026 9:45 AM EDT Office Visit [facility] [address] [place] [address] Monty Fuentes MD 110 [facility] [address] [place] [address] documented as of this encounter [...] documented as of this encounter Care Teams Class C Driver Relationship Specialty Start Date End Date Adrienne Medina MD [address] [place] [address] PCP - General Family Medicine 11/14/20 Stanley Mullins MD 800 [facility] [address] [place] [address] Surgeon Surgical Oncology 04/17/21 documented as of this encounter
--- OUTSIDE RECORDS SUMMARY | 2025-01-12 11:00 | XMS_ITS | Encounter Summary ---
Author Organization [facility] Address [address] [place] [address] Care Team Providers Care Production Quality Analyst Name Role Phone Adrienne Medina MD Primary Care Provider [phone] Stanley Mullins MD Unavailable [phone] Encounter Details Date Type Department Care Team (Latest Contact Info) Description 01/12/2025 11:00 AM EDT - 01/12/2025 11:59 PM EDT Hospital Encounter [place] [facility] [address] [place] [address] Post-menopausal Discharge Disposition: Home or Self Care [...] place to sleep or slept in a chcf (including now)? No 03/29/2024 PHQ-9 Answer Date [...] any time in the past 12 m [facility], were you homeless or living in a chcf (including now)? No 10/03/2024 Utilities Answer Date [...] PM EST Appointment [facility] Breast Care Center [place] [address] Karina Torres [facility] [address] [place] [address] 04/17/2025 8:40 AM EST Office [facility] [address], [address] [place] [address] Adrienne Medina MD [address] [facility] [address] [place] [address] 03/15/2026 9:45 AM EDT Office Visit [facility] Eye Care [address] [place] [address] Monty Fuentes MD [address] [facility] [address] [place] [address] documented as of this encounter [...] forearm, right forearm was performed using a [employer] Horizon A Dual-energy X-ray Absorptiometry (DXA) scanner [...] left forearm, right forearm wasperformed using a 10X[employer] Room Horizon A Dual-energy X-ray Absorptiometry (DXA)scanner (software [...] documented as of this encounter Care Teams Production Quality Analyst Relationship Specialty Start Date End Date Adrienne Medina MD [address] [place] [address] PCP - General Family Medicine 11/14/20 Stanley Mullins MD [address] [facility] [address] [place] [address] Surgeon Surgical Oncology 04/17/21 documented as of this encounter
--- OUTSIDE RECORDS SUMMARY | 2025-03-05 11:13 | XMS_ITS ---
Author Organization [facility] Address [address] [place] [address] Care Team Providers Care Hematology Nurse Name Role Phone Adrienne Medina MD Primary Care Provider [phone] Stanley Mullins MD Unavailable [phone] Active Problems Problem Noted Date Diagnosed Date [...] 01/07/2023 No medications scheduled. Therapy Complete Michelle Dvais MD (HEM/ONC) DENOSUMAB (PROLIA) 04/17/2021 10/22/2021 No medications scheduled. 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
--- OUTSIDE RECORDS SUMMARY | 2025-03-05 11:13 | XMS_ITS | Encounter Summary ---
Author Organization [facility] Address [address] [place] [address] Care Team Providers Care Social Organization Professor Name Role Phone Adrienne Medina MD Primary Care Provider [phone] Stanley Mullins MD Unavailable [phone] Ruby Miller MECHANICAL MAINTENANCE FOREMAN Unavailable Unavailabl e Encounter Details Date Type Department Care Team (Late st Contact Info) Description 03/05/2023 [facility] [address] [place] [address] Magali Webber, TECHNICAL PHOTOGRAPHER [address] [place] [address] Obstructive sleep apnea (Primary Dx) [...] slept in a fci (including now)? No 12/24/2020 PHQ-9 Answer Date [...] Info) Description 04/09/2025 3:15 PM EST Appointment [facility] Breast [facility] Breast Care Center [address] [address] 04/17/2025 8:40 AM EST Office Visit [facility] [address], [address] [place] [address] Adrienne Medina MD [address] [facility] [address] [place] [address] 03/15/2026 9:45 AM EDT Office Visit [facility] [address] [place] [address] Monty Fuentes MD [address] [facility] [address] [place] [address] documented as of this encounter [...] documented as of this encounter Care Teams Social Organization Professor Relationship Specialty Start Date End Date Adrienne Medina MD [address] [facility] [address] [place] [address] PCP - General Family Medicine 11/14/20 Stanley Mullins MD 800 [facility] Kar[facility] [address] [place] [address] Surgeon Surgical Oncology 04/17/21 Ruby Miller LPN VALUE-BASED TRANSFORMATION PROGRAM Licensed Practical Nurse 10/03/24 10/05/24 documented as of this encounter
--- OUTSIDE RECORDS SUMMARY | 2025-03-05 11:14 | XMS_ITS | Encounter Summary ---
Author Organization [facility] Address [address] [place] [address] Care Team Providers Care Workers Compensation Claims Adjuster Name Role Phone Adrienne Medina MD Primary Care Provider + [phone] Stanley Mullins MD Unavailable [phone] Encounter Details Date Type Department Care Team [...] any time in the past 12 m [facility], were you homeless or living in a [...] Care Center Comprehensive Breast [facility] Sukhi Torres [facility] [address] [place] [address] 04/17/2025 8:40 AM EST Office Visit [facility] [address] [place] [address] Adrienne Medina MD [address] [facility] [address] [place] [address] 03/15/2026 9:45 AM EDT Office Visit [facility] [address] [facility] [place] [address] Monty Fuentes MD [address] [facility] [address] [place] [address] documented as of this encounter [...] documented as of this encounter Care Teams Workers Compensation Claims Adjuster Relationship Specialty Start Date End Date Adrienne Medina MD [address] [place] [address] PCP - General Family Medicine 11/14/20 Stanley Mullins MD [address] Karina Torres [facility] [address] [place] [address] Surgeon Surgical Oncology 04/17/21 documented as of this encounter
--- OUTSIDE RECORDS SUMMARY | 2025-03-05 11:14 | XMS_ITS | Encounter Summary ---
Author Organization [facility] Address [address] [place] [address] Care Team Providers Care Spike Driver Name Role Phone Adrienne Medina MD Primary Care Provider [phone] Stanley Mullins MD Unavailable [phone] Encounter Details Date Type Department Care Team (Late st Contact Info) Description 01/08/2025 Telephone [facility] Medicine [address] [facility], [address] [place] [address] Adrienne Medina MD [address] [place] [address] Social History Tobacco Use Types [...] placed on oxygen by her neurologist in [place]. I advised her to contact the HH and let them know who ordered since our note does not discussthe need for oxygen. She agreed and will reach back out if anything is needed from our clinic. * Telephone Encounter - Lacie Hugo - 01/08/2025 9:19 AM EDT Clinical Concern/Question Reason for Call: Alycia Magallon [facility] last office note faxed to them at [phone]. They are the patient's oxygen provider. Best contact number: Other: Alycia Magallon - [phone] Optimal time of day to reach caller: ANYTIME Additional comments/information from caller: None Note: Please do not reply to this message. Follow-up communication and further actions as a result of this message need to be communicated with the patient directly, if the patient is not active onMyChart. If the patient is active on MyChart, they will receive notification of the communication/outcome via [employer]. documented in this encounter Plan of Treatment Upcoming Encounters Date Type Department Care Team (Late st Contact Info) Description 04/09/2025 3:15 PM EST Appointment [facility] Breast Care Center [facility] [address] [address] 04/17/2025 8:40 AM EST Office Visit [facility] [address], [address] [place] [address] Adrienne Medina MD [address] [place] [address] 03/15/2026 9:45 AM EDT Office Visit [facility] [address] [place] [address] Monty Fuentes MD [address] [place] [address] documented as of this encounter [...] documented as of this encounter Care Teams Spike Driver Relationship Specialty Start Date End Date Adrienne Medina MD [address] [place] [address] PCP - General Family Medicine 11/14/20 Stanley Mullins MD [address] Karina Torres [facility] [address] [place] [address] Surgeon Surgical Oncology 04/17/21 documented as of this encounter
--- OUTSIDE RECORDS SUMMARY | 2025-03-05 11:14 | XMS_ITS | Encounter Summary ---
Author Organization [facility] Address [address] [place] [address] Care Team Providers Care Media Intern Name Role Phone Adrienne Medina MD Primary Care Provider [phone] Stanley Mullins MD Unavailable [phone] Encounter Details Date Type Department Care Team (Late st Contact Info) Description 01/14/2025 Results Follow-Up [facility] [address], [address] [place] [address] Adrienne Medina MD [address] [facility] [address] [place] [address] Social History Tobacco Use Types [...] any time in the past 12 m [facility], were you homeless or living in [...] Info) Description 04/09/2025 3:15 PM EST Appointment [facility] Breast Care Center [facility] Breast Care Center [place] [address] Kar[address] Torres [facility] [address] [place] [address] 04/17/2025 8:40 AM EST Office Visit [facility] [address] , [facility] 125 [place] [address] Adrienne Medina MD 2[address] [facility] 125 [place] [address] 03/15/2026 9:45 AM EDT Office Visit [facility] [address] [place] [address] Monty Fuentes MD [address] [address] documented as of this encounter [...] documented as of this encounter Care Teams Media Intern Relationship Specialty Start Date End Date Adrienne Medina MD 2[address] [facility] 125 [place] [address] PCP - General Family Medicine 11/14/20 Stanley Mullins MD [address] Karina Torres [facility] 134 [place] [address] Surgeon Surgical Oncology 04/17/21 documented as of this encounter
--- OUTSIDE RECORDS SUMMARY | 2025-03-05 11:14 | XMS_ITS | Encounter Summary ---
Author Organization [facility] Address [address] [place] [address] Care Team Providers Care Customs Collector Name Role Phone Adrienne Medina MD Primary Care Provider + [phone] Stanley Mullins MD Unavailable [phone] Encounter Details Date Type Department Care Team [...] any time in the past 12 m [facility], were you homeless or living in a [...] Breast Care Center Comprehensive Breast Care Center [facility] Sukhi Torres [facility] [address] [place] [address] 04/17/2025 8:40 AM EST Office Visit [facility] [address] [place] [address] Adrienne Medina MD [address] [facility] [address] [place] [address] 03/15/2026 9:45 AM EDT Office Visit [facility] [address] [facility] [place] [address] Monty Fuentes MD [address] [facility] [address] [place] [address] documented as of this encounter [...] documented as of this encounter Care Teams Customs Collector Relationship Specialty Start Date End Date Adrienne Medina MD [address] [place] [address] PCP - General Family Medicine 11/14/20 Stanley Mullins MD [address] Karina Torres [facility] [address] [place] [address] Surgeon Surgical Oncology 04/17/21 documented as of this encounter
--- OUTSIDE RECORDS SUMMARY | 2025-03-05 11:14 | XMS_ITS | Encounter Summary ---
Author Organization [facility] Address [address] [place] [address] Care Team Providers Care Paper Cone Machine Operator Name Role Phone Adrienne Medina MD Primary Care Provider [phone] Stanley Mullins MD Unavailable [phone] Encounter Details Date Type Department Care Team (Late st Contact Info) Description 01/19/2025 Results Follow-Up [facility] [address] [facility], [address] [place] [address] Armen Romero, DO [address] [place] [id number] Social History Tobacco Use Types Packs/Day Years [...] any time in the past 12 m [facility], were you homeless or living in a [...] Upcoming Encounters Date Type Department Care Team ([facility] st Contact Info) Description 04/09/2025 3:15 PM EST Appointment [facility] Breast Care Center [facility] Breast Care Center [place] [address] Karina Torres [facility] [address] [place] [address] 04/17/2025 8:40 AM EST Office Visit [facility] [address] [place] [address] Adrienne Medina MD [address] [facility] [address] [place] [address] 03/15/2026 9:45 AM EDT Office Visit [facility] [address] [facility] [place] [address] Monty Fuentes MD 110 [facility] [address] [place] [address] documented as of this encounter [...] documented as of this encounter Care Teams Paper Cone Machine Operator Relationship Specialty Start Date End Date Adrienne Medina MD [address] [place] [address] PCP - General Family Medicine 11/14/20 Stanley Mullins MD [address] [facility] Kar[address] [address] Surgeon Surgical Oncology 04/17/21 documented as of this encounter
--- OUTSIDE RECORDS SUMMARY | 2025-03-05 11:14 | XMS_ITS | Clinical Summary ---
Author Organization [facility] Address [address] [place] [address] Care Team Providers Care Scan Coordinator Name Role Phone Adrienne Medina MD Primary Care Provider [phone] Stanley Mullins MD Unavailable [phone] Allergies Active Allergy Reactions Criticality Noted Date Comments Sulfa Drugs Rash Medium 02/15/2018 Sulfa (Sulfonamide Antibiotics) - unspecified Medications acetaminophen (Tylenol) 500 MG tablet TAKE 1 TABLET EVERY 4 TO 6 HOURS NEEDED. 05/05/20 19 Active Calcium Carb-Cholecalci ferol (Calcium 600+D3) 600-800 MG-UNIT tablet 11/23/19 20 Active famotidine (Pepcid) 20 MG tablet Take 1 tablet (20 mg) by mouth 1 (one) time each day. as directed 04/22/20 20 Active polycarbophil (Fibercon) 625 MG tablet Take 2 tablets (1,250 mg) by mouth 2 (two) times a day. Active B Complex-C (b complex-vitamin c) tablet Take 1 tablet by mouth 1 (one) time each day. Active ibuprofen 600 MG tablet Take 1 tablet (600 mg) by mouth every 8 (eight) hours. 03/05/20 22 Active escitalopram (Lexapro) 5 MG tablet Take 1 tablet (5 mg) by mouth 1 (one) time each day. 04/26/20 23 Active Multiple Vitamin (MULTIVITAMIN ADULT PO) Take [...] (two) times a day. 60 tablet 3 04/05/20 24 Active pramipexole (Mirapex) 0.5 MG tabletIndicatio ns:Restless leg syndrome Take 1 tablet by mouth every evening. 90 tablet 3 10/11/19 25 Active ferrous sulfate 324 (65 Fe) MG EC tablet Take 1 tablet by mouth 2 times a day. 180 tablet 3 10/11/19 25 Active levothyroxine (Synthroid, Levoxyl) 25 MCG tabletIndicatio ns:Hypothyroidi sm, unspecified type Take 1 tablet by mouth daily. 90 tablet 3 10/11/19 25 Active losartan (Cozaar) 25 MG tablet Take 1 tablet by mouth once daily 90 tablet 1 11/23/19 25 Active citalopram (CeleXA) 20 MG tablet Take 1 tablet by mouth daily. 90 tablet 3 01/20/20 25 Active atorvastatin (Lipitor) 40 MG tablet Take 1 tablet by mouth once daily 90 tablet 02/28/20 25 Active atorvastatin (Lipitor) 40 MG tablet Take 1 tablet (40 mg) by mouth 1 (one) time each day. 30 tablet 11 04/10/20 24 025 Discontinued Active Problems Problem Noted Date Diagnosed Date [...] Type Department Care Team Description 02/23/2025 Refill Counts include 234 beds at the [facility] [address], [address] [place] [address] Adrienne Medina MD 01/19/2025 Refill Counts include 234 beds at the [facility] [address], [address] [place] [address] Adrienne Medina MD 01/19/2025 Results Follow-Up Counts include 234 beds at the [facility] [address], [address] [place] [address] Armen Romero DO 01/15/2025 Refill Counts include 234 beds at the [facility] [address], [address] [place] [address] Adrienne Medina MD 01/14/2025 Results Follow-Up Counts include 234 beds at the [facility] [address], [address] [place] [address] Adrienne Medina MD 01/12/2025 11:00 AM EDT - 01/12/2025 11:59 PM EDT Hospital Encounter [facility] Radiology [address] [place] [address] Post-menopausal Discharge Disposition: Home or Self Care 01/12/2025 Travel 01/11/2025 3:58 PM EDT - 01/11/2025 11:59 PM EDT Hospital Encounter [facility] X-Ray [address], [address] [place] [address] Arthritis of left sacroiliac joint (CMS/HCC) Discharge Disposition: Home or Self Care 01/11/2025 2:30 PM EDT Office Visit Counts include 234 beds at the [facility] [address], [address] [place] [address] Brady Zepeda DO Arthritis of left sacroiliac joint (CMS/HCC) (Primary Dx) 01/11/2025 Travel 01/08/2025 Telephone Counts include 234 beds at the [facility] [address], [address] [place] [address] Adrienne Medina MD 01/05/2025 Travel from Last [...] preservative free 04/11/2013 Influenza, trivalent, adjuvanted 04/04/2019 Joberator COVID-19 Vac cine (Purple Cap) 12+ 07/03/2020,06/12/2020 [...] any time in the past 12 m [facility], were you homeless or living in [...] 04/09/2025 3:15 PM EST Appointment [facility] Breast Care [facility] Center [address] [address] 04/17/2025 8:40 AM EST Office Visit Counts include 234 beds at the [facility] [address], [address] [place] [address] Adrienne Medina MD [address] [facility] [address] [place] [address] 03/15/2026 9:45 AM EDT Office Visit [facility] [address] [place] [address] Monty Fuentes MD 110 [facility] [address] [place] [address] Health Maintenance Due Date Last Done Comments Dental Oral Exam 1950 Dental X-Ray: Full Mouth 1950 [facility]-Hepatitis C Screening 1950 [facility]-Infant/Child/Adol SDOH Screenings 1950 CT Colonography 1995 Colonoscopy 1995 FIT-DNA 1995 FIT 1995 FOBT 1995 Sigmoidoscopy 1995 [facility]-Colorectal Cancer Screening 1995 Dental Prophylaxis 06/24/1995 12/21/1994, 0 08/04/1993, 09/19/1992 Dental X-Ray: Bitewings 12/23/1995 12/21/1994, 09/19 [id number] Vaccine (7 - Pfizer risk season) 2025 [...] 12/25/2018 [facility]-Hepatitis A Vaccines Aged Out 09/29/2018, 1105/2017 No longer eligible based on patient's age [...] forearm, right forearm was performed using a [employer] Horizon A Dual-energy X-ray Absorptiometry (DXA) scanner [...] left forearm, right forearm wasperformed using a [employer] Horizon A Dual-energy X-ray Absorptiometry (DXA)scanner (software [...] 01/12/2025 12:06 PM Final report signed by Cyntiha Flores MD on 01/12/2025 12:08 PM Adrienne Medina MD IM DXA PROCEDURES Final Res ult * XR [...] Kathleen MD on 01/11/2025 4:16 PM us Orlin Benito MD IMG XR PROCEDURES Final Res ult * Hemoglobin A1c (04/05/2024 9:33 AM EST) Hemoglobin A1c 5.3 <5.7 % 04/05/2024 2:38 PM EST [facility] Blood Venous blood specimen / Unknown Venipuncture / Unknown 04/05/2024 9:33 AM EST 04/05/2024 11:28 AM EST Narrative [facility] - 04/05/2024 2:38 PM EST HA1C Interpretive Data: Diagnosis of Diabetes: Diabetic > or = 6.5% Pre-diabetic 5.7 to 6.4% Non-diabetic < or = 5.6% Glycemic Targets for Type I and Type II Diabetics: Non- Adults <7.0% Adults <6.0% Children and Adolescents <7.5% Source: [place] [employer]. Standards of medical care in diabetes,2017. Diabetes Care.2017:40 (suppl 1):S1-S135. HbA1c assay performed by an ion-exchange chromatography method that is certified traceable to the DCCT. Adrienne Medina MD LAB BLOOD ORDERABLES Final R esult [facility] [address] [place] [address] from Last 3 Months or Most Recently Relevant to Health Maintenance Insurance [facility] MEDICARE Care Teams Scan Coordinator Relationship Specialty Start Date End Date Adrienne Medina MD [address] [place] [address] PCP - General Family Medicine 11/14/20 Stanley Mullins MD 800 [facility] [address] [place] [address] Surgeon Surgical Oncology 04/17/21
--- OUTSIDE RECORDS SUMMARY | 2025-03-05 11:14 | XMS_ITS | Encounter Summary ---
Author Organization [facility] Address [address] [place] [address] Care Team Providers Care Solar Thermal Installer Name Role Phone Adrienne Medina MD Primary Care Provider [phone] Stanley Mullins MD Unavailable [phone] Reason for Visit * Reason Comments Med Refill Encounter Details Date Type Department Care Team (Late st Contact Info) Description 02/23/2025 Refill [facility] Medicine [address], [address] [place] [address] Adrienne Medina MD [address] [place] [address] Social History Tobacco Use Types [...] encounter Miscellaneous Notes * Progress Notes - Ellen Turner - 02/27/2025 11:07 AM EDT 1 medication(s) has been approved per protocol. Please keep upcoming appointment for additional refills. Medications have been pended for refill atupcoming appointment. documented in this encounter Plan of Treatment Upcoming Encounters Date Type Department Care Team (Late st Contact Info) Description 04/09/2025 3:15 PM EST Appointment [facility] Breast Care Center [facility] Breast Care Center [address] [address] 04/17/2025 8:40 AM EST Office Visit [facility] [address], [address] [place] [address] Adrienne Medina MD [address] [place] [address] 03/15/2026 9:45 AM EDT Office Visit [facility] [address] [place] [address] Monty Fuentes MD 110 [facility] [address] [place] [address] documented as of this encounter [...] documented as of this encounter Care Teams Solar Thermal Installer Relationship Specialty Start Date End Date Adrienne Medina MD [address] [facility] 125 [place] [address] PCP - General Family Medicine 11/14/20 Stanley Mullins MD 800 [facility] [address] [place] [address] Surgeon Surgical Oncology 04/17/21 documented as of this encounter
--- OUTSIDE RECORDS SUMMARY | 2025-03-05 11:14 | XMS_ITS | Encounter Summary ---
Author Organization [facility] Address [address] [place] [address] Care Team Providers Care Board Mill Supervisor Name Role Phone Adrienne Medina MD Primary Care Provider [phone] Stanley Mullins MD Unavailable [phone] Reason for Visit * Reason Onset Date Comments Med Refill 01/15/2025 Encounter Details Date Type Department Care Team (Late st Contact Info) Description 01/15/2025 Refill [facility] Medicine [address] [facility], [address] [place] [address] Adrienne Medina MD [address] [facility] [address] [place] [address] Social History Tobacco Use Types [...] any time in the past 12 m [facility], were you homeless or living in a mcc (including now)? No 10/03/2024 Utilities Answer Date Recorded In the past 12 months has th e [employer], gas, oil, or water company threatened to [...] Info) Description 04/09/2025 3:15 PM EST Appointment [facility] Breast Care Center [facility] Breast Care Center [address] [address] 04/17/2025 8:40 AM EST Office Visit [facility] [address] [place] [address] Adrienne Medina MD [address] [facility] [address] [place] [address] 03/15/2026 9:45 AM EDT Office Visit [facility] [address] [place] [address] Monty Fuentes MD 110 [facility] [address] [place] [address] documented as of this encounter [...] documented as of this encounter Care Teams Board Mill Supervisor Relationship Specialty Start Date End Date Adrienne Medina MD [address] [place] [address] PCP - General Family Medicine 11/14/20 Stanley Mullins MD 800 [facility] Karina Torres [facility] [address] [place] [address] Surgeon Surgical Oncology 04/17/21 documented as of this encounter
--- OUTSIDE RECORDS SUMMARY | 2025-03-05 11:14 | XMS_ITS | Encounter Summary ---
Author Organization [facility] Address [address] [place] [address] Care Team Providers Care Web Ui Developer Name Role Phone Adrienne Medina MD Primary Care Provider [phone] Stanley Mullins MD Unavailable [phone] Encounter Details Date Type Department Care Team [...] any time in the past 12 m [facility], were you homeless or [...] Month) No 01/11/2025 2:19 PM EDT Fide Doardo LPN 6. Suicidal Behavior (Lifetime) No 2:19 PM EDT Fide Dorado LPN documented as of this encounter Plan of Treatment Upcoming Encounters Date Type Department Care Team (Late st Contact Info) Description 04/09/2025 3:15 PM EST Appointment [facility] Breast Care Center [facility] Breast Care Center [address] [address] 04/17/2025 8:40 AM EST Office Visit Counts include 234 beds at the [facility] [address] [place] [address] Adrienne Medina MD [address] [facility] [address] [place] [address] 03/15/2026 9:45 AM EDT Office Visit [facility] Care [address] [place] [address] Monty Fuentes MD 110 [facility] [address] [place] [address] documented as of this encounter [...] documented as of this encounter Care Teams Web Ui Developer Relationship Specialty Start Date End Date Adrienne Medina MD [address] [place] [address] PCP - General Family Medicine 11/14/20 Stanley Mullins MD 800 [facility] Karina Villarrealrickson [facility] [address] [place] [address] Surgeon Surgical Oncology 04/17/21 documented as of this encounter
--- OUTSIDE RECORDS SUMMARY | 2025-03-05 11:14 | XMS_ITS | Encounter Summary ---
Author Organization [facility] Address [address] [place] [address] Care Team Providers Care Group Home Manager Name Role Phone Adrienne Medina MD Primary Care Provider [phone] Stanley Mullins MD Unavailable [phone] Encounter Details Date Type Department Care Team (Late st Contact Info) Description 01/19/2025 [facility] [address], [address] [place] [address] Adrienne Medina MD [address] [facility] [address] [place] [address] Social History Tobacco Use Types [...] Info) Description 04/09/2025 3:15 PM EST Appointment [facility] Breast Care Center [facility] Breast Care Center [place] [address] Karina Torres [facility] [address] [place] [address] 04/17/2025 8:40 AM EST Office Visit [facility] [address] [facility] [address] [place] [address] Adrienne Medina MD 2[address] [facility] 125 [place] [address] 03/15/2026 9:45 AM EDT Office Visit [facility] [address] [place] [address] Monty Fuentes MD [address] [address] documented as of this encounter [...] documented as of this encounter Care Teams Group Home Manager Relationship Specialty Start Date End Date Adrienne Medina MD 2[address] [facility] 125 [place] [address] PCP - General Family Medicine 11/14/20 Stanley Mullins MD [address] Karina Torres [facility] [address] [place] [address] Surgeon Surgical Oncology 04/17/21 documented as of this encounter
--- OUTSIDE RECORDS SUMMARY | 2025-03-05 11:14 | XMS_ITS | Encounter Summary ---
Author Organization [facility] Address [address] [place] [address] Care Team Providers Care Global Commodity Manager Name Role Phone Adrienne Medina MD Primary Care Provider [phone] Stanley Mullins MD Unavailable [phone] Ruby Miller LPN Unavailable Unavailabl e Reason for Visit * Reason Comments Med Refill Encounter Details Date Type Department Care Team (Late st Contact Info) Description 12/28/2020 Refill [facility] Medicine [address] [place] [address], [address] [place] [address] Vivian Moran MD [address] [place] [address] Social History Tobacco Use Types Packs/Day [...] slept in a detention (including now)? No 12/24/2020 Comments Unknown Sex [...] Info) Description 04/09/2025 3:15 PM EST Appointment [facility] Breast Care Center [facility] [address] [place] [address] 04/17/2025 8:40 AM EST Office Visit [facility] [address] [place] [address] Adrienne Medina MD [address] [facility] [address] [place] [address] 03/15/2026 9:45 AM EDT [facility] [address] [facility] [place] [address] Monty Fuentes MD [address] [facility] [address] [place] [address] documented as of this encounter Visit Diagnoses Not on filedocumented in this encounter Additional Health Concerns Assessment Noted Time A fall risk assessment has been complete d for the patient 12/24/2020 7:46 AM EDT documented as of this encounter Care Teams Global Commodity Manager Relationship Specialty Start Date End Date Adrienne Medina MD [address] [place] [address] PCP - General Family Medicine 11/14/20 Stanley Mullins MD 800 [facility] [address] [place] [address] Surgeon Surgical Oncology 04/17/21 Ruby Miller LPN VALUE-BASED TRANSFORMATION PROGRAM Licensed Practical Nurse 10/03/24 10/05/24 documented as of this encounter
[2025-03-05 13:04] LABS: C-Reactive Protein 2.0 mg/L (0-4)
[2025-03-06 13:26] LABS: Antinuclear Antibodies (ANA) Negative (Negative)
== END 2025-03-05 23:59 | disposition home or self-care (01) ==
LOC: LAB 11:11
PROVIDERS: PCP Family Medicine; Visit Provider Internal Medicine Pulmonary Disease
DX: J84.9 Interstitial pulmonary disease, unspecified (principal)
CPT/HCPCS: 36415; 86140

== ENCOUNTER 2025-03-29 08:00 | Outpatient (RCR) | payer MEDICARE, SELFPAY ==
--- NOTE | 2025-03-13 13:55 | HMH.PTOPEV ---
PT Evaluation Rehab PT Outpatient Evaluation Start: 03/13/25 12:53 Freq: Status: Active Protocol: Document 03/13/25 12:53 AGA (Rec: 03/13/25 13:50 AGA [id number]) E-signed By Ada Recio, PT Outpatient Therapy Subjective History Subjective History This is an initial PT evaluation for 74 y/o female, Kendy Hou, who presents to PT with referral for bilateral hip pain. Pt reports she started having bilateral hip pain a few months ago that feels like a constant ache. Pt reports getting up/down steps, standing long periods, and walking makes her pain worse . Pt reports her left side is worse than her right. Pt does report LE weakness (L>R). Pt reports she was recently evaluated in PT for LBP as well (02/22). Pt points to her L posterior buttock and LB as location of pain. Pt reports she has had an x-ray on her lumbar spine. Pt reports degenerative changes on her LB. Pt denies any radicular symptoms down the leg. Pt denies any groin pain. Pt reports she has seen ortho about her pain and was referred to PT. PMH: hypertension Imaging: L hip X-ray: No acute abnormality identified. Pt's goal for PT is to regain strength in her legs and decrease pain. New diagnosis of No cancer in past 12 months? Chief Complaint Pain Symptom Type Ache,Dull Symptoms Relieved By Rest/Positioning,Heat Prior Functional None Limitations Current Functional Lifting,Standing,Sitting,Squatting,Recreation Activity, Limitations Walking,Stairs,Balance,Bending/Stooping Symptom Description Constant but Variable Level of pain today 2 (0-10) Pain scale - at its 2 best (0-10) Pain scale - at its 6 worst (0-10) Lumbopelvic Eval Palapation tenderness left paraspinal Yes: 2/4 TTP tenderness buttock tenderness Yes: 3/4 TTP Accessory Movement T-spine Vertebrae Central P/A [place] Accessory Movements that Elicit Symptoms L4 left L5 left S1 left Range of Motion Lumbar Spine Active 75%, pain in bottock Flexion Range of Motion (degrees) Lumbar Spine Active 100%, non-painful Extension Range of Motion (degrees) Left Lumbar Spine 100%, non-painful Lateral Flexion Active Range of Motion (degrees) Right Lumbar Spine 100%, non-painful Lateral Flexion Active Range of Motion (degrees) Lumbar Spine ROM Pain Limitations Special Tests Unilateral Straight Negative Left,Negative Right Leg Raise (Lasegue) Test Crossed Straight Leg Negative Left,Negative Right Raise Test Sacroiliac Joint Negative Left,Negative Right Compression Test Sacroiliac Joint Negative Left,Negative Right Distraction Test Hip/Knee Eval Gait Observation General Gait Pattern No Deviations/Normal Observation Assistive Device Assistive Devices None / NA Palpation Tenderness right Hip Palpation Tenderness Findings Hip Palpation 0/4 TTP Overall Comment left Hip Palpation Tenderness Findings Hip Palpation 1/4 TTP GT Overall Comment MMT right Hip Flexion Strength 4 Good Grade Hip Abduction 4 Good Strength Grade Hip Adduction 4 Good Strength Grade Hip Extension 4 Good Strength Grade Knee Extension 4 Good Strength Grade Knee Flexion 4 Good Strength Grade left Hip Flexion Strength 4- Good- Grade Hip Abduction 4 Good Strength Grade Hip Adduction 4 Good Strength Grade Hip Extension 4 Good Strength Grade Knee Extension 4- Good- Strength Grade Knee Flexion 4 Good Strength Grade ROM Hip Flexion w/Knee WNL, non-painful Flexed Active Range of Motion (degrees) Hip Abduction Active WNL, non-painful Range of Motion ( degrees) Hip External WNL, non-painful Rotation Active Range of Motion ( degrees) Hip Internal WNL, non-painful Rotation Active Range of Motion ( degrees) DTR bilateral Rt Patellar 2+ Lt Patellar 2+ Special Tests Hip Piriformis Test Negative Right,Positive Left Sciatic Nerve Negative Left,Negative Right Tension Test Hip Scouring ( Negative Left,Negative Right Quadrant) Test Lower Extremity Functional Index Activities Today, do you or would you have any difficulty at all with: a.Any of your usual No difficulty work, housework or school activities b. Your usual No difficulty hobbies, recreational or sporting activities c. Getting into or A little bit of difficulty out of the bath d. Walking between No difficulty rooms e. Putting on your No difficulty shoes or socks f. Squatting Extreme difficulty or unable to perform activity g. Lifting an object No difficulty , like a bag of groceries from the floor h. Performing light No difficulty activities around your home i. Performing heavy Moderate difficulty activities around your home j. Getting into or Moderate difficulty out of a car k. Walking 2 blocks Moderate difficulty l. Walking a mile Quite a bit of difficulty m. Going up or down Quite a bit of difficulty 10 stairs (about 1 flight of stairs) n. Standing for 1 Quite a bit of difficulty hour o. Sitting for 1 Moderate difficulty hour p. Running on even Extreme difficulty or unable to perform activity ground q. Running on uneven Extreme difficulty or unable to perform activity ground r. Making sharp Quite a bit of difficulty turns while running fast s. Hopping Quite a bit of difficulty t. Rolling over in Quite a bit of difficulty bed LEFI Score Lower Extremity 41 Functional Index Score Outpatient Therapy Assessment Impairments Problems/ Palpation Tenderness,Impaired Range of Motion,Impaired Impairmments Strength,Impaired Transfers,Impaired Walking,Impaired Standing,Impaired Stepping on Uneven Surface,Impaired Squatting,Impaired Bending,Impaired Recreational Activities,Subjective C/O Pain Prognosis Rehab Potential Good Comment Pt presents with reports of chronic hip pain (L>R) and chronic LBP. Pt did not have any pain with hip special tests performed but pt's chief complaint produced with L sacral thrust, L thigh thrust, and L piriformis palpation. Pt would benefit from skilled OP PT 2x weekly for 6-8 weeks to address deficits and decrease pain. PT provided ot with HEP (bridges, LTR, HS stretch, hip ABD, 4 way hip, piriformis stretch). Pt verbalized understanding. 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 2) Verbalize 48-hour pain average (worst/best/current) of 3/10 3) Will improve BLE strength by 1/5 MMT grade to improve daily functioning. 4) Tolerate one 10 min moderate intensity endurance task (ex: bike) 5) Improve LEFS to 50/80 to improve LE functioning. 6) Verbalize feeling at least 45% improved in symptoms since initial PT evaluation. 7) Decrease buttock/piriformis TTP to 1-2/4 TTP. PT Group Home Patient In 8 weeks, pt will: Goals 1) Verbalize adherence with home exercise program to maximize self-maintenance of symptoms upon d/c from PT POC. 2) Verbalize 48-hour pain average (worst/best/current) of 1-2/10 3) Improve BLE strength to 5/5 MMT grade to improve daily functioning. 4) Improve LEFS to 60/80 to improve LE wilian. 5) Verbalize feeling at least 90% improved in symptoms since initial PT evaluation. 6) Decrease buttock/piriformis TTP to 0/4 TTP. Outpatient Therapy Plan of Care Treatment Plan May Include Therapeutic Exercise Yes Including Home Exercise Program Manual Therapy Yes Techniques Therapeutic Yes Activities to Return to Previous Functional/Work Level Gait Training Yes ADL/Self Care Yes Education Dry Needling Yes Thermal Modalities Yes Electrical Yes Stimulation Ultrasound/ Yes Phonophoresis Iontophoresis Yes Orthotics/Bracing/ Yes Splinting Massage Yes Group Therapy for Yes Medicare Eval/Re-Eval Yes Frequency Times per week 2x Duration Number of Weeks 6-8 weeks Addendums This patient is a No candidate for social or vocational rehab ? Patient/Guardian Yes verbally acknowledges understanding of treatment program and consents to further treatment? Patient/Guardian Yes verbally acknowledges understanding of diagnosis, prognosis and goals for treatment? Eval Complexity PT Charges 27700 - Moderate Complexity Shoulder/Elbow Eval Shoulder Objective Measurements Elbow Objective Measurements PHYSICIAN CERTIFICATION: I certify the specified therapy services for Kendy Hou are required, authorized, and reviewed every 30 days.
== END 2025-03-29 23:59 | disposition home or self-care (01) ==
LOC: PT 08:00
PROVIDERS: PCP Family Medicine; Visit Provider Physician Assistant Surgical
DX: M25.552 Pain in left hip (principal); M25.551 Pain in right hip
CPT/HCPCS: 97110; 97162

== ENCOUNTER 2025-04-12 11:00 | Outpatient (RCR) | payer MEDICARE, SELFPAY ==
--- NOTE | 2025-04-12 15:58 | HMH.RHREAS ---
Rehab Reassessment Rehab OP Re-assessment Start: 04/03/25 10:57 Freq: Status: Active Protocol: Document 04/12/25 10:51 AGA (Rec: 04/12/25 11:11 AGA [id number]) E-signed By Ada Recio, PT Lower Extremity Functional Index Activities Today, do you or would you have any difficulty at all with: a.Any of your usual No difficulty work, housework or school activities b. Your usual A little bit of difficulty hobbies, recreational or sporting activities c. Getting into or A little bit of difficulty out of the bath d. Walking between No difficulty rooms e. Putting on your No difficulty shoes or socks f. Squatting A little bit of difficulty g. Lifting an object A little bit of difficulty , like a bag of groceries from the floor h. Performing light No difficulty activities around your home i. Performing heavy No difficulty activities around your home j. Getting into or No difficulty out of a car k. Walking 2 blocks A little bit of difficulty l. Walking a mile A little bit of difficulty m. Going up or down A little bit of difficulty 10 stairs (about 1 flight of stairs) n. Standing for 1 A little bit of difficulty hour o. Sitting for 1 A little bit of difficulty hour p. Running on even A little bit of difficulty ground q. Running on uneven A little bit of difficulty ground r. Making sharp A little bit of difficulty turns while running fast s. Hopping A little bit of difficulty t. Rolling over in A little bit of difficulty bed LEFI Score Lower Extremity 66 Functional Index Score Rehab Re-assessment Subjective Subjective Pt reports she feels 90% better since IE. 48 hour B hip pain average: 0/10 HEP: reports good compliance. Objective Objective Notes BLE MMTs: Hip FLEX = 5/5 Hip ABD = 5/5 Hip ADD = 5/5 Knee FLEX = 5/5 Knee EXT = 5/5 Assessment Progress Assessment Progressing as Expected Assessment Notes This is a reassessment for Kendy Hou who presents to PT for c/o B hip pain. Pt with good attendance to scheduled PT visits and reports adherence to HEP. Since IE, pt with improvements in BLE strength and subjective reports of pain. D/c pt d/t met goals. PT Patient Goals PT Short Term In 4 weeks, pt will: Patient Goals 1) Verbalize compliance with home exercise program to improve self-maintenance of symptoms: MET 2) Verbalize 48-hour pain average (worst/best/current) of 3/10: MET 3) Will improve BLE strength by 1/5 MMT grade to improve daily functioning: MET 4) Tolerate one 10 min moderate intensity endurance task (ex: bike): MET 5) Improve LEFS to 50/80 to improve LE functioning: MET 6) Verbalize feeling at least 45% improved in symptoms since initial PT evaluation: MET 7) Decrease buttock/piriformis TTP to 1-2/4 TTP: MET PT Care Home Patient In 8 weeks, pt will: Goals 1) Verbalize adherence with home exercise program to maximize self-maintenance of symptoms upon d/c from PT POC: MET 2) Verbalize 48-hour pain average (worst/best/current) of 1-10: MET 3) Improve BLE strength to 5/5 MMT grade to improve daily functioning: MET 4) Improve LEFS to 60/80 to improve LE functioning: MET 5) Verbalize feeling at least 90% improved in symptoms since initial PT evaluation: MET 6) Decrease buttock/piriformis TTP to 0/4 TTP: MET Time and Billing Re-Eval Time 10 Re-Eval Billing 0 Units Charge for PT No reassessment? PHYSICIAN CERTIFICATION: I certify the specified therapy services for Kendy Hou are required, authorized, and reviewed every 30 days.
--- NOTE | 2025-04-17 12:06 | PC.NURSE ---
02/14/2025 pt wanted to talk to Dr. Daniel first and has now started Pt.
== END 2025-04-12 23:59 | disposition home or self-care (01) ==
LOC: PT 11:00
PROVIDERS: PCP Family Medicine; Visit Provider Physician Assistant Surgical
DX: M25.552 Pain in left hip (principal); M25.551 Pain in right hip
CPT/HCPCS: 97110

== ENCOUNTER 2025-04-24 11:03 | Outpatient (CLI) | payer MEDICARE, SELFPAY ==
--- OUTSIDE RECORDS SUMMARY | 2025-04-09 14:24 | XMS_ITS | Encounter Summary ---
Author Organization [facility] Address [address] [place] [address] Care Team Providers Care Brake Press Operator Name Role Phone Adrienne Medina MD Primary Care Provider [phone] Stanley Mullins MD Unavailable [phone] Encounter Details Date Type Department Care Team (Latest Contact Info) Description 04/09/2025 2:24 PM EST - 04/09/2025 11:59 PM [facility] Hospital Encounter [facility] [address] [id number] Encounter for screening mammogram for malignant neoplasm of breast Discharge Disposition: Home or Self Care Social [...] Recorded Patient Health Questionnaire-2 Score 0 10/10/2024 PHQ-9 Answer Date Recorded Patient Health Questionnaire-9 Score 3 10/10/2024 Humiliation, Afraid, Rape, and Kick questionnair e Answer Date Recorded Within the last year, have y ou been afraid of your partner or ex-partner? No 04/17/2025 Within the last year, have y ou been humiliated or emotionally abused in other ways by your partner or ex-partner? No Within the last year, have y ou been kicked, hit, slapped, or otherwise physically hurt by your partner or ex-partner? No 04/17/2025 Within the last year, have y ou been raped or forced to have any kind of sexual activity by your partner or ex-partner? No 04/17/2025 Hunger Vital Sign Answer Date Recorded Within the past 12 months, y ou worried that your food would run out before you got the money to buy more. Never true 04/17/20 25 Within the past 12 months, t he food you bought just didn't last and you didn't have money to get more. Never true 04/17/2025 PRAPARE - Transportation Answer Date Re corded In the past 12 months, has l ack of transportation kept you from medical appointments or from getting medications? No 03/31 In the past 12 months, has l ack of transportation kept you from meetings, work, or from getting things needed for daily living? No 04/17/2025 Housing Stability Vital Sign Answer Tarun e Recorded In the last 12 months, was t here a time when you were not able to pay the mortgage or rent on time? No 04/17/2025 In the past 12 months, how m any times have you moved where you were living? 0 04/17/2025 At any time in the past 12 m [facility], were you homeless or living in a [place] facility (including now)? No 04/17/2025 [facility] Utilities Answer Date Recorded In the past 12 months has th e electric, gas, oil, or water company threatened to shut off services in your home? No 04/17/2025 PHQ-2A Answer Date Recorded Patient Health Questionnaire-2 Score 6 12/29/2022 Comments No Sex and Gender Information Value Date Recorded Sex Assigned at Not on file Legal Sex Female 8:49 PM EDT Gender Identity Not on file Sexual Orientation Not on file documented as of this encounter Last Filed Vital Signs Vital Sign Reading Time Taken Comments Blood Pressure - - Pulse - - Temperature - - Respiratory Rate - - Oxygen Saturation - - Inhaled Oxygen Concentration - - Weight 89.8 kg (198 lb) 04/09/2025 2:35 PM EST Height 165.1 cm (5' 5 ) 04/09/2025 2:35 PM EST Body Mass Index 32.95 04/09/2025 2:35 PM EST documented in this encounter Medications at Time of Discharge [...] rol (Calcium 600+D3) 600-800 MG-UNIT tablet 11/23/2019 citalopram (CeleXA) 20 MG tablet Take 1 tablet by mouth daily. 90 tablet 3 01/19/2025 escitalopram (Lexapro) 5 MG tablet Take 1 [...] by mouth daily. 90 tablet 3 10/10/2024 metoprolol succinate XL (Toprol-XL) 25 MG 24 [...] Care Team (Late st Contact Info) Description 10/18/2025 10:00 AM EDT Office Visit [facility] [address] [facility], [address] [place] [address] Adirenne Medina MD [address] [place] [address] 03/15/2026 9:45 AM EDT Office Visit [facility] [address] [place] [address] Monty Fuentes MD [address] [facility] [address] [place] [address] documented as of this encounter Procedures Procedure Name Priority Date/Time Associated Diagnosis Comments MAMMOGRAPHY BREAST SCREENING TOMOSYNTHESIS BILATERAL Routine 04/09/2025 2:53 PM EST Encounter for screening mammogram for malignant neoplasm of breast documented in this encounter Results * Mammography Breast Screening Tomosynthesis Bilateral (04/09/2025 2:53 PM EST) Anatomical Region Laterality Modality Breast Bilateral Mammography Impressions 04/10/2025 8:23 AM EST No mammographic evidence of malignancy. BI-RADS CATEGORY: Overall: 2 - Benign RECOMMENDATION: - Routine Screening Mammogram in 1 Year. Patient Lifetime Risk Score of Breast Malignancy: A risk score has not been calculated for this patient. This risk assessment is calculated using the Sri Risk Assessment model which may underestimate the lifetime risk of breast malignancy. COMMUNICATION: Computer-aided detection (CAD) and tomosynthesis were utilized by the radiologist in the interpretation of this examination. The results and recommendations will be sent to the patient in a printed lay language version of the imaging report. Narrative 04/10/2025 8:23 AM EST EXAM: Mammography Breast Screening with Tomosynthesis REASON FOR EXAM: Screening Mammogram HISTORY: Patient is 74 y.o. Hormone history includes other (arimidex 5 years) and control (5 years). Surgical and procedural history include left lumpectomy, 02/2017; left breast surgery, 02/2017; and left breast lumpectomy, 02/2017. Medical history includes breast cancer and atypical ductal hyperplasia. COMPARISON STUDIES: Compared to: 10/22/2021 Mammography Breast Diagnostic Tomosynthesis Bilateral at [facility] 01/07/2023 Mammography Breast Diagnostic Tomosynthesis Right at [facility] 01/07/2023 Mammography Breast Screening Tomosynthesis Bilateral at [facility] 01/12/2024 Mammography Breast Screening Tomosynthesis Bilateral at [facility] BREAST COMPOSITION: The breasts are almost entirely fatty. FINDINGS: There are post-lumpectomy changes present in the left breast. There is no evidence of suspicious masses, calcifications, or other abnormal findings. Adrienne Medina MD IMG BI PROCEDURES Final Resu lt documented in this encounter Visit Diagnoses Diagnosis Encounter for screening mammogram for malignant neoplasm of breast documented in this encounter Additional Health Concerns Assessment Noted Time PHQ-9 Depression Total Score: 3 10/11/19 25 2:32 PM EDT A fall risk assessment has been complete d for the patient 01/11/2025 2:18 PM EDT A Body Mass Index follow-up plan has been documented for the patient 01/18/2025 2:26 PM EDT documented as of this encounter Care Teams Brake Press Operator Relationship Specialty Start Date End Date Adrienne Medina MD [address] [facility] [address] [place] [id number] PCP - General Family Medicine 11/14/20 Stanley Mullins MD [address] [facility] [address] [place] [address] Surgeon Surgical Oncology 04/17/21 documented as of this encounter
--- OUTSIDE RECORDS SUMMARY | 2025-04-10 09:20 | XMS_ITS | Encounter Summary ---
Author Organization Healthcare Address [address] [place] [address] Care Team Providers Care Ob/Gyn Nurse Name Role Phone Adrienne Medina MD Primary Care Provider [phone] Stanley Mullins MD Unavailable [phone] Reason for Visit * Reason Comments New Pain * Consultation (Routine) - Closed Specialty Diagnoses / Procedures Referred By Contac t Referred To Contact Neurosurgery Diagnoses DDD (degenerative disc disease), lumbar Terry, Frances [address] [place] [address] Phone: tel: fax: [facility] [address] [place] [address] Phone: tel: fax: Referral ID Status Reason Start Date Expiration Date V isits Requested Visits Authorized [id number] Closed Specialty Services Required 03/13/2025 09/12/2026 1 1 Encounter Details Date Type Department Care Team ([facility] st Contact Info) Description 04/10/2025 9:20 AM EST Office Visit Medical Office Building [facility] [address], [address] [place] [address] Deepali Herman, PA [address] [place] [address] Lumbar spondylosis (Primary Dx) Social History Tobacco Use Types Packs/Day Years Used Date Smoking Tobacco: Former Cigarettes 1 8 0 05/31/1971 - 05/31/1979 Passive Smoke Exposure: Never Smokeless Tobacco: Never Tobacco Cessation:Counseling Given: No Alcohol Use Standard Drinks/Week Comments Never 0 [...] place to sleep or slept in a alf (including now)? No 03/29/2024 PHQ-9 Answer Date [...] any time in the past 12 [facility], were you homeless or living in a alf (including now)? No 10/03/2024 Utilities Answer Date [...] Sign Reading Time Taken Comments Blood Pressure 155/86 04/10/2025 8:54 AM EST Pulse 65 04/10/2025 8:54 AM EST Temperature - - Respiratory Rate 18 04/10/2025 8:54 AM EST Oxygen Saturation 97% 04/10/2025 8:54 AM EST Inhaled Oxygen Concentration - - Weight 88 kg (194 lb 0.1 oz) 04/10/2025 8:54 AM EST Height 160 cm (5' 3 ) 04/10/2025 8:54 AM EST Body Mass Index 34.37 04/10/2025 8:54 AM EST documented in this encounter Miscellaneous Notes * Progress Notes - Deepali Herman PA - 04/10/2025 9:20 AM EST Images from the original note were not included. [facility] Note Verbal consent was obtained to use ambient listening technology to assist in the documentation of the encounter: yes CHIEF COMPLAINT: Low back pain Subjective HISTORY OF PRESENT ILLNESS: History of Present Illness The patient is a 74-year-old female who presents today with complaints of back pain. She reports experiencing back pain, predominantly muscular in nature, which is more pronounced in the mornings. She recalls a severe episode of back pain approximately 30 years ago, which rendered her immobile for a week. However, she has not experienced any similar episodes since then. Her bone density scan revealed significant changes, prompting her to seek medical attention. She does not experience any radiating leg pain or numbness. She denies bowel or bladder difficulties. She has been engaging in physical therapy exercises, which have resulted in some improvement. It takes her about 30 minutes to regain normal mobility upon waking up in the morning. After driving, sherequires approximately 5 steps to stand up and walk normally. She also engages in a flexion program, which involves bringing her knees to her chest, rotating her hips side to side, and performing bridge exercises, all without exacerbating her pain. She manages her pain with Tylenol, which she findseffective. She does not typically apply ice or heat to her back. SOCIAL HISTORY Exercise: Exercises daily, including physical therapy exercises. Past Medical History[1] Surgical History[2] Current Medications[3] Sulfa drugs @Questionnaire series results@ SOCIAL HISTORY She reports that she quit smoking about 45 years ago. Her smoking use included cigarettes. She started smoking about 53 years ago. She has a 8 pack-year smoking history. She has never been exposed totobacco smoke. She has never used smokeless tobacco. She reports no history of alcohol use. She reports no history of drug use. REVIEW OF SYSTEMS: Review of Systems Objective EXAM: Body mass index is 34.37 kg/m??. Motor Strength Right Left L2: Hip flexion (Iliopsoas) 5/5 5/5 L3: Knee extension (Quad) 5/5 5/5 L4: Ankle DF (TA) 5/5 5/5 L5: Great Toe DF (EHL) 5/ 5/5 S1: Ankle Pf, Foot Eversion (Peroneal longus/brevis) 5/ 5/5 S2: Great toe flexion (FHL), Knee flexion 5/5 5/5 Sensation Right Left L2: Proximal anterior thigh Normal Normal L3: Mid anterior thigh Normal Normal L4: Medial leg/foot, great toe (Saphenous n.) Normal Normal L5: Dorsum of mid foot Normal Normal S1: Lateral leg/foot, little toe, Back of leg (Sural n.) Normal Normal Reflexes Right Left L4: Patellar 2/4 2/4 S1: Achilles 2/4 2/4 Straight leg raise is Negative Gait is normal Assessment/Plan Assessment and Plan: Data Reviewed: I personally reviewed two views of the lumbar spine from January 11, 2025. There is disc space narrowing at L2-3, L4-5 and L5-S1. That has mild disc space narrowing at L3-4. No bony abnormalities. No Malalignment. Mild facet arthropathy lower lumbar spine. Results Imaging - Bone density test report dated 01/12/2025 was also personally reviewed. Patient has low bone mass/osteopenia with T-scores of-1.1 and 1.2 in her hips as well as T-score 1.0 in her lumbar spine. - X-rays of the lower spine: 12/2024, A little bit of overgrowth of the joints in the lower part ofthe spine and degenerative disk at L2-3, L4-5, and L5-S1. Problem(s) & Plan: Lumbar spondylosis Assessment & Plan 1. Back pain: Bone density reveals osteopenia.. X-ray results reveal a slight overgrowth in the joints of the lower spine and degenerative changes at L2-3, L4-5, and L5-S1. Given normal strength, reflexes, and sensation, along with an excellent exercise regimen, no additional interventions are deemed necessary at this time. Recommended she focus on a flexion based core program and tried to avoid extension of her lumbar spine which could potentially exacerbate her low back pain. Maintain current level of activity and continue with daily exercises. Use Tylenol as needed. Application of ice or heat may provide relief. If there is an increase in the frequency or severity of back pain or she develops radiculopathy, further testing may be considered. We discussed that lumbar discs degenerate throughout one's lifetime, though, the pain is often worse in the middle of life. This corresponds to micro- instability in the disc and translates into overloading of the facet joint complex, causing pain. This is expected to stabilize as the degenerative process progresses. This results in stiffness and some height loss, but less pain, in general. Treatment should be aimed at symptom control with modalities such as episodic anti-inflammatories, muscle relaxers, physical therapy exercises, and stretching. Surgery is reserved for situations of nerve orspinal cord compression or structural instability, which are not present currently. She is encouraged to call if she has worsening symptoms or concerns. Otherwise she will be seen on a as needed basis. She was able to ask questions and all her questions were answered to her satisfaction. [1] Past Medical History: Diagnosis Date Anemia [...] of nicotine dependence Restless leg syndrome [2] Past Surgical History: Procedure Laterality Date ADENOIDECTOMY BREAST LUMPECTOMY Left 02/2017 CARPAL TUNNEL RELEASE CATARACT EXTRACTION Left 08/18/2021 CNA0T0, 21.5D, Dr. Fuentes CATARACT EXTRACTION Right 09/01/2021 CNA0T0, 21.5D, Dr. Fuentes FRACTURE SURGERY HAND SURGERY HEMORRHOID SURGERY ROOT CANAL TONSILLECTOMY WISDOM TOOTH EXTRACTION WRIST ARTHROPLASTY Right WRIST ARTHROSCOPY Left WRIST ARTHROSCOPY Right [3] Current Outpatient Medications: acetaminophen (Tylenol) 500 MG tablet, TAKE 1 TABLET EVERY 4 TO 6 HOURS NEEDED., Disp: , Rfl: apixaban (Eliquis) 5 MG tablet, Take 1 tablet (5 mg) by mouth 2 (two) times a day., Disp: 60 tablet, Rfl: 3 atorvastatin (Lipitor) 40 MG tablet, Take 1 tablet by mouth once daily, Disp: 90 tablet, Rfl: 0 B Complex-C (b complex-vitamin c) tablet, Take 1 tablet by mouth 1 (one) time each day., Disp: , Rfl: Calcium Carb-Cholecalciferol (Calcium 600+D3) 600-800 MG-UNIT tablet, , Disp: , Rfl: citalopram (CeleXA) 20 MG tablet, Take 1 tablet by mouth daily., Disp: 90 tablet, Rfl: 3 escitalopram (Lexapro) 5 MG tablet, Take 1 tablet (5 mg) by mouth 1 (one) time each day., Disp: , Rfl: famotidine (Pepcid) 20 MG tablet, Take 1 tablet (20 mg) by mouth 1 (one) time each day. as directed, Disp: , Rfl: ferrous sulfate 324 (65 Fe) MG EC tablet, Take 1 tablet by mouth 2 times a day., Disp: 180 tablet, Rfl: 3 ibuprofen 600 MG tablet, Take 1 tablet (600 mg) by mouth every 8 (eight) hours., Disp: , Rfl: levothyroxine (Synthroid, Levoxyl) 25 MCG tablet, Take 1 tablet by mouth daily., Disp: 90 tablet, Rfl: 3 losartan (Cozaar) 25 MG tablet, Take 1 tablet by mouth once daily, Disp: 90 tablet, Rfl: 1 metoprolol succinate XL (Toprol-XL) 25 MG 24 hr tablet, Take 0.5 tablets (12.5 mg) by mouth., Disp:, Rfl: Multiple Vitamin (MULTIVITAMIN ADULT PO), Take 1 tablet by mouth 1 (one) time each day., Disp: , Rfl: polycarbophil (Fibercon) 625 MG tablet, Take 2 tablets (1,250 mg) by mouth 2 (two) times a day., Disp: , Rfl: pramipexole (Mirapex) 0.5 MG tablet, Take 1 tablet by mouth every evening., Disp: 90 tablet, Rfl: 3 Thiamine HCl (VITAMIN B1 PO), Take 1 tablet by mouth 1 (one) time each day., Disp: , Rfl: documented in this encounter Plan of Treatment Upcoming Encounters Date Type Department Care Team (Late st Contact Info) Description 10/18/2025 10:00 AM EDT Office Visit [facility] [address], [address] [place] [address] Adrienne Medina MD [address] [place] [address] 03/15/2026 9:45 AM EDT Office Visit [facility] [address] [place] [address] Monty Fuentes MD [address] [facility] [address] [place] [address] documented as of this encounter Visit Diagnoses Diagnosis Lumbar spondylosis- Primary Lumbosacral spondylosis without myelopathy documented in this encounter Additional Health Concerns Assessment Noted Time PHQ-9 Depression Total Score: 3 10/11/19 25 2:32 PM EDT A fall risk assessment has been complete d for the patient 04/10/2025 8:54 AM EST A Body Mass Index follow-up plan has been documented for the patient 04/10/2025 10:19 AM EST documented as of this encounter Care Teams Ob/Gyn Nurse Relationship Specialty Start Date End Date Adrienne Medina MD [address] [place] [address] PCP - General Family Medicine 11/14/20 Stanley Mullins MD [address] [facility] [address] [place] [id number] Surgeon Surgical Oncology 04/17/21 documented as of this encounter
--- OUTSIDE RECORDS SUMMARY | 2025-04-17 08:40 | XMS_ITS | Encounter Summary ---
Author Organization [facility] Address [address] [place] [address] Care Team Providers Care Grades 1 Thru 6 Visiting Teacher Name Role Phone Adrienne Medina MD Primary Care Provider [phone] Stanley Mullins MD Unavailable [phone] Reason for Visit * Reason Comments Hypertension Encounter Details Date Type Department Care Team (Late st Contact Info) Description 04/17/2025 8:40 AM EST Office Visit [facility] [address], [address] [place] [address] Adrienne Medina MD [address] [place] [address] Prediabetes (Primary Dx); Hypothyroidism, unspecified type; Pure hypercholesterolemia ; Primary hypertension Social History Tobacco Use Types Packs/Day Years Used Date Smoking Tobacco: Former Cigarettes 1 8 0 05/31/1971 - 05/31/1979 Passive Smoke Exposure: Never Smokeless Tobacco: Never Tobacco Cessation:Counseling Given: Not [...] any time in the past 12 m [facility], were you homeless or living in a jail (including now)? No 04/17/2025 [facility] Utilities Answer Date Recorded In the [...] Sign Reading Time Taken Comments Blood Pressure 133/81 04/17/2025 8:30 AM EST Pulse 58 04/17/2025 8:30 AM EST Temperature - - Respiratory Rate - - Oxygen Saturation 96% 04/17/2025 8:30 AM EST Inhaled Oxygen Concentration - - Weight 87.9 kg (193 lb 12.6 oz) 04/17/2025 8:30 AM EST Height 161.3 cm (5' 3.5 ) 04/17/2025 8:30 AM EST Body Mass Index 33.79 04/17/2025 8:30 AM EST documented in this encounter Functional Status * Calculated C-SSRS Risk Score (Lifetime/Recent) Answer Date of Assessment Author No Risk Indicated 04/17/2025 8:32 AM EST Deepali Nicolas * Question Answer Date of Assessment Author 1. Wish to be (Past 1 Month) No 025 8:32 AM EST Deepali Nicolas 2. Non-Specific Active Suici yesy Thoughts (Past 1 Month) No 04/17/2025 8:32 AM EST Deepali Nicolas 6. Suicidal Behavior (Lifetime) No 8:32 AM EST Deepali Nicolas documented as of this encounter Miscellaneous Notes * Progress Notes - Adrienne Medina MD - 04/17/2025 8:40 AM EST Subjective Patient ID: Kendy Hou is a 74 y.o. female. Chief Complaint Patient presents with Hypertension Patient is a 74 year old female who presents today for follow up on chronic conditions. Patient does have hypertension. She denies any chest pain or shortness of breath. Patient also has prediabetes. Patient takes all medication. Patient has hypothyroidism. Patient is currently on Levothyroxine. Patient denies any symptoms of hypothyroidism The following portions of the chart were reviewed this encounter and updated as appropriate: Review of Systems Constitutional: Negative. Respiratory: Negative. Cardiovascular: Negative. Psychiatric/Behavioral: Negative. Objective Visit Vitals BP 133/81 Pulse 58 Ht 1.613 m (5' 3.5 ) Wt 87.9 kg (193 lb 12.6 oz) SpO2 96% BMI 33.79 kg/m?? OB Status Postmenopausal Smoking Status Former BSA 1.98 m?? Physical Exam Constitutional: Appearance: Normal appearance. HENT: Head: Normocephalic. Cardiovascular: Rate and Rhythm: Normal rate and regular rhythm. Heart sounds: Normal heart sounds. Pulmonary: Effort: Pulmonary effort is normal. Breath sounds: Normal breath sounds. Musculoskeletal: General: Normal range of motion. Skin: General: Skin is warm and dry. Neurological: Mental Status: She is alert. Psychiatric: Mood and Affect: Mood normal. Behavior: Behavior normal. Assessment/Plan Assessment & Plan Hypothyroidism, unspecified type Pure hypercholesterolemia Prediabetes Primary hypertension Patient is a 74 year old female who presents today for follow up on: Prediabetes - Stable - Will repeat A1C today - Will continue with diet and exercise control Hypertension - Stable - Will continue with losartan 25mg every day - Will continue Metoprolol 12.5mg every day Hypothyroidism - Stable - Will continue Levothyroxine 25mcg every day - Will check TSH today and adjust if necessary Hyperlipidemia - Lipid panel today - Continue Atorvastatin 40mg every day HM - Flu vaccine up today - Mammogram up to date - Gets colonoscopy at [facility] and sets up herself RTC: 6 months for follow up on chronic conditions documented in this encounter Plan of Treatment Upcoming Encounters Date Type Department Care Team (Late st Contact Info) Description 10/18/2025 10:00 AM EDT Office Visit [facility] [address], [address] [place] [address] Adrienne Medina MD [address] [place] [address] 03/15/2026 9:45 AM EDT Office Visit [facility] [address] [place] [address] Monty Fuentes MD [address] [facility] [address] [place] [address] documented as of this encounter Procedures Procedure Name Priority Date/Time Associated Diagnosis Comments TSH Routine 04/17/2025 8:59 AM EST Hypothyroidism, unspecified type HEMOGLOBIN A1C Routine 04/17/2025 8:59 AM EST Prediabetes LIPID PROFILE, PLASMA Routine 04/17/2025 8:59 AM EST Pure hypercholesterolemia COMPREHENSIVE METABOLIC PANEL, PLASMA Routine 04/17/2025 8:59 AM EST Primary hypertension documented in this encounter Results * TSH (04/17/2025 8:59 AM EST) Thyroid Stimulating Hormone, Plasma 1.95 0.40 - 4.20 uIU/mL 04/17/2025 3:04 PM EST [facility] Blood Venous blood specimen / Unknown Venipuncture / Unknown 04/17/2025 8:59 AM EST 04/17/2025 8:59 AM EST us Adrienne Medina MD LAB BLOOD ORDERABLES Final R esult [facility] [address] [place] [address] * (ABNORMAL) Comprehensive metabolic panel (04/17/2025 8:59 AM EST) Glucose, Plasma 94 74 - 99 mg/dL 04/17/2025 3:04 PM EST [facility] BUN, Plasma 17 8 - 23 mg/dL 04/17/2025 3:04 PM EST [facility] Creatinine, Plasma 1.11(H) 0.60 - 1.10 mg/dL 04/17/2025 3:04 PM EST [facility] BUN/Creatinine Ratio 15 04/17/2025 3:04 PM EST [facility] Sodium, Plasma 139 136 - 145 mmol/L 04/17/2025 3:04 PM EST [facility] Potassium, Plasma 4.3 3.6 - 4.9 mmol/L 04/17/2025 3:04 PM EST [facility] Chloride, Plasma 106 97 - 107 mmol/L 04/17/2025 3:04 PM EST [facility] CO2, Plasma 25 22 - 29 mmol/L 04/17/2025 3:04 PM EST [facility] Anion Gap 8 6 - 16 mmol/L 04/17/2025 3:04 PM EST [facility] Total Calcium, Plasma 9.1 8.9 - 10.2 mg/dL 04/17/2025 3:04 PM EST [facility] Total Protein 6.4 6.3 - 7.9 g/dL 04/17/2025 3:04 PM EST [facility] Albumin, Plasma 3.7 3.5 - 5.2 g/dL 04/17/2025 3:04 PM EST [facility] AST, Plasma 40(H) 10 - 35 U/L 04/17/2025 3:04 PM EST [facility] ALT, Plasma 24 10 - 35 U/L 04/17/2025 3:04 PM EST [facility] Alkaline Phosphatase, Plasma 74 46 - 142 U/L 04/17/2025 3:04 PM EST [facility] Total Bilirubin, Plasma 0.3 0.2 - 1.1 mg/dL 04/17/2025 3:04 PM EST [facility] eGFRcr 52.3 mL/min/1.7 3m*2 04/17/2025 3:04 PM EST [facility] Comment:Reported eGFRcr in m L/min/1.73m2 is based the CKD-EPI 2020 equation that does not use a race coefficient. Blood Venous blood specimen / Unknown Venipuncture / Unknown 04/17/2025 8:59 AM EST 04/17/2025 8:59 AM EST us Adrienne Medina MD LAB BLOOD ORDERABLES Final R esult [facility] [address] [place] [address] * Hemoglobin A1c (04/17/2025 8:59 AM EST) Hemoglobin A1c 5.6 <5.7 % 04/17/2025 4:01 PM EST [facility] Blood Venous blood specimen / Unknown Venipuncture / Unknown 04/17/2025 8:59 AM EST 04/17/2025 8:59 AM EST Narrative [facility] - 04/17/2025 4:01 PM EST HA1C Interpretive Data: Diagnosis of Diabetes: Diabetic > or = 6.5% Pre-diabetic 5.7 to 6.4% Non-diabetic < or = 5.6% Glycemic Targets for Type I and Type II Diabetics: Non- Adults <7.0% Adults <6.0% Children and Adolescents <7.5% Source: [place] [employer]. Standards of medical care in diabetes,2017. Diabetes Care.2017:40 (suppl 1):S1-S135. us Adrienne Medina MD LAB BLOOD ORDERABLES Final R esult [facility] [address] [place] [address] * (ABNORMAL) Lipid Profile, Plasma (04/17/2025 8:59 AM EST) Cholesterol, Plasma 109 <200 mg/dL 04/17/2025 3:04 PM EST [facility] Comment: Cholesterol Reference Range (age >17 years): Desirable <200 mg/dL Borderline 200 to 239 mg/dL Undesirable >239 mg/dL HDL 44(L) >=50 mg/dL 04/17/2025 3:04 PM EST [facility] Comment: HDL Cholesterol Reference Ranges (age >17 years): Female, acceptable > or = 50 mg/dL Male, acceptable > or = 40 mg/dL Triglycerides, Plasma 69 <150 mg/dL 04/17/2025 3:04 PM EST [facility] Comment: Triglyceride Reference Range (age >17 years): Desirable: <150 mg/dL Borderline high: 150 to 199 mg/dL High: 200 to 499 mg/dL Very high: >499 mg/dL Increased risk of pancreatitis: >1000 mg/dL Cholesterol/HDL Ratio 2 04/17/2025 3:04 PM EST [facility] LDL, Calculated 50 <100 mg/dL 3:04 PM EST [facility] Comment: LDL Cholesterol Reference Range (age >17 years): Optimal: <100 mg/dL Near or above optimal: 100 - 129 mg/dL Borderline high: 130 - 159 mg/dL High: 160 - 189 mg/dL Very high: >189 mg/dL LDL Cholesterol Reference Range (age <18 years): Desirable: <110 mg/dL Borderline: 110 - 129 mg/dL Undesirable: >130 mg/dL LDL Cholesterol is calculated using the Valerio/NIH equation. Fasting greater than or equal to 12 hours? Unknown 04/17/2025 3:04 PM EST [facility] Blood Venous blood specimen / Unknown Venipuncture / Unknown 04/17/2025 8:59 AM EST 04/17/2025 8:59 AM EST us Adrienne Medina MD LAB BLOOD ORDERABLES Final R esult [facility] [address] [place] [address] documented in this encounter Visit Diagnoses Diagnosis Prediabetes- Primary Other abnormal glucose Hypothyroidism, unspecified type Pure hypercholesterolemia Primary hypertension Unspecified essential hypertension documented in this encounter Additional Health Concerns Assessment Noted Time PHQ-9 Depression Total Score: 3 10/11/19 25 2:32 PM EDT A fall risk assessment has been complete d for the patient 04/17/2025 8:33 AM EST A Body Mass Index follow-up plan has been documented for the patient 04/17/2025 9:45 PM EST documented as of this encounter Care Teams Grades 1 Thru 6 Visiting Teacher Relationship Specialty Start Date End Date Adrienne Medina MD [address] [place] [address] PCP - General Family Medicine 11/14/20 Stanley Mullins MD [address] [place] [address] Surgeon Surgical Oncology 04/17/21 documented as of this encounter
--- NOTE | 2025-04-24 | CA_ITS ---
APPROVED REPORT Exam: Pharmacologic Technologist: Lexy Scott Ht: 5 ft 3 in Wt: 194 lbs BSA: 1.91 m2 HR: 60 bpm BP: 144/70 mmHg Rhythm: Sinus rhythm Indications: V-tach, dizziness and dyspnea. Stress Test Details HR Resting HR: 60 bpm Max Heart Rate (APMHR): 146.593232 bpm Target HR (85% APMHR): 124.636807 bpm Recovery HR: 83 bpm BP Resting BP: 144.0/70.0 mmHg Max BP: 162.0/84.0 mmHg Recovery BP: 162.0/84.0 mmHg ECG Resting ECG: Sinus rhythm Stress ECG Conclusion During lexiscan pt experinced no symptoms. No arrhythmias noted. Less than 0.5mm upsloping ST segment changes. Nondiagnostic ECG/lexiscan. Electronically signed by : Renetta Bang MD 04/29/2025 22:25:50
--- OUTSIDE RECORDS SUMMARY | 2025-04-24 11:11 | XMS_ITS | Encounter Summary ---
Author Organization [facility] Address [address] [place] [address] Care Team Providers Care Paperhanger Apprentice Name Role Phone Adrienne Medina MD Primary Care Provider [phone] Stanley Mullins MD Unavailable [phone] Reason for Visit * Reason Onset Date Comments HCN - Patient Message 03/09/2025 Encounter Details Date Type Department Care Team ([facility] st Contact Info) Description 03/09/2025 Telephone Medical Office Building [facility] [address], [address] [place] [address] System, Provider Not In, [address] [place] [address] HCN - Patient Message Social History Tobacco Use Types Packs/Day Years [...] any time in the past 12 m [facility], were you homeless or living in a jail (including now)? No 10/03/2024 Utilities Answer Date Recorded In the past 12 months has th e [employer], oil, or water [employer] threatened to shut off services in your home? No 10/03/2024 PHQ-2A Answer Date Recorded Patient Health Questionnaire-2 Score 6 12/29/2022 Comments No Sex and Gender Information Value Date Recorded Sex Assigned at Not on file Legal Sex Female 8:49 PM EDT Gender Identity Not on file Sexual Orientation Not on file documented as of this encounter Miscellaneous Notes * Telephone Encounter - Christian Gorman - 03/16/2025 9:38 AM EDT CALL PLACED ACCEPTED 04/10/25 [id number] [id number] * Telephone Encounter - Alice Sandoval - 03/09/2025 9:31 AM EDT Clinical Concern/Question Reason for Call: Katrina with [facility] is calling. She states she has faxed over a referral for Beth. She has spoke with someone twice on the referral. She is calling to check on the status of the referral. The last person she spoke with states it was in clinical review. Once it was completed they would reach out to patient. They have not received a call yet. She is requesting a call back. Best contact number: Katrina Tejada Deshaun [facility] [phone] Remove ext [phone] Optimal time of day to reach caller: ANYTIME Additional comments/information from caller: None Note: Please do not reply to this message. Follow-up communication and further actions as a result of this message need to be communicated with the patient directly, if the patient is not active onMyChart. If the patient is active on MyChart, they will receive notification of the communication/outcome via [employer]. documented in this encounter Plan of Treatment Upcoming Encounters Date Type Department Care Team (Late st Contact Info) Description 10/18/2025 10:00 AM EDT Office Visit [facility] [address] [place] [address] Adrienne Medina MD [address] [facility] [address] [place] [address] 03/15/2026 9:45 AM EDT Office Visit [facility] [address] [place] [address] Monty Fuentes MD [address] [place] [address] documented as of this encounter [...] documented as of this encounter Care Teams Paperhanger Apprentice Relationship Specialty Start Date End Date Adrienne Medina MD [address] [place] [address] PCP - General Family Medicine 11/14/20 Stanley Mullins MD [address] [facility] [address] [place] [address] Surgeon Surgical Oncology 04/17/21 documented as of this encounter
--- OUTSIDE RECORDS SUMMARY | 2025-04-24 11:11 | XMS_ITS | Encounter Summary ---
Author Organization Healthcare Address [address] [place] [address] Care Team Providers Care Industrial Court Magistrate Name Role Phone Adrienne Medina MD Primary Care Provider [phone] Stanley Mullins MD Unavailable [phone] Encounter Details Date Type Department Care Team (Latest Contact Info) Description 04/03/2025 Travel Social History Tobacco Use Types Packs/Day [...] Description 10/18/2025 10:00 AM EDT Office Visit [facility] [address] [place] [address] Adrienne Medina MD [address] [place] [address] 03/15/2026 9:45 AM EDT Office Visit [facility] [address] [place] [address] Monty Fuentes MD [address] [place] [address] documented as of this encounter [...] documented as of this encounter Care Teams Industrial Court Magistrate Relationship Specialty Start Date End Date Adrienne Medina MD [address] [place] [address] PCP - General Family Medicine 11/14/20 Stanley Mullins MD [address] [facility] [address] [place] [address] Surgeon Surgical Oncology 04/17/21 documented as of this encounter
--- OUTSIDE RECORDS SUMMARY | 2025-04-24 11:11 | XMS_ITS | Encounter Summary ---
Author Organization Healthcare Address [address] [place] [address] Care Team Providers Care Boring Machine Operator Production Name Role Phone Adrienne Medina MD Primary Care Provider [phone] Stanley Mullins MD Unavailable [phone] Encounter Details Date Type Department Care Team (Late st Contact Info) Description 01/14/2025 Results Follow-Up [facility] [address] [place] [address] Adrienne Medina MD [address] [facility] [address] [place] [address] Social History Tobacco Use Types [...] slept in a retirement (including now)? No 03/29/2024 PHQ-9 Answer Date [...] any time in the past 12 m [facility], were you homeless or living in a retirement (including now)? No 10/03/2024 Utilities Answer Date Recorded In the past 12 months has th e electric, gas, oil, or water [employer] threatened to shut off services in your [...] Description 10/18/2025 10:00 AM EDT Office Visit [facility] [address] [place] [address] Adrienne Medina MD [address] [facility] [address] [facility] [address] [place] [address] 03/15/2026 9:45 AM EDT Office Visit [facility] [address] [place] [address] Monty Fuentes MD [address] [facility] [address] [place] [address] documented as of this encounter [...] documented as of this encounter Care Teams Boring Machine Operator Production Relationship Specialty Start Date End Date Adrienne Medina MD [address] [place] [address] PCP - General Family Medicine 11/14/20 Stanley Mullins MD [address] [facility] Karina Torres [facility] [address] [place] [address] Surgeon Surgical Oncology 04/17/21 documented as of this encounter
--- OUTSIDE RECORDS SUMMARY | 2025-04-24 11:11 | XMS_ITS | Encounter Summary ---
Author Organization Healthcare Address [address] [place] [address] Care Team Providers Care Checkout Operator Name Role Phone Adrienne Medina MD Primary Care Provider [phone] Stanley Mullins MD Unavailable [phone] Ruby Miller LPN Unavailable Unavailabl e Encounter Details Date Type Department Care Team (Late st Contact Info) Description 03/05/2023 [facility] [address] [place] [address] Magali Webber, SUPERVISOR STAVE FINISHING [address] [place] [address] Obstructive sleep apnea (Primary Dx) [...] slept in a halfway (including now)? No 12/24/2020 PHQ-9 Answer Date [...] 10:00 AM EDT Office Visit [facility] [address] [facility] [facility] [place] [address] Adrienne Medina MD [address] [facility] [address] [place] [address] 03/15/2026 9:45 AM EDT Office Visit [facility] [address] [place] [address] Monty Fuentes MD [address] [facility] [address] [place] [address] documented as of [...] documented as of this encounter Care Teams Checkout Operator Relationship Specialty Start Date End Date Adrienne Medina MD [address] [place] [address] PCP - General Family Medicine 11/14/20 Stanley Mullins MD [address] [facility] [address] [place] [address] Surgeon Surgical Oncology 04/17/21 Ruby Miller LPN VALUE-BASED TRANSFORMATION PROGRAM None Licensed Practical Nurse 10/03/24 10/05/24 documented as of this encounter
--- OUTSIDE RECORDS SUMMARY | 2025-04-24 11:11 | XMS_ITS | Encounter Summary ---
Author Organization Healthcare Address [address] [place] [address] Care Team Providers Care Water Reclamation Systems Operator Name Role Phone Adrienne Medina MD Primary Care Provider + [phone] Stanley Mullins MD Unavailable [phone] Encounter Details Date Type Department Care Team (Latest Contact Info) Description 04/16/2025 Travel Social History Tobacco Use Types Packs/Day Years Used Date Smoking Tobacco: Former Cigarettes 1 8 0 05/31/1971 - 05/31/1979 Passive Smoke Exposure: Never Smokeless Tobacco: Never Alcohol Use Standard [...] any time in the past 12 m [facility], were you homeless or living in a chcf (including now)? No 04/17/2025 [facility] Utilities Answer Date Recorded In the past [...] Description 10/18/2025 10:00 AM EDT Office Visit [facility] [address] [place] [address] Adrienne Medina MD [address] [place] [address] 03/15/2026 9:45 AM EDT Office Visit [facility] [address] [place] [address] Monty Fuentes MD [address] [place] [address] documented as of this encounter [...] documented as of this encounter Care Teams Water Reclamation Systems Operator Relationship Specialty Start Date End Date Adrienne Medina MD [address] [facility] [address] [place] [address] PCP - General Family Medicine 11/14/20 Stanley Mullins MD [address] [facility] [address] [place] [address] Surgeon Surgical Oncology 04/17/21 documented as of this encounter
--- OUTSIDE RECORDS SUMMARY | 2025-04-24 11:11 | XMS_ITS | Encounter Summary ---
Author Organization Healthcare Address [address] [place] [address] Care Team Providers Care Hospice Educator Name Role Phone Adrienne Medina MD Primary Care Provider + [phone] Stanley Mullins MD Unavailable [phone] Encounter Details Date Type Department Care Team (Latest Contact Info) Description 04/10/2025 Travel Social History Tobacco Use Types Packs/Day [...] in the past 12 m [facility], were you homeless or living in a senior care (including now)? No 10/03/2024 Utilities Answer Date Recorded In the past 12 months has th e [employer], gas, oil, or water company threatened to [...] Description 10/18/2025 10:00 AM EDT Office Visit [facility] [address] [place] [address] Adrienne Medina MD [address] [place] [address] 03/15/2026 9:45 AM EDT Office Visit [facility] [address] [place] [address] Monty Fuentes MD [address] [place] [address] documented as of this encounter [...] documented as of this encounter Care Teams Hospice Educator Relationship Specialty Start Date End Date Adrienne Medina MD [address] [place] [address] PCP - General Family Medicine 11/14/20 Stanley Mullins MD [address] Melissa [facility] [address] [place] [address] Surgeon Surgical Oncology 04/17/21 documented as of this encounter
--- OUTSIDE RECORDS SUMMARY | 2025-04-24 11:11 | XMS_ITS | Encounter Summary ---
Author Organization Healthcare Address [address] [place] [address] Care Team Providers Care Multifocal Button Inspector Name Role Phone Adrienne Medina MD Primary Care Provider [phone] Stanley Mullins MD Unavailable [phone] Reason for Visit * Reason Comments Med Refill Encounter Details Date Type Department Care Team (Late st Contact Info) Description 02/23/2025 Refill [facility] Community Medicine [address], [address] [place] [address] Adrienne Medina MD [address] [place] [address] Social History Tobacco Use Types [...] any time in the past 12 m [facility], were you homeless or living in a skilled nursing (including now)? No 10/03/2024 Utilities Answer Date Recorded In the past 12 months has th e electric, gas, oil, or water [employer] threatened to shut off services in your [...] Description 10/18/2025 10:00 AM EDT Office Visit [facility] [address], [address] [place] [address] Adrienne Medina MD [address] [place] [address] 03/15/2026 9:45 AM EDT Office Visit [facility] [address] [place] [address] Monty Fuentes MD [address] [facility] [address] [place] [address] documented as of this encounter [...] documented as of this encounter Care Teams Multifocal Button Inspector Relationship Specialty Start Date End Date Adrienne Medina MD [address] [place] [address] PCP - General Family Medicine 11/14/20 Stanley Mullins MD [address] [facility] Karina Torres [facility] [address] [place] [address] Surgeon Surgical Oncology 04/17/21 documented as of this encounter
--- OUTSIDE RECORDS SUMMARY | 2025-04-24 11:11 | XMS_ITS | Encounter Summary ---
Author Organization Healthcare Address [address] [place] [address] Care Team Providers Care Steel Pourer Helper Name Role Phone Adrienne Medina MD Primary Care Provider [phone] Stanley Mullins MD Unavailable [phone] Reason for Visit * Reason Onset Date Comments Med Refill 01/15/2025 Encounter Details Date Type Department Care Team (Late st Contact Info) Description 01/15/2025 Refill [facility] Medicine [address], [address] [place] [address] Adrienne Medina MD [address] [facility] [address] [place] [address] Social History Tobacco Use Types [...] Office Visit [facility] [address] [place] [address] Adrienne Medina MD [address] [facility] [address] [place] [address] 03/15/2026 9:45 AM EDT Office Visit [facility] [address] [place] [address] Monty Fuentes MD 110 [facility] [address] [place] [address] documented as of this encounter [...] documented as of this encounter Care Teams Steel Pourer Helper Relationship Specialty Start Date End Date Adrienne Medina MD [address] [place] [address] PCP - General Family Medicine 11/14/20 Stanley Mullins MD [address] Karina Torres [facility] [address] [place] [address] Surgeon Surgical Oncology 04/17/21 documented as of this encounter
--- OUTSIDE RECORDS SUMMARY | 2025-04-24 11:11 | XMS_ITS | Encounter Summary ---
Author Organization Healthcare Address [address] [place] [address] Care Team Providers Care Water Filter Cleaner Name Role Phone Adrienne Medina MD Primary Care Provider + [phone] Stanley Mullins MD Unavailable [phone] Encounter Details Date Type Department Care Team (Latest Contact Info) Description 04/17/2025 Travel Social History Tobacco Use Types Packs/Day [...] living in a fci (including now)? No 04/17/2025 [facility] Utilities Answer Date Recorded In the [...] Author No Risk Indicated 04/17/2025 8:32 AM Deepali Figueroa * Question Answer Date of Assessment Author 1. Wish to be (Past 1 Month) No 025 8:32 AM Deepali Figueroa 2. Non-Specific Active Suici yesy Thoughts (Past 1 Month) No 04/17/2025 8:32 AM EST Deepali Nicolas 6. Suicidal Behavior (Lifetime) No 8:32 AM EST Deepali Nicolas documented as of this encounter Plan of Treatment Upcoming Encounters Date Type Department Care Team (Late st Contact Info) Description 10/18/2025 10:00 AM EDT Office Visit [facility] [address] [place] [address] Adrienne Medina MD [address] [facility] [address] [place] [address] 03/15/2026 9:45 AM EDT Office Visit [facility] [address] [facility] [place] [address] Monty Fuentes MD [address] [facility] [address] [place] [address] documented as of this encounter [...] as of this encounter Care Teams Water Filter Cleaner Relationship Specialty Start Date End Date Adrienne Medina MD [address] [facility] [address] [place] [address] PCP - General Family Medicine 11/14/20 Stanley Mullins MD [address] [facility] [address] [place] [address] Surgeon Surgical Oncology 04/17/21 documented as of this encounter
--- OUTSIDE RECORDS SUMMARY | 2025-04-24 11:11 | XMS_ITS | Encounter Summary ---
Author Organization Healthcare Address [address] [place] [address] Care Team Providers Care Poultry Husbandman Name Role Phone Adrienne Medina MD Primary Care Provider + [phone] Stanley Mullins MD Unavailable [phone] Encounter Details Date Type Department Care Team (Latest Contact Info) Description 04/09/2025 Travel Social History Tobacco Use Types Packs/Day [...] any time in the past 12 m [facility], were you homeless or living in a [...] Description 10/18/2025 10:00 AM EDT Office Visit [facility] [address] [place] [address] Adrienne Medina MD [address] [place] [address] 03/15/2026 9:45 AM EDT Office Visit [facility] [address] [place] [address] Monty Fuentes MD [address] [place] [address] documented as of this encounter [...] documented as of this encounter Care Teams Poultry Husbandman Relationship Specialty Start Date End Date Adrienne Medina MD [address] [place] [address] PCP - General Family Medicine 11/14/20 Stanley Mullins MD [address] [facility] [address] [place] [address] Surgeon Surgical Oncology 04/17/21 documented as of this encounter
--- OUTSIDE RECORDS SUMMARY | 2025-04-24 11:11 | XMS_ITS | Encounter Summary ---
Author Organization [facility] Address [address] [place] [address] Care Team Providers Care Developer Designer Name Role Phone Adrienne Medina MD Primary Care Provider [phone] Stanley Mullins MD Unavailable [phone] Encounter Details Date Type Department Care Team (Late st Contact Info) Description 04/13/2025 Results Follow-Up [facility] Medicine [address] [facility], [address] [place] [address] Adrienne Medina MD [address] [facility] [facility] [address] [place] [address] Social History Tobacco Use Types [...] any time in the past 12 m [facility], were you homeless or living in a prison (including now)? No 04/17/2025 [facility] Utilities Answer Date Recorded In the [...] Description 10/18/2025 10:00 AM EDT Office Visit [facility] [address] [place] [address] Adrienne Medina MD [address] [place] [address] 03/15/2026 9:45 AM EDT Office Visit [facility] [address] [place] [address] Monty Fuentes MD [address] [place] [address] documented as of this encounter [...] documented as of this encounter Care Teams Developer Designer Relationship Specialty Start Date End Date Adrienne Medina MD [address] [place] [address] PCP - General Family Medicine 11/14/20 Stanley Mullins MD [address] Karina Torres [facility] [address] [place] [address] Surgeon Surgical Oncology 04/17/21 documented as of this encounter
--- OUTSIDE RECORDS SUMMARY | 2025-04-24 11:11 | XMS_ITS ---
Author Organization [facility] Address [address] [place] [address] Care Team Providers Care Consumer Lending Manager Name Role Phone Adrienne Medina MD Primary Care Provider [phone] Stanley Mullins MD Unavailable [phone] Active Problems Problem Noted Date Diagnosed Date [...]
--- OUTSIDE RECORDS SUMMARY | 2025-04-24 11:11 | XMS_ITS | Encounter Summary ---
Author Organization Healthcare Address [address] [place] [address] Care Team Providers Care Computer Tape Librarian Name Role Phone Adrienne Medina MD Primary Care Provider [phone] Stanley Mullins MD Unavailable [phone] Encounter Details Date Type Department Care Team (Late st Contact Info) Description 01/19/2025 Results Follow-Up [facility] [address] [place] [address] Armen Romero, DO [address] [id number] Social History Tobacco Use Types Packs/Day Years [...] any time in the past 12 m [facility], were you homeless or living in a skilled nursing (including now)? No 10/03/2024 Utilities Answer Date Recorded In the past 12 months has th e [email or web address], gas, oil, or water company threatened to [...] Description 10/18/2025 10:00 AM EDT Office Visit [facility] [address] [place] [address] Adrienne Medina MD [address] [place] [address] 03/15/2026 9:45 AM EDT Office Visit [facility] [address] [facility] [place] [address] Monty Fuentes MD [address] [place] [address] documented as of this encounter [...] documented as of this encounter Care Teams Computer Tape Librarian Relationship Specialty Start Date End Date Adrienne Medina MD [address] [place] [address] PCP - General Family Medicine 11/14/20 Stanley Mullins MD [address] Karina Torres [facility] [address] [place] [address] Surgeon Surgical Oncology 04/17/21 documented as of this encounter
--- OUTSIDE RECORDS SUMMARY | 2025-04-24 11:11 | XMS_ITS | Encounter Summary ---
Author Organization [facility] Address [address] [place] [address] Care Team Providers Care Personal Loan Specialist Name Role Phone Adrienne Medina MD Primary Care Provider [phone] Stanley Mullins MD Unavailable [phone] Encounter Details Date Type Department Care Team (Late st Contact Info) Description 04/23/2025 Results Follow-Up [facility] Medicine [address] [facility], [address] [place] [address] Adrienne Medina MD [address] [facility] [address] [place] [address] Social History Tobacco Use Types [...] in a long term (including now)? No 04/17/2025 [facility] Utilities Answer Date Recorded In the past [...] Description 10/18/2025 10:00 AM EDT Office Visit [facility] [address] [place] [address] Adrienne Medina MD [address] [place] [address] 03/15/2026 9:45 AM EDT Office Visit [facility] [address] [place] [address] Monty Fuentes MD [address] [place] [address] documented as of this encounter [...] documented as of this encounter Care Teams Personal Loan Specialist Relationship Specialty Start Date End Date Adrienne Median MD [address] [place] [address] PCP - General Family Medicine 11/14/20 Stanley Mullins MD [address] Karina Torres [facility] [address] [place] [address] Surgeon Surgical Oncology 04/17/21 documented as of this encounter
--- OUTSIDE RECORDS SUMMARY | 2025-04-24 11:11 | XMS_ITS | Encounter Summary ---
Author Organization [facility] Address [address] [place] [address] Care Team Providers Care Rn Camp Name Role Phone Adrienne Medina MD Primary Care Provider + [phone] Stanley Mullins MD Unavailable [phone] Ruby Miller LPN Unavailable Unavailabl e Reason for Visit * Reason Comments Med Refill Encounter Details Date Type Department Care Team (Late st Contact Info) Description 12/28/2020 Refill [facility] Community Medicine [address] [facility] [address] [facility] [place] [address] Vivian Moran MD [address] [place] [address] Social History Tobacco Use Types Packs/Day [...] a nursing home (including now)? No 12/24/2020 Comments Unknown Sex [...] Description 10/18/2025 10:00 AM EDT Office Visit [facility] [address] [facility] [place] [address] Adrienne Medina MD [address] [facility] [address] [place] [address] 03/15/2026 9:45 AM EDT Office Visit [facility] [address] [facility] [place] [address] Monty Fuentes MD [address] [facility] [address] [place] [address] documented as of this encounter Visit Diagnoses Not on filedocumented in this encounter Additional Health Concerns Assessment Noted Time A fall risk assessment has been complete d for the patient 12/24/2020 7:46 AM EDT documented as of this encounter Care Teams Rn Camp Relationship Specialty Start Date End Date Adrienne Medina MD [address] [place] [address] PCP - General Family Medicine 11/14/20 Stanley Mullins MD [address] Karina Perezson [facility] [address] [place] [address] Surgeon Surgical Oncology 04/17/21 Ruby Miller LPN VALUE-BASED TRANSFORMATION PROGRAM None Licensed Practical Nurse 10/03/24 10/05/24 documented as of this encounter
--- OUTSIDE RECORDS SUMMARY | 2025-04-24 11:11 | XMS_ITS | Encounter Summary ---
Author Organization Healthcare Address [address] [place] [address] Care Team Providers Care Naval Surface Fire Support Planner Name Role Phone Adrienne Medina MD Primary Care Provider + [phone] Stanley Mullins MD Unavailable [phone] Encounter Details Date Type Department Care Team (Latest Contact Info) Description 04/04/2025 Travel Social History Tobacco Use Types Packs/Day [...] in the past 12 m [facility], were you homeless or living in a [...] 10:00 AM EDT Office Visit [facility] [address] [place] [address] Adrienne Medina MD [address] [place] [address] 03/15/2026 9:45 AM EDT Office Visit [facility] [address] [place] [address] Monty Fuentes MD [address] [place] [address] documented as of this encounter [...] documented as of this encounter Care Teams Naval Surface Fire Support Planner Relationship Specialty Start Date End Date Adrienne Medina MD [address] [place] [address] PCP - General Family Medicine 11/14/20 Stanley Mullins MD [address] [facility] [address] [place] [address] Surgeon Surgical Oncology 04/17/21 documented as of this encounter
--- OUTSIDE RECORDS SUMMARY | 2025-04-24 11:11 | XMS_ITS | Encounter Summary ---
Author Organization [facility] Address [address] [place] [address] Care Team Providers Care Bean Sprout Grower Name Role Phone Adrienne Medina MD Primary Care Provider [phone] Stanley Mullins MD Unavailable [phone] Encounter Details Date Type Department Care Team (Late st Contact Info) Description 04/19/2025 Telephone [facility] Medicine [address] [place] [address] Adrienne Medina MD [address] [facility] [address] [place] [address] Social History Tobacco Use Types [...] in a senior care (including now)? No 04/17/[address] [facility] Utilities Answer Date Recorded In the [...] Description 10/18/2025 10:00 AM EDT Office Visit [facility] [address] [place] [address] Adrienne Medina MD [address] [place] [address] 03/15/2026 9:45 AM EDT Office Visit [facility] [address] [place] [address] Monty Fuentes MD [address] [place] [address] documented as of this [...] documented as of this encounter Care Teams Bean Sprout Grower Relationship Specialty Start Date End Date Adrienne Medina MD [address] [place] [address] PCP - General Family Medicine 11/14/20 Stanley Mullins MD [address] [facility] [address] [place] [address] Surgeon Surgical Oncology 04/17/21 documented as of this encounter
--- OUTSIDE RECORDS SUMMARY | 2025-04-24 11:11 | XMS_ITS | Clinical Summary ---
Author Organization [facility] Address [address] [place] [address] Care Team Providers Care Mower Operator Name Role Phone Adrienne Medina MD Primary Care Provider [phone] Stanley Mullins MD Unavailable [phone] Allergies Active Allergy Reactions Criticality Noted Date [...] a day. 60 tablet 3 4 Active pramipexole (Mirapex) 0.5 MG tabletIndication s:Restless [...] mouth daily. 90 tablet 3 5 Active citalopram (CeleXA) 20 MG tablet Take 1 tablet by mouth daily. 90 tablet 3 5 Active atorvastatin (Lipitor) 40 MG tablet Take 1 tablet by mouth daily. 90 tablet 3 5 Active amoxicillin (Amoxil) 500 MG capsule Take 1 capsule by mouth 3 times a day. 5 Active Active Problems Problem Noted Date [...] of tear film of both eyes 12/13/19 Meibomian gland dysfunction (MGD) of upper and [...] Encounters Date Type Department Care Team Description 04/23/2025 Results Follow-Up [facility] [address], [address] [place] [address] Adrienne Medina MD 04/19/2025 Telephone [facility] [address], [address] [place] [address] Adrienne Medina MD 04/17/2025 8:40 AM EST Office Visit [facility] [address], [address] [place] [address] Adrienne Medina MD Prediabetes (Primary Dx); Hypothyroidism, unspecified type; Pure hypercholesterolemia ; Primary hypertension 04/17/2025 Travel 04/16/2025 Travel 04/13/2025 Results Follow-Up [facility] [address], [address] [place] [address] Adrienne Medina MD 04/10/2025 9:20 AM EST Office Visit [facility] [address], [address] [place] [address] Deepali Herman PA Lumbar spondylosis (Primary Dx) 04/10/2025 Travel 04/09/2025 2:24 PM EST - 04/09/2025 11:59 PM EST Hospital Encounter [facility] [address] [address] Encounter for screening mammogram for malignant neoplasm of breast Discharge Disposition: Home or Self Care 04/09/2025 Travel 04/04/2025 Travel 04/03/2025 Travel 03/09/2025 Telephone Medical Office [facility] [address], [address] [place] [address] System, Provider Not In, HCN - Patient Message 02/23/2025 Refill [facility] [address] [place] [address] Adrienne Medina MD from Last 3 Months Immunizations Immunization Administration Dates Next Due Hep A, Adult 09/29/2018,03/31/2018 Influenza, High-dose, Split Virus, Trivalent, Injectable, preservative free 03/28/2025,04/05/2024,02/19/2018 Influenza, Unspecified 03/22/2008,03/16/2007 Influenza, high-dose, quadrivalent 04/09,02/07/2022,03/19/2021,02/23,02/19/2018 Influenza, injectable, quadrivalent 02/19/2018 Influenza, injectable, quadr ivalent, preservative free 03/18/2020,03/11/2017,03/19/2015 Influenza, seasonal, injectable 02/24/2020,03/14,04/06/2011 Influenza, seasonal, injecta ble, preservative free 03/05/2016 Influenza, seasonal, intrade rmal, preservative free 04/11/2013 Influenza, trivalent, adjuvanted 04/04/2019 [employer] COVID-19 Vac cine (Purple Cap) 12+ 07/03/2020,06/12/2020 Pneumococcal 20-akhil Conj Vaccine 07/01/2023 Pneumococcal Conjugate PCV 13 03/05/2016 Pneumococcal Polysaccharide PPV23 03/11/2017 Rsvpref, Recombinant, Protei n Subunit, Adjuvent 07/01/2023 Tdap 12/17/2023,12/25/2018 Zoster, Recombinant 09/08/2021,07/10/2021 Zoster, live 04/11/2013 Family History Medical History Relation Name Comments Conversions - Other Brother Sinus Br adycardia Conversions - Other Father Coronary Artery Embolism Alcohol abuse Mother Cirrhosis Mother Conversions - Other Other 1 grandmother No famil y history of cancer Stroke Other 1 grandmother Stroke Other 2 Relation Name Status Comments Brother Father Mother Other 1 grandmother Other 2 Social History Tobacco Use Types [...] in a senior living (including now)? No 04/17/2025 [facility] Utilities Answer Date Recorded In the past 12 months has th e myAchy, gas, oil, or water company threatened to [...] Pulse 58 04/17/2025 8:30 AM EST Temperature 37.2 C (99 F) 01/11/2025 2:16 PM EDT Respiratory Rate 18 04/10/2025 8:54 AM EST Oxygen Saturation 96% 04/17/2025 8:30 AM EST Inhaled Oxygen Concentration - - Weight 87.9 kg (193 lb 12.6 oz) 04/17/2025 8:30 AM EST Height 161.3 cm (5' 3.5 ) 04/17/2025 8:30 AM EST Body Mass Index 33.79 04/17/2025 8:30 AM EST Plan of Treatment Upcoming Encounters Date Type Department Care Team (Late st Contact Info) Description 10/18/2025 10:00 AM EDT Office Visit [facility] [address], [address] [place] [address] Adrienne Medina MD [address] [place] [address] 03/15/2026 9:45 AM EDT Office Visit [facility] [address] [address] Monty Fuentes MD [address] [place] [address] Health Maintenance Due Date Last Done Comments Dental Oral Exam 1950 Dental X-Ray: Full Mouth 1950 [facility]-Hepatitis C Screening 1950 [facility]-/Child/Adol SDOH Screenings 1950 CT Colonography 1995 Colonoscopy 1995 FIT-DNA 1995 FIT 1995 FOBT 1995 Sigmoidoscopy 1995 [facility]-Colorectal Cancer Screening 1995 Dental Prophylaxis 06/24/1995 12/21/1994, 0 08/04/1993, 09/19/1992 Dental X-Ray: Bitewings 12/23/1995 12/21/1994, 09/19 [id number] Vaccine ( season) 2025 04/11/2024, 03/01/2022, 09/20/2021, Additional history exists [facility]-Depression Screening 10/10/2025 10/10/2024, 09/28 [facility]-Medicare Annual Wellness (AWV) 10/10/2025 10/10/2024 [facility]- SDOH Screenings 10/15/2025 [facility]-Adult SDOH Screenings 10/15/2025 04/17/2025 [facility]-Diabetes: Hemoglobin A1C 04/17/2026, 04/05/2024, 12/29/2022, Additional history exists [facility]-Bone Density Scan 01/12/2027 01/12/2025 , 06/09/2022, 01/03/2020, Additional history exists [facility]-DTaP,Tdap,and Td Vaccines (3 - Td or Tdap) 12/16/2033 12/17/2023, 12/25/2018 [facility]-Hepatitis A Vaccines Aged Out 09/29/2018, 05/2017 No longer eligible based on patient's age to complete this topic [facility]-Zoster Vaccines Completed 09/08/2021, 07/10/2021, 04/11/2013 [facility]-Pneumococcal Vaccine: 50+ Years Completed 07/01/2023, 03/11/2017, 03/05/2016 [facility]-RSV Vaccine: 60+ Years or Completed 07/01/2023 [facility]-Influenza Vaccine Completed 03/28/2025 , 04/05/2024, 04/09/2023, Additional history exists [facility]-Obesity Intervention Completed 025, 04/10/2025, 01/11/2025, Additional history exists HPV Vaccines Aged Out [...] 04/17/2025 8:59 AM EST Hypothyroidism, unspecified type COMPREHENSIVE METABOLIC PANEL, PLASMA Routine 04/17/2025 8:59 AM EST Primary hypertension HEMOGLOBIN A1C Routine 04/17/2025 8:59 AM EST Prediabetes LIPID PROFILE, PLASMA Routine 04/17/2025 8:59 AM EST Pure hypercholesterolemia MAMMOGRAPHY BREAST SCREENING TOMOSYNTHESIS BILATERAL Routine 04/09/2025 2:53 PM EST Encounter for screening mammogram for malignant neoplasm of breast DEXA BONE DENSITY Routine 01/12/2025 11:52 AM EDT Post-menopausal PROPHYLAXIS - ADULT Routine 12/21/1994 12:00 AM EDT BITEWINGS - 4 RADIOGRAPHIC IMAGES Routine 12/21/1994 12:00 AM EDT from Last 3 Months or Most Recently Relevant to Health Maintenance Results * TSH (04/17/2025 8:59 AM EST) Thyroid Stimulating Hormone, Plasma 1.95 0.40 - 4.20 uIU/mL 04/17/2025 3:04 PM EST [facility] Blood Venous blood specimen / Unknown Venipuncture / Unknown 04/17/2025 8:59 AM EST 04/17/2025 8:59 AM EST us Adrienne Medina MD LAB BLOOD ORDERABLES Final R esult [facility] [address] [place] [address] * Hemoglobin A1c (04/17/2025 8:59 AM EST) Hemoglobin A1c 5.6 <5.7 % 04/17/2025 4:01 PM EST [facility] Blood Venous blood specimen / Unknown Venipuncture / Unknown 04/17/2025 8:59 AM EST 04/17/2025 8:59 AM EST Narrative [facility] - 04/17/2025 4:01 PM EST HA1C Interpretive Data: Diagnosis of Diabetes: Diabetic > or = 6.5% Pre-diabetic 5.7 to 6.4% Non-diabetic < or = 5.6% Glycemic Targets for Type I and Type II Diabetics: Non- Adults <7.0% Adults <6.0% Children and Adolescents <7.5% Source: [place] [employer]. Standards of medical care in diabetes,2017. Diabetes Care.2017:40 (suppl 1):S1-S135. us Adrienne Medina MD LAB BLOOD ORDERABLES Final R esult [facility] [address] [place] [address] * (ABNORMAL) Lipid Profile, Plasma (04/17/2025 8:59 AM EST) [facility] Signature Cholesterol, Plasma 109 <200 mg/dL 04/17/2025 3:04 PM EST [facility] Comment: Cholesterol Reference Range (age >17 years): Desirable <200 mg/dL Borderline 200 to 239 mg/dL Undesirable >239 mg/dL HDL 44(L) >=50 mg/dL 04/17/2025 3:04 PM EST [facility] Comment: HDL Cholesterol Reference Ranges (age >17 years): Female, acceptable > or = 50 mg/dL Male, acceptable > or = 40 mg/dL Triglycerides, Plasma 69 <150 mg/dL 04/17/2025 3:04 PM EST [facility] Comment: Triglyceride Reference Range (age >17 years): Desirable: <150 mg/dL Borderline high: 150 to 199 mg/dL High: 200 to 499 mg/dL Very high: >499 mg/dL Increased risk of pancreatitis: >1000 mg/dL Cholesterol/HDL Ratio 2 04/17/2025 3:04 PM EST [facility] LDL, Calculated 50 <100 mg/dL 3:04 PM EST [facility] Comment: LDL Cholesterol Reference [...] 12 hours? Unknown 04/17/2025 3:04 PM EST [facility] Blood Venous blood specimen / Unknown Venipuncture / Unknown 04/17/2025 8:59 AM EST 04/17/2025 8:59 AM EST us Adrienne Medina MD LAB BLOOD ORDERABLES Final R esult [facility] [address] [place] [address] * (ABNORMAL) Comprehensive metabolic panel (04/17/2025 8:59 AM EST) Glucose, Plasma 94 74 - 99 mg/dL 04/17/2025 3:04 PM EST [facility] BUN, Plasma 17 8 - 23 mg/dL 04/17/2025 3:04 PM EST [facility] Creatinine, Plasma 1.11(H) 0.60 - 1.10 mg/dL 04/17/2025 3:04 PM EST [facility] BUN/Creatinine Ratio 15 04/17/2025 3:04 PM EST [facility] Sodium, Plasma 139 136 - 145 mmol/L 04/17/2025 3:04 PM EST [facility] Potassium, Plasma 4.3 3.6 - 4.9 mmol/L 04/17/2025 3:04 PM EST [facility] Chloride, Plasma 106 97 - 107 mmol/L 04/17/2025 3:04 PM EST [facility] CO2, Plasma 25 22 - 29 mmol/L 04/17/2025 3:04 PM EST [facility] Anion Gap 8 6 - 16 mmol/L 04/17/2025 3:04 PM EST [facility] Total Calcium, Plasma 9.1 8.9 - 10.2 mg/dL 04/17/2025 3:04 PM EST [facility] Total Protein 6.4 6.3 - 7.9 g/dL 04/17/2025 3:04 PM EST [facility] Albumin, Plasma 3.7 3.5 - 5.2 g/dL 04/17/2025 3:04 PM EST [facility] AST, Plasma 40(H) 10 - 35 U/L 04/17/2025 3:04 PM EST [facility] ALT, Plasma 24 10 - 35 U/L 04/17/2025 3:04 PM EST [facility] Alkaline Phosphatase, Plasma 74 46 - 142 U/L 04/17/2025 3:04 PM EST [facility] Total Bilirubin, Plasma 0.3 0.2 - 1.1 mg/dL 04/17/2025 3:04 PM EST [facility] eGFRcr 52.3 mL/min/1.7 3m*2 04/17/2025 3:04 PM EST [facility] Comment:Reported eGFRcr in m L/min/1.73m2 is based the CKD-EPI 2020 equation that does not use a race coefficient. Blood Venous blood specimen / Unknown Venipuncture / Unknown 04/17/2025 8:59 AM EST 04/17/2025 8:59 AM EST us Adrienne Medina MD LAB BLOOD ORDERABLES Final R esult [facility] [address] [place] [address] * Mammography Breast Screening Tomosynthesis Bilateral (04/09/2025 [...] 10/22/2021 Mammography Breast Diagnostic Tomosynthesis Bilateral at [facility] 01/07/2023 Mammography Breast Diagnostic Tomosynthesis Right at [facility] 01/07/2023 Mammography Breast Screening Tomosynthesis Bilateral at [facility] 01/12/2024 Mammography Breast Screening Tomosynthesis Bilateral at [facility] BREAST COMPOSITION: The breasts are almost entirely fatty. FINDINGS: There are post-lumpectomy changes present in the left breast. There is no evidence of suspicious masses, calcifications, or other abnormal findings. us Adrienne Medina MD IMG BI PROCEDURES Final Resu lt * Dexa Bone Density (01/12/2025 11:52 AM [...] forearm, right forearm was performed using a A V.E.T.S.c.a.r.e. Horizon A Dual-energy X-ray Absorptiometry (DXA) scanner [...] left forearm, right forearm wasperformed using a A V.E.T.S.c.a.r.e. Horizon A Dual-energy X-ray Absorptiometry (DXA)scanner (software [...] MD IM DXA PROCEDURES Final Res ult from Last 3 Months or Most Recently Relevant to Health Maintenance Insurance [employer] MEDICARE Care Teams Mower Operator Relationship Specialty Start Date End Date Adrienne Medina MD [address] [facility] [place] [address] PCP - General Family Medicine 11/14/20 Stanley Mullins MD [address] [facility] [address] [place] [address] Surgeon Surgical Oncology 04/17/21
--- NOTE | 2025-04-24 11:30 | NM_ITS ---
APPROVED REPORT Exam: Nuclear Stress Test Indication: palpiattions..fatigue Patient Location: Outpatient Stress Tech: Lexy BAXTER Tech:Nell Bermudez DARRYLHenry RT(R)(N) Ht: 5 ft 3 in Wt: 190 lbs Bra Size: 2x HR: 63 bpm BP: 144/70 mmHg BSA: 1.89 m2 TID: 1.28 BMI: 33.6 History: palpiattions..fatigue Procedure: Patient received 0.4 mg of intravenous Lexiscan, resting heart rate 63 bpm, resting blood pressure 144/70 mmHg, with Lexiscan maximum heart rate achieved was 86 bpm which is 85 % of the maximum predicted heart rate and blood pressure was 152/85 mmHg. With Lexiscan, patient denied any complaint of chest pain. Cardiac Stress and Resting SPECT Images: Cardiac Stress and Resting SPECT images were obtained using technetium 99m Myoview 31.0 mCi stress and 9.65 mCi at rest. Resting and stress imaging in supine and prone positions demonstrate no evidence of fixed or reversible perfusion defects. There is increase in transient ischemic dilatation ratio (TID 1.28), which may be suggestive of multivessel disease or balanced ischemia. Gated imaging demonstrates normal global LV systolic function. LVEF is calculated at 72%. Conclusion: No evidence of fixed or reversible perfusion defects. There is increase in transient ischemic dilatation ratio (TID 1.28), which may be suggestive of multivessel disease or balanced ischemia. Gated imaging demonstrates normal global LV systolic function. LVEF is calculated at 72%. Electronically signed by : Renetta Bang MD 04/29/2025 22:13:31
[2025-04-24 12:45] VITALS: BP 144/70; PULSE 60; RESP 16
[2025-04-24] MEDS: ISOTOPE MYOVIEW (PER STUDY) 1 DOSE IV (14:00)
[2025-04-24] MEDS: SODIUM CHLORIDE 0.9% 10ML SYR (RAD ONLY) 10 ML IV ×2 (14:00)
== END 2025-04-24 23:59 | disposition home or self-care (01) ==
LOC: RAD 11:05
PROVIDERS: PCP Family Medicine; Visit Provider Nurse Practitioner Family
DX: I47.20 Ventricular tachycardia, unspecified (principal); R94.39 Abnormal result of other cardiovascular function study; R06.09 Other forms of dyspnea
CPT/HCPCS: 78452; 93017; 93018; A9502; J2785

== ENCOUNTER 2025-05-04 11:23 | Outpatient (CLI) | payer MEDICARE, SELFPAY ==
[2025-05-04 11:27] VITALS: BMI 34.2
[2025-05-04 11:59] LABS: Chloride 101 mmol/L (98-107); Potassium 4.2 mmoL/L (3.5-5.1); Sodium 138 mmol/L (136-145)
[2025-05-04 12:02] LABS: Anion Gap 13.2 mEq/L (5-15); Blood Urea Nitrogen 20 mg/dl (7-17); Calcium 8.9 mg/dl (8.4-10.2); Carbon Dioxide 28 mmol/L (22.0-30.0); Creatinine Clearance Estimated 56 mL/min (50-200); Creatinine,Serum 1.20 mg/dl (0.52-1.04); Estimated Glomerular Filt Rate 44 ml/min (>60); GFR (African American) 53 ML/MIN (>60); Glucose 92 mg/dl (74-100)
[2025-05-04 12:21] VITALS: BP 158/97; PULSE 69; RESP 18; O2SAT 98
[2025-05-04] MEDS: NITROGLYCERIN 0.4MG SL TABLET SL (12:21)
[2025-05-04 12:24] VITALS: BP 139/82; PULSE 63; RESP 18; O2SAT 97
[2025-05-04 12:27] VITALS: BP 131/74; PULSE 59; RESP 16; O2SAT 97
[2025-05-04] MEDS: 0.9 % SODIUM CHLORIDE 1000ML 1,000 ML 999 ML IV (12:40)
[2025-05-04] MEDS: SODIUM CHLORIDE 0.9% 10ML SYR (RAD ONLY) 10 ML IV (12:53)
[2025-05-04] MEDS: 0.9 % SODIUM CHLORIDE 50 ML VIAL IV (12:53)
[2025-05-04] MEDS: IOPAMIDOL-370 (76%);100ML BOTTLE 85 ML IV (12:53)
--- NOTE | 2025-05-04 13:00 | CT_ITS ---
APPROVED REPORT Lighthouse Keeper: CLINICAL INDICATION Chest Pain TECHNIQUE Image Acquisition: A 128 slice MDCT scanner ([employer] Fixstarsa View) was used for data acquisition. A noncontrast coronary calcium scan was performed. A CT attenuation threshold of 130 Hounsfield units (HU) was used for the detection of calcium in contiguous voxels of 1 sq mm in area to be counted as individual lesions. Bolus tracking in the ascending aorta with a threshold of 180 HU was performed. Immediately afterwards, ECG synchronized cardiac CT was then performed from the cardiac base to apex using retrospective gating with ECG tube current modulation. A total of 85 mL of Isovue 370 mg/mL contrast medium was administered at 5 mL/sec followed by a saline flush using a biphasic injection protocol. A tube voltage of 120 KVp was used. The average heart rate at the time of acquisition was 58 bpm and regular. Image Reconstruction Transaxial images were reconstructed at 0.67 mm slide thickness. Data was reviewed interactively on an advanced workstation capable of 2 and 3-dimensional displays in all conventional reconstruction formats, including multiplanar reformations, maximum intensity projections, curved multiplanar reformations, and volume rendered reconstructions. When applicable, selected routine images describing the relevant coronary anatomy and pathology were saved and sent to PACS. Complications None Technical Quality Overall image quality was good. Coronary artery opacification was adequate. Total DLP (Dose-Length Product) is 1489.0 mGy-cm. The reported value represents the total of one or more individual components during the CT acquisition of this date and at this time, and as such, the same value may appear in more than one CT report depending on the interpreting/reporting physicians. COMPARISON None FINDINGS CT Coronary Calcium Scoring LMA (Left Main Artery) = 0 LAD (Left Anterior Descending) = 29 LCX (Left Coronary Circumflex) = 0 RCA (Right Coronary Artery) = 0 Total Calcium Score = 29 using the AJ-130 method. The observed calcium score of 29 is at 19th percentile for subjects of the same age, sex, and race/ethnicity. The interpretation of the calcium heart score is based on the following continuum*: 0 = no calcified plaque detected (risk of coronary artery disease is very low ??? less than 5%) 1-10 = calcium detected in extremely minimal levels (risk of coronary diseases is still low ??? less than 10%) 11-100 = mild levels of plaque detected with certainty (mild or minimal narrowing of heart arteries is likely) 101-400 = definite,at least moderate levels of plaque detected (relatively high risk of a heart attack within 3-5 years) >401-999 = extensive levels of plaque detected (high risk of heart attack, high levels of vascular disease are present, high likelihood of at least one significant coronary narrowing) *The calcium heart score quantifies the burden of coronary calcification/plaque in the coronary arteries. The calcium heart score is not able to evaluate the presence or burden of non-calcified (i.e. soft) plaque. There is no identifiable calcification in the aortic valve, mitral annulus or mitral valve, pericardium, or myocardium. Coronary CT Angiography The coronary arterial system is right dominant. Quantitative Stenosis Grading: Left Main (LM): The left main originates normally from the left sinus of Valsalva. The LM bifurcates into the left anterior descending artery and left circumflex artery. The LM is patent with no evidence of atherosclerosis. Left Anterior Descending (LAD) and Diagonal Branches: The LAD gives off 3 diagonal branch(es). There is mixed calcified/non-calcified plaque in the proximal LAD segment, with up to 25-49% luminal stenosis. There is draw frame tender evidence of LAD-myocardial bridge. Left Circumflex (LCX) and Obtuse Marginals (OM): The LCX gives off 2 Obtuse Marginal (OM) branch(es). The LCX and its branches are patent with no evidence of atherosclerosis. Right Coronary Artery (RCA): The RCA originates normally from the right sinus of Valsalva. The RCA gives off a posterior descending artery (PDA) and posterolateral (PL) branches. The RCA and its branches are patent with no evidence of atherosclerosis. Non-Coronary Cardiac Findings: Analysis of the left ventricular (LV) structure and function was performed after 3-D reconstruction of the LV from axial images, with user-corrected automatic contouring for assessment of LV volumes and user-defined reconstruction from oblique planes for measurement of 3-D cardiac structure and function. -The left ventricle systolic function is normal. -There is no left atrial appendage filling defect. Two right pulmonary veins and two left pulmonary veins drain normally into the left atrium. -No pericardial thickening or calcification. -Central and branch pulmonary arteries in the [id number] are unremarkable. -Thoracic aorta within the visualized thoracic aortic-branches in the [id number] is unremarkable. Extracardiac Structures No significant extra-cardiac findings. Note, however, that this study is focused on the cardiac findings. IMPRESSION -Presence of coronary calcification with an Agatston score = 29 using the AJ-130 method. -The observed calcium score of 29 is at 19th percentile for subjects of the same age, sex, and race/ethnicity. -Mild, non-obstructive atherosclerotic coronary disease in proximal LAD segment, with no evidence of significant flow-limiting atherosclerosis of the coronary arteries. -CAD-RADS 2. Management recommendations per ACC/AHA guidelines*, as clinically appropriate. *Recommendations: CAD RADS 0: Reassurance. Consider non-atherosclerotic causes of chest pain. CAD RADS 1: Consider non-atherosclerotic causes of chest pain. Consider preventive therapy and risk factor modification. CAD RADS 2: Consider non-atherosclerotic causes of chest pain. Consider preventive therapy and risk factor modification, particularly for patients with nonobstructive plaque in multiple segments. CAD RADS 3: Consider further functional testing. Consider symptom-guided anti-ischemic and preventive pharmacotherapy as well as risk factor modification per published guideline statements. CAD RADS 4A: Consider further functional testing or invasive coronary angiography with revascularization per published guideline statements. Consider symptom-guided anti-ischemic and preventive pharmacotherapy as well as risk factor modification per published guideline statements. CAD RADS 4B: Invasive coronary angiography recommended with revascularization per published guideline statements. Consider symptom-guided anti-ischemic and preventive pharmacotherapy as well as risk factor modification per published guideline statements. CAD RADS 5: Consider invasive angiography and/or viability assessment with revascularization per published guideline statements. Consider symptom-guided anti-ischemic and preventive pharmacotherapy as well as risk factor modification per published guideline statements. CRITICAL RESULT None COMMUNICATION Per this written report The coronary and cardiac findings of this CCTA were reviewed, reported, and signed by Marcin Bang MD ([employer]) Conclusion Electronically signed by : Renetta Bang MD 05/08/2025 14:17:07
== END 2025-05-04 13:28 | disposition home or self-care (01) ==
LOC: RAD 11:23
PROVIDERS: PCP Family Medicine; Visit Provider Nurse Practitioner Family
DX: I25.10 Atherosclerotic heart disease of native coronary artery without angina pectoris (principal); I47.20 Ventricular tachycardia, unspecified; I48.0 Paroxysmal atrial fibrillation; I47.10 Supraventricular tachycardia, unspecified; I10 Essential (primary) hypertension; R93.1 Abnormal findings on diagnostic imaging of heart and coronary circulation
CPT/HCPCS: 75574; 80048; J7030; Q9967